=== PATIENT | female | born 1955 | race Caucasian/White ===

== ENCOUNTER 2017-09-25 20:40 | Inpatient (IN) | payer MEDICARE ==
[2017-09-25] MEDS ORDERED: NS 0.9% 1000 ML* 1,000 ML IV ONE (20:51)
[2017-09-25] MEDS ORDERED: LORazepam INJ* 2 MG/ML 1 ML VIAL IV PUSH ONE (20:54)
--- NOTE | 2017-09-25 20:56 | ED ---
Altered Mental Status - HPI Summary HPI Summary: This is a 62 y/o woman found by EMS in [facility] parking lot on the ground, awake but altered. She is unable to give me any history. On my arrival to the room she was leaning to the left and was having some myoclonus or possibly tonic /clonic seizure activity and was unresponsive. When this stopped, she sat up and looked panicky and tried to get off the stretcher. I was able to redirect her and she laid back down. She did directly respond to commands initially but shortly thereafter was able to squeeze my fingers on command. - History Of Current Complaint Stated Complaint: POSSIBLE OVERDOSE Time Seen by Provider: 09/25/17 20:47 Hx From Patient Unobtainable Due To: Altered Mental Status - Allergies/Home Medications Allergies/Adverse Reactions: Allergies Allergy/AdvReac Type Severity Reaction Status Date / Time No Known Allergies Allergy Verified 09/25/17 21:23 Home Medications: Home Medications Unobtainable 09/25/17 [History Confirmed 09/25/17] Review of Systems - ROS Summary Review of Systems Summary: Unable due to altered mental status All Other Systems Reviewed And Are Negative: No Physical Exam Triage Information Reviewed: Yes Vital Signs Reviewed: Yes Completion Of Physical Exam Limited Due To: Altered Mental Status Appearance: Positive: Well-Appearing, Well-Nourished, Thin Skin: Positive: Warm, Skin Color Reflects Adequate Perfusion. Negative: Diaphoretic Head/Face: Positive: Normal Head/Face Inspection Eyes: Positive: Normal, Conjunctiva Clear ENT: Positive: Normal ENT inspection Neck: Positive: Supple, Nontender. Negative: Nuchal Rigidity Respiratory/Lung Sounds: Positive: Clear to Auscultation, Breath Sounds Present. Negative: Rales, Rhonchi Cardiovascular: Positive: Normal, RRR Abdomen Description: Positive: Nontender, No Organomegaly Musculoskeletal: Positive: Normal Neurological: Positive: Unable to Assess Gait. Negative: Facial Droop, Focal Deficit @ Psychiatric: Positive: Patient Uncooperative for Exam - Waka Coma Scale Best Eye Response: 3 - To Speech Best Motor Response: 6 - Obeys Commands Best Verbal Response: 1 - None Coma Scale Total: 10 Diagnostics - Laboratory Result Diagrams: 09/25/17 21:09 09/25/17 21:09 Lab Statement: Any lab studies that have been ordered have been reviewed, and results considered in the medical decision making process. Altered Mental Statu Course/Dx - Course Course Of Treatment: Pt rechecked 30 mins after, now much more coherent. She remembers going to [place] with the friend she is living with. She has a h/o lupus cerebritis with consequent seizure disorder and has been off her anti epileptic meds recently as she ran out and has not had a new doctor here in [place] yet. She also has alcohol on board and there is a question of other substance use, though present presentation is not typical of opioid overdose. - Diagnoses Differential Diagnosis/HQI/PQRI: CVA, Hypoglycemia, Intoxication, Intracranial Bleed, Meningitis, Metabolic Disorder, Postictal State, Seizure Provider Diagnoses: Seizure, Alcohol intoxication Is Visit Related: No - Provider Notifications Discussed Care Of Patient With: Pedro Martinez Time Discussed With Above Provider: 21:45 Instructed by Provider To: Admit As Observation - Critical Care Time Critical Care Time: 30-74 min - Pt presented altered, seizing, required IV antiepileptic therapy and close monitoring. Discharge - Sign-Out/Discharge Documenting (check all that apply): Discharge/Admit/Transfer - Discharge Plan Condition: Good Disposition: ADMITTED TO [facility] Referrals: Marky Morris MD [Primary Care Provider] - - Billing Disposition and Condition Condition: GOOD Disposition: Admitted to [facility]
[2017-09-25] MEDS ORDERED: levETIRAcetam IV* 1,000 MG in NS 0.9% 100 ML* 100 ML IVPB ONE (21:15)
[2017-09-25] MEDS ORDERED: lamoTRIgine TAB(*) 100 MG PO ONE (21:15)
[2017-09-25 21:20] LABS: ABS Basophils 0 10^3/ul (0-0.2); ABS Eosinophils 0.1 10^3/ul (0-0.6); ABS Monocytes 0.4 10^3/ul (0-0.8); ABS Neutrophils 2.7 10^3/ul (1.5-7.7); ABS Nucleated RBC 0 10^3/ul; Eosinophil % 2.5 % (0-6); Hematocrit 30 % (35-47); Hemoglobin 9.9 g/dl (12.0-16.0); Lymphocyte % 37.8 % (25-47); Mean Corpuscular HGB Conc 33 g/dl (31-36); Mean Corpuscular Hemoglobin 27 pg (27-31); Mean Corpuscular Volume 82 fL (80-97); Mean Platelet Volume 8.1 um3 (7.4-10.4); Nucleated Red Blood Cells % 0.1; Platelet Count 151 10^3/ul (150-450); Red Cell Distribution Width 22 % (10.5-15); White Blood Count 5.2 10^3/ul (3.5-10.8)
--- NOTE | 2017-09-25 21:30 | RAD ---
INDICATION: Altered mental status COMPARISON: None TECHNIQUE: Noncontrast axial source images were acquired from the skull base to the vertex. FINDINGS: Ventricles/sulci: The ventricles and cisterns are normal in size and configuration for age. Brain parenchyma: There is no focal parenchymal finding, evidence of intracranial mass, or intracranial mass effect. Intracranial hemorrhage:None. Extra-axial spaces: There are no abnormal extra axial fluid collections or evidence of extra-axial mass. Calvarium: There is no calvarial fracture or other calvarial abnormality. Scalp: There is no evidence of scalp or extracalvarial soft tissue abnormality. Paranasal sinuses/mastoid: The paranasal sinuses and mastoid air cells are clear. Other: None. IMPRESSION: NO ACUTE INTRACRANIAL FINDINGS
[2017-09-25 21:35] LABS: EGFR Non-African American 55.8 (>60)
[2017-09-25] MEDS ORDERED: lamoTRIgine TAB(*) 25 MG PO ONE (22:00)
[2017-09-25] MEDS ORDERED: Nicotine Inhaler* 10 MG AMP INH PRN (23:12)
[2017-09-25] MEDS ORDERED: Albuterol 2.5 MG/3 ML NEB.SOL* (0.083%) INH PRN (23:12)
[2017-09-25] MEDS ORDERED: Ondansetron ODT TAB* 4 MG PO PRN (23:12)
[2017-09-25] MEDS ORDERED: Acetaminophen TAB* 325 MG PO PRN (23:12)
[2017-09-25] MEDS ORDERED: Melatonin 3 MG TAB PO PRN (23:12)
[2017-09-25] MEDS ORDERED: Mouth Piece, Nicotine* 1 EACH CARTRIDGE INH PRN (23:15)
--- NOTE | 2017-09-25 23:15 | HP ---
H&P (Free Text) History and Physical: PCP: Damion Morris MD prior PCP: Raul Disla MD in [place], [place] Date/Time: 09/25/2017 2250 CC: AMS HPI: Mrs Alonso is a 62YO female tangential & poor historian who is new to the area with HX of "lupus cerebritis", seizure disorder, & "demylinating polyneuropathy" who moved to the area 1 month ago from [place]. She also reports "chronic kidney failure" although her renal function tonight is normal. She states she did not eat today and has not been sleeping well. She went to [facility] with her ex-boyfriend with whom she is living and while there became "dizzy" and "passed out". She does not believe she hit her head. EMS was called and reported to ED upon arrival that she had track del rio on her arms. However, none are seen on my exam. She was described by the ED physician as appearing post-ictal and confused upon arrival, but has improved and able to give a history although not well. PMedHx "lupus cerebritis" seizure disorder "demyelinating polyneuropathy" "chronic kidney failure" Ambulatory Orders Unobtainable 09/25/17 Allergies No Known Allergies Allergy (Verified 09/25/17 21:23) PSurgHx B breast augmentation x2 SocHx: 1/2 PPD cigarettes, 1 bottle wine daily, denies recreational drugs; lives with her ex-boyfriend; full code status FamHx: Mother passed in her 70s w/ ESRD, CVA, CAD. Father: unknown ROS: as above, otherwise reviewed and all were negative vitals: Vital Signs Temp 36.8 C 09/25/17 20:56 Pulse 61 09/25/17 22:01 Resp 16 09/25/17 22:01 BP 144/82 09/25/17 21:44 Pulse Ox 97 09/25/17 22:01 Intake & Output 09/24/17 09/25/17 09/25/17 23:59 11:59 23:59 Intake Total 1110 Balance 1110 Weight 65.771 kg Intake: IV Fluids 1110 Constitutional: NAD, normally developed, well-nourished white female appearing much older than her states age HEENM: atraumatic; sclera/conjunctiva: anicteric/clear; hearing: clinically moderately decreased; oropharynx: clear, mucosa moist Neck: soft tissue: non-tender; thyroid: normal Pulmonary: clear to auscultation bilaterally, good aeration, no accessory muscle use CV: BR/RR, normal S1S2, no carotid bruit, no jugular venous distention, 2+ B DP/ PT, no edema Abdominal: soft, non-distended, non-tender, no rebound/guarding/rigidity, normoactive bowel sounds, no hepatosplenomegaly or masses, no costovertebral angle tenderness Musculoskeletal: general: ;grossly intact, non-tender, no cervical spine tenderness Integumental: normal appearance and texuture of exposed skin Psychiatric orientation: AA&O to PPS affect: calm mood: cooperative eye contact: fair content: not readily reliable responses: mildly slowed insight: poor Testing: Lab Results 09/25/17 09/25/17 09/25/17 Range/Units 21:09 21:09 21:09 WBC 5.2 (3.5-10.8) 10^3/ul RBC 3.60 L (4.00-5.40) 10^6/ul Hgb 9.9 L (12.0-16.0) g/dl Hct 30 L (35-47) % MCV 82 (80-97) fL MCH 27 (27-31) pg MCHC 33 (31-36) g/dl RDW 22 H (10.5-15) % Plt Count 151 (150-450) 10^3/ul MPV 8.1 (7.4-10.4) um3 Neut % (Auto) 51.5 (38-83) % Lymph % (Auto) 37.8 (25-47) % Roosevelt % (Auto) 7.5 H (0-7) % Eos % (Auto) 2.5 (0-6) % Baso % (Auto) 0.7 (0-2) % Absolute Neuts (auto) 2.7 (1.5-7.7) 10^3/ul Absolute Lymphs (auto) 2.0 (1.0-4.8) 10^3/ul Absolute Monos (auto) 0.4 (0-0.8) 10^3/ul Absolute Eos (auto) 0.1 (0-0.6) 10^3/ul Absolute Basos (auto) 0 (0-0.2) 10^3/ul Absolute Nucleated RBC 0 10^3/ul Nucleated RBC % 0.1 Sodium 139 (135-145) mmol/L Potassium 4.0 (3.5-5.0) mmol/L Chloride 105 (101-111) mmol/L Carbon Dioxide 25 (22-32) mmol/L Anion Gap 9 (2-11) mmol/L BUN 15 (6-24) mg/dL Creatinine 1.00 H (0.51-0.95) mg/dL Est GFR ( Amer) 67.5 (>60) Est GFR (Non-Af Amer) 55.8 (>60) BUN/Creatinine Ratio 15.0 (8-20) Glucose 94 (70-100) mg/dL Lactic Acid 1.4 (0.5-2.0) mmol/L Calcium 8.8 (8.6-10.3) mg/dL Total Bilirubin 0.20 (0.2-1.0) mg/dL AST 46 H (13-39) U/L ALT 42 (7-52) U/L Alkaline Phosphatase 89 (34-104) U/L Total Protein 6.4 (6.4-8.9) g/dL Albumin 3.6 (3.2-5.2) g/dL Globulin 2.8 (2-4) g/dL Albumin/Globulin Ratio 1.3 (1-3) Acetaminophen < 15 mcg/mL Serum Alcohol 189 H (<10) mg/dL CT brain WO, personally reviewed: IMPRESSION: NO ACUTE INTRACRANIAL FINDINGS CT C-spine WO: ordered, pending Impression: 62F w/ questionable PMedHX presents with a syncopal episode, likely a seizure related to poor sleep, poor oral intake, & alcohol consumption; due to her reported PMedHX & ongoing poor historian ability will observe overnight DIAGNOSIS & PLAN Primary syncope : given levetiracetam 1g IV, lamotrigine 100mg PO, & lorazepam 1mg IV in ED : continue levetriacetam 500mg PO BID until home dose determined : C-spine tonight : EEG in AM : seizure precautions : consider neurology consult in AM to expedite outpatient follow up : request records from PCP in [place] acute intoxication : tincture of time : [place] protocol Secondary multiple unusual diagnoses some of which are refuted on labs tonight : obtain Admission Rational: observation for syncope, suspect seizure DVTp: SCDs Code Status: full
[2017-09-25] MEDS ORDERED: Thiamine IV* 100 MG/ML 2 ML VIAL IM ONE (23:21)
[2017-09-26] MEDS: NS 0.9% 1000 ML* 1,000 ML IV SCH ×2 (02:00→10:26)
[2017-09-26] MEDS: LORazepam INJ* 2 MG/ML 1 ML VIAL IV PUSH SCH ×5 (02:00→18:07)
[2017-09-26] MEDS: LORazepam TAB(*) 1 MG PO SCH ×2 (02:02→07:24)
[2017-09-26 03:12] LABS: Urine Appearance Clear; Urine Blood Negative (Negative); Urine Color Straw; Urine Ketones Negative (Negative); Urine Protein 1+(30 mg/dL) (Negative); Urine Red Blood Cell Trace(0-2/hpf) (Absent); Urine Specific Gravity 1.005 (1.010-1.030); Urine Urobilinogen Negative (Negative); Urine White Blood Cell Trace(0-5/hpf) (Absent)
[2017-09-26] MEDS: Omeprazole CAP* 20 MG PO SCH (05:35)
[2017-09-26 06:57] LABS: Hematocrit 33 % (35-47); Hemoglobin 10.8 g/dl (12.0-16.0); Mean Corpuscular HGB Conc 33 g/dl (31-36); Mean Corpuscular Hemoglobin 28 pg (27-31); Mean Corpuscular Volume 83 fL (80-97); Mean Platelet Volume 8.5 um3 (7.4-10.4); Platelet Count 151 10^3/ul (150-450); Red Blood Count 3.95 10^6/ul (4.00-5.40); Red Cell Distribution Width 22 % (10.5-15); White Blood Count 3.5 10^3/ul (3.5-10.8)
[2017-09-26] MEDS: Folic Acid TAB* 1 MG PO SCH (07:23)
[2017-09-26] MEDS: Docusate CAP* 100 MG PO SCH ×2 (07:23→20:47)
[2017-09-26] MEDS: Multivitamins/Minerals TAB PO SCH (07:23)
[2017-09-26] MEDS: Thiamine TAB* 100 MG TAB PO SCH (07:23)
--- NOTE | 2017-09-26 07:45 | RAD ---
INDICATION: Patient found down in grocery store. COMPARISON: None. TECHNIQUE: Axial source images were acquired with coronal and sagittal reformatting. FINDINGS: The cervical vertebrae are normally aligned. There is no fracture or focal bony lesion. The canal and foramina appear widely patent. The odontoid and the atlantodental interval are normal. The prevertebral soft tissues appear normal. The visualized soft tissue elements of the neck are normal. The visualized lung apices are clear. IMPRESSION: NO ACUTE FRACTURE OR DISLOCATION OF THE CERVICAL SPINE.
[2017-09-26] MEDS ORDERED: levETIRAcetam TAB* 500 MG PO SCH (09:00)
[2017-09-26] MEDS ORDERED: HYDROcodone/ACET. 7.5/325 LIQ* 15 ML UDC PO PRN (09:24)
[2017-09-26] MEDS ORDERED: clonazePAM TAB(*) 1 MG PO ONE (09:25)
[2017-09-26] MEDS: cloNIDine TAB* 0.1 MG PO SCH ×3 (10:26→23:13)
[2017-09-26] MEDS: clonazePAM TAB(*) 1 MG PO SCH ×2 (15:32→20:47)
--- NOTE | 2017-09-26 16:03 | PN ---
Subjective Date of Service: 09/26/17 Interval History: Pt stated that she lives with ex boyfriend and his son. She drinks "not that much". Has h/o seizure disorder and seized 5 time in the past 2 weeks. Reports h/o: IBS, seizure disorder, CKD, Graves, SLE, Sjogren's Had not seen her doctor in [place] x [address] Morris on 08/28/17 Initially requested to be discharged home, but later on after receiving Lortab for pain agreed to stay. Needed 4 mg of Ativan in AM for withdrawal symptoms Denies hallucinations Objective Active Medications: Acetaminophen (Tylenol Tab*) 650 mg PO Q6H PRN PRN Reason: FEVER/PAIN Hydrocodone Bitart/Acetaminophen (Nortab 7.5/325 Liq*) 5 ml PO Q6H PRN PRN Reason: PAIN Last Admin: 09/26/17 09:41 Dose: 5 ml Albuterol (Ventolin 2.5 Mg/3 Ml Neb.Gilma*) 2.5 mg INH Q2H PRN PRN Reason: SOB/WHEEZING Clonazepam (Klonopin Tab(*)) 1 mg PO TID [facility] Last Admin: 09/26/17 15:32 Dose: 1 mg Clonidine HCl (Catapres Tab*) 0.1 mg PO Q6HR [facility] Last Admin: 09/26/17 10:26 Dose: 0.1 mg Device (Nicotine Mouth Piece*) 1 each INH .USE WITH NICOTROL PRN PRN Reason: CRAVING Docusate Sodium (Colace Cap*) 100 mg PO BID [facility] Last Admin: 09/26/17 07:23 Dose: 100 mg Fluoxetine HCl (Prozac Cap*) 40 mg PO BID [facility] Folic Acid (Folvite Tab*) 1 mg PO DAILY [facility] Last Admin: 09/26/17 07:23 Dose: 1 mg Lamotrigine (Lamictal Tab(*)) 200 mg PO BID [facility] Levetiracetam (Keppra Tab*) 500 mg PO TID [facility] Levothyroxine Sodium (Synthroid Tab*) 150 mcg PO 0600 [facility] Lorazepam (Ativan Inj*) 0 - 6 mg IV PUSH .PER [facility] PROTOCOL [facility]; Protocol Last Admin: 09/26/17 11:21 Dose: 2 mg Melatonin (Melatonin) 3 mg PO BEDTIME PRN; Protocol PRN Reason: Sleep Multivitamins/Minerals (Theragran/Minerals Tab*) 1 tab PO DAILY [facility] Last Admin: 09/26/17 07:23 Dose: 1 tab Nicotine (Nicotine Inhaler*) 10 mg INH Q2H PRN PRN Reason: CRAVING Olanzapine (Zyprexa Tab*) 10 mg PO BEDTIME [facility]NA[facility] Omeprazole (Prilosec Cap*) 20 mg PO DAILY@0600 [facility] Last Admin: 09/26/17 05:35 Dose: Not Given Ondansetron HCl (Zofran Odt Tab*) 4 mg PO Q6H PRN PRN Reason: n/v Last Admin: 09/26/17 09:43 Dose: 4 mg Thiamine HCl (Vitamin B-1 Tab*) 100 mg PO DAILY [facility] Last Admin: 09/26/17 07:23 Dose: 100 mg Vital Signs - 8 hr 09/26/17 09/26/17 09/26/17 09:32 09:41 09:42 Temperature Pulse Rate Respiratory 20 20 20 Rate Blood Pressure (mmHg) O2 Sat by Pulse Oximetry 09/26/17 09/26/17 09/26/17 09:50 10:15 11:21 Temperature Pulse Rate 56 Respiratory 16 20 Rate Blood Pressure 199/97 184/98 (mmHg) O2 Sat by Pulse 100 Oximetry 09/26/17 09/26/17 09/26/17 11:22 11:58 12:20 Temperature 97.5 F Pulse Rate 58 Respiratory 16 20 16 Rate Blood Pressure 154/79 (mmHg) O2 Sat by Pulse 99 Oximetry 09/26/17 09/26/17 13:28 15:32 Temperature Pulse Rate 57 Respiratory 16 20 Rate Blood Pressure 126/55 (mmHg) O2 Sat by Pulse 98 Oximetry Oxygen Devices in Use Now: None Appearance: 62 yo F , mildly tremolous, in NAD, aAOx3 Eyes: No Scleral Icterus, PERRLA Ears/Nose/Mouth/Throat: NL Teeth, Lips, Gums, Mucous Membranes Moist Neck: NL Appearance and Movements; NL JVP, Trachea Midline Respiratory: Symmetrical Chest Expansion and Respiratory Effort, Clear to Auscultation Cardiovascular: NL Sounds; No Murmurs; No JVD, RRR Abdominal: NL Sounds; No Tenderness; No Distention Lymphatic: No Cervical Adenopathy Extremities: No Edema, No Clubbing, Cyanosis Skin: No Nodules or Sclerosis, - - ecchymoses on b/l arms and R forehead-as per pt -from seizures/falls Neurological: Alert and Oriented x 3, NL Muscle Strength and Tone, - - tremors in b/l UE's Result Diagrams: 09/26/17 06:24 09/26/17 06:24 Assess/Plan/Problems-Billing Assessment: 62 yo F with h/o reported seizures, ETOH abuse, IBS, SLE presents after a syncopal episode when intoxicated - Patient Problems (1) Seizure Comment: It is unknown if pt's presentation was due to seizure. Could be related simply to ETOH intoxication EEG pending Dr. Ross consulted. Cont home Keppra and Lamictal as well as clonazepam suspect pt is not taking her medications as prescribed (2) Syncope Comment: see above, will also cont telem to r/o arrythmia (3) Hypothyroidism Comment: cont home synthroid check TSH (4) Alcohol withdrawal Comment: Pt is actively withdrawing cont thiamine/folate Ask SW to see pt cont WAM (5) DVT prophylaxis Comment: HSQ Status and Disposition: OBV will be changed to inpatient due to ETOH withdrawal
[2017-09-26] MEDS: HYDROcodone/ACET. 7.5/325 LIQ* 15 ML UDC PO PRN (18:04)
[2017-09-26] MEDS: lamoTRIgine TAB(*) 100 MG PO SCH (20:47)
[2017-09-26] MEDS: levETIRAcetam TAB* 500 MG PO SCH (20:47)
[2017-09-26] MEDS: FLUoxetine CAP* 20 MG PO SCH (20:48)
[2017-09-26] MEDS ORDERED: OLANzapine TAB* 10 MG PO SCH (21:00)
--- NOTE | 2017-09-26 23:24 | CONS ---
CONSULTATION REPORT: DATE OF CONSULT: 09/26/17 PATIENT OF: Dr. Morris and Dr. Coates. HISTORY OF PRESENT ILLNESS: This is a 62-year-old woman asked to evaluate for her seizure disorder which she says is longstanding secondary to a diagnosis of lupus cerebritis and is maintained on Keppra, Lamictal, and Klonopin by her neurologist in [place], although, at one point in the chart it says [place]. The seizures had been poorly controlled for a while, but on this combination of Lamictal, Keppra, and Klonopin, she did not have seizures for 6 months' time. She moved here in the past month, ran out of medicine for a while and had several seizures. She was given her meds again and said that she had a possible seizure with passing out spell in [employer] last night. She apparently had track del rio on her arms as well. The ER physician noted that she was confused upon arrival, but then improved. She is a poor historian and cannot give specific consistent history, but notes that she has lupus cerebritis, seizure disorder, demyelinating polyneuropathy, chronic kidney failure. She is status post 2 breast augmentations. MEDICATIONS: Her meds include: 1. Keppra. 2. Lamictal. 3. Klonopin. Per the patient, but she does not know doses. FAMILY HISTORY: Her mother has end-stage renal disease, CVA, and coronary artery disease. Her father is unknown. SOCIAL HISTORY: She smokes half a pack of cigarettes a day. She denies any alcohol to me other than drinking significantly yesterday, but she apparently said that she drinks a bottle of wine daily. She denied recreational drugs. REVIEW OF SYSTEMS: Negative in all 14 spheres, other than in the HPI. PHYSICAL EXAM: Temperature 97.9, pulse 55, respiratory rate is 18, blood pressure 167/78. She was alert and oriented with fluent speech, but tended to ramble. She could follow 2-step commands. Cranial nerves II through XII were nonfocal. Discs were sharp. Motor exam revealed normal tone and strength. [id number], no flap and gait was not tested tonight. Sensation intact to light touch. Reflexes were 1+. Toes were downgoing. Chest: Clear. Cardiovascular: Regular rate and rhythm. Abdomen: Soft. DIAGNOSTIC STUDIES/LAB DATA: She had a negative CT scan. Her EEG showed no epileptiform potentials. She had a white count of 3.5. Hematocrit of 33, platelet count of 151. Her CMP was normal other than an AST of 46. She had negative UA. Negative tox screen. Her serum alcohol was 189. CT of her C- spine showed no dislocation or acute fracture. ASSESSMENT AND PLAN: Brissa Alonso's story is hard to be sure about. By her account, she has had a chronic seizure disorder and is on multiple meds with fair control. It is unclear whether the episode in [facility] where she passed out was due to alcohol toxicity and exactly the extent of her substance abuse. I would think that most valuable test is getting the outside records from her prior treating neurologist to verify the story. I would be concerned about the use of Klonopin in this patient, who has a substance abuse issue and I would like to see if she was on Klonopin through her neurologist. It is an antiseizure medicine, but has a potential of it being misused. We also should check Keppra, Lamictal levels. This was apparently not done on admission and her levels may reflect in part what she got in the hospital, but may reflect whether she was compliant with her meds at home and she will need a followup level as well. I will be glad to be her neurologist. Once I get further records from the ED, further testing, would like to see if and when her MRI of the brain was done for instance and what the results were. Thank you for sharing her case. [id number]/[facility] #: [id number] JEAN
--- NOTE | 2017-09-27 02:42 | EEG ---
ELECTROENCEPHALOGRAPHY: DATE OF STUDY: 09/26/17 - ROOM #438 DATE OF DICTATION: 09/26/17 PATIENT OF: Dr. Martinez. CLINICAL PROBLEM: This is a 62-year-old woman being evaluated after she was found confused on the floor at [facility]. She was leaning to the left and possibly having abnormal movements. She has a history of lupus cerebritis, seizure disorder, but has been off seizure medicines for a month. She has a history of drug and alcohol abuse and is on the [facility] protocol. MEDICATIONS: Include: 1. Prilosec. 2. Melatonin. 3. Nicotine. 4. Zofran. 5. Ativan. 6. Colace. 7. Keppra. 8. B vitamins. REPORT: With the patient awake, background cerebral activity consists of moderate amplitude 9 Hz rhythm. There is some admixed beta activity and at times some admixed diffuse theta range frequencies. The patient never falls asleep. No activation procedures are performed. No focal abnormalities, major asymmetries of background, or epileptiform potentials are noted. CLINICAL IMPRESSION: This awake EEG shows no major abnormalities, beta activity and the theta activity may be associated with medications the patient is consuming. [id number]/[facility] #: [id number] [facility]
[2017-09-27] MEDS: Omeprazole CAP* 20 MG PO SCH (05:04)
[2017-09-27] MEDS: cloNIDine TAB* 0.1 MG PO SCH (05:04)
[2017-09-27] MEDS ORDERED: Levothyroxine TAB* 150 MCG TAB PO SCH (06:00)
[2017-09-27] MEDS: LORazepam INJ* 2 MG/ML 1 ML VIAL IV PUSH SCH (06:23)
[2017-09-27] MEDS: HYDROcodone/ACET. 7.5/325 LIQ* 15 ML UDC PO PRN (06:34)
[2017-09-27] MEDS ORDERED: cloNIDine TAB* 0.1 MG PO ONE (09:00)
[2017-09-27] MEDS: Folic Acid TAB* 1 MG PO SCH (09:27)
[2017-09-27] MEDS: levETIRAcetam TAB* 500 MG PO SCH (09:28)
[2017-09-27] MEDS: Docusate CAP* 100 MG PO SCH (09:28)
[2017-09-27] MEDS: clonazePAM TAB(*) 1 MG PO SCH (09:28)
[2017-09-27] MEDS: FLUoxetine CAP* 20 MG PO SCH (09:28)
[2017-09-27] MEDS: Thiamine TAB* 100 MG TAB PO SCH (09:28)
[2017-09-27] MEDS: Multivitamins/Minerals TAB PO SCH (09:29)
[2017-09-27] MEDS: lamoTRIgine TAB(*) 100 MG PO SCH (09:29)
[2017-09-27] MEDS ORDERED: cloNIDine TAB* 0.1 MG PO SCH (12:00)
[2017-09-27 12:34] VITALS: BP 143/52
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
== END 2017-09-27 13:36 | disposition home or self-care (01) | DRG 897 ==
LOC: ED 20:40 → MEDTELE 09-26 → OBSVTOIN 09-26 14:57
PROVIDERS: ADMIT Hospitalist; ATTEND Internal Medicine
PROC: 4A00X4Z Measurement of Central Nervous Electrical Activity, External Approach (ICD-10-PCS; principal; 2017-09-26)
DX: F10.239 Alcohol dependence with withdrawal, unspecified (principal); G61.81 Chronic inflammatory demyelinating polyneuritis; F10.229 Alcohol dependence with intoxication, unspecified; R40.2362 Coma scale, best motor response, obeys commands, at arrival to emergency department; R40.2242 Coma scale, best verbal response, confused conversation, at arrival to emergency department; G40.909 Epilepsy, unspecified, not intractable, without status epilepticus; N18.9 Chronic kidney disease, unspecified; F31.9 Bipolar disorder, unspecified; I10 Essential (primary) hypertension; F41.9 Anxiety disorder, unspecified; M32.9 Systemic lupus erythematosus, unspecified; S00.83XA Contusion of other part of head, initial encounter; S40.022A Contusion of left upper arm, initial encounter; S40.021A Contusion of right upper arm, initial encounter; Y90.6 Blood alcohol level of 120-199 mg/100 ml; D64.9 Anemia, unspecified; E03.9 Hypothyroidism, unspecified; Z72.89 Other problems related to lifestyle; F17.210 Nicotine dependence, cigarettes, uncomplicated; Z82.3 Family history of stroke; Z84.2 Family history of other diseases of the genitourinary system; Z82.49 Family history of ischemic heart disease and other diseases of the circulatory system
CPT/HCPCS: 36415; 70450; 72125; 80048; 80053; 80307; 80320; 80329; 81003; 81015; 83605; 84443; 85025; 85027; 87086; 93005; 95819; 99283; 99406; A9270-GY; G0378; G0480; J2060; J3411

== ENCOUNTER 2017-10-04 16:11 | Emergency (ER) | payer MEDICARE ==
[2017-10-04 17:36] LABS: ABS Basophils 0 10^3/ul (0-0.2); ABS Eosinophils 0.1 10^3/ul (0-0.6); ABS Lymphocytes 1.4 10^3/ul (1.0-4.8); ABS Monocytes 0.4 10^3/ul (0-0.8); ABS Neutrophils 1.7 10^3/ul (1.5-7.7); ABS Nucleated RBC 0 10^3/ul; Eosinophil % 2.5 % (0-6); Hematocrit 31 % (35-47); Hemoglobin 10.3 g/dl (12.0-16.0); Lymphocyte % 37.4 % (25-47); Mean Corpuscular HGB Conc 33 g/dl (31-36); Mean Corpuscular Hemoglobin 28 pg (27-31); Mean Corpuscular Volume 83 fL (80-97); Mean Platelet Volume 7.9 um3 (7.4-10.4); Nucleated Red Blood Cells % 0.1; Platelet Count 196 10^3/ul (150-450); Red Blood Count 3.73 10^6/ul (4.00-5.40); Red Cell Distribution Width 23 % (10.5-15); White Blood Count 3.6 10^3/ul (3.5-10.8)
[2017-10-04 17:44] LABS: EGFR Non-African American 57.8 (>60)
--- NOTE | 2017-10-04 17:50 | ED ---
Psychiatric Complaint - HPI Summary HPI Summary: This patient is a 62 year old F presenting to [facility] with a chief complaint of SI since this afternoon. She endorses she has SI with plan to jump off of a maria [place]. Pt endorses abd pain, depression, endorses she had too much to drink. Pt denies taking drugs, PMHx depression, bipolar disorder. - History Of Current Complaint Chief Complaint: EDMentalHealth Time Seen by Provider: 10/04/17 16:34 Hx Obtained From: Patient Onset/Duration: Lasting Hours, Still Present Timing: Constant Severity Initially: Moderate Severity Currently: Moderate Character: Depressed, Lethargic Aggravating Factor(s): Alcohol Use Alleviating Factor(s): Nothing Associated Signs And Symptoms: Positive: Confused Related History: Positive For: Prior Psychiatric Issues Has Suicidal: Reports: Thoughts, With A Plan - "To jump off of a maria [place]" Has Homicidal: Denies: Thoughts Ingestion History: Type/Name Of Drug - EtOH - Allergies/Home Medications Allergies/Adverse Reactions: Allergies Allergy/AdvReac Type Severity Reaction Status Date / Time No Known Allergies Allergy Verified 09/25/17 21:23 PMH/Surg Hx/FS Hx/Imm Hx Endocrine/Hematology History: Reports: Hx Systemic Lupus Erythematosus History: Reports: Hx Chronic Renal Failure - labs do not show Sensory History: Reports: Hx Contacts or Glasses Denies: Hx Hearing Aid Opthamlomology History: Reports: Hx Contacts or Glasses EENT History: Denies: Hx Deafness Neurological History: Reports: 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, Hx Seizures Psychiatric History: Reports: Hx Anxiety, Hx Depression, Hx Bipolar Disorder, Hx Substance Abuse, Other Psychiatric Issues/Disorders - SI - Surgical History Surgery Procedure, Year, and Place: breast augmentation Infectious Disease History: Denies: Traveled Outside the US in Last 30 Days - Family History Known Family History: Negative: Blood Disorder - Social History Alcohol Use: BInge Drinker Substance Use Type: Reports: None Substance Use Comment - Amount & Last Used: pt unable to answer at this time Smoking Status (MU): Heavy Every Day Tobacco Smoker Review of Systems Negative: Fever Positive: Abdominal Pain Positive: Depressed, Other - SI with a plan All Other Systems Reviewed And Are Negative: Yes Physical Exam - Summary Physical Exam Summary: Appearance: no pain distress, lethargic Skin: warm, dry, reflects adequate perfusion Head/face: normal Eyes: EOMI, ASHLEY ENT: normal Neck: supple, non-tender Respiratory: CTA, breath sounds present Cardiovascular: RRR, pulses symmetrical Abdomen: non-tender, soft Bowel: present Musculoskeletal: normal, strength/ROM intact Neuro: normal, sensory motor intact, A&Ox3 Triage Information Reviewed: Yes Vital Signs On Initial Exam: Initial Vitals Temp 99.3 F 10/04/17 16:49 Vital Signs Reviewed: Yes Diagnostics - Vital Signs Vital Signs Temp 10/04/17 16:49 99.3 F - Laboratory Lab Results: Lab Results 10/04/17 10/04/17 Range/Units 17:20 17:20 WBC 3.6 (3.5-10.8) 10^3/ul RBC 3.73 L (4.00-5.40) 10^6/ul Hgb 10.3 L (12.0-16.0) g/dl Hct 31 L (35-47) % MCV 83 (80-97) fL MCH 28 (27-31) pg MCHC 33 (31-36) g/dl RDW 23 H (10.5-15) % Plt Count 196 (150-450) 10^3/ul MPV 7.9 (7.4-10.4) um3 Neut % (Auto) 47.4 (38-83) % Lymph % (Auto) 37.4 (25-47) % [place] % (Auto) 11.7 H (0-7) % Eos % (Auto) 2.5 (0-6) % Baso % (Auto) 1.0 (0-2) % Absolute Neuts (auto) 1.7 (1.5-7.7) 10^3/ul Absolute Lymphs (auto) 1.4 (1.0-4.8) 10^3/ul Absolute Monos (auto) 0.4 (0-0.8) 10^3/ul Absolute Eos (auto) 0.1 (0-0.6) 10^3/ul Absolute Basos (auto) 0 (0-0.2) 10^3/ul Absolute Nucleated RBC 0 10^3/ul Nucleated RBC % 0.1 Sodium 140 (135-145) mmol/L Potassium 4.2 (3.5-5.0) mmol/L Chloride 108 (101-111) mmol/L Carbon Dioxide 21 L (22-32) mmol/L Anion Gap 11 (2-11) mmol/L BUN 32 H (6-24) mg/dL Creatinine 0.97 H (0.51-0.95) mg/dL Est GFR ( Amer) 70.0 (>60) Est GFR (Non-Af Amer) 57.8 (>60) BUN/Creatinine Ratio 33.0 H (8-20) Glucose 102 H (70-100) mg/dL Calcium 8.8 (8.6-10.3) mg/dL Total Bilirubin 0.20 (0.2-1.0) mg/dL AST 33 (13-39) U/L ALT 22 (7-52) U/L Alkaline Phosphatase 88 (34-104) U/L Total Protein 6.5 (6.4-8.9) g/dL Albumin 3.6 (3.2-5.2) g/dL Globulin 2.9 (2-4) g/dL Albumin/Globulin Ratio 1.2 (1-3) TSH Pending Salicylates Pending Acetaminophen Pending Serum Alcohol Pending Result Diagrams: 10/04/17 17:20 10/04/17 17:20 Lab Statement: Any lab studies that have been ordered have been reviewed, and results considered in the medical decision making process. Course/Dx - Course Course Of Treatment: A 62-year-old F presents to the ED with a CC of SI with a plan. (+) depression, SI, abd pain. (-) taking ilicit drugs. PMHx depression, bipolar disorder. In the ED course, pt was given a nicotine inhaler and benadryl. - Differential Dx/Clinical Impression Provider Diagnosis: Alcohol intoxication, Depression Discharge - Sign-Out/Discharge Documenting (check all that apply): Sign-Out Patient Signing out patient TO: Barbra Segura - pending MHE - Discharge Plan Referrals: Marky Morris MD [Primary Care Provider] -
[2017-10-04] MEDS ORDERED: diPHENhydraMINE PO* 50 MG ONE (17:51)
[2017-10-04 18:14] LABS: Urine Appearance Clear; Urine Blood Negative (Negative); Urine Color Straw; Urine Ketones Negative (Negative); Urine Protein 1+(30 mg/dL) (Negative); Urine Red Blood Cell Absent (Absent); Urine Specific Gravity 1.009 (1.010-1.030); Urine Urobilinogen Negative (Negative); Urine White Blood Cell Trace(0-5/hpf) (Absent)
[2017-10-04] MEDS ORDERED: Mouth Piece, Nicotine* 1 EACH CARTRIDGE ONE (18:31)
[2017-10-04] MEDS ORDERED: Nicotine Inhaler* 10 MG AMP ONE (18:31)
[2017-10-04] MEDS ORDERED: Nicotine Inhaler* 10 MG AMP INH ONE (18:33)
[2017-10-04] MEDS ORDERED: Mouth Piece, Nicotine* 1 EACH CARTRIDGE INH ONE (18:33)
[2017-10-05] MEDS ORDERED: LORazepam TAB(*) 1 MG PO ONE (05:44)
[2017-10-05] MEDS ORDERED: Diphenoxylat/Atrop 2.5-0.025M* 1 TAB PO ONE (05:45)
[2017-10-05] MEDS ORDERED: cloNIDine TAB* 0.1 MG PO SCH (06:00)
--- NOTE | 2017-10-05 06:42 | ED ---
Progress - Progress Note Progress Note: 62yo F with hx lupus, ETOH abuse seen and examined in Flex unit after presenting for suicidal ideation when intoxicated. Pt moved here recently from [place], states she has had multiple rehab admissions. States she wants to quit alcohol. Had labs done for lupus recently that are normal, indicating no lupus flare. Pt denies physical complaints and is fully sober, calm and coherent when I speak with her. PE Pt alert, NAD HEENT: neg Neck supple Cor S1 S2 Lungs clear Abd benign Extrem: no deformities Neuro: alert O x 3, moves all extremities well, facial symmetry, no focal deficit. GCS 15 - Consult/PCP Time Called: 19:44 Course/Dx - Course Course Of Treatment: A 62-year-old F presents to the ED with a CC of SI with a plan. (+) depression, SI, abd pain. (-) taking ilicit drugs. PMHx depression, bipolar disorder. In the ED course, pt was given a nicotine inhaler and benadryl. 10/05/17: 0630: Faina FIELDS relayed that per Dr. Moreira, pt may be DC' d with dx polysubstance abuse, and given info about outpt resources for mental health and alcohol misuse. - Diagnoses Provider Diagnoses: Alcohol intoxication, Depression, Polysubstance abuse, Anemia Discharge - Sign-Out/Discharge Documenting (check all that apply): Patient Departure - home, Receiving Sign-Out Receiving patient FROM: Dagoberto Gaona - 2200 10/04/17 - Discharge Plan Condition: Stable Disposition: HOME Referrals: Marky Morris MD [Primary Care Provider] - 2 Days - Billing Disposition and Condition Condition: STABLE Disposition: Home
[2017-10-05 08:42] VITALS: BP 166/83
[2017-10-05] MEDS ORDERED: lamoTRIgine TAB(*) 100 MG PO SCH (09:00)
[2017-10-05] MEDS ORDERED: clonazePAM TAB(*) 1 MG PO SCH (09:00)
[2017-10-05] MEDS ORDERED: Levothyroxine TAB* 150 MCG TAB PO SCH (09:00)
[2017-10-05] MEDS ORDERED: Folic Acid TAB* 1 MG PO SCH (09:00)
[2017-10-05] MEDS ORDERED: levETIRAcetam TAB* 500 MG PO SCH (09:00)
[2017-10-05] MEDS ORDERED: Thiamine TAB* 100 MG TAB PO SCH (09:00)
[2017-10-05] MEDS ORDERED: FLUoxetine CAP* 20 MG PO SCH (09:00)
[2017-10-05] MEDS ORDERED: OLANzapine TAB* 10 MG PO SCH (21:00)
== END 2017-10-05 09:04 | disposition home or self-care (01) ==
LOC: ED 16:11
DX: F10.129 Alcohol abuse with intoxication, unspecified (principal); Y90.9 Presence of alcohol in blood, level not specified; F19.10 Other psychoactive substance abuse, uncomplicated; F32.9 Major depressive disorder, single episode, unspecified; D64.9 Anemia, unspecified
CPT/HCPCS: 36415; 80053; 80307; 80320; 80329; 81003; 81015; 84443; 85025; 85060; 87086; 99285; A9270-GY; G0480

== ENCOUNTER 2017-10-10 13:05 | Emergency (ER) | payer MEDICARE ==
--- NOTE | 2017-10-10 13:46 | ED ---
Psychiatric Complaint - HPI Summary HPI Summary: Pt AISHWARYA is a 62 y/o F p/w psychiatric complaint. She states that she cannot stop drinking or find help for it. She admits to SI without a plan but denies HI. Assoc. Sx: Decreased Appetite, depressed. - History Of Current Complaint Chief Complaint: EDMentalHealth Time Seen by Provider: 10/10/17 13:31 Hx Obtained From: Patient Onset/Duration: Gradual Onset, Lasting Weeks, Still Present Timing: Constant Character: Depressed Aggravating Factor(s): Recent Stress, Alcohol Use Alleviating Factor(s): Nothing Has Suicidal: Reports: Thoughts. Denies: With A Plan Has Homicidal: Denies: Thoughts - Allergies/Home Medications Allergies/Adverse Reactions: Allergies Allergy/AdvReac Type Severity Reaction Status Date / Time lithium Allergy Anaphylatic Verified 10/10/17 13:30 Shock prednisone Allergy GI Upset Verified 10/10/17 13:30 Sulfa (Sulfonamide Allergy Anaphylatic Verified 10/10/17 13:30 Antibiotics) Shock PMH/Surg Hx/FS Hx/Imm Hx Endocrine/Hematology History: Reports: Hx Systemic Lupus Erythematosus History: Reports: Hx Chronic Renal Failure - labs do not show Sensory History: Reports: Hx Contacts or Glasses Denies: Hx Deafness, Hx Hearing Aid Opthamlomology History: Reports: Hx Contacts or Glasses Neurological History: Reports: 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, Hx Seizures Psychiatric History: Reports: Hx Anxiety, Hx Depression, Hx Bipolar Disorder, Hx Substance Abuse, Other Psychiatric Issues/Disorders - SI Denies: Hx Eating Disorder, Hx of Violent Episodes Against Others - Surgical History Surgery Procedure, Year, and Place: breast augmentation Infectious Disease History: No Infectious Disease History: Denies: Traveled Outside the US in Last 30 Days - Family History Known Family History: Negative: Blood Disorder - Social History Occupation: Unemployed Lives: Alone Alcohol Use: BInge Drinker Substance Use Type: Reports: None Substance Use Comment - Amount & Last Used: pt unable to answer at this time Smoking Status (MU): Heavy Every Day Tobacco Smoker Review of Systems Negative: Fever Positive: Depressed All Other Systems Reviewed And Are Negative: Yes Physical Exam - Summary Physical Exam Summary: Constitutional: Well-developed, Well-nourished, Alert. (-) Distressed Skin: Warm, Dry HENT: Normocephalic; Atraumatic Eyes: Conjunctiva normal Neck: Musculoskeletal ROM normal neck. (-) JVD, (-) Stridor, (-) Tracheal deviation Cardio: Rhythm regular, rate normal, Heart sounds normal; Intact distal pulses; The pedal pulses are 2+ and symmetric. Radial pulses are 2+ and symmetric. (-) Murmur Pulmonary/Chest wall: Effort normal. (-) Respiratory distress, (-) Wheezes, (-) Rales Abd: Soft, (-), epigastric tenderness, (-) Distension, (-) Guarding, (-) Rebound Musculoskeletal: (-) Edema Lymph: (-) Cervical adenopathy Neuro: Alert, Oriented x3 Psych: Mood and affect Normal Triage Information Reviewed: Yes Vital Signs On Initial Exam: Initial Vitals Temp Pulse Resp BP Pulse Ox 98.1 F 90 16 141/93 98 10/10/17 13:25 10/10/17 13:25 10/10/17 13:25 10/10/17 13:25 10/10/17 13:25 Vital Signs Reviewed: Yes Diagnostics - Vital Signs Vital Signs Temp Pulse Resp BP Pulse Ox 10/10/17 13:25 98.1 F 90 16 141/93 98 - Laboratory Result Diagrams: 10/10/17 13:48 10/10/17 13:48 Lab Statement: Any lab studies that have been ordered have been reviewed, and results considered in the medical decision making process. Course/Dx - Course Course Of Treatment: She made Suicidal statements to the Triage nurse. The patient was discharged by the psychiatry service - Differential Dx/Clinical Impression Provider Diagnosis: Alcoholism Discharge - Sign-Out/Discharge Documenting (check all that apply): Patient Departure - Discharge Plan Condition: Good Disposition: HOME Patient Education Materials: Abuse of Alcohol (ED) Referrals: [facility] [Outside] (Please go to [facility] during walk-in hours M-F after 8:30am - 4:30 as soon as possible) Marky Morris MD [Primary Care Provider] - - Billing Disposition and Condition Condition: GOOD Disposition: Home
[2017-10-10 13:56] LABS: ABS Basophils 0 10^3/ul (0-0.2); ABS Eosinophils 0.1 10^3/ul (0-0.6); ABS Lymphocytes 1.5 10^3/ul (1.0-4.8); ABS Monocytes 0.3 10^3/ul (0-0.8); ABS Neutrophils 2.9 10^3/ul (1.5-7.7); ABS Nucleated RBC 0 10^3/ul; Eosinophil % 1.9 % (0-6); Hematocrit 32 % (35-47); Hemoglobin 10.6 g/dl (12.0-16.0); Lymphocyte % 30.5 % (25-47); Mean Corpuscular HGB Conc 33 g/dl (31-36); Mean Corpuscular Hemoglobin 28 pg (27-31); Mean Corpuscular Volume 83 fL (80-97); Mean Platelet Volume 7.6 um3 (7.4-10.4); Nucleated Red Blood Cells % 0.1; Platelet Count 209 10^3/ul (150-450); Red Blood Count 3.87 10^6/ul (4.00-5.40); Red Cell Distribution Width 22 % (10.5-15); White Blood Count 4.8 10^3/ul (3.5-10.8)
[2017-10-10 14:28] LABS: EGFR Non-African American 40.9 (>60)
[2017-10-10] MEDS ORDERED: Al Hydrox/Mg Hydrox/Simet LIQ* 30 ML UDC PO ONE (14:52)
[2017-10-10] MEDS ORDERED: Lidocaine 2% VISCOUS* 15 ML UDC PO ONE (14:52)
[2017-10-10] MEDS ORDERED: traMADol TAB* 50 MG PO ONE (15:53)
[2017-10-10] MEDS ORDERED: Diazepam TAB(*) 5 MG PO ONE (15:59)
[2017-10-10 18:40] VITALS: BP 141/65
== END 2017-10-10 18:33 | disposition home or self-care (01) ==
LOC: ED 13:05
DX: F10.20 Alcohol dependence, uncomplicated (principal); R45.851 Suicidal ideations; Z88.2 Allergy status to sulfonamides; Z88.8 Allergy status to other drugs, medicaments and biological substances; F17.200 Nicotine dependence, unspecified, uncomplicated
CPT/HCPCS: 36415; 80053; 80320; 80329; 84443; 85025; 99284; A9270-GY; G0480

== ENCOUNTER 2017-10-11 14:53 | Emergency (ER) | payer MEDICARE ==
--- NOTE | 2017-10-11 17:44 | ED ---
Substance Abuse/Use - HPI Summary HPI Summary: This is Eliana malone, documenting for attending, Troy Trejo MD. This patient is a 62year old F BIBA to [facility] for alcohol detoxification. Patient was seen in the ED yesterday for a similar complaint and was discharged and instructed to follow up with [facility]. She states she went to [facility] but was told to come back to the ED to detox. She states that before comes back she had two drinks to prevent detox prior to arrival. She states she will not be admitted to [facility] program until detox is complete and she is regularly taking her seizure medication. Pt reports current abdominal pain and tremors. - History Of Current Complaint Chief Complaint: EDDetoxRequest Stated Complaint: GEN ILLNESS/ALCOHOL DETOX Time Seen by Provider: 10/11/17 15:00 Hx Obtained From: Patient Onset/Duration of Drug/ETOH Abuse: Years Ingestion History: Approximate Time Of Ingestion - hours before arrival Timing Of Abuse: Daily Associated Signs And Symptoms: Tremulous Related Hx: Prior Drug Abuse Counseling/Admission - Allergies/Home Medications Allergies/Adverse Reactions: Allergies Allergy/AdvReac Type Severity Reaction Status Date / Time lithium Allergy Anaphylatic Verified 10/10/17 13:30 Shock prednisone Allergy GI Upset Verified 10/10/17 13:30 Sulfa (Sulfonamide Allergy Anaphylatic Verified 10/10/17 13:30 Antibiotics) Shock PMH/Surg Hx/FS Hx/Imm Hx Endocrine/Hematology History: Reports: Hx Systemic Lupus Erythematosus History: Reports: Hx Chronic Renal Failure - labs do not show Sensory History: Reports: Hx Contacts or Glasses Denies: Hx Deafness, Hx Hearing Aid Opthamlomology History: Reports: Hx Contacts or Glasses Neurological History: Reports: 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, Hx Seizures Psychiatric History: Reports: Hx Anxiety, Hx Depression, Hx Bipolar Disorder, Hx Substance Abuse, Other Psychiatric Issues/Disorders - SI Denies: Hx Eating Disorder, Hx of Violent Episodes Against Others - Surgical History Surgery Procedure, Year, and Place: breast augmentation Infectious Disease History: No Infectious Disease History: Denies: Traveled Outside the US in Last 30 Days - Family History Known Family History: Negative: Blood Disorder - Social History Alcohol Use: Daily Alcohol Amount: "alot" Substance Use Type: Reports: None Substance Use Comment - Amount & Last Used: pt unable to answer at this time Smoking Status (MU): Heavy Every Day Tobacco Smoker Review of Systems Negative: Fever, Chills Negative: Erythema Negative: Sore Throat Negative: Chest Pain Negative: Shortness Of Breath, Cough Positive: Abdominal Pain. Negative: Vomiting, Nausea Negative: dysuria, hematuria Negative: Myalgia, Edema Neurological: Negative - dizziness, Other - tremors Negative: Headache All Other Systems Reviewed And Are Negative: Yes Physical Exam - Summary Physical Exam Summary: Constitutional: Well-developed, Well-nourished, Alert. (-) Distressed Skin: Warm, Dry HENT: Normocephalic; Atraumatic Eyes: Conjunctiva normal Neck: Musculoskeletal ROM normal neck. (-) JVD, (-) Stridor, (-) Tracheal deviation Cardio: Rhythm regular, rate normal, Heart sounds normal; Intact distal pulses; The pedal pulses are 2+ and symmetric. Radial pulses are 2+ and symmetric. (-) Murmur. Hypertensive on monitor 170 systolic Pulmonary/Chest wall: Effort normal. (-) Respiratory distress, (-) Wheezes, (-) Rales Abd: Soft, (-), epigastric tenderness, (-) Distension, (-) Guarding, (-) Rebound Musculoskeletal: (-) Edema Lymph: (-) Cervical adenopathy Neuro: Alert, Oriented x3, tremulous Psych: Anxious appearing Triage Information Reviewed: Yes Vital Signs On Initial Exam: Initial Vitals Temp Pulse Resp BP Pulse Ox 98.9 F 64 16 141/83 97 10/11/17 14:53 10/11/17 14:53 10/11/17 14:53 10/11/17 14:53 10/11/17 14:53 Vital Signs Reviewed: Yes Diagnostics - Vital Signs Vital Signs Temp Pulse Resp BP Pulse Ox 10/11/17 17:16 20 161/92 10/11/17 17:15 17 10/11/17 14:53 98.9 F 64 16 141/83 97 - Laboratory Result Diagrams: 10/11/17 19:08 10/11/17 19:08 Lab Statement: Any lab studies that have been ordered have been reviewed, and results considered in the medical decision making process. - EKG 1951 Cardiac Rate: Bradycardia - 52 BPM EKG Rhythm: Sinus Bradycardia Course/Dx - Course Course Of Treatment: 62year old F BIBA to [facility] for alcohol detoxification. Patient was seen in the ED yesterday for a similar complaint and was discharged and instructed to follow up with [facility]. She states she went to [facility] but was told to come back to the ED to detox. She states that before comes back she had two drinks to prevent detox prior to arrival. She states she will not be admitted to [facility] program until detox is complete and she is regularly taking her seizure medication. Pt reports current abdominal pain and tremors. Patient is tremulous and hypertensive upon exam. Systoic BP is 170 on monitor. EKG reveals bardycardia. Dr. Martinez is consulted and recomends IV benzos while in ED and to continue treament with PO meds. Patient is signed out to Dr. Pacheco pending therapeutic resolution. - Diagnoses Provider Diagnoses: Alcohol withdrawal - Physician Notifications Discussed Care Of Patient With: Pedro Martinez - hospitalist Time Discussed With Above Provider: 19:19 Instructed by Provider To: Other - is aware pt is being worked up for etoh withdrawal recomends IV benzos, with transition plan of care to PO meds Discharge - Sign-Out/Discharge Documenting (check all that apply): Sign-Out Patient Signing out patient TO: Sydnee Pacheco - pending theraputic response - Discharge Plan Condition: Stable Referrals: Marky Morris MD [Primary Care Provider] -
[2017-10-11] MEDS ORDERED: LORazepam INJ* 2 MG/ML 1 ML VIAL IV ONE (19:19)
[2017-10-11 19:23] LABS: ABS Basophils 0 10^3/ul (0-0.2); ABS Eosinophils 0.1 10^3/ul (0-0.6); ABS Lymphocytes 1.7 10^3/ul (1.0-4.8); ABS Monocytes 0.3 10^3/ul (0-0.8); ABS Neutrophils 2.4 10^3/ul (1.5-7.7); ABS Nucleated RBC 0 10^3/ul; Eosinophil % 2.7 % (0-6); Hematocrit 34 % (35-47); Hemoglobin 11.4 g/dl (12.0-16.0); Lymphocyte % 37.2 % (25-47); Mean Corpuscular HGB Conc 34 g/dl (31-36); Mean Corpuscular Hemoglobin 28 pg (27-31); Mean Corpuscular Volume 83 fL (80-97); Mean Platelet Volume 8.1 um3 (7.4-10.4); Nucleated Red Blood Cells % 0.1; Platelet Count 220 10^3/ul (150-450); Red Blood Count 4.11 10^6/ul (4.00-5.40); Red Cell Distribution Width 23 % (10.5-15); White Blood Count 4.5 10^3/ul (3.5-10.8)
[2017-10-11 19:31] LABS: Urine Appearance Cloudy; Urine Blood Negative (Negative); Urine Color Yellow; Urine Ketones Negative (Negative); Urine Protein 2+(100 mg/dL) (Negative); Urine Red Blood Cell 1+(3-5/hpf) (Absent); Urine Specific Gravity 1.015 (1.010-1.030); Urine Urobilinogen Negative (Negative); Urine White Blood Cell 2+(11-20/hpf) (Absent)
[2017-10-11 19:34] LABS: EGFR Non-African American 56.5 (>60)
--- NOTE | 2017-10-11 20:20 | ED ---
Progress - EKG/XRAY/CT EKG: rhythm - Sinus bradycardia 52 BPM, LVH Comments: nl ST, no ectopy, time taken: 1952 Re-Evaluation - Re-Evaluation First Eval Re-Evaluation Time: 22:06 Change: Improved Comment: Pts BP improved with medication in the ER, pt has clonidine at home, is not showing any signs of withdrawal, Rx Librium. Course/Dx - Diagnoses Provider Diagnoses: Alcohol dependence - Provider Notifications Time Discussed With Above Provider: 19:19 Instructed by Provider To: Other - is aware pt is being worked up for etoh withdrawal recomends IV benzos, with transition plan of care to PO meds Discharge - Sign-Out/Discharge Documenting (check all that apply): Patient Departure - discharge - Discharge Plan Condition: Stable Disposition: HOME Patient Education Materials: Alcohol Dependence (ED) Referrals: Marky Morris MD [Primary Care Provider] - Additional Instructions: Return to the emergency department for any new or worsening symptoms. Follow up with Crispin - Billing Disposition and Condition Condition: STABLE Disposition: Home
[2017-10-11] MEDS ORDERED: cloNIDine TAB* 0.1 MG PO ONE (20:22)
[2017-10-11] MEDS ORDERED: Pantoprazole IV* 40 MG IV ONE (21:21)
[2017-10-11] MEDS ORDERED: Al Hydrox/Mg Hydrox/Simet LIQ* 30 ML UDC PO ONE (21:22)
[2017-10-11] MEDS ORDERED: Lidocaine 2% VISCOUS* 15 ML UDC PO ONE (21:22)
[2017-10-11 21:24] VITALS: BP 164/92
== END 2017-10-11 22:20 | disposition home or self-care (01) ==
LOC: ED 14:53
DX: F10.239 Alcohol dependence with withdrawal, unspecified (principal); R00.1 Bradycardia, unspecified; F17.200 Nicotine dependence, unspecified, uncomplicated; Z88.2 Allergy status to sulfonamides; Z88.8 Allergy status to other drugs, medicaments and biological substances
CPT/HCPCS: 36415; 80053; 80307; 80320; 80329; 81003; 81015; 82150; 83690; 84443; 85025; 87086; 93005; 96374; 96375; 99284; A9270-GY; G0480; J2060

== ENCOUNTER 2017-10-29 18:28 | Inpatient (IN) | payer MEDICARE ==
[2017-10-29 19:30] LABS: ABS Basophils 0.1 10^3/ul (0-0.2); ABS Eosinophils 0.3 10^3/ul (0-0.6); ABS Lymphocytes 2.1 10^3/ul (1.0-4.8); ABS Monocytes 0.5 10^3/ul (0-0.8); ABS Neutrophils 1.7 10^3/ul (1.5-7.7); ABS Nucleated RBC 0 10^3/ul; Eosinophil % 6.3 % (0-6); Hematocrit 30 % (35-47); Hemoglobin 9.9 g/dl (12.0-16.0); Lymphocyte % 44.5 % (25-47); Mean Corpuscular HGB Conc 33 g/dl (31-36); Mean Corpuscular Hemoglobin 28 pg (27-31); Mean Corpuscular Volume 84 fL (80-97); Mean Platelet Volume 7.6 um3 (7.4-10.4); Nucleated Red Blood Cells % 0; Platelet Count 184 10^3/ul (150-450); Red Blood Count 3.57 10^6/ul (4.00-5.40); Red Cell Distribution Width 21 % (10.5-15); White Blood Count 4.6 10^3/ul (3.5-10.8)
[2017-10-29 19:46] LABS: EGFR Non-African American 58.5 (>60)
--- NOTE | 2017-10-29 19:51 | ED ---
Psychiatric Complaint - HPI Summary HPI Summary: This is scribe Lebronshakeel Osman documenting for attending Efren Carranza MD. A 62 y/o female DANIELE (9.41) presents to ED s/p SI. As per triage, "941 Pt drunk downtown and stating to police that she wants to kill herself but has no plan. States she drank a bottle of vodka". As per nursing staff, the patient has SI without plan. Patient tried to kill herself with alcohol. According to the patient, she wants the MD to make her better. She wants him to wave a magic wand to make her be better. She noted that she does not want to live the way that she does and she is fed up with life. I, Dr. Carranza personally performed the services described in this documentation as scribed in my presence and it is both accurate and complete. - History Of Current Complaint Chief Complaint: EDMentalHealth Time Seen by Provider: 10/29/17 18:52 Hx Obtained From: Patient, Other: - Nursing staff Onset/Duration: Sudden Onset, Lasting Hours, Still Present Timing: Constant Severity Currently: None Character: Depressed Aggravating Factor(s): Nothing Alleviating Factor(s): Nothing Associated Signs And Symptoms: Positive: Negative Has Suicidal: Reports: Thoughts. Denies: With A Plan Has Homicidal: Denies: Thoughts, With A Plan - Allergies/Home Medications Allergies/Adverse Reactions: Allergies Allergy/AdvReac Type Severity Reaction Status Date / Time lithium Allergy Anaphylatic Verified 10/29/17 18:57 Shock prednisone Allergy GI Upset Verified 10/29/17 18:57 Sulfa (Sulfonamide Allergy Anaphylatic Verified 10/29/17 18:57 Antibiotics) Shock PMH/Surg Hx/FS Hx/Imm Hx Endocrine/Hematology History: Reports: Hx Systemic Lupus Erythematosus History: Reports: Hx Chronic Renal Failure - labs do not show Sensory History: Reports: Hx Contacts or Glasses Denies: Hx Deafness, Hx Hearing Aid Opthamlomology History: Reports: Hx Contacts or Glasses Neurological History: Reports: 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, Hx Seizures Psychiatric History: Reports: Hx Anxiety, Hx Depression, Hx Bipolar Disorder, Hx Substance Abuse, Other Psychiatric Issues/Disorders - SI Denies: Hx Eating Disorder, Hx of Violent Episodes Against Others - Surgical History Surgery Procedure, Year, and Place: breast augmentation Infectious Disease History: No Infectious Disease History: Denies: Traveled Outside the [place] in Last 30 Days - Family History Known Family History: Negative: Blood Disorder - Social History Alcohol Use: Daily Alcohol Amount: "alot" Substance Use Type: Reports: None Substance Use Comment - Amount & Last Used: pt unable to answer at this time Smoking Status (MU): Heavy Every Day Tobacco Smoker Review of Systems Negative: Fever Psychological: Other - POSITIVE: SI without plan. All Other Systems Reviewed And Are Negative: Yes Physical Exam - Summary Physical Exam Summary: VITAL SIGNS: Reviewed. GENERAL: Patient is a well-developed and nourished female who is lying comfortable in the stretcher. Patient is not in any acute respiratory distress. Patient has alcoholic breathe. HEAD AND FACE: No signs of trauma. No ecchymosis, hematomas or skull depressions. No sinus tenderness. EYES: PERRLA, EOMI x 2, No injected conjunctiva, no nystagmus. EARS: Hearing grossly intact. Ear canals and tympanic membranes are within normal limits. MOUTH: Oropharynx within normal limits. NECK: Supple, trachea is midline, no adenopathy, no JVD, no carotid bruit, no c- spine tenderness, neck with full ROM. CHEST: Symmetric, no tenderness at palpation LUNGS: Clear to auscultation bilaterally. No wheezing or crackles. CVS: Regular rate and rhythm, S1 and S2 present, no murmurs or gallops appreciated. ABDOMEN: Soft, non-tender. No signs of distention. No rebound no guarding, and no masses palpated. Bowel sounds are normal. EXTREMITIES: FROM in all major joints, no edema, no cyanosis or clubbing. NEURO: Alert and oriented x 3. No acute neurological deficits. Speech is normal and follows commands. SKIN: Dry and warm PSYCH: Depressed, quiet, and has suicidal thoughts but no plan. No homicidal thoughts or plan. No signs of psychosis or pressure speech. No tangential speech. Triage Information Reviewed: Yes Vital Signs On Initial Exam: Initial Vitals Temp Pulse Resp BP Pulse Ox 98.7 F 74 18 164/78 94 10/29/17 18:53 10/29/17 18:53 10/29/17 18:53 10/29/17 18:53 10/29/17 18:53 Vital Signs Reviewed: Yes Diagnostics - Vital Signs Vital Signs Temp Pulse Resp BP Pulse Ox 10/29/17 18:53 98.7 F 74 18 164/78 94 - Laboratory Lab Results: Lab Results 10/29/17 Range/Units 19:21 WBC 4.6 (3.5-10.8) 10^3/ul RBC 3.57 L (4.00-5.40) 10^6/ul Hgb 9.9 L (12.0-16.0) g/dl Hct 30 L (35-47) % MCV 84 (80-97) fL MCH 28 (27-31) pg MCHC 33 (31-36) g/dl RDW 21 H (10.5-15) % Plt Count 184 (150-450) 10^3/ul MPV 7.6 (7.4-10.4) um3 Neut % (Auto) 37.8 L (38-83) % Lymph % (Auto) 44.5 (25-47) % Hall % (Auto) 9.9 H (0-7) % Eos % (Auto) 6.3 H (0-6) % Baso % (Auto) 1.5 (0-2) % Absolute Neuts (auto) 1.7 (1.5-7.7) 10^3/ul Absolute Lymphs (auto) 2.1 (1.0-4.8) 10^3/ul Absolute Monos (auto) 0.5 (0-0.8) 10^3/ul Absolute Eos (auto) 0.3 (0-0.6) 10^3/ul Absolute Basos (auto) 0.1 (0-0.2) 10^3/ul Absolute Nucleated RBC 0 10^3/ul Nucleated RBC % 0 Result Diagrams: 10/29/17 19:21 10/29/17 19:21 Lab Statement: Any lab studies that have been ordered have been reviewed, and results considered in the medical decision making process. Course/Dx - Course Assessment/Plan: Blood tests without any significant abnormality except for hemoglobin 9.9 hematocrit of 30, BUN 29 and creatinine of 0.96. Urinalysis negative for UTI, urine toxicology positive for benzodiazepines and alcohol level is 304. At this time the patient is hemodynamically stable, the patient is lying comfortable in the stretcher and is sleeping at this time. The patient is to be cleared medically before she has a mental health evaluation. Patient will be signed out to Dr. Pacheco next ER attending at shift change. - Differential Dx/Clinical Impression Differential Diagnosis/HQI/PQRI: Positive: Alcohol Intoxication, Depression, Suicidal Ideation Provider Diagnosis: Alcohol intoxication Discharge - Sign-Out/Discharge Documenting (check all that apply): Sign-Out Patient Signing out patient TO: Sydnee Pacheco Receiving patient FROM: Efren Carranza - Discharge Plan Condition: Stable Referrals: Marky Morris MD [Primary Care Provider] - - Billing Disposition and Condition Condition: STABLE Attestations Scribe Attestation: This is scribe Lebron Osman documenting for attending Efren Carranza MD. User Type: Provider with Scribe Provider Attestation: The documentation recorded by the scribe accurately reflects the service I personally performed and the decisions made by me.
[2017-10-29 19:57] LABS: Urine Appearance Clear; Urine Blood Negative (Negative); Urine Color Straw; Urine Ketones Negative (Negative); Urine Protein 2+(100 mg/dL) (Negative); Urine Red Blood Cell Trace(0-2/hpf) (Absent); Urine Specific Gravity 1.015 (1.010-1.030); Urine Urobilinogen Negative (Negative); Urine White Blood Cell 3+(>20/hpf) (Absent)
[2017-10-30] MEDS ORDERED: Acetaminophen TAB* 325 MG PO ONE (02:33)
[2017-10-30] MEDS ORDERED: cloNIDine TAB* 0.1 MG PO ONE (03:08)
[2017-10-30] MEDS ORDERED: chlordiazePOXIDE CAP* 25 MG PO ONE (03:08)
--- NOTE | 2017-10-30 03:51 | ED ---
Progress - Progress Note Progress Note: This is scribe Lebron Osman documenting for attending Sydnee Pacheco MD. Sign-out to Dr. Pacheco pending MHE and disposition. I, Dr. Pacheco personally performed the services described in this documentation as scribed in my presence and it is both accurate and complete. - Consult/PCP Time Called: 02:35 Re-Evaluation - Re-Evaluation First Eval Re-Evaluation Time: 02:33 Comment: Patient has headache as per nursing. Course/Dx - Course Course Of Treatment: A 62 y/o female DANIELE (9.41) presents to ED s/p SI. As per triage, "941 Pt drunk downtown and stating to police that she wants to kill herself but has no plan. States she drank a bottle of vodka". As per nursing staff, the patient has SI without plan. Patient tried to kill herself with alcohol. According to the patient, she wants the MD to make her better. She wants him to wave a magic wand to make her be better. She noted that she does not want to live the way that she does and she is fed up with life. No laboratory scans were done. In the ED course, the patient received Tylenol, Librium and Catapres. Patient was signed out to Dr. Pacheco pending disposition and MHE. After MHE, Dr. Tyler accepted patient for admission. Patient will be admitted with a diagnosis of alcohol use disorder. - Diagnoses Provider Diagnoses: Alcohol use disorder - Provider Notifications Discussed Care Of Patient With: Rachel Tyler Time Discussed With Above Provider: 03:51 Instructed by Provider To: Other - Accepts patient for admission. Discharge - Sign-Out/Discharge Documenting (check all that apply): Patient Departure - ADMIT - Discharge Plan Condition: Stable Disposition: [facility] – [place] Referrals: Marky Morris MD [Primary Care Provider] -
[2017-10-30] MEDS ORDERED: LORazepam TAB(*) 1 MG ONE (06:45)
[2017-10-30] MEDS: levETIRAcetam TAB* 500 MG PO SCH ×2 (09:37→09:43)
[2017-10-30] MEDS ORDERED: Mouth Piece, Nicotine* 1 EACH CARTRIDGE INH SCH (09:43)
[2017-10-30] MEDS ORDERED: Al Hydrox/Mg Hydrox/Simet LIQ* 30 ML UDC PO PRN (09:43)
[2017-10-30] MEDS: Thiamine TAB* 100 MG TAB DAILY (@ T+1) PO SCH (10:15)
[2017-10-30] MEDS: Vitamin THERAPEUTIC TAB PO SCH (10:15)
[2017-10-30] MEDS: Folic Acid TAB* 1 MG DAILY PO SCH (10:15)
[2017-10-30] MEDS: LORazepam PO 0-6 for WAM protocol PO SCH ×4 (10:16→17:44)
[2017-10-30] MEDS ORDERED: LORazepam IM 0-6 mg for WAM protocol IM SCH (11:00)
--- NOTE | 2017-10-30 11:48 | PN ---
MHU: Group Therapy Note - Service Type Service Type: [id number] Group Psychotherapy - Cognitive Behavioral Group Therapy ( CBT):Patient was attentive and participatory in CBT programming this morning, and remained in good behavioral control. Patient expressed positive insights regarding relevant treatment interventions and goals.
--- NOTE | 2017-10-30 15:35 | HP ---
HISTORY AND PHYSICAL: DATE OF ADMISSION: 10/30/17 PROVIDER: Holly Palafox NP, in Psychiatry. SUPERVISING PHYSICIAN: Kareem Velasquez MD* (dictated by Holly Palafox NP). JUSTIFICATION FOR ADMISSION: The patient is in need of 24-hour supervision and care secondary to suicidal ideation. CHIEF COMPLAINT: "I'm shaking, I'm not social, I'm depressed and I'm worried." HISTORY OF PRESENT ILLNESS: The patient is a 62-year-old single female with a history of either major depressive disorder or bipolar disorder, as well as alcohol abuse, who arrives brought in by police and is on a voluntary status following an event that caused her roommate to call the police. She does not recall what that event was. Brissa moved from [place] hoping to get better services in [facility]. She states that lately she has been drinking liter bottles of vodka 1 a day at least. She is in some despair because her son would not let her talk to her granddaughter or his and she is extremely distressed by that as her granddaughter is the most important thing in her life she says. Her sleep is disrupted. She feels incredibly guilty about her drinking. Her energy is low, she cannot concentrate, and she has suicidal ideation when she is intoxicated. PAST PSYCHIATRIC HISTORY: Difficult to elicit as she states she does not know what her diagnosis is. She has been diagnosed with bipolar 2 once or twice and then not diagnosed with bipolar 2. She has not been diagnosed with borderline personality disorder. She has been diagnosed with major depressive disorder. She has been diagnosed with adjustment disorder. She does not currently have access to weapons. She does not immediately disclose any trauma. She does not disclose an immediate TBI. She states she has been on every medication other than Thorazine. The ones that talks about right now or doxepin, Zyprexa, Prozac , Ativan and Librium. Currently, she appears to be prescribed Zyprexa 10 mg and Prozac 40 mg b.i.d. The Ativan was prescribed by her neurologist, Dr. Ross, which was changed by another prescriber to Librium as that would be better for her alcohol intoxication. PAST MEDICAL HISTORY: She has cataracts. She is legally blind. She has lupus , which caused her blindness apparently, but that is currently in remission and her vision improved following a Solu-Medrol infusion. In the past, she has been insulin-dependent diabetic. She is currently in moderate kidney failure. She has seen retina doctors in [place] and an optic neurologist. She states that she has developed hypertension just this year. She also has a seizure disorder and is taking Lamictal and previously Ativan. SUBSTANCE ABUSE HISTORY: She smokes cigarettes and she drinks alcohol. She drinks alcohol to excess, which is why she is here in large part. Nicotine, she smokes about a [id number]-day. FAMILY HISTORY: In her family, she mentions her son who is an opiate and methamphetamine addict. Mom and dad both drank alcohol somewhat heavily. SOCIAL HISTORY: She started drinking at age 12. Her first marriage, she did not drink at all. The second and third marriage, she was to the same man, she did drink, but not excessively. When she lost her sight and became unable to work, she felt useless and then began heavy drinking. 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 She states she is not nice when she is drunk. She lives with a man named Alexis. He drinks, but she is not allowed to in his house. She was taking Antabuse for a while, she started to vape instead of smoke and because there was alcohol in the vaporizer she became sick and she decided not to take Antabuse. She states she feels like it is always an impulsive choice to drink. REVIEW OF SYSTEMS: The patient reports feeling fatigued. She denies shortness of breath, heat or cold intolerance, chest pain, or abdominal pain. Denies neurological symptoms. Denies fevers or changes in weight. PHYSICAL EXAMINATION VITAL SIGNS: On 10/30/17 at noon, temperature was 98.2, pulse 69, respirations 18, O2 sat 100%, blood pressure was 182/96. We are keeping our eye on the blood pressure and may call in a consult, although it is difficult currently because she is withdrawing from alcohol to know what her resting blood pressure is. LABORATORY DATA: Her red blood cells, hemoglobin and hematocrit are all low as is her neutrophil percentage. Her RDW, monocyte percentage and eosinophil percentage are high. Her BUN and creatinine are high and her BUN-creatinine ratio is high. Glucose is high at 105, but the blood was taken at 7 o'clock and it is unclear to me whether this is a fasting blood sugar. Her hemoglobin A1c is 5.5. Her calcium is low at 8.1. Her urinalysis looks as though there is protein, leukocyte esterase, white blood cells, epithelial cells and ascorbic acid present. Toxicology indicates that she has benzodiazepines which are prescribed and her serum alcohol at 7:20 on 10/29/17 was 304. MENTAL STATUS EXAMINATION: Brissa is a somewhat short, averagely built woman appearing in her 60s. She has blondish hair and she wears reading glasses that have rhinestones in them. She is pleasant, somewhat tangential in speech. She is calm and cooperative. Her speech is of normal rate, tone, and volume. She is dysphoric. She has a full range of affect. Her thought process is logical. Her thought content is free from delusions. She is not homicidal or suicidal today, although she does feel hopeless, which leads back into her suicidality at times. She is not having hallucinations. Her insight is good. Her judgment is fair. She is alert and oriented x3. DIAGNOSES: [place] I: Alcohol dependence, major depressive disorder, rule out bipolar 2. [place] II: Deferred. IMPRESSION: Brissa is a 62-year-old woman, who comes with a list of physical ailments and psychiatric issues that are all clouded by the fact that she uses a large amount of alcohol daily. PLAN: The patient is admitted to the adult behavioral health unit and placed on q.15-minute checks for her own safety. She is encouraged to participate in supportive milieu, individual, and group therapy. Estimated length of stay is 5 to 7 days. We will titrate medications to efficacy and monitor for mood and thought content. Discharge planning will involve outpatient providers. HOLLY PALAFOX, CHRISTINA [id number]/[facility] #: [id number] [facility]ET[facility]ORIAL HOSPITALFifi
[2017-10-30] MEDS ORDERED: Loperamide CAP* 2 MG PO PRN (15:41)
[2017-10-30] MEDS: cloNIDine TAB* 0.1 MG PO SCH ×2 (16:30→21:46)
[2017-10-30] MEDS ORDERED: LORazepam TAB(*) 1 MG PO SCH (18:00)
[2017-10-30] MEDS: OLANzapine TAB* 10 MG PO SCH (21:52)
[2017-10-31] MEDS: cloNIDine TAB* 0.1 MG PO SCH ×4 (04:40→20:04)
[2017-10-31] MEDS: Nicotine Inhaler* 10 MG AMP INH PRN ×3 (04:50→19:00)
[2017-10-31] MEDS: LORazepam PO 0-6 for WAM protocol PO SCH ×5 (04:50→20:04)
[2017-10-31] MEDS: Nicotine GUM* 2 MG PO PRN ×3 (05:03→18:59)
[2017-10-31] MEDS: Acetaminophen TAB* 325 MG PO PRN (06:45)
[2017-10-31] MEDS: Thiamine TAB* 100 MG TAB DAILY (@ T+1) PO SCH (08:45)
[2017-10-31] MEDS: Folic Acid TAB* 1 MG DAILY PO SCH (08:45)
[2017-10-31] MEDS: FLUoxetine CAP* 20 MG PO SCH (08:46)
[2017-10-31] MEDS: Vitamin THERAPEUTIC TAB PO SCH (08:46)
[2017-10-31] MEDS ORDERED: lamoTRIgine TAB(*) 100 MG ONE (10:44)
[2017-10-31] MEDS: lamoTRIgine TAB(*) 100 MG PO SCH ×2 (10:45→20:04)
--- NOTE | 2017-10-31 13:26 | PN ---
Subjective - Subjective Date of Service: 10/31/17 Service Type: 93360 Hosp care 15 min low complexity Subjective: Clementine is found in the milieu eating saltine crackers and butter. She states her GI tract feels better than it did yesterday. She reports that today she's mostly going to sleep and try to feel better. She is reporting that she is feeling dizzy and unwell today. There is concern she will have a seizure. Still , she is still scoring on the WAM and, thus, is still receiving lorazepam, and Lamictal was restarted today (100 mg BID). Objective - Appearance Appearance: Well Developed/Nourished Dysmorphic Features: No Hygiene: Normal Grooming: Fairly Well Kept - Behavior Psychomotor Activities: Normal Exhibits Abnormal Movement: No - Attitude and Relatedness Attitude and Relatedness: Cooperative Eye Contact: Good - Speech Quality: Unpressured Latencies: Normal Quantity: Appropriate - Mood Patient's Decription of Mood: "Upset" - Affect Observed Affect: Fair Affect Consistent with: Dysphoria - Thought Process Patient's Thought Process: Coherent Thought Content: Yes Passive Wish, No Suicidal Planning, No Homicidal Ideation, No Paranoid Ideation - Sensorium Experiencing Hallucinations: No, Sensorium is Clear Type of Hallucinations: Visual: No, Auditory: No, Command: No - Level of Consciousness Level of Consciousness: Alert Orientation: Yes Intact, Yes Orientated to Time, Yes Orientated to Place, Yes Orientated to Person - Impulse Control Impulse Control: Impaired - Insight and Judgement Insight and Judgement: Impaired - Group Participation Particating in Group Activities: No - Medication Management Medication Management Adherence: Yes - Additional Observations Comments: Clementine is struggling most with physical discomfort today. She is workiing toward feeling better and is eager to do so, but is impaired by the large amount of alcohol she has been drinking and is therefore withdrawing from. Assessment - Assessment Merits Inpatient Hospitalization: For Immediate Safety, For Discharge Planning, Pending Safe DC Plan Clinical Impression: Clementine's diagnosis remains clouded by chronic alcohol use. The current concern is her illness related to alcohol withdrawal, seizure disorder, and hypertension. Plan - Plan Treatment Plan: Name: CLEMENTINE MOSER Birthdate: 1955 [id number] Medications: Current Medications Acetaminophen (Tylenol Tab*) 650 mg PO Q4H PRN PRN Reason: PAIN or TEMP > 101 F Last Admin: 10/31/17 06:45 Dose: 650 mg Al Hydrox/Mg Hydrox/Simethicone (Maalox Plus*) 30 ml PO Q4H PRN PRN Reason: INDIGESTION Clonidine HCl (Catapres Tab*) 0.1 mg PO Q6H [facility] Last Admin: 10/31/17 10:04 Dose: Not Given Device (Nicotine Mouth Piece*) 1 each INH .[place] [facility] Fluoxetine HCl (Prozac Cap*) 40 mg PO DAILY [facility] Last Admin: 10/31/17 08:46 Dose: 40 mg Folic Acid (Folvite Tab*) 1 mg PO DAILY [facility] Last Admin: 10/31/17 08:45 Dose: 1 mg Lamotrigine (Lamictal Tab(*)) 100 mg PO BID [facility] Last Admin: 10/31/17 10:45 Dose: 100 mg Loperamide HCl (Imodium Cap*) 2 mg PO .SEE DIRECTIONS PRN PRN Reason: DIARRHEA Last Admin: 10/30/17 16:31 Dose: 2 mg Lorazepam (Ativan Tab(*)) 0 - 6 mg PO .PER [place] PARAMETERS SENAIT; Protocol Last Admin: 10/31/17 10:45 Dose: 2 mg Lorazepam (Ativan Inj*) 0 - 6 mg IM .PER [place] PROTOCOL [facility]; Protocol Multivitamins (Theragran Tab*) 1 tab PO DAILY [facility] Last Admin: 10/31/17 08:46 Dose: 1 tab Nicotine (Nicotine Inhaler*) 10 mg INH Q2H PRN PRN Reason: CRAVING Last Admin: 10/31/17 04:50 Dose: 10 mg Nicotine Polacrilex (Nicotine Gum*) 2 mg PO Q2H PRN PRN Reason: CRAVING Last Admin: 10/31/17 12:05 Dose: 2 mg Olanzapine (Zyprexa Tab*) 10 mg PO BEDTIME [facility] Last Admin: 10/30/17 21:52 Dose: 10 mg Thiamine HCl (Vitamin B-1 Tab*) 100 mg PO DAILY [facility] Last Admin: 10/31/17 08:45 Dose: 100 mg - Discharge Plan Discharge Plan: Out[facility] Additional Comments: I will contact Dr. Huber to determine the decisional origin of her medications , which do look like a bipolar depressed choice. Depending on how well Clementine is feeling tomorrow, I may contact Dr. Ross regarding the discontinuation of Keppra and what should the replacement be. It appears that Clementine is not the best historian and further input may be necessary.
[2017-10-31] MEDS ORDERED: Ibuprofen TAB* 600 MG PO PRN (14:16)
[2017-10-31] MEDS: OLANzapine TAB* 10 MG PO SCH (20:04)
[2017-11-01] MEDS: cloNIDine TAB* 0.1 MG PO SCH ×4 (06:00→22:53)
[2017-11-01] MEDS: LORazepam PO 0-6 for WAM protocol PO SCH ×2 (06:15→10:14)
[2017-11-01] MEDS: Nicotine Inhaler* 10 MG AMP INH PRN ×3 (06:15→18:07)
[2017-11-01] MEDS: Folic Acid TAB* 1 MG DAILY PO SCH (08:47)
[2017-11-01] MEDS: lamoTRIgine TAB(*) 100 MG PO SCH ×2 (08:47→20:55)
[2017-11-01] MEDS: Vitamin THERAPEUTIC TAB PO SCH (08:47)
[2017-11-01] MEDS: Thiamine TAB* 100 MG TAB DAILY (@ T+1) PO SCH (08:48)
[2017-11-01] MEDS: FLUoxetine CAP* 20 MG PO SCH (08:48)
[2017-11-01] MEDS ORDERED: ASA-APAP-CAFFEINE ES (NF) 1 TAB TAB PO PRN (10:15)
[2017-11-01] MEDS ORDERED: Aspirin TAB* 325 MG PO ONE (10:30)
[2017-11-01] MEDS ORDERED: Mouth Piece, Nicotine* 1 EACH CARTRIDGE ONE (10:35)
[2017-11-01] MEDS: Acetaminophen TAB* 325 MG PO PRN (11:05)
--- NOTE | 2017-11-01 16:10 | PN ---
Subjective - Subjective Date of Service: 11/01/17 Service Type: 54947 Hosp care 15 min low complexity Subjective: Clementine is concerned about getting Ativan in the outpatient setting and maintaining it today using the [facility] protocol. Although she did have a revelation during a group today that she realizes the deficits in her life are caused by alcohol and her role in becoming an alcoholic, she did not ask to rescind the 72 -hour notice that she submitted this morning in order to work on that inspiration. Objective - Appearance Appearance: Well Developed/Nourished Dysmorphic Features: No Hygiene: Normal Grooming: Disheveled - Behavior Psychomotor Activities: Normal Exhibits Abnormal Movement: No - Attitude and Relatedness Attitude and Relatedness: Superficially Cooperative Eye Contact: Fair - Speech Quality: Unpressured Latencies: Normal Quantity: Appropriate - Mood Patient's Decription of Mood: "Sad" - Affect Observed Affect: Fair Affect Consistent with: Dysphoria - Thought Process Patient's Thought Process: Coherent Thought Content: No Passive Wish, No Suicidal Planning, No Homicidal Ideation, No Paranoid Ideation - Sensorium Experiencing Hallucinations: No, Sensorium is Clear Type of Hallucinations: Visual: No, Auditory: No, Command: No - Level of Consciousness Level of Consciousness: Lethargic Orientation: Yes Intact, Yes Orientated to Time, Yes Orientated to Place, Yes Orientated to Person - Impulse Control Impulse Control: Tenuous - Insight and Judgement Insight and Judgement: Fair - Group Participation Particating in Group Activities: Yes - Medication Management Medication Management Adherence: Yes - Additional Observations Comments: Clementine is struggling most with physical discomfort. She is working toward feeling better and is eager to do so, but is impaired by the large amount of alcohol she has been drinking and is therefore withdrawing from. She has been going to groups and appears to be feeling better as evidenced by the amount of time she's spent out of bed today. Assessment - Assessment Merits Inpatient Hospitalization: For Discharge Planning, Pending Safe DC Plan Clinical Impression: Clementine's diagnosis remains clouded by chronic alcohol use. The current concern is her illness related to alcohol withdrawal, seizure disorder, and hypertension. Discharge planning is a concern as well, as the safest discharge plan would include inpatient rehab. As she is not agreeable to this, however, outpatient work with an alcohol and drug counselor is the best plan. Plan - Plan Treatment Plan: Name: CLEMENTINE MOSER Birthdate: 1955 [id number] Medications: Current Medications Acetaminophen (Tylenol Tab*) 650 mg PO Q4H PRN PRN Reason: PAIN or TEMP > 101 F Last Admin: 11/01/17 11:05 Dose: 650 mg Al Hydrox/Mg Hydrox/Simethicone (Maalox Plus*) 30 ml PO Q4H PRN PRN Reason: INDIGESTION Clonidine HCl (Catapres Tab*) 0.1 mg PO Q6H [facility] Last Admin: 11/01/17 10:14 Dose: Not Given Device (Nicotine Mouth Piece*) 1 each INH .[place] [facility] Last Admin: 11/01/17 10:36 Dose: 1 each Fluoxetine HCl (Prozac Cap*) 40 mg PO DAILY [facility] Last Admin: 11/01/17 08:48 Dose: 40 mg Folic Acid (Folvite Tab*) 1 mg PO DAILY [facility] Last Admin: 11/01/17 08:47 Dose: 1 mg Ibuprofen (Motrin Tab*) 600 mg PO Q6H PRN PRN Reason: PAIN Last Admin: 11/01/17 06:15 Dose: 600 mg Lamotrigine (Lamictal Tab(*)) 100 mg PO BID [facility] Last Admin: 11/01/17 08:47 Dose: 100 mg Loperamide HCl (Imodium Cap*) 2 mg PO .SEE DIRECTIONS PRN PRN Reason: DIARRHEA Last Admin: 10/30/17 16:31 Dose: 2 mg Lorazepam (Ativan Tab(*)) 0 - 6 mg PO .PER [facility]; Protocol Last Admin: 11/01/17 10:14 Dose: 2 mg Lorazepam (Ativan Inj*) 0 - 6 mg IM .PER [facility] PROTOCOL [facility]; Protocol Multivitamins (Theragran Tab*) 1 tab PO DAILY [facility] Last Admin: 11/01/17 08:47 Dose: 1 tab Nicotine (Nicotine Inhaler*) 10 mg INH Q2H PRN PRN Reason: CRAVING Last Admin: 11/01/17 10:36 Dose: 10 mg Nicotine Polacrilex (Nicotine Gum*) 2 mg PO Q2H PRN PRN Reason: CRAVING Last Admin: 10/31/17 18:59 Dose: 2 mg Olanzapine (Zyprexa Tab*) 10 mg PO BEDTIME [facility] Last Admin: 10/31/17 20:04 Dose: 10 mg Thiamine HCl (Vitamin B-1 Tab*) 100 mg PO DAILY [facility] Last Admin: 11/01/17 08:48 Dose: 100 mg - Discharge Plan Discharge Plan: Drug/Alcohol Rehab Additional Comments: I will contact Dr. Huber to determine the decisional origin of her medications , which do look like a bipolar depressed choice. It appears that Clementine sees Dr. Rajeev Cruz in the outpatient setting and I have contacted him to discover what plans he has for her so that we may reinforce those plans.
[2017-11-01] MEDS: OLANzapine TAB* 10 MG PO SCH (20:55)
[2017-11-02] MEDS: cloNIDine TAB* 0.1 MG PO SCH ×3 (06:24→16:28)
[2017-11-02] MEDS: LORazepam PO 0-6 for WAM protocol PO SCH (07:40)
[2017-11-02] MEDS: Folic Acid TAB* 1 MG DAILY PO SCH (09:03)
[2017-11-02] MEDS: Thiamine TAB* 100 MG TAB DAILY (@ T+1) PO SCH (09:03)
[2017-11-02] MEDS: FLUoxetine CAP* 20 MG PO SCH (09:03)
[2017-11-02] MEDS: lamoTRIgine TAB(*) 100 MG PO SCH (09:03)
[2017-11-02] MEDS: Vitamin THERAPEUTIC TAB PO SCH (09:03)
--- NOTE | 2017-11-02 11:47 | PN ---
MHU: Group Therapy Note - Service Type Service Type: [id number] Group Psychotherapy - Cognitive Behavioral Group Therapy ( CBT):Patient was attentive and participatory in CBT programming this morning, and remained in good behavioral control. Patient expressed positive insights regarding relevant treatment interventions and goals.
[2017-11-02 12:30] VITALS: BP 154/85
--- NOTE | 2017-11-02 16:12 | PN ---
MHU: Group Therapy Note - Service Type Service Type: [id number] Group Psychotherapy - Medication Education Group: Patient was attentive and participatory in group, and remained in good behavioral control. Patient expressed positive insights regarding relevant treatment interventions. Patient stated understanding of material discussed and had appropriate questions.
--- NOTE | 2017-11-03 18:21 | DS ---
CC: Dr. Cruz, [facility] in [place]; Dr. Morris * DISCHARGE SUMMARY: DATE OF ADMISSION: DATE OF DISCHARGE: 11/02/17 ADDENDUM: DISCHARGE INSTRUCTIONS TO THE PATIENT: A. Medications: She is takin. Clonidine 0.1 mg q.6 hours. 2. Prozac 20 mg capsules 40 mg twice a day. 3. Hydroxyzine 50 q.6 hours. 4. Lamotrigine 100 mg b.i.d. 5. Levothyroxine 150 mcg daily. 6. Olanzapine 10 mg daily. 7. Campral 666 mg b.i.d. 8. Librium 10 mg t.i.d. 9. Folic acid 1 mg daily. 10. Loperamide 2 mg p.r.n. diarrhea. 11. Thiamine 100 mg tab daily. B. Diet is regular. C. Activities: As tolerated. Brissa is a smoker. She has declined referral to the [facility] Smokers' Quitline at this time. If she decides to access the free service in the future, she can contact the Quitline at [phone]. There are no studies pending at this time. D. Followup Care: She has appointments with her primary care doctor, Dr. Morris and with [facility]. E. Substance abuse followup: She is referred to the [facility], has an appointment for the day after her discharge and then for a week after her discharge. HOSPITAL COURSE: Part A: Chief Complaint: "I'm shaking, I'm not social, I'm depressed and I'm worried." The patient is a 62-year-old single female with history of either major depressive disorder or bipolar disorder as well as alcohol abuse, who arrives, brought in by police and is on a voluntary status following the event that caused her roommate called the police. She does not recall what that event was. Brissa has moved from [place] hoping to get better services in [facility] and [place]. She states that lately she has been drinking a liter bottle of vodka one a day at least. She is in some despair because her son would not let her talk to her granddaughter or his and she is extremely distressed by that as her granddaughter is the most important thing in her life she says. Her sleep is disruptive. She feels incredibly guilty about her drinking. Her energy is low. She cannot concentrate and she has suicidal ideation when she is intoxicated. Part B: Psychiatric treatment was rendered. The patient was admitted to the Adult Behavioral Unit and placed on 15-minute checks for safety. She did well on the unit and went to some groups. She interacted with some peers. We started Campral at the end of her stay. It is not clear to me whether this is tolerated. She came in with hypertension. Her report of what medication she was taking did not make sense to me or the pharmacist though it was not continued. We used clonidine instead. She also stated she ran out of medication at home and that seemed unlikely, so I prescribed minimal amounts of medications for her to take in the outpatient setting. A Nutrition consult was entered. She is improved and that she is no longer intoxicated. She has little insight into the facts that sober living might provide her with a more complete life including her family. FABIOLA DODSON, CHRISTINA [id number]/CPS #: [id number] JEAN
--- NOTE | 2017-11-03 19:42 | DS ---
CONTINUATION ADDENDUM NOW INCLUDED ON THIS REPORT CC: Dr. Cruz, [facility] in [place]; Dr. Morris * DISCHARGE SUMMARY: DATE OF ADMISSION: 10/30/17 DATE OF DISCHARGE: 11/02/17 PROVIDER: Holly Palafox NP PSYCHIATRY SUPERVISING PHYSICIAN: Kareem Velasquez MD * (DICTATED BY HOLLY PALAFOX NP) DIAGNOSIS: Cord I: Alcohol use disorder and alcohol-induced mood disorder. CONDITION AT THE TIME OF DISCHARGE: Brissa is improved, psychiatrically cleared , and stable. She participated in a few groups and was somewhat social with peers. She has done well here psychiatrically in that. She advocated for herself adequately. She will attend alcohol and drug employee counselor on Monday and then again on to meet with the doctor. MENTAL STATUS EXAM: At the time of discharge, the patient is calm, cooperative and makes good eye contact. She is alert and oriented x3. Her grooming is adequate. Her speech pace is normal. Her thought processes are logical. She is not psychotic, not delusional. She denies AH, VH, SI, and HI. Her insight is poor. Her judgment is fair. She states she is willing to followup and she has urged to seek mental health assistance, but she denies that she would like that at this time. CONTINUATION ADDENDUM: DISCHARGE INSTRUCTIONS TO THE PATIENT: A. Medications: She is takin. Clonidine 0.1 mg q.6 hours. 2. Prozac 20 mg capsules 40 mg twice a day. 3. Hydroxyzine 50 q.6 hours. 4. Lamotrigine 100 mg b.i.d. 5. Levothyroxine 150 mcg daily. 6. Olanzapine 10 mg daily. 7. Campral 666 mg b.i.d. 8. Librium 10 mg t.i.d. 9. Folic acid 1 mg daily. 10. Loperamide 2 mg p.r.n. diarrhea. 11. Thiamine 100 mg tab daily. B. Diet is regular. C. Activities: As tolerated. Brissa is a smoker. She has declined referral to the [facility] Smokers' Quitline at this time. If she decides to access the free service in the future, she can contact the Quitline at [phone]. There are no studies pending at this time. D. Followup Care: She has appointments with her primary care doctor, Dr. Morris and with [facility]. E. Substance abuse followup: She is referred to the [facility], has an appointment for the day after her discharge and then for a week after her discharge. HOSPITAL COURSE: Part A: Chief Complaint: "I'm shaking, I'm not social, I'm depressed and I'm worried." The patient is a 62-year-old single female with history of either major depressive disorder or bipolar disorder as well as alcohol abuse, who arrives, brought in by police and is on a voluntary status following the event that caused her roommate called the police. She does not recall what that event was. Brissa has moved from [place] hoping to get better services in [facility]. She states that lately she has been drinking a liter bottle of vodka one a day at least. She is in some despair because her son would not let her talk to her granddaughter or his and she is extremely distressed by that as her granddaughter is the most important thing in her life she says. Her sleep is disruptive. She feels incredibly guilty about her drinking. Her energy is low. She cannot concentrate and she has suicidal ideation when she is intoxicated. Part B: Psychiatric treatment was rendered. The patient was admitted to the Adult Behavioral Unit and placed on 15-minute checks for safety. She did well on the unit and went to some groups. She interacted with some peers. We started Campral at the end of her stay. It is not clear to me whether this is tolerated. She came in with hypertension. Her report of what medication she was taking did not make sense to me or the pharmacist so it was not continued. We used clonidine instead. She also stated she ran out of medication at home and that seemed unlikely, so I prescribed minimal amounts of medications for her to take in the outpatient setting. A Nutrition consult was entered. She is improved and that she is no longer intoxicated and her withdrawal symptoms have largely subsided. She has little insight into the facts that sober living might provide her with a more complete life including her family. Nevertheless, she will be discharged to [facility] for follow up. HOLLY PALAFOX, EMPLOYMENT ATTORNEY [id number]/CPS #: [id number]/CPS #: [id number] [facility] HOSPITALFifi
== END 2017-11-02 17:30 | disposition home or self-care (01) | DRG 897 ==
LOC: ED 18:28 → BSU 10-30 03:50
PROVIDERS: ADMIT Psychiatry & Neurology Psychiatry; ATTEND Psychiatry & Neurology Psychiatry
PROC: GZHZZZZ Group Psychotherapy (ICD-10-PCS; principal; 2017-10-30)
DX: F10.24 Alcohol dependence with alcohol-induced mood disorder (principal); R45.851 Suicidal ideations; F32.9 Major depressive disorder, single episode, unspecified; F43.20 Adjustment disorder, unspecified; H54.8 Legal blindness, as defined in USA; M32.9 Systemic lupus erythematosus, unspecified; E11.36 Type 2 diabetes mellitus with diabetic cataract; I12.9 Hypertensive chronic kidney disease with stage 1 through stage 4 chronic kidney disease, or unspecified chronic kidney disease; E11.22 Type 2 diabetes mellitus with diabetic chronic kidney disease; G40.909 Epilepsy, unspecified, not intractable, without status epilepticus; F17.210 Nicotine dependence, cigarettes, uncomplicated; Y90.9 Presence of alcohol in blood, level not specified; N18.9 Chronic kidney disease, unspecified; E11.42 Type 2 diabetes mellitus with diabetic polyneuropathy; F41.9 Anxiety disorder, unspecified; Z81.1 Family history of alcohol abuse and dependence; Z81.3 Family history of other psychoactive substance abuse and dependence; Z88.2 Allergy status to sulfonamides; Z88.8 Allergy status to other drugs, medicaments and biological substances
CPT/HCPCS: 36415; 80053; 80061; 80307; 80320; 80329; 81003; 81015; 83036; 84443; 85025; 87086; 90853; 99222; 99231; 99238; 99285; A9270-GY; G0480

== ENCOUNTER 2017-11-26 17:24 | Inpatient (IN) | payer MEDICARE ==
[2017-11-26] MEDS ORDERED: Meclizine TAB* 12.5 MG PO ONE (17:51)
[2017-11-26] MEDS ORDERED: Aspirin 81 mg CHEW TAB* 81 MG TAB.CHEW PO ONE (17:52)
--- NOTE | 2017-11-26 17:54 | ED ---
Dizziness - HPI Summary HPI Summary: Pt is a 62 year old female presenting to the ED with a chief complaint of dizziness onset about 1630 describes as spinning and being unstable. She woke up around then, and states she has experienced a headache on her temporal lobes , chest pain in the upper sternal area rated at 8-9/10, but it is currently mild , and abd pain around her mid-epigastrium. The pt states that her vision is currently fuzzy, and has experienced nausea, shortness of breath, and diaphoresis. The pt denies ear pain or sinus problems. The pt also states she has a hx of being an alcoholic, has Lupus, and pseudoseizures. - History Of Current Complaint Chief Complaint: EDDizziness Stated Complaint: VERTIGO Time Seen by Provider: 11/26/17 17:34 Hx Obtained From: Patient Onset/Duration: Suddenly - ~1 hour NEURORADIOLOGIST Timing: Constant Severity Initially: Mild Severity Currently: Mild Character: Room Spinning, Dizzy Aggravating Factor(s): Exertion, Headache, Position Change, Change In Head Position Alleviating Factor(s): Rest, Lying Down Associated Signs And Symptoms: Positive: Nausea, Diaphoresis, Chest Pain, SOB - Allergies/Home Medications Allergies/Adverse Reactions: Allergies Allergy/AdvReac Type Severity Reaction Status Date / Time lithium Allergy Anaphylatic Verified 10/29/17 18:57 Shock prednisone Allergy GI Upset Verified 10/29/17 18:57 Sulfa (Sulfonamide Allergy Anaphylatic Verified 10/29/17 18:57 Antibiotics) Shock PMH/Surg Hx/FS Hx/Imm Hx Previously Healthy: No Endocrine/Hematology History: Reports: Hx Systemic Lupus Erythematosus, Hx Anemia Cardiovascular History: Reports: Hx Hypertension, Other Cardiovascular Problems/ Disorders - PFO History: Reports: Hx Chronic Renal Failure - labs do not show Musculoskeletal History: Reports: Hx Arthritis - RA Sensory History: Reports: Hx Contacts or Glasses Denies: Hx Deafness, Hx Hearing Aid Opthamlomology History: Reports: Hx Contacts or Glasses Neurological History: Reports: 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, Hx Seizures Psychiatric History: Reports: Hx Anxiety, Hx Attention Deficit Hyperactivity Disorder, Hx Eating Disorder, Hx Depression, Hx Panic Disorder, Hx Post Traumatic Stress Disorder, Hx Inpatient Treatment, Hx Community Mental Health Tx , Hx Bipolar Disorder, Hx Suicide Attempt, Hx Substance Abuse, Other Psychiatric Issues/Disorders - SI Denies: Hx Schizophrenia, Hx of Violent Episodes Against Others - Surgical History Surgery Procedure, Year, and Place: breast augmentation 1979 and 1989 Hx Anesthesia Reactions: No Infectious Disease History: No Infectious Disease History: Denies: Traveled Outside the [place] in Last 30 Days - Family History Known Family History: Negative: Blood Disorder - Social History Alcohol Use: Daily Alcohol Amount: "alot" Substance Use Type: Reports: None Substance Use Comment - Amount & Last Used: Today, about 1/2 of 750ml bottle of vodka Hx Tobacco Use: Yes Smoking Status (MU): Current Every Day Smoker Type: Cigarettes Review of Systems Positive: Blurred Vision Negative: Ear Ache Positive: Shortness Of Breath Positive: Abdominal Pain, Nausea All Other Systems Reviewed And Are Negative: Yes Physical Exam - Summary Physical Exam Summary: General: mildly confused Skin: warm, color reflects adequate perfusion, dry Head: normal Eyes: EOMI, ASHLEY, R beating nystagmus ENT: normal Neck: supple, nontender Respiratory: CTA, breath sounds present Cardiovascular: RRR Abdomen: soft, nontender Bowel: present Musculoskeletal: normal, strength/ROM intact Neurological: sensory/motor intact, A&O x3 Psychological: affect/mood appropriate Triage Information Reviewed: Yes Vital Signs On Initial Exam: Initial Vitals Temp Pulse Resp BP Pulse Ox 98.4 F 59 16 148/76 99 11/26/17 17:33 11/26/17 17:33 11/26/17 17:33 11/26/17 17:33 11/26/17 17:33 Vital Signs Reviewed: Yes Diagnostics - Vital Signs Vital Signs Temp Pulse Resp BP Pulse Ox 11/26/17 17:40 59 17 125/80 99 11/26/17 17:39 59 15 99 11/26/17 17:33 98.4 F 59 16 148/76 99 - Laboratory Result Diagrams: 11/26/17 18:21 11/26/17 18:21 Lab Statement: Any lab studies that have been ordered have been reviewed, and results considered in the medical decision making process. - Radiology Chest X-Ray Xray Interpretation: No Acute Changes Radiology Interpretation Completed By: ED Physician - This report has not yet been reviewed by the radiologist. - CT Brain CT CT Interpretation: No Acute Changes - Brain CT - No acute intracranial abnormality. No interval change. CT Interpretation Completed By: Radiologist - ED physician has reviewed this report - EKG 1822 Cardiac Rate: Bradycardia - 52bpm EKG Rhythm: Sinus Bradycardia ST Segment: Normal Ectopy: None Dizzy Course/Dx - Course Course Of Treatment: ADMIT HOSPITALIST - Diagnoses Provider Diagnoses: Chest pain, Elevated troponin, Dizziness, Acute alcohol intoxication, Alcoholism, Increased ammonia level Discharge - Sign-Out/Discharge Documenting (check all that apply): Patient Departure - admitted - Discharge Plan Condition: Stable Disposition: ADMITTED TO [facility] Referrals: Marky Morris MD [Primary Care Provider] - - Billing Disposition and Condition Condition: STABLE Disposition: Admitted to [facility] - Attestation Statements Document Initiated by Ramónibaretha: Yes Documenting Scribe: Lauren Bishop Provider For Whom Brice is Documenting (Include Credential): Ryne Lala MD. Scribe Attestation: Lauren Gerber, scribed for Ryne Lala MD. on 11/26/17 at 1948. Scribe Documentation Reviewed: Yes Provider Attestation: The documentation as recorded by the ramónibLauren carias accurately reflects the service I personally performed and the decisions made by me, Ryne Lala MD. Consult Consult: 1919 - Jorge Rico MD., will be the accepting physician for this patient's admission.
[2017-11-26 18:31] LABS: ABS Basophils 0.1 10^3/ul (0-0.2); ABS Eosinophils 0.4 10^3/ul (0-0.6); ABS Lymphocytes 3.1 10^3/ul (1.0-4.8); ABS Monocytes 0.3 10^3/ul (0-0.8); ABS Neutrophils 2.5 10^3/ul (1.5-7.7); ABS Nucleated RBC 0 10^3/ul; Eosinophil % 6.6 % (0-6); Hematocrit 44 % (35-47); Hemoglobin 14.1 g/dl (12.0-16.0); Lymphocyte % 48.6 % (25-47); Mean Corpuscular HGB Conc 32 g/dl (31-36); Mean Corpuscular Hemoglobin 27 pg (27-31); Mean Corpuscular Volume 85 fL (80-97); Mean Platelet Volume 7.7 um3 (7.4-10.4); Nucleated Red Blood Cells % 0.1; Platelet Count 278 10^3/ul (150-450); Red Blood Count 5.17 10^6/ul (4.00-5.40); Red Cell Distribution Width 19 % (10.5-15); White Blood Count 6.4 10^3/ul (3.5-10.8)
[2017-11-26 18:39] LABS: INR 0.85 (0.77-1.02)
--- NOTE | 2017-11-26 19:04 | RAD ---
EXAM: CT Head Without Intravenous Contrast CLINICAL HISTORY: 62 years old, female; Signs and symptoms; Dizziness; Additional info: LEWIS, dizziness TECHNIQUE: Axial computed tomography images of the head/brain without intravenous contrast. All CT scans at this facility use at least one of these dose optimization techniques: automated exposure control; mA and/or kV adjustment per patient size (includes targeted exams where dose is matched to clinical indication); or iterative reconstruction. COMPARISON: BRAIN WO CT BRAIN WO 09/25/2017 9:19 PM FINDINGS: Brain: The cortical pattern is within normal limits. No hemorrhage. No significant white matter disease. Ventricles: Unremarkable. No ventriculomegaly. Bones/joints: Unremarkable. No acute fracture. Soft tissues: Unremarkable. Sinuses: Normal paranasal sinuses without air-fluid levels. Mastoid air cells: Unremarkable as visualized. No mastoid effusion. IMPRESSION: No acute intracranial abnormality. No interval change.
[2017-11-26] MEDS ORDERED: Meclizine TAB* 12.5 MG PO PRN (19:53)
[2017-11-26] MEDS ORDERED: lamoTRIgine TAB(*) 100 MG PO SCH ×2 (21:00)
[2017-11-26] MEDS: Scopolamine 1.5 mg* PATCH TRANSDERM SCH (21:16)
[2017-11-26] MEDS: NS 0.9% 1000 ML* 1,000 ML IV SCH (21:21)
[2017-11-26] MEDS: Lactulose* 15 ML UDC PO SCH ×3 (21:45→21:54)
[2017-11-26] MEDS: clonazePAM TAB(*) 1 MG PO SCH (21:46)
[2017-11-26] MEDS: FLUoxetine CAP* 20 MG PO SCH (21:46)
[2017-11-26] MEDS: chlordiazePOXIDE CAP* 10 MG PO SCH (21:46)
[2017-11-26] MEDS: LORazepam TAB(*) 1 MG PO SCH (21:47)
[2017-11-26] MEDS: lamoTRIgine TAB(*) 100 MG PO SCH (21:47)
[2017-11-26] MEDS: Heparin VIAL(*) 5000 UNITS/ML VIAL (FIVE THOUSAND) SUBCUT SCH (21:48)
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
[2017-11-26] MEDS: cloNIDine TAB* 0.1 MG PO SCH (23:37)
[2017-11-27] MEDS: LORazepam TAB(*) 1 MG PO SCH ×4 (05:32→17:39)
[2017-11-27] MEDS: Levothyroxine TAB* 150 MCG TAB PO SCH (05:32)
[2017-11-27] MEDS: cloNIDine TAB* 0.1 MG PO SCH ×3 (05:32→17:40)
[2017-11-27] MEDS: Heparin VIAL(*) 5000 UNITS/ML VIAL (FIVE THOUSAND) SUBCUT SCH ×3 (05:33→21:34)
[2017-11-27 06:17] LABS: EGFR Non-African American 34.4 (>60)
--- NOTE | 2017-11-27 07:06 | RAD ---
INDICATION: Chest pain. COMPARISON: There are no relevant prior studies available for comparison. TECHNIQUE: A portable view of the chest was obtained. FINDINGS: Cardiac and mediastinal contours appear to be within normal limits. The lungs are clear. No pleural effusion is seen. IMPRESSION: NO EVIDENCE FOR ACUTE DISEASE. R0
[2017-11-27] MEDS: NS 0.9% 1000 ML* 1,000 ML IV SCH ×2 (08:22→18:42)
[2017-11-27] MEDS: lamoTRIgine TAB(*) 100 MG PO SCH ×2 (08:23→21:34)
[2017-11-27] MEDS: Thiamine TAB* 100 MG TAB PO SCH (08:23)
[2017-11-27] MEDS: Nicotine PATCH 14 MG/24 HR* PATCH TRANSDERM SCH (08:23)
[2017-11-27] MEDS: clonazePAM TAB(*) 1 MG PO SCH ×3 (08:23→21:34)
[2017-11-27] MEDS: FLUoxetine CAP* 20 MG PO SCH ×2 (08:23→21:34)
[2017-11-27] MEDS: Multivitamins/Minerals TAB PO SCH (08:23)
[2017-11-27] MEDS: Folic Acid TAB* 1 MG PO SCH (08:23)
[2017-11-27] MEDS: Lactulose* 15 ML UDC PO SCH ×3 (08:23→21:34)
[2017-11-27] MEDS: chlordiazePOXIDE CAP* 10 MG PO SCH ×3 (08:23→21:33)
--- NOTE | 2017-11-27 08:42 | PN ---
Subjective Date of Service: 11/27/17 Interval History: Ms. Alonso reports that she feels weak and shaky. She denies hallucinations. Nursing staff report that she is meeting [facility] criteria for benzodiazepine administration. She denies chest pain, SOB, nausea, or abdominal pain. Objective Active Medications: Acetaminophen (Tylenol Tab*) 650 mg PO Q4H PRN Chlordiazepoxide (Librium Cap*) 10 mg PO TID [facility] Clonazepam (Klonopin Tab(*)) 1 mg PO TID [facility] Clonidine HCl (Catapres Tab*) 0.2 mg PO Q6HR [facility] Device (Nicotine Mouth Piece*) 1 each INH .USE WITH NICOTROL PRN Fluoxetine HCl (Prozac Cap*) 40 mg PO BID [facility] Folic Acid (Folvite Tab*) 1 mg PO DAILY [facility] Heparin Sodium (Porcine) (Heparin Vial(*)) 5,000 units SUBCUT Q8HR [facility] Sodium Chloride (Ns 0.9% 1000 Ml*) 1,000 mls @ 100 mls/hr IV PER RATE [facility] Lactulose (Lactulose*) 15 ml PO TID [facility] Lamotrigine (Lamictal Tab(*)) 200 mg PO BID [facility] Levothyroxine Sodium (Synthroid Tab*) 150 mcg PO DAILY@0600 [facility] Lorazepam (Ativan Tab(*)) 0 - 6 mg PO .PER [facility] PROTOCOL [facility]; Protocol Meclizine HCl (Antivert Tab*) 25 mg PO Q8HR PRN Multivitamins/Minerals (Theragran/Minerals Tab*) 1 tab PO DAILY [facility] Nicotine (Nicotine Inhaler*) 10 mg INH Q2H PRN Nicotine (Nicotine Patch 14 Mg/24 Hr*) 1 patch TRANSDERM DAILY [facility] Nicotine Polacrilex (Nicotine Gum*) 2 mg PO Q2H PRN Ondansetron HCl (Zofran Inj*) 4 mg IV Q4H PRN Ondansetron HCl (Zofran Odt Tab*) 4 mg PO Q6H PRN Pharmacy Profile Note (Nicotine Patch Removal Note*) 1 note PATCH OFF 2100 [facility] Pharmacy Profile Note (Scopolamine Patch Remove*) 1 note PATCH OFF Q72H [facility] Scopolamine (Transderm-Scop 1.5 Mg Patch*) 1 patch TRANSDERM Q72H [facility] Thiamine HCl (Vitamin B-1 Tab*) 100 mg PO DAILY [facility] Vital Signs: Temp Pulse Resp BP Pulse Ox 97.8 F 44 18 120/66 99 11/27/17 15:03 11/27/17 15:03 11/27/17 15:18 11/27/17 15:03 11/27/17 15:03 Oxygen Devices in Use Now: None Appearance: Female lying in bed in NAD Eyes: No Scleral Icterus Ears/Nose/Mouth/Throat: Mucous Membranes Moist Neck: Trachea Midline Respiratory: Symmetrical Chest Expansion and Respiratory Effort, Clear to Auscultation Cardiovascular: NL Sounds; No Murmurs; No JVD, No Edema Abdominal: NL Sounds; No Tenderness; No Distention Lymphatic: No Cervical Adenopathy Extremities: No Edema Skin: No Rash or Ulcers Neurological: Alert and Oriented x 3, NL Muscle Strength and Tone, - - Tremulous Nutrition: Taking PO's Result Diagrams: 11/26/17 18:21 11/27/17 05:34 Assess/Plan/Problems-Billing Assessment: Ms. Alonso is a 62 yo F with a PMH of alcoholism who was admitted on 11/26/17 with symptoms of alcohol withdrawal and an elevated troponin. - Patient Problems (1) Elevated troponin Comment: - Unchanged at 0.04. EKG without evidence of ischemia. - Asymptomatic. - Recommend outpatient follow up for possible stress testing. (2) Alcohol withdrawal Comment: - Remains symptomatic and requiring ativan. - Continue WAM protocol with MVI, folate, and thiamine. - Appreciate SW consult. (3) Depression Comment: - vs bipolar disorder - Continue home meds - Patient follows with [facility]. (4) Hypothyroidism Comment: - TSH dramatically elevated, patient reports only missing a few doses of levothyroxine. Suspect she missed more, will resume and recommend recheck in a couple of months. (5) DVT prophylaxis Comment: - HSQ (6) Full code status Comment: Status and Disposition: Inpatient. Anticipate discharge to home when medically stable.
[2017-11-27] MEDS: Ondansetron ODT TAB* 4 MG PO PRN ×2 (09:12→15:18)
[2017-11-27] MEDS: Acetaminophen TAB* 325 MG PO PRN (09:12)
[2017-11-27] MEDS ORDERED: traMADol TAB* 50 MG PO PRN (11:26)
[2017-11-27] MEDS: Ondansetron INJ* 2 MG/ML VIAL IV PRN (17:39)
[2017-11-27] MEDS: Nicotine Patch Removal NOTE PATCH OFF SCH (21:42)
[2017-11-28] MEDS: cloNIDine TAB* 0.1 MG PO SCH ×4 (00:56→17:04)
[2017-11-28] MEDS: LORazepam TAB(*) 1 MG PO SCH ×9 (01:37→21:28)
[2017-11-28] MEDS: Ondansetron INJ* 2 MG/ML VIAL IV PRN ×4 (01:43→17:04)
[2017-11-28] MEDS: Heparin VIAL(*) 5000 UNITS/ML VIAL (FIVE THOUSAND) SUBCUT SCH ×3 (05:10→21:28)
[2017-11-28] MEDS: NS 0.9% 1000 ML* 1,000 ML IV SCH ×2 (05:11→16:02)
[2017-11-28] MEDS: Levothyroxine TAB* 150 MCG TAB PO SCH (05:11)
[2017-11-28] MEDS: Nicotine PATCH 14 MG/24 HR* PATCH TRANSDERM SCH (08:18)
[2017-11-28] MEDS: chlordiazePOXIDE CAP* 10 MG PO SCH ×3 (08:21→21:27)
[2017-11-28] MEDS: lamoTRIgine TAB(*) 100 MG PO SCH ×2 (08:21→21:26)
[2017-11-28] MEDS: FLUoxetine CAP* 20 MG PO SCH ×2 (08:22→21:27)
[2017-11-28] MEDS: Folic Acid TAB* 1 MG PO SCH (08:22)
[2017-11-28] MEDS: Thiamine TAB* 100 MG TAB PO SCH (08:24)
[2017-11-28] MEDS: Multivitamins/Minerals TAB PO SCH (08:24)
[2017-11-28] MEDS: Lactulose* 15 ML UDC PO SCH ×3 (08:25→21:28)
[2017-11-28] MEDS: Ondansetron ODT TAB* 4 MG PO PRN ×2 (08:31→13:26)
[2017-11-28] MEDS: clonazePAM TAB(*) 1 MG PO SCH ×3 (08:31→21:27)
[2017-11-28] MEDS: Omeprazole CAP* 20 MG PO SCH ×2 (11:50→21:26)
[2017-11-28 12:07] LABS: EGFR Non-African American 41.2 (>60)
--- NOTE | 2017-11-28 14:20 | PN ---
Subjective Date of Service: 11/28/17 Interval History: Ms. Alonso reports feeling weak and having epigastric discomfort. She denies nausea or vomiting and is tolerating oral intake well. She reports feeling weak and tired but not tremulous and has no hallucinations. Nursing staff report that she has continued to score on the [facility] protocol for alcohol withdrawal symptoms and has received ativan today. Objective Active Medications: Acetaminophen (Tylenol Tab*) 650 mg PO Q4H PRN Chlordiazepoxide (Librium Cap*) 10 mg PO TID [facility] Clonazepam (Klonopin Tab(*)) 1 mg PO TID [facility] Clonidine HCl (Catapres Tab*) 0.2 mg PO Q6HR [facility] Device (Nicotine Mouth Piece*) 1 each INH .USE WITH NICOTROL PRN Fluoxetine HCl (Prozac Cap*) 40 mg PO BID [facility] Folic Acid (Folvite Tab*) 1 mg PO DAILY [facility] Heparin Sodium (Porcine) (Heparin Vial(*)) 5,000 units SUBCUT Q8HR [facility] Sodium Chloride (Ns 0.9% 1000 Ml*) 1,000 mls @ 100 mls/hr IV PER RATE [facility] Lactulose (Lactulose*) 15 ml PO TID [facility] Lamotrigine (Lamictal Tab(*)) 200 mg PO BID [facility] Levothyroxine Sodium (Synthroid Tab*) 150 mcg PO DAILY@0600 [facility] Lorazepam (Ativan Tab(*)) 0 - 6 mg PO .PER [facility] PROTOCOL [facility]; Protocol Meclizine HCl (Antivert Tab*) 25 mg PO Q8HR PRN Multivitamins/Minerals (Theragran/Minerals Tab*) 1 tab PO DAILY [facility] Nicotine (Nicotine Inhaler*) 10 mg INH Q2H PRN Nicotine (Nicotine Patch 14 Mg/24 Hr*) 1 patch TRANSDERM DAILY [facility] Nicotine Polacrilex (Nicotine Gum*) 2 mg PO Q2H PRN Omeprazole (Prilosec Cap*) 20 mg PO BID [facility] Ondansetron HCl (Zofran Inj*) 4 mg IV Q4H PRN Ondansetron HCl (Zofran Odt Tab*) 4 mg PO Q6H PRN Pharmacy Profile Note (Nicotine Patch Removal Note*) 1 note PATCH OFF 2100 [facility] Pharmacy Profile Note (Scopolamine Patch Remove*) 1 note PATCH OFF Q72H [facility] Scopolamine (Transderm-Scop 1.5 Mg Patch*) 1 patch TRANSDERM Q72H [facility] Thiamine HCl (Vitamin B-1 Tab*) 100 mg PO DAILY [facility] Vital Signs: Temp Pulse Resp BP Pulse Ox 97.6 F 51 16 133/63 100 11/28/17 13:00 11/28/17 13:00 11/28/17 13:24 11/28/17 13:00 11/28/17 13:00 Oxygen Devices in Use Now: None Appearance: Female lying in bed in NAD Eyes: No Scleral Icterus Ears/Nose/Mouth/Throat: Mucous Membranes Moist Neck: Trachea Midline Respiratory: Symmetrical Chest Expansion and Respiratory Effort, Clear to Auscultation Cardiovascular: NL Sounds; No Murmurs; No JVD, No Edema Abdominal: NL Sounds; No Tenderness; No Distention Lymphatic: No Cervical Adenopathy Extremities: No Edema Skin: No Rash or Ulcers Neurological: Alert and Oriented x 3, NL Muscle Strength and Tone Nutrition: Taking PO's Result Diagrams: 11/26/17 18:21 11/28/17 11:34 Assess/Plan/Problems-Billing Assessment: Ms. Alonso is a 62 yo F with a PMH of alcoholism who was admitted on 11/26/17 with symptoms of alcohol withdrawal and an elevated troponin. - Patient Problems (1) Elevated troponin Comment: - Unchanged at 0.04. EKG without evidence of ischemia. - Asymptomatic. - Recommend outpatient follow up for possible stress testing. (2) Alcohol withdrawal Comment: - Remains symptomatic and requiring ativan. - Continue WAM protocol with MVI, folate, and thiamine. - Appreciate SW consult. (3) Depression Comment: - vs bipolar disorder - Continue home meds - Patient follows with [facility]. (4) Hypothyroidism Comment: - TSH dramatically elevated, patient reports only missing a few doses of levothyroxine. Suspect she missed more, will resume and recommend recheck in a couple of months. (5) DVT prophylaxis Comment: - HSQ (6) Full code status Comment: Status and Disposition: Inpatient. Anticipate discharge to home when medically stable.
[2017-11-28] MEDS: Nicotine Inhaler* 10 MG AMP INH PRN (17:04)
[2017-11-28] MEDS: Mouth Piece, Nicotine* 1 EACH CARTRIDGE INH PRN ×2 (17:04→23:59)
[2017-11-28] MEDS: traMADol TAB* 50 MG PO PRN (17:54)
[2017-11-28] MEDS: Nicotine GUM* 2 MG PO PRN (17:55)
[2017-11-28] MEDS: Nicotine Patch Removal NOTE PATCH OFF SCH (22:01)
[2017-11-29] MEDS: traMADol TAB* 50 MG PO PRN ×2 (00:01→06:21)
[2017-11-29] MEDS: LORazepam TAB(*) 1 MG PO SCH ×6 (01:43→11:26)
[2017-11-29] MEDS: NS 0.9% 1000 ML* 1,000 ML IV SCH (06:20)
[2017-11-29] MEDS: Levothyroxine TAB* 150 MCG TAB PO SCH (06:21)
[2017-11-29] MEDS: cloNIDine TAB* 0.1 MG PO SCH ×4 (06:21→17:52)
[2017-11-29] MEDS: Heparin VIAL(*) 5000 UNITS/ML VIAL (FIVE THOUSAND) SUBCUT SCH ×3 (06:21→20:23)
[2017-11-29] MEDS: Folic Acid TAB* 1 MG PO SCH (07:53)
[2017-11-29] MEDS: clonazePAM TAB(*) 1 MG PO SCH ×2 (07:53→17:52)
[2017-11-29] MEDS: chlordiazePOXIDE CAP* 10 MG PO SCH (07:53)
[2017-11-29] MEDS: Ondansetron INJ* 2 MG/ML VIAL IV PRN (07:53)
[2017-11-29] MEDS: lamoTRIgine TAB(*) 100 MG PO SCH ×2 (07:53→20:21)
[2017-11-29] MEDS: Lactulose* 15 ML UDC PO SCH (07:53)
[2017-11-29] MEDS: Acetaminophen TAB* 325 MG PO PRN (07:53)
[2017-11-29] MEDS: Multivitamins/Minerals TAB PO SCH (07:54)
[2017-11-29] MEDS: Nicotine PATCH 14 MG/24 HR* PATCH TRANSDERM SCH (07:54)
[2017-11-29] MEDS: Omeprazole CAP* 20 MG PO SCH ×2 (07:54→20:21)
[2017-11-29] MEDS: Nicotine Inhaler* 10 MG AMP INH PRN ×2 (07:54)
[2017-11-29] MEDS: FLUoxetine CAP* 20 MG PO SCH ×2 (07:54→20:21)
[2017-11-29] MEDS: Thiamine TAB* 100 MG TAB PO SCH (07:54)
[2017-11-29] MEDS: Nicotine GUM* 2 MG PO PRN (07:55)
[2017-11-29] MEDS: Ondansetron ODT TAB* 4 MG PO PRN (09:34)
[2017-11-29] MEDS ORDERED: Senna TAB PO PRN (10:02)
[2017-11-29] MEDS: Polyethylene Glycol 3350* 17 GM PACKET PO PRN (11:26)
[2017-11-29] MEDS: Docusate CAP* 100 MG PO PRN ×2 (11:26→20:21)
--- NOTE | 2017-11-29 11:53 | RAD ---
INDICATION: Abdominal pain and constipation. COMPARISON: There are no relevant prior studies available for comparison. TECHNIQUE: Supine and upright views of the abdomen were obtained. FINDINGS: The small bowel and colon appear nondistended. No free intraperitoneal air is seen. There is a moderate amount retained stool present. No abnormal calcifications are seen. IMPRESSION: NO EVIDENCE FOR OBSTRUCTION.
[2017-11-29] MEDS ORDERED: LORazepam INJ* 2 MG/ML 1 ML VIAL IV PUSH ONE (13:13)
[2017-11-29] MEDS ORDERED: LORazepam INJ* 2 MG/ML 1 ML VIAL ONE (13:17)
[2017-11-29] MEDS ORDERED: Haloperidol INJ IV/IM* 5 MG/ML AMP IV SLOW PU ONE (13:52)
[2017-11-29] MEDS: Scopolamine 1.5 mg* PATCH TRANSDERM SCH (20:22)
[2017-11-29] MEDS: LORazepam INJ* 2 MG/ML 1 ML VIAL IV PUSH SCH (20:26)
[2017-11-29] MEDS: Nicotine Patch Removal NOTE PATCH OFF SCH (20:37)
[2017-11-29] MEDS ORDERED: Scopolamine PATCH Remove* 1 NOTE MISC PATCH OFF SCH (21:00)
[2017-11-30] MEDS: clonazePAM TAB(*) 1 MG PO SCH ×3 (02:12→16:00)
[2017-11-30] MEDS: cloNIDine TAB* 0.1 MG PO SCH ×4 (02:12→17:49)
[2017-11-30] MEDS: LORazepam INJ* 2 MG/ML 1 ML VIAL IV PUSH SCH ×2 (04:20→21:02)
[2017-11-30] MEDS: Heparin VIAL(*) 5000 UNITS/ML VIAL (FIVE THOUSAND) SUBCUT SCH ×3 (06:23→21:01)
[2017-11-30] MEDS: Levothyroxine TAB* 150 MCG TAB PO SCH (06:23)
[2017-11-30] MEDS: Nicotine PATCH 14 MG/24 HR* PATCH TRANSDERM SCH (07:48)
[2017-11-30] MEDS: lamoTRIgine TAB(*) 100 MG PO SCH ×2 (07:50→21:01)
[2017-11-30] MEDS: Multivitamins/Minerals TAB PO SCH (07:50)
[2017-11-30] MEDS: FLUoxetine CAP* 20 MG PO SCH ×2 (07:50→21:02)
[2017-11-30] MEDS: Thiamine TAB* 100 MG TAB PO SCH (07:50)
[2017-11-30] MEDS: Folic Acid TAB* 1 MG PO SCH (07:50)
[2017-11-30] MEDS: Omeprazole CAP* 20 MG PO SCH ×2 (07:50→21:01)
--- NOTE | 2017-11-30 08:00 | PN ---
Subjective Date of Service: 11/29/17 Interval History: Ms. Alonso is much more confused today. She is agitated and up out of bed looking for bottles of liquor in the cabinet. She denies any complaint including chest pain, SOB, or nausea. She continues to have epigastric discomfort. She is tolerating oral intake well. Objective Active Medications: Acetaminophen (Tylenol Tab*) 650 mg PO Q4H PRN Clonazepam (Klonopin Tab(*)) 2 mg PO Q8H [facility] Clonidine HCl (Catapres Tab*) 0.2 mg PO Q6HR [facility] Device (Nicotine Mouth Piece*) 1 each INH .USE WITH NICOTROL PRN Docusate Sodium (Colace Cap*) 100 mg PO BID PRN Fluoxetine HCl (Prozac Cap*) 40 mg PO BID [facility] Folic Acid (Folvite Tab*) 1 mg PO DAILY [facility] Heparin Sodium (Porcine) (Heparin Vial(*)) 5,000 units SUBCUT Q8HR [facility] Lamotrigine (Lamictal Tab(*)) 200 mg PO BID [facility] Levothyroxine Sodium (Synthroid Tab*) 150 mcg PO DAILY@0600 [facility] Lorazepam (Ativan Inj*) 0 - 3 mg IV PUSH .PER [facility] PROTOCOL [facility]; Protocol Meclizine HCl (Antivert Tab*) 25 mg PO Q8HR PRN Multivitamins/Minerals (Theragran/Minerals Tab*) 1 tab PO DAILY [facility] Nicotine (Nicotine Inhaler*) 10 mg INH Q2H PRN Nicotine (Nicotine Patch 14 Mg/24 Hr*) 1 patch TRANSDERM DAILY [facility] Nicotine Polacrilex (Nicotine Gum*) 2 mg PO Q2H PRN Omeprazole (Prilosec Cap*) 20 mg PO BID [facility] Ondansetron HCl (Zofran Inj*) 4 mg IV Q4H PRN Pharmacy Profile Note (Nicotine Patch Removal Note*) 1 note PATCH OFF 2100 [facility] Pharmacy Profile Note (Scopolamine Patch Remove*) 1 note PATCH OFF Q72H [facility] Polyethylene Glycol/Electrolytes (Miralax*) 17 gm PO DAILY PRN Scopolamine (Transderm-Scop 1.5 Mg Patch*) 1 patch TRANSDERM Q72H [facility] Senna (Senokot Tab*) 1 tab PO BEDTIME PRN Thiamine HCl (Vitamin B-1 Tab*) 100 mg PO DAILY [facility] Tramadol HCl (Ultram*) 50 mg PO Q6H PRN Vital Signs: Temp Pulse Resp BP Pulse Ox 98.3 F 44 18 152/78 100 11/30/17 07:07 11/30/17 07:07 11/30/17 07:49 11/30/17 07:07 11/30/17 07:07 Oxygen Devices in Use Now: None Result Diagrams: 11/26/17 18:21 11/28/17 11:34 Assess/Plan/Problems-Billing Assessment: Ms. Alonso is a 62 yo F with a PMH of alcoholism who was admitted on 11/26/17 with symptoms of alcohol withdrawal and an elevated troponin. - Patient Problems (1) Alcohol withdrawal Comment: - Worsening DTs today, increased ativan and added haldol x 1 with good effect. - Continue WAM protocol with MVI, folate, and thiamine. - Appreciate SW consult. (2) Elevated troponin Comment: - Unchanged at 0.04. EKG without evidence of ischemia. - Asymptomatic. - Recommend outpatient follow up for possible stress testing. (3) Depression Comment: - vs bipolar disorder - Continue home meds - Patient follows with [facility]. (4) Hypothyroidism Comment: - TSH dramatically elevated, patient reports only missing a few doses of levothyroxine. Suspect she missed more, will resume and recommend recheck in a couple of months. (5) DVT prophylaxis Comment: - HSQ (6) Full code status Comment: Status and Disposition: Inpatient. Anticipate discharge to home when medically stable.
--- NOTE | 2017-11-30 08:06 | PN ---
Subjective Date of Service: 11/30/17 Interval History: Ms. Alonso reports feeling better today. She remembers having hallucinations yesterday. She denies other complaint including chest pain, SOB , or nausea. She does have some epigastric pain but is tolerating oral intake well. Objective Active Medications: Acetaminophen (Tylenol Tab*) 650 mg PO Q4H PRN Clonazepam (Klonopin Tab(*)) 2 mg PO Q8H [facility] Clonidine HCl (Catapres Tab*) 0.2 mg PO Q6HR [facility] Device (Nicotine Mouth Piece*) 1 each INH .USE WITH NICOTROL PRN Docusate Sodium (Colace Cap*) 100 mg PO BID PRN Fluoxetine HCl (Prozac Cap*) 40 mg PO BID [facility] Folic Acid (Folvite Tab*) 1 mg PO DAILY [facility] Heparin Sodium (Porcine) (Heparin Vial(*)) 5,000 units SUBCUT Q8HR [facility] Lamotrigine (Lamictal Tab(*)) 200 mg PO BID [facility] Levothyroxine Sodium (Synthroid Tab*) 150 mcg PO DAILY@0600 [facility] Lorazepam (Ativan Inj*) 0 - 3 mg IV PUSH .PER [facility] PROTOCOL [facility]; Protocol Meclizine HCl (Antivert Tab*) 25 mg PO Q8HR PRN Multivitamins/Minerals (Theragran/Minerals Tab*) 1 tab PO DAILY [facility] Nicotine (Nicotine Inhaler*) 10 mg INH Q2H PRN Nicotine (Nicotine Patch 14 Mg/24 Hr*) 1 patch TRANSDERM DAILY [facility] Nicotine Polacrilex (Nicotine Gum*) 2 mg PO Q2H PRN Omeprazole (Prilosec Cap*) 20 mg PO BID [facility] Ondansetron HCl (Zofran Inj*) 4 mg IV Q4H PRN Pharmacy Profile Note (Nicotine Patch Removal Note*) 1 note PATCH OFF 2100 [facility] Polyethylene Glycol/Electrolytes (Miralax*) 17 gm PO DAILY PRN Scopolamine (Transderm-Scop 1.5 Mg Patch*) 1 patch TRANSDERM Q72H [facility] Senna (Senokot Tab*) 1 tab PO BEDTIME PRN Thiamine HCl (Vitamin B-1 Tab*) 100 mg PO DAILY [facility] Tramadol HCl (Ultram*) 50 mg PO Q6H PRN Vital Signs: Temp Pulse Resp BP Pulse Ox 98.3 F 44 18 152/78 100 11/30/17 07:07 11/30/17 07:07 11/30/17 07:49 11/30/17 07:07 11/30/17 07:07 Oxygen Devices in Use Now: None Appearance: Female lying in bed in NAD Eyes: No Scleral Icterus Ears/Nose/Mouth/Throat: Mucous Membranes Moist Neck: Trachea Midline Respiratory: Symmetrical Chest Expansion and Respiratory Effort, Clear to Auscultation Cardiovascular: NL Sounds; No Murmurs; No JVD, No Edema Abdominal: NL Sounds; No Tenderness; No Distention Lymphatic: No Cervical Adenopathy Extremities: No Edema Skin: No Rash or Ulcers Neurological: Alert and Oriented x 3, NL Muscle Strength and Tone Nutrition: Taking PO's Result Diagrams: 11/26/17 18:21 11/28/17 11:34 Assess/Plan/Problems-Billing Assessment: Ms. Alonso is a 62 yo F with a PMH of alcoholism who was admitted on 11/26/17 with symptoms of alcohol withdrawal and an elevated troponin. - Patient Problems (1) Alcohol withdrawal Comment: - DTs today better today, continue ativan. - Continue WAM protocol with MVI, folate, and thiamine. - Appreciate SW consult. (2) Elevated troponin Comment: - Unchanged at 0.04. EKG without evidence of ischemia. - Asymptomatic. - Recommend outpatient follow up for possible stress testing. (3) Depression Comment: - vs bipolar disorder - Continue home meds - Patient follows with [facility]. (4) Hypothyroidism Comment: - TSH dramatically elevated, patient reports only missing a few doses of levothyroxine. Suspect she missed more, will resume and recommend recheck in a couple of months. (5) DVT prophylaxis Comment: - HSQ (6) Full code status Comment: Status and Disposition: Inpatient. Anticipate discharge to home when medically stable.
[2017-11-30] MEDS: Ondansetron INJ* 2 MG/ML VIAL IV PRN (09:06)
[2017-11-30] MEDS: Nicotine Inhaler* 10 MG AMP INH PRN (17:02)
[2017-11-30] MEDS: traMADol TAB* 50 MG PO PRN (18:12)
[2017-11-30] MEDS: Docusate CAP* 100 MG PO PRN (21:02)
[2017-11-30] MEDS: Nicotine Patch Removal NOTE PATCH OFF SCH (21:09)
[2017-12-01] MEDS: cloNIDine TAB* 0.1 MG PO SCH ×4 (00:48→18:01)
[2017-12-01] MEDS: clonazePAM TAB(*) 1 MG PO SCH ×3 (00:48→16:24)
[2017-12-01] MEDS: traMADol TAB* 50 MG PO PRN ×2 (03:46→10:03)
[2017-12-01] MEDS: LORazepam INJ* 2 MG/ML 1 ML VIAL IV PUSH SCH ×5 (03:47→20:51)
[2017-12-01 06:13] LABS: EGFR Non-African American 35.8 (>60)
[2017-12-01] MEDS: Heparin VIAL(*) 5000 UNITS/ML VIAL (FIVE THOUSAND) SUBCUT SCH ×3 (07:29→21:26)
[2017-12-01] MEDS: Levothyroxine TAB* 150 MCG TAB PO SCH (07:30)
[2017-12-01] MEDS: Nicotine Inhaler* 10 MG AMP INH PRN ×2 (08:20→20:52)
[2017-12-01] MEDS: Nicotine PATCH 14 MG/24 HR* PATCH TRANSDERM SCH (10:02)
[2017-12-01] MEDS: FLUoxetine CAP* 20 MG PO SCH ×2 (10:03→20:41)
[2017-12-01] MEDS: Folic Acid TAB* 1 MG PO SCH (10:03)
[2017-12-01] MEDS: lamoTRIgine TAB(*) 100 MG PO SCH ×2 (10:03→20:41)
[2017-12-01] MEDS: Omeprazole CAP* 20 MG PO SCH ×2 (10:04→20:41)
[2017-12-01] MEDS: Multivitamins/Minerals TAB PO SCH (10:04)
[2017-12-01] MEDS: Thiamine TAB* 100 MG TAB PO SCH (10:04)
[2017-12-01] MEDS: Ondansetron INJ* 2 MG/ML VIAL IV PRN (13:38)
--- NOTE | 2017-12-01 20:25 | PN ---
Subjective Date of Service: 12/01/17 Interval History: reports increased "weird dreams at night, continues to c/o some nausea and tremors. Denies chest pain or shortness of breath. Denies abd pain or diarrhea. Family History: Unchanged from Admission Social History: Unchanged from Admission Past Medical History: Unchanged from Admission Objective Active Medications: Acetaminophen (Tylenol Tab*) 650 mg PO Q4H PRN PRN Reason: PAIN Last Admin: 11/29/17 07:53 Dose: 650 mg Clonazepam (Klonopin Tab(*)) 2 mg PO Q8H [facility] Last Admin: 12/01/17 16:24 Dose: 2 mg Clonidine HCl (Catapres Tab*) 0.2 mg PO Q6HR [facility] Last Admin: 12/01/17 18:01 Dose: 0.2 mg Device (Nicotine Mouth Piece*) 1 each INH .USE WITH NICOTROL PRN PRN Reason: CRAVING Last Admin: 11/28/17 23:59 Dose: 1 each Docusate Sodium (Colace Cap*) 100 mg PO BID PRN PRN Reason: CONSTIPATION Last Admin: 11/30/17 21:02 Dose: 100 mg Fluoxetine HCl (Prozac Cap*) 40 mg PO BID [facility] Last Admin: 12/01/17 10:03 Dose: 40 mg Folic Acid (Folvite Tab*) 1 mg PO DAILY [facility] Last Admin: 12/01/17 10:03 Dose: 1 mg Heparin Sodium (Porcine) (Heparin Vial(*)) 5,000 units SUBCUT Q8HR [facility] Last Admin: 12/01/17 13:38 Dose: 5,000 units Lamotrigine (Lamictal Tab(*)) 200 mg PO BID [facility] Last Admin: 12/01/17 10:03 Dose: 200 mg Levothyroxine Sodium (Synthroid Tab*) 150 mcg PO DAILY@0600 [facility] Last Admin: 12/01/17 07:30 Dose: 150 mcg Lorazepam (Ativan Inj*) 0 - 3 mg IV PUSH .PER [facility] PROTOCOL [facility]; Protocol Last Admin: 12/01/17 16:26 Dose: 2 mg Meclizine HCl (Antivert Tab*) 25 mg PO Q8HR PRN PRN Reason: DIZZINESS Multivitamins/Minerals (Theragran/Minerals Tab*) 1 tab PO DAILY [facility] Last Admin: 12/01/17 10:04 Dose: 1 tab Nicotine (Nicotine Inhaler*) 10 mg INH Q2H PRN PRN Reason: CRAVING Last Admin: 12/01/17 08:20 Dose: 10 mg Nicotine (Nicotine Patch 14 Mg/24 Hr*) 1 patch TRANSDERM DAILY [facility] Last Admin: 12/01/17 10:02 Dose: 1 patch Nicotine Polacrilex (Nicotine Gum*) 2 mg PO Q2H PRN PRN Reason: CRAVING Last Admin: 11/29/17 07:55 Dose: 2 mg Omeprazole (Prilosec Cap*) 20 mg PO BID [facility] Last Admin: 12/01/17 10:04 Dose: 20 mg Ondansetron HCl (Zofran Inj*) 4 mg IV Q4H PRN PRN Reason: NAUSEA Last Admin: 12/01/17 13:38 Dose: 4 mg Pharmacy Profile Note (Nicotine Patch Removal Note*) 1 note PATCH OFF 2100 [facility] Last Admin: 11/30/17 21:09 Dose: 1 note Pharmacy Profile Note (Scopolamine Patch Remove*) 1 note PATCH OFF Q72H [facility] Last Admin: 11/29/17 20:38 Dose: 1 patch Polyethylene Glycol/Electrolytes (Miralax*) 17 gm PO DAILY PRN PRN Reason: CONSTIPATION Last Admin: 11/29/17 11:26 Dose: 17 gm Scopolamine (Transderm-Scop 1.5 Mg Patch*) 1 patch TRANSDERM Q72H [facility] Last Admin: 11/29/17 20:22 Dose: 1 patch Senna (Senokot Tab*) 1 tab PO BEDTIME PRN PRN Reason: CONSTIPATION Thiamine HCl (Vitamin B-1 Tab*) 100 mg PO DAILY [facility] Last Admin: 12/01/17 10:04 Dose: 100 mg Tramadol HCl (Ultram*) 50 mg PO Q6H PRN PRN Reason: PAIN Last Admin: 12/01/17 10:03 Dose: 50 mg Vital Signs - 8 hr 12/01/17 12/01/17 12/01/17 12:34 12:35 12:57 Temperature Pulse Rate Respiratory 20 20 20 Rate Blood Pressure (mmHg) O2 Sat by Pulse Oximetry 12/01/17 12/01/17 12/01/17 14:40 15:12 15:15 Temperature 97.5 F 97.5 F Pulse Rate 42 43 Respiratory 18 14 14 Rate Blood Pressure 168/68 168/68 (mmHg) O2 Sat by Pulse 100 Oximetry 12/01/17 12/01/17 12/01/17 15:59 16:24 16:26 Temperature Pulse Rate Respiratory 14 14 14 Rate Blood Pressure (mmHg) O2 Sat by Pulse Oximetry 12/01/17 12/01/17 12/01/17 17:57 17:58 18:02 Temperature Pulse Rate 49 Respiratory 20 16 Rate Blood Pressure 170/75 (mmHg) O2 Sat by Pulse 99 Oximetry 12/01/17 12/01/17 19:23 19:43 Temperature 98.5 F Pulse Rate 49 Respiratory 16 Rate Blood Pressure 154/75 (mmHg) O2 Sat by Pulse 100 Oximetry Oxygen Devices in Use Now: None Appearance: appears comfortable lying in bed. Eyes: No Scleral Icterus Ears/Nose/Mouth/Throat: Clear Oropharnyx, Mucous Membranes Moist Neck: NL Appearance and Movements; NL JVP, Trachea Midline Respiratory: Symmetrical Chest Expansion and Respiratory Effort, Clear to Auscultation Cardiovascular: NL Sounds; No Murmurs; No JVD, No Edema Abdominal: NL Sounds; No Tenderness; No Distention Extremities: No Edema, No Clubbing, Cyanosis Skin: No Rash or Ulcers Neurological: Alert and Oriented x 3 Nutrition: Taking PO's Result Diagrams: 11/26/17 18:21 12/02/17 05:11 Assess/Plan/Problems-Billing Assessment: Ms. Alonso is a 62 yo F with a PMH of alcoholism who was admitted on 11/26/17 with symptoms of alcohol withdrawal and an elevated troponin. - Patient Problems (1) Alcohol withdrawal Current Visit: No Status: Acute Code(s): F10.239 - ALCOHOL DEPENDENCE WITH WITHDRAWAL, UNSPECIFIED SNOMED Code(s): 631510784 Comment: - DTs improving today, continue ativan. - Continue WAM protocol- scoring 7-10 - continue MVI, folate, and thiamine. - Appreciate SW consult. (2) Elevated troponin Current Visit: Yes Status: Acute Code(s): R74.8 - ABNORMAL LEVELS OF OTHER SERUM ENZYMES SNOMED Code(s): 830675502 Comment: - Unchanged at 0.04. EKG without evidence of ischemia. - Asymptomatic. - Recommend outpatient follow up for possible stress testing. (3) Depression Current Visit: Yes Status: Acute Code(s): F32.9 - MAJOR DEPRESSIVE DISORDER , SINGLE EPISODE, UNSPECIFIED SNOMED Code(s): 46850885 Comment: - vs bipolar disorder - Continue home meds - Patient [facility]. (4) Hypothyroidism Current Visit: No Status: Acute Code(s): E03.9 - HYPOTHYROIDISM, UNSPECIFIED SNOMED Code(s): 42494793 Comment: - TSH dramatically elevated, patient reports only missing a few doses of levothyroxine. Suspect she missed more, will resume and recommend recheck in a couple of months. (5) DVT prophylaxis Current Visit: No Status: Acute Code(s): LUJ0020 - SNOMED Code(s): 721337579 Comment: - HSQ (6) Full code status Current Visit: Yes Status: Acute Code(s): Z78.9 - OTHER SPECIFIED HEALTH STATUS SNOMED Code(s): 666748861 Comment: Status and Disposition: Inpatient. Anticipate discharge to home when medically stable.
[2017-12-01] MEDS: Nicotine Patch Removal NOTE PATCH OFF SCH (21:25)
[2017-12-02] MEDS: clonazePAM TAB(*) 1 MG PO SCH ×3 (00:02→21:05)
[2017-12-02] MEDS: cloNIDine TAB* 0.1 MG PO SCH ×4 (00:02→18:15)
[2017-12-02] MEDS: LORazepam INJ* 2 MG/ML 1 ML VIAL IV PUSH SCH (00:47)
[2017-12-02] MEDS: Levothyroxine TAB* 150 MCG TAB PO SCH (05:00)
[2017-12-02] MEDS: Heparin VIAL(*) 5000 UNITS/ML VIAL (FIVE THOUSAND) SUBCUT SCH ×3 (05:01→21:05)
[2017-12-02 05:46] LABS: EGFR Non-African American 36.4 (>60)
[2017-12-02] MEDS: Thiamine TAB* 100 MG TAB PO SCH (09:49)
[2017-12-02] MEDS: lamoTRIgine TAB(*) 100 MG PO SCH ×2 (09:49→19:54)
[2017-12-02] MEDS: FLUoxetine CAP* 20 MG PO SCH ×2 (09:49→19:56)
[2017-12-02] MEDS: Multivitamins/Minerals TAB PO SCH (09:50)
[2017-12-02] MEDS: Omeprazole CAP* 20 MG PO SCH ×2 (09:50→19:55)
[2017-12-02] MEDS: Folic Acid TAB* 1 MG PO SCH (09:50)
[2017-12-02] MEDS: Nicotine PATCH 14 MG/24 HR* PATCH TRANSDERM SCH (09:50)
[2017-12-02] MEDS: traMADol TAB* 50 MG PO PRN (12:54)
--- NOTE | 2017-12-02 13:08 | PN ---
Subjective Date of Service: 12/02/17 Interval History: WAM scores are improving, patient alert and oriented x 3. No c/o chest pain or shortness of breath. Denies abd pain n/v/d. Does not report visual or auditory hallucinations. Calm sitting in the bed. Family History: Unchanged from Admission Social History: Unchanged from Admission Past Medical History: Unchanged from Admission Objective Active Medications: Acetaminophen (Tylenol Tab*) 650 mg PO Q4H PRN PRN Reason: PAIN Last Admin: 11/29/17 07:53 Dose: 650 mg Clonazepam (Klonopin Tab(*)) 2 mg PO BID [facility] Clonidine HCl (Catapres Tab*) 0.2 mg PO Q6HR [facility] Last Admin: 12/02/17 12:53 Dose: 0.2 mg Device (Nicotine Mouth Piece*) 1 each INH .USE WITH NICOTROL PRN PRN Reason: CRAVING Last Admin: 11/28/17 23:59 Dose: 1 each Docusate Sodium (Colace Cap*) 100 mg PO BID PRN PRN Reason: CONSTIPATION Last Admin: 11/30/17 21:02 Dose: 100 mg Fluoxetine HCl (Prozac Cap*) 40 mg PO BID [facility] Last Admin: 12/02/17 09:49 Dose: 40 mg Folic Acid (Folvite Tab*) 1 mg PO DAILY [facility] Last Admin: 12/02/17 09:50 Dose: 1 mg Heparin Sodium (Porcine) (Heparin Vial(*)) 5,000 units SUBCUT Q8HR [facility] Last Admin: 12/02/17 13:00 Dose: 5,000 units Lamotrigine (Lamictal Tab(*)) 200 mg PO BID [facility] Last Admin: 12/02/17 09:49 Dose: 200 mg Levothyroxine Sodium (Synthroid Tab*) 150 mcg PO DAILY@0600 [facility] Last Admin: 12/02/17 05:00 Dose: 150 mcg Multivitamins/Minerals (Theragran/Minerals Tab*) 1 tab PO DAILY [facility] Last Admin: 12/02/17 09:50 Dose: 1 tab Nicotine (Nicotine Inhaler*) 10 mg INH Q2H PRN PRN Reason: CRAVING Last Admin: 12/01/17 20:52 Dose: 10 mg Nicotine (Nicotine Patch 14 Mg/24 Hr*) 1 patch TRANSDERM DAILY [facility] Last Admin: 12/02/17 09:50 Dose: 1 patch Nicotine Polacrilex (Nicotine Gum*) 2 mg PO Q2H PRN PRN Reason: CRAVING Last Admin: 11/29/17 07:55 Dose: 2 mg Omeprazole (Prilosec Cap*) 20 mg PO BID [facility] Last Admin: 12/02/17 09:50 Dose: 20 mg Ondansetron HCl (Zofran Inj*) 4 mg IV Q4H PRN PRN Reason: NAUSEA Last Admin: 12/01/17 13:38 Dose: 4 mg Pharmacy Profile Note (Nicotine Patch Removal Note*) 1 note PATCH OFF 2100 [facility] Last Admin: 12/01/17 21:25 Dose: 1 note Polyethylene Glycol/Electrolytes (Miralax*) 17 gm PO DAILY PRN PRN Reason: CONSTIPATION Last Admin: 11/29/17 11:26 Dose: 17 gm Senna (Senokot Tab*) 1 tab PO BEDTIME PRN PRN Reason: CONSTIPATION Thiamine HCl (Vitamin B-1 Tab*) 100 mg PO DAILY [facility] Last Admin: 12/02/17 09:49 Dose: 100 mg Tramadol HCl (Ultram*) 50 mg PO Q6H PRN PRN Reason: PAIN Last Admin: 12/02/17 12:54 Dose: 50 mg Vital Signs - 8 hr 12/02/17 12/02/17 12/02/17 07:28 07:41 08:00 Temperature 98.3 F Pulse Rate 36 Respiratory 18 18 16 Rate Blood Pressure 141/73 (mmHg) O2 Sat by Pulse 100 Oximetry 12/02/17 12/02/17 12/02/17 09:17 11:03 12:54 Temperature Pulse Rate 43 45 Respiratory 16 18 Rate Blood Pressure 176/80 148/58 (mmHg) O2 Sat by Pulse 100 100 Oximetry Oxygen Devices in Use Now: None Appearance: alert and oriented sitting in the bed , no acute distress. Eyes: No Scleral Icterus Neck: NL Appearance and Movements; NL JVP, Trachea Midline Respiratory: Symmetrical Chest Expansion and Respiratory Effort, Clear to Auscultation Cardiovascular: NL Sounds; No Murmurs; No JVD, No Edema Abdominal: NL Sounds; No Tenderness; No Distention Extremities: No Edema, No Clubbing, Cyanosis Skin: No Rash or Ulcers Neurological: Alert and Oriented x 3 Nutrition: Taking PO's Result Diagrams: 11/26/17 18:21 12/02/17 05:11 Assess/Plan/Problems-Billing Assessment: Ms. Alonso is a 62 yo F with a PMH of alcoholism who was admitted on 11/26/17 with symptoms of alcohol withdrawal and an elevated troponin. - Patient Problems (1) Alcohol withdrawal Current Visit: No Status: Acute Code(s): F10.239 - ALCOHOL DEPENDENCE WITH WITHDRAWAL, UNSPECIFIED SNOMED Code(s): 388413452 Comment: - DTs improving - will stop ativan and decrease klonopin to BID - Continue WAM protocol- scoring 4-10 - continue MVI, folate, and thiamine. - Appreciate consult. (2) Elevated troponin Current Visit: Yes Status: Acute Code(s): R74.8 - ABNORMAL LEVELS OF OTHER SERUM ENZYMES SNOMED Code(s): 352988306 Comment: - Unchanged at 0.04. EKG without evidence of ischemia. - Asymptomatic. - Recommend outpatient follow up for possible stress testing. (3) Depression Current Visit: Yes Status: Acute Code(s): F32.9 - MAJOR DEPRESSIVE DISORDER , SINGLE EPISODE, UNSPECIFIED SNOMED Code(s): 86044179 Comment: - vs bipolar disorder - Continue home meds - Patient follows with [facility]. (4) Hypothyroidism Current Visit: No Status: Acute Code(s): E03.9 - HYPOTHYROIDISM, UNSPECIFIED SNOMED Code(s): 74783360 Comment: - TSH dramatically elevated, patient reports only missing a few doses of levothyroxine. Suspect she missed more, will resume and recommend recheck in a couple of months. (5) DVT prophylaxis Current Visit: No Status: Acute Code(s): XCC8205 - SNOMED Code(s): 273138610 Comment: - HSQ (6) Full code status Current Visit: Yes Status: Acute Code(s): Z78.9 - OTHER SPECIFIED HEALTH STATUS SNOMED Code(s): 019119213 Comment: Status and Disposition: Inpatient. Anticipate discharge to home when medically stable.
[2017-12-02] MEDS: Ondansetron INJ* 2 MG/ML VIAL IV PRN (19:47)
[2017-12-02] MEDS: Docusate CAP* 100 MG PO PRN (19:54)
[2017-12-02] MEDS: Nicotine Patch Removal NOTE PATCH OFF SCH (20:08)
[2017-12-03] MEDS: cloNIDine TAB* 0.1 MG PO SCH ×5 (00:01→23:16)
[2017-12-03] MEDS: traMADol TAB* 50 MG PO PRN ×3 (01:06→13:54)
[2017-12-03] MEDS: Ondansetron INJ* 2 MG/ML VIAL IV PRN ×2 (05:21→13:53)
[2017-12-03] MEDS: Heparin VIAL(*) 5000 UNITS/ML VIAL (FIVE THOUSAND) SUBCUT SCH ×3 (05:23→23:17)
[2017-12-03] MEDS: Levothyroxine TAB* 150 MCG TAB PO SCH (05:23)
[2017-12-03] MEDS: clonazePAM TAB(*) 1 MG PO SCH ×2 (08:00→20:11)
[2017-12-03] MEDS: Thiamine TAB* 100 MG TAB PO SCH (08:01)
[2017-12-03] MEDS: Multivitamins/Minerals TAB PO SCH (08:01)
[2017-12-03] MEDS: Folic Acid TAB* 1 MG PO SCH (08:02)
[2017-12-03] MEDS: Omeprazole CAP* 20 MG PO SCH ×2 (08:02→20:11)
[2017-12-03] MEDS: lamoTRIgine TAB(*) 100 MG PO SCH ×2 (08:02→20:11)
[2017-12-03] MEDS: FLUoxetine CAP* 20 MG PO SCH ×2 (08:02→20:11)
[2017-12-03] MEDS: Nicotine PATCH 14 MG/24 HR* PATCH TRANSDERM SCH (08:03)
--- NOTE | 2017-12-03 18:58 | PN ---
Subjective Date of Service: 12/03/17 Interval History: Patient reports that she is severely depressed, states that she is hallucinating. states that she is seeing "red horses" in the hallway. Patient reports that she has been living in hotels. Patient states that she does not have any suicidal or homicidal thoughts. She then reports that she has been staying with her ex- boyfriend and rents a room from him. Patient reports that she would like a tranquiler to help her sleep. States that she needs to have ativan because it controls her seizures. States that she feels like she needs to go to the mental health unit because she is severely depressed . Denies chest pain or shortness of breath. Denies abd pain n/v/d. denies fever or chills . Family History: Unchanged from Admission Social History: Unchanged from Admission Past Medical History: Unchanged from Admission Objective Active Medications: Acetaminophen (Tylenol Tab*) 650 mg PO Q4H PRN PRN Reason: PAIN Last Admin: 11/29/17 07:53 Dose: 650 mg Clonazepam (Klonopin Tab(*)) [address] [facility] Last Admin: 12/03/17 08:00 Dose: 2 mg Clonidine HCl (Catapres Tab*) 0.[address] [facility] Last Admin: 12/03/17 17:37 Dose: 0.2 mg Device (Nicotine Mouth Piece*) 1 each INH .USE WITH NICOTROL PRN PRN Reason: CRAVING Last Admin: 11/28/17 23:59 Dose: 1 each Docusate Sodium (Colace Cap*) 100 mg PO BID PRN PRN Reason: CONSTIPATION Last Admin: 12/02/17 19:54 Dose: 100 mg Fluoxetine HCl (Prozac Cap*) [address] [facility] Last Admin: 12/03/17 08:02 Dose: 40 mg Folic Acid (Folvite Tab*) [address] [facility] Last Admin: 12/03/17 08:02 Dose: 1 mg Heparin Sodium (Porcine) (Heparin Vial(*)) 5,[address] [facility] Last Admin: 12/03/17 13:52 Dose: 5,000 units Lamotrigine (Lamictal Tab(*)) [address] [facility] Last Admin: 12/03/17 08:02 Dose: 200 mg Levothyroxine Sodium (Synthroid Tab*) 150 mcg PO DAILY@0600 [facility] Last Admin: 12/03/17 05:23 Dose: 150 mcg Multivitamins/Minerals (Theragran/Minerals Tab*) [address] [facility] Last Admin: 12/03/17 08:01 Dose: 1 tab Nicotine (Nicotine Inhaler*) 10 mg INH Q2H PRN PRN Reason: CRAVING Last Admin: 12/01/17 20:52 Dose: 10 mg Nicotine (Nicotine Patch 14 Mg/24 Hr*) [address] [facility] Last Admin: 12/03/17 08:03 Dose: 1 patch Nicotine Polacrilex (Nicotine Gum*) 2 mg PO Q2H PRN PRN Reason: CRAVING Last Admin: 11/29/17 07:55 Dose: 2 mg Omeprazole (Prilosec Cap*) [address] [facility] Last Admin: 12/03/17 08:02 Dose: 20 mg Ondansetron HCl (Zofran Inj*) 4 mg IV Q4H PRN PRN Reason: NAUSEA Last Admin: 12/03/17 13:53 Dose: 4 mg Pharmacy Profile Note (Nicotine Patch Removal Note*) 1 note PATCH OFF 2100 [facility] Last Admin: 12/02/17 20:08 Dose: 1 note Polyethylene Glycol/Electrolytes (Miralax*) 17 gm PO DAILY PRN PRN Reason: CONSTIPATION Last Admin: 11/29/17 11:26 Dose: 17 gm Senna (Senokot Tab*) 1 tab PO BEDTIME PRN PRN Reason: CONSTIPATION Last Admin: 12/02/17 19:54 Dose: 1 tab Thiamine HCl (Vitamin B-1 Tab*) [address] [facility] Last Admin: 12/03/17 08:01 Dose: 100 mg Tramadol HCl (Ultram*) 50 mg PO Q6H PRN PRN Reason: PAIN Last Admin: 12/03/17 13:54 Dose: 50 mg Vital Signs - 8 hr 12/03/17 12/03/17 12/03/17 13:07 13:54 15:45 Temperature 97.4 F 99.3 F Pulse Rate 49 42 Respiratory 16 16 18 Rate Blood Pressure 125/74 187/80 (mmHg) O2 Sat by Pulse 98 99 Oximetry Oxygen Devices in Use Now: None Appearance: appears calm resting in bed , no visible tremors Eyes: No Scleral Icterus Ears/Nose/Mouth/Throat: Clear Oropharnyx, Mucous Membranes Moist Neck: NL Appearance and Movements; NL JVP, Trachea Midline Respiratory: Symmetrical Chest Expansion and Respiratory Effort, Clear to Auscultation Cardiovascular: NL Sounds; No Murmurs; No JVD, No Edema Abdominal: NL Sounds; No Tenderness; No Distention Extremities: No Edema, No Clubbing, Cyanosis Skin: No Rash or Ulcers Neurological: Alert and Oriented x 3, - - visual hallucinations Nutrition: Taking PO's Result Diagrams: 11/26/17 18:21 12/02/17 05:11 Assess/Plan/Problems-Billing Assessment: Ms. Alonso is a 62 yo F with a PMH of alcoholism who was admitted on 11/26/17 with symptoms of alcohol withdrawal and an elevated troponin. - Patient Problems (1) Alcohol withdrawal Current Visit: No Status: Acute Code(s): F10.239 - ALCOHOL DEPENDENCE WITH WITHDRAWAL, UNSPECIFIED SNOMED Code(s): 373319335 Comment: - DTs improving - will stop ativan and decrease klonopin to BID - Continue WAM protocol- scoring 3-5 will change WAM to Q 8 hours - continue MVI, folate, and thiamine. - Appreciate SW consult. (2) Elevated troponin Current Visit: Yes Status: Acute Code(s): R74.8 - ABNORMAL LEVELS OF OTHER SERUM ENZYMES SNOMED Code(s): 807917141 Comment: - Unchanged at 0.04. EKG without evidence of ischemia. - Asymptomatic. - Recommend outpatient follow up for possible stress testing. (3) Depression Current Visit: Yes Status: Acute Code(s): F32.9 - MAJOR DEPRESSIVE DISORDER , SINGLE EPISODE, UNSPECIFIED SNOMED Code(s): 55746818 Comment: - vs bipolar disorder- patient reporting severe depression and hallucinations -Psych consulted - will see tomorrow - Continue home meds - Patient follows with [facility]. (4) Hypothyroidism Current Visit: No Status: Acute Code(s): E03.9 - HYPOTHYROIDISM, UNSPECIFIED SNOMED Code(s): 46484952 Comment: - TSH dramatically elevated, patient reports only missing a few doses of levothyroxine. Suspect she missed more, will resume and recommend recheck in a couple of months. (5) DVT prophylaxis Current Visit: No Status: Acute Code(s): YWK8826 - SNOMED Code(s): 584368936 Comment: - HSQ (6) Full code status Current Visit: Yes Status: Acute Code(s): Z78.9 - OTHER SPECIFIED HEALTH STATUS SNOMED Code(s): 822457636 Comment: Status and Disposition: Inpatient. Anticipate discharge to home when medically stable.
[2017-12-03] MEDS: Nicotine Patch Removal NOTE PATCH OFF SCH (20:12)
[2017-12-04] MEDS: Levothyroxine TAB* 150 MCG TAB PO SCH (06:34)
[2017-12-04] MEDS: cloNIDine TAB* 0.1 MG PO SCH ×2 (06:34→12:47)
[2017-12-04] MEDS: Nicotine GUM* 2 MG PO PRN (06:34)
[2017-12-04] MEDS: Heparin VIAL(*) 5000 UNITS/ML VIAL (FIVE THOUSAND) SUBCUT SCH (06:35)
[2017-12-04] MEDS: Ondansetron INJ* 2 MG/ML VIAL IV PRN (07:15)
[2017-12-04] MEDS ORDERED: Magnesium Hydroxide LIQ* 30 ML UDC PO PRN (07:51)
[2017-12-04] MEDS: Folic Acid TAB* 1 MG PO SCH (08:16)
[2017-12-04] MEDS: Omeprazole CAP* 20 MG PO SCH (08:16)
[2017-12-04] MEDS: clonazePAM TAB(*) 1 MG PO SCH (08:16)
[2017-12-04] MEDS: FLUoxetine CAP* 20 MG PO SCH (08:16)
[2017-12-04] MEDS: Docusate CAP* 100 MG PO PRN (08:16)
[2017-12-04] MEDS: Nicotine PATCH 14 MG/24 HR* PATCH TRANSDERM SCH (08:17)
[2017-12-04] MEDS: lamoTRIgine TAB(*) 100 MG PO SCH (08:17)
[2017-12-04] MEDS: Thiamine TAB* 100 MG TAB PO SCH (08:17)
[2017-12-04] MEDS: Multivitamins/Minerals TAB PO SCH (08:17)
[2017-12-04] MEDS: Polyethylene Glycol 3350* 17 GM PACKET PO PRN (08:17)
--- NOTE | 2017-12-04 09:10 | PN ---
Subjective Date of Service: 12/04/17 Interval History: No complaints today, Patient currently denying hallucinations. States that she is no longer seeing or hearing voices. Reports that she does not feel hopeless today. States that she want to start outpatient rehab for alcohol abuse. Patient is apologetic for her behavior and being mean yesterday. Patient reports that she slept well last night. Denies chest pain or shortness of breath. Denies abd pain v/d. Denies dizziness. denies fever or chills. Family History: Unchanged from Admission Social History: Unchanged from Admission Past Medical History: Unchanged from Admission Objective Active Medications: Acetaminophen (Tylenol Tab*) 650 mg PO Q4H PRN PRN Reason: PAIN Last Admin: 11/29/17 07:53 Dose: 650 mg Clonazepam (Klonopin Tab(*)) 2 mg PO BID [facility] Last Admin: 12/04/17 08:16 Dose: 2 mg Clonidine HCl (Catapres Tab*) 0.2 mg PO Q6HR [facility] Last Admin: 12/04/17 06:34 Dose: 0.2 mg Device (Nicotine Mouth Piece*) 1 each INH .USE WITH NICOTROL PRN PRN Reason: CRAVING Last Admin: 11/28/17 23:59 Dose: 1 each Docusate Sodium (Colace Cap*) 100 mg PO BID PRN PRN Reason: CONSTIPATION Last Admin: 12/04/17 08:16 Dose: 100 mg Fluoxetine HCl (Prozac Cap*) 40 mg PO BID [facility] Last Admin: 12/04/17 08:16 Dose: 40 mg Folic Acid (Folvite Tab*) 1 mg PO DAILY [facility] Last Admin: 12/04/17 08:16 Dose: 1 mg Heparin Sodium (Porcine) (Heparin Vial(*)) 5,000 units SUBCUT Q8HR [facility] Last Admin: 12/04/17 06:35 Dose: 5,000 units Lamotrigine (Lamictal Tab(*)) 200 mg PO BID [facility] Last Admin: 12/04/17 08:17 Dose: 200 mg Levothyroxine Sodium (Synthroid Tab*) 150 mcg PO DAILY@0600 [facility] Last Admin: 12/04/17 06:34 Dose: 150 mcg Magnesium Hydroxide (Milk Of Magnesia Liq*) 30 ml PO Q4H PRN PRN Reason: CONSTIPATION Last Admin: 12/04/17 08:17 Dose: 30 ml Multivitamins/Minerals (Theragran/Minerals Tab*) 1 tab PO DAILY [facility] Last Admin: 12/04/17 08:17 Dose: 1 tab Nicotine (Nicotine Inhaler*) 10 mg INH Q2H PRN PRN Reason: CRAVING Last Admin: 12/01/17 20:52 Dose: 10 mg Nicotine (Nicotine Patch 14 Mg/24 Hr*) 1 patch TRANSDERM DAILY [facility] Last Admin: 12/04/17 08:17 Dose: 1 patch Nicotine Polacrilex (Nicotine Gum*) 2 mg PO Q2H PRN PRN Reason: CRAVING Last Admin: 12/04/17 06:34 Dose: 2 mg Omeprazole (Prilosec Cap*) 20 mg PO BID [facility] Last Admin: 12/04/17 08:16 Dose: 20 mg Ondansetron HCl (Zofran Inj*) 4 mg IV Q4H PRN PRN Reason: NAUSEA Last Admin: 12/04/17 07:15 Dose: 4 mg Pharmacy Profile Note (Nicotine Patch Removal Note*) 1 note PATCH OFF 2100 [facility] Last Admin: 12/03/17 20:12 Dose: 1 note Polyethylene Glycol/Electrolytes (Miralax*) 17 gm PO DAILY PRN PRN Reason: CONSTIPATION Last Admin: 12/04/17 08:17 Dose: 17 gm Senna (Senokot Tab*) 1 tab PO BEDTIME PRN PRN Reason: CONSTIPATION Last Admin: 12/02/17 19:54 Dose: 1 tab Thiamine HCl (Vitamin B-1 Tab*) 100 mg PO DAILY [facility] Last Admin: 12/04/17 08:17 Dose: 100 mg Tramadol HCl (Ultram*) 50 mg PO Q6H PRN PRN Reason: PAIN Last Admin: 12/03/17 13:54 Dose: 50 mg Vital Signs - 8 hr 12/04/17 12/04/17 12/04/17 04:19 07:45 08:16 Temperature 97.5 F Pulse Rate 47 Respiratory 20 16 16 Rate Blood Pressure 150/65 (mmHg) O2 Sat by Pulse 98 Oximetry Oxygen Devices in Use Now: None Appearance: alert, oriented x 3, calm , no acute distress Eyes: No Scleral Icterus Ears/Nose/Mouth/Throat: Clear Oropharnyx, Mucous Membranes Moist Neck: NL Appearance and Movements; NL JVP, Trachea Midline Respiratory: Symmetrical Chest Expansion and Respiratory Effort, Clear to Auscultation Cardiovascular: NL Sounds; No Murmurs; No JVD, No Edema Abdominal: NL Sounds; No Tenderness; No Distention Lymphatic: No Cervical Adenopathy Extremities: No Edema, No Clubbing, Cyanosis Skin: No Rash or Ulcers Neurological: Alert and Oriented x 3 Result Diagrams: 11/26/17 18:21 12/02/17 05:11 Assess/Plan/Problems-Billing Assessment: Ms. Alonso is a 62 yo F with a PMH of alcoholism who was admitted on 11/26/17 with symptoms of alcohol withdrawal and an elevated troponin. - Patient Problems (1) Alcohol withdrawal Status: Acute Code(s): F10.239 - ALCOHOL DEPENDENCE WITH WITHDRAWAL, UNSPECIFIED SNOMED Code(s): 309168248 Comment: - DTs improving - will stop ativan and decrease klonopin to BID - Continue WAM protocol- scoring 3-5 will change WAM to Q 8 hours - continue MVI, folate, and thiamine. - Appreciate SW consult. (2) Elevated troponin Status: Acute Code(s): R74.8 - ABNORMAL LEVELS OF OTHER SERUM ENZYMES SNOMED Code(s): 952466523 Comment: - Unchanged at 0.04. EKG without evidence of ischemia. - Asymptomatic. - Recommend outpatient follow up for possible stress testing. (3) Depression Status: Acute Code(s): F32.9 - MAJOR DEPRESSIVE DISORDER, SINGLE EPISODE, UNSPECIFIED SNOMED Code(s): 41488034 Comment: - vs bipolar disorder- patient reporting severe depression and hallucinations -Psych consulted - ok to go home - Continue home meds - Patient follows with [facility]- as scheduled (4) Hypothyroidism Status: Acute Code(s): E03.9 - HYPOTHYROIDISM, UNSPECIFIED SNOMED Code(s): 80771788 Comment: - TSH dramatically elevated, patient reports only missing a few doses of levothyroxine. Suspect she missed more, will resume and recommend recheck in 1 month (5) Acute kidney injury Status: Acute Code(s): N17.9 - ACUTE KIDNEY FAILURE, UNSPECIFIED SNOMED Code (s): 64636175 Comment: - suspect this is Acute on Chronic as the patient does have a history of Lupus - suspect that her bun and creatinine are elevated above her baseline d/t dehydration and ETOH abuse (6) DVT prophylaxis Status: Acute Code(s): WBU8872 - SNOMED Code(s): 251880443 Comment: - HSQ (7) Full code status Status: Acute Code(s): Z78.9 - OTHER SPECIFIED HEALTH STATUS SNOMED Code(s) : 361237156 Comment: Status and Disposition: discharge
[2017-12-04 12:42] VITALS: BP 109/65
--- NOTE | 2017-12-04 14:31 | CONS ---
CONSULTATION REPORT: DATE OF CONSULT: 12/04/17 PROVIDER: Holly Palafox NP SUPERVISING PHYSICIAN: Kareem Velasquez MD PROVIDER REQUESTING THE CONSULT: Marianne Sam NP CHIEF COMPLAINT: "My drinking always ends in blackouts, I have no idea what I' m capable of doing." HISTORY OF PRESENT ILLNESS: The patient is a 62-year-old, single, white woman with a history of alcohol dependence and alcohol-induced mood disorder, who arrives to the hospital by ambulance. She is currently on the 4th floor in telemetry. She states since her stay started on 11/26/17, she had visual hallucinations for a day. She had auditory hallucinations the night before. These were in the context of withdrawing from alcohol. They have stopped. She has been drinking less than she used to, which is still 750 mL bottle of vodka every other day now. She is stressed by her alcoholism. You can read my old H and P for her for further details including past psychiatric history, which is the same as well as her med history, her family history, her substance abuse history, and her social history. MENTAL STATUS EXAMINATION: This is a somewhat overweight woman appearing older than her stated age, who is chronically drinking too much until she blacks out these days. She does have more insight than she did at the recent admission in which she was on the behavioral services unit. She states "people like me better when I am sober and I am shocked by that." She lives in a safe place right now. She is renting a room from her ex-boyfriend, Alexis. He takes the alcohol with him in the trunk of his car when he goes to work, so she does not have an option to drink. She is getting enrolled at [facility]. She says she was supposed to start during the time she has been admitted to the hospital. She stated she was involved with [facility], but upon further discussion, it seems she is not interested in working with them. She is doing the [facility] IOP program. She also wants to get hooked up with the [facility] programs. RECOMMENDATIONS: She does not need to come on the behavioral services unit. She is not a danger to herself or others. She is not behaving erratically at this time in the hospital. When she is sober she is safe and she states she is more motivated for sobriety than she has been before. She is motivated for sobriety for the past few days and has options of moving in that direction going forward. She does not require nor does she request inpatient mental health or alcohol rehab services. HOLLY PALAFOX, CHRISTINA [id number]/[facility] #: [id number] JEAN
--- NOTE | 2017-12-05 17:20 | DS ---
CC: Dr. Morris * DISCHARGE SUMMARY: DATE OF ADMISSION: 11/26/17 DATE OF DISCHARGE: 12/04/17 PROVIDER: Tim Sam NP ATTENDING PHYSICIAN: Dr. Isabel Araiza * (dictated by Tim Sam NP). PRIMARY CARE PROVIDER: Dr. Morris. PRIMARY DIAGNOSES: 1. Alcohol withdrawal. 2. Elevated troponin. 3. Hypothyroidism - noncompliant with medications. 4. Depression. SECONDARY DIAGNOSES: 1. Bipolar. 2. Seizure disorder. 3. Polysubstance abuse. 4. Hypertension. 5. Systemic lupus. 6. History of alcoholism. STUDIES COMPLETED WHILE IN THE HOSPITAL: The patient had a CT of her brain on 11/26/17, radiologist's impression: No intracranial abnormality. No interval changes. She had a chest x-ray on 11/26/17. No evidence of acute disease. She had an abdominal x-ray on 11/29/17, radiologist's impression: No evidence for obstruction. DISCHARGE MEDICATIONS: New home medications: 1. Multivitamin with minerals 1 tab p.o. daily. 2. Omeprazole 20 mg p.o. daily. Continued home medications: 1. Acetaminophen 650 mg p.o. q.4 hours as needed for pain. 2. Librium 10 mg p.o. t.i.d. 3. Clonidine 0.2 mg p.o. q.6 hours. 4. Prozac 40 mg p.o. b.i.d. 5. Folic acid 1 mg p.o. daily. 6. Hydroxyzine 50 mg p.o. q.6 hours. 7. Lamictal 200 mg p.o. b.i.d. 8. Levothyroxine 150 mcg p.o. daily. 9. Imodium 2 mg p.o. as needed for diarrhea. HISTORY OF PRESENT ILLNESS AND HOSPITAL COURSE: Ms. Alonso is a 62-year-old female with past medical history significant for alcoholism, systemic lupus, Sjogren's syndrome, and hypertension as well as depression versus bipolar disorder, who presented to the hospital with concern of what she initially describes as vertigo and chest pain but then further describes as symptoms consistent with her experience in the past of early delirium tremors. Ms. Alonso states that she was discharged from the psychiatric floor at the hospital on 11/03/17 and returned to drinking large amounts of alcohol. She does report that she was trying to cut back and was only consuming 750 mL of vodka every other day. Today, when she awoke, she felt dizzy, so she called the ambulance and was brought to the emergency room. The patient on evaluation was describing vertigo but states now that is more related to alcohol withdrawal symptoms that she is experiencing. She describes the chest pain earlier today in the center of her chest that was quite sharp. She has had those symptoms in the past as well. She states "I have a PFO." Denies any other illness. While in the emergency room, Ms. Alonso had routine lab work drawn. Her alcohol level was 263. Chest x-ray showed no abnormality. EKG showed no evidence of ischemia. Her lab work was unremarkable. Her troponin was 0.04 x3. BNP was 680. Ammonia level was 89. Her TSH was 109.59. The patient states that she is inconsistent in taking her medications at home and has been out of several of them. While in the hospital, the patient was monitored on [place] protocol and was treated as needed for alcohol withdrawal symptoms. She did not have any seizures during this hospitalization. Her lab work was monitored throughout the hospitalization. She had no further episodes of chest pain during this hospitalization. The patient did experience an episode on 12/03/17 where she reports that she was having hallucinations, reported seeing red horses in the hallway, and hearing voices. She states she was having weird dreams and having visual and auditory hallucinations in her dreams. The patient states that she is majorly depressed and hopeless and states that if she leaves the hospital, she will go home and continue to drink. Due to these concerns, Psychiatry was consulted. On 12/04/17, the patient had a good night's sleep. She has no complaints. She is well rested. The patient denies any visual or auditory hallucinations. She was seen by the psychiatrist and deemed okay to go home. She denies any current depression. She states that she is feeling better. She has a plan. She wants to go to outpatient rehab for alcohol abuse and she will continue to see Mental Health on as previously scheduled. The patient is looking forward to starting alcohol rehab as outpatient. At this time, Ms. Alonso is stable for discharge home. Vital signs are as follows: Temperature was 97.3, heart rate was 52, respirations 18, O2 saturation was 99%, blood pressure 109/65. DISCHARGE PLAN: Ms. Alonso will be discharged to home. Activity as tolerated. 1. Alcohol abuse/withdrawal. The patient should continue on her Librium as previously prescribed. The patient has had no further signs of alcohol withdrawal symptoms x48 hours. She has no tremors. She is alert and oriented and of sound mind. The patient was advised to refrain from all alcoholic beverages and to seek outpatient rehab. The patient plans to seek outpatient rehab and has a plan. I will give her multivitamin, folic acid, and thiamine to continue at home. 2. Hypothyroidism. The patient has not been taking her thyroid medication at home. The patient was instructed to resume her thyroid medication and take this on a daily basis. The patient verbalized understanding. The patient will need to have a TSH redrawn in 4 weeks. 3. Elevated troponin. The patient did have a mildly elevated troponin during this hospitalization at 0.04, which was consistent x3 at 0.04, 0.04. The patient had no further chest pain. I would recommend that she follow up with her primary care provider for further management of the elevated troponin and possible outpatient stress testing. 4. Depression/bipolar disorder. The patient should continue on her previous home medications as previously prescribed and follow up with [facility] on as previously scheduled. 5. Seizures. She should continue on her Lamictal 200 mg p.o. b.i.d. as previously prescribed. 6. Hypertension. She will continue her Catapres at 0.2 mg q.6 hours for hypertension. 7. Acute kidney injury. The patient did have elevated creatinine level throughout her hospitalization. I suspect this is related to dehydration as well as she does have a history of systemic lupus, which the patient reports that she has chronic kidney disease, insufficiency due to the lupus. I recommend that she follow up with her primary care provider and a repeat BMP on Monday to monitor her BUN and creatinine. She should also follow up with her primary marble coper as her creatinine level is elevated more than her baseline. DISCHARGE FOLLOWUP: The patient should follow up with her primary care provider in 4 to 7 days. She should have a repeat BMP on Monday. She should follow up with her primary marble coper. She needs to call to make an appointment. The patient was instructed to return to the emergency room for any chest pain or shortness of breath, vomiting, diarrhea, tremor, seizures, or any other concerning symptoms. The patient verbalized understanding. This is summarization of her hospitalization. For further details, please see the entire medical record. TIME SPENT: Time spent on this discharge was approximately 60 minutes; greater than half that time was spent with the patient discussing discharge plans and instructions. CONDITION ON DISCHARGE: Stable. I have discussed with my attending, Dr. Isabel Araiza, and she is in agreement with my plan. TIM SAM, BULB FILLER [id number]/[place] #: [id number] JEAN
== END 2017-12-04 13:45 | disposition home or self-care (01) | DRG 897 ==
LOC: ED 17:24 → MEDTELE 19:46
PROVIDERS: ADMIT Internal Medicine; ATTEND Internal Medicine
DX: F10.239 Alcohol dependence with withdrawal, unspecified (principal); E74.8 Other specified disorders of carbohydrate metabolism; N17.9 Acute kidney failure, unspecified; M32.9 Systemic lupus erythematosus, unspecified; F10.229 Alcohol dependence with intoxication, unspecified; M35.00 Sjogren syndrome, unspecified; F31.9 Bipolar disorder, unspecified; Y90.8 Blood alcohol level of 240 mg/100 ml or more; E03.9 Hypothyroidism, unspecified; F32.9 Major depressive disorder, single episode, unspecified; G40.909 Epilepsy, unspecified, not intractable, without status epilepticus; I10 Essential (primary) hypertension; F17.210 Nicotine dependence, cigarettes, uncomplicated; E86.0 Dehydration; Z91.14 Patient's other noncompliance with medication regimen; Z79.899 Other long term (current) drug therapy; Z88.2 Allergy status to sulfonamides; Z88.8 Allergy status to other drugs, medicaments and biological substances
CPT/HCPCS: 36415; 70450; 71045; 74019; 80048; 80053; 80320; 80329; 82140; 82550; 82553; 83605; 83690; 83735; 83880; 84443; 84484; 85025; 85379; 85610; 85730; 86140; 93005; A9270-GY; G0480; J1630; J1644; J2060; J2405

== ENCOUNTER 2017-12-27 08:15 | Day surgery (SDC) | payer MEDICARE ==
[~2017-12-27 08:15] MED LIST: Acetaminophen TAB* 325 MG PO PRN; Buffered Lidocaine 0.9% SYRIN* 5 ML/SYR SYRINGE INTRADERM ONE
[2017-12-27] MEDS ORDERED: Midazolam* 1 MG/ML 5 ML VIAL (5 MG) ONE ×2 (09:14→09:53)
[2017-12-27] MEDS ORDERED: fentaNYL* 50 MCG/ML 2 ML VIAL (100 MCG VIAL) ONE (09:14)
[2017-12-27] MEDS ORDERED: Triamcinolone Acetonide* 40 MG/ML 1 ML VIAL ONE (09:54)
[2017-12-27] MEDS ORDERED: Propofol* 10 MG/ML 20 ML BTL IV PUSH ONE (09:56)
[2017-12-27 10:17] VITALS: BP 170/68
[2017-12-27] MEDS ORDERED: Povidone Iodine 5% OPTH* 30 ML BTL ONE (11:53)
[2017-12-27] MEDS ORDERED: Phenylephrine 2.5% OPTH.SOL* 2 ML BTL ONE (11:53)
[2017-12-27] MEDS ORDERED: Lidocaine 2% EPI 1:200000 MPF*10-20 ML VIAL ONE (11:53)
[2017-12-27] MEDS ORDERED: Neomycin/Polymy/Dex OPTH.SUSP* MAXITROL 0.1% 5 ML ONE (11:53)
[2017-12-27] MEDS ORDERED: Proparacaine 0.5% OPHTH.SOL* 15 ML BTL ONE (11:53)
[2017-12-27] MEDS ORDERED: Ketorolac 0.5% OPHTH (NF) 0.5 % 5 ML BTL ONE (11:53)
[2017-12-27] MEDS ORDERED: Cyclopentolate 1% OPTH.SOL* 2 ML BTL ONE (11:53)
[2017-12-27] MEDS ORDERED: Lidocaine 1%* 5 ML VIAL ONE (11:53)
--- NOTE | 2017-12-27 12:00 | OP ---
DATE OF OPERATION: 12/27/2017. DATE OF : 1955. SURGEON: Nishant Napier M.D. PREOPERATIVE DIAGNOSIS: Cataract right eye. POSTOPERATIVE DIAGNOSIS: Cataract right eye. OPERATIVE PROCEDURE: Extracapsular cataract extraction with intraocular lens implant right eye. PROCEDURE: The patient was brought to the operating room after being given 1/2% Alcaine with epineph rine drops in the preoperative area. The eye was prepped and draped in the usual sterile fashion. S terile drape and eyelid speculum were placed. Again, topical 1/2% Alcaine with epinephrine was given . A paracentesis incision was made at the 9 o'clock position with the No.75 blade. Clear cornea inc ision 2.2 x 2.2-mm was created at the 12 o'clock position starting at the anterior limbus using the 2 .2-mm keratome. The anterior chamber was irrigated with 0.4 mL of 1% non-preservative intracameral l idocaine and filled with DisCoVisc. A capsulorrhexis was completed using the cystotome and the Utrat a forceps. Hydrodissection was performed with balanced salt solution. The lens nucleus was removed w ith the Phacoemulsification handpiece without incident. Cortex was removed with the irrigation-aspir ation handpiece. The capsular bag was re-inflated using DisCoVisc and an [id number] implant was inser angy with the shooter, followed by injection of 40 mg/ml 1 mg Kenalog. The irrigation-asp iration handpiece was used to remove all residual DisCoVisc. The eye was refilled with balanced salt solution and the wound checked and found to be watertight. Topical Maxitrol drops were given. [id number]/[facility] #: [id number]
== END 2017-12-27 10:20 | disposition home or self-care (01) ==
LOC: OREAST 08:15
PROVIDERS: ATTEND Specialist
DX: H25.11 Age-related nuclear cataract, right eye (principal); H44.113 Panuveitis, bilateral; H46.8 Other optic neuritis; H43.813 Vitreous degeneration, bilateral; Z72.0 Tobacco use; E03.9 Hypothyroidism, unspecified; E11.9 Type 2 diabetes mellitus without complications; I10 Essential (primary) hypertension; D64.9 Anemia, unspecified
CPT/HCPCS: A9270-GY; J2250; J2704; J3010; J3301; V2632

== ENCOUNTER 2018-03-22 14:29 | Emergency (ER) | payer MEDICARE ==
[2018-03-22] MEDS ORDERED: LORazepam INJ* 2 MG/ML 1 ML VIAL ONE (14:39)
[2018-03-22] MEDS ORDERED: diPHENhydraMINE PO* 50 MG ONE (14:53)
[2018-03-22] MEDS ORDERED: LORazepam INJ* 2 MG/ML 1 ML VIAL IV PUSH ONE (14:57)
[2018-03-22] MEDS ORDERED: diPHENhydraMINE PO* 50 MG PO ONE (14:57)
[2018-03-22] MEDS ORDERED: Thiamine IV* 100 MG/ML 2 ML VIAL IM ONE (15:00)
[2018-03-22] MEDS ORDERED: Nicotine Inhaler* 10 MG AMP INH PRN (15:00)
[2018-03-22] MEDS ORDERED: Acetaminophen TAB* 325 MG PO PRN (15:00)
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
[2018-03-22 16:57] LABS: ABS Basophils 0 10^3/ul (0-0.2); ABS Eosinophils 0.1 10^3/ul (0-0.6); ABS Lymphocytes 1.4 10^3/ul (1.0-4.8); ABS Monocytes 0.3 10^3/ul (0-0.8); ABS Nucleated RBC 0 10^3/ul; Hematocrit 36 % (35-47); Hemoglobin 11.6 g/dl (12.0-16.0); Mean Corpuscular HGB Conc 32 g/dl (31-36); Mean Corpuscular Hemoglobin 28 pg (27-31); Mean Corpuscular Volume 86 fL (80-97); Mean Platelet Volume 8.8 fL (7.4-10.4); Nucleated Red Blood Cells % 0.2; Platelet Count 179 10^3/ul (150-450); Red Blood Count 4.17 10^6/ul (4.00-5.40); Red Cell Distribution Width 17 % (10.5-15); White Blood Count 3.8 10^3/ul (3.5-10.8)
[2018-03-22 17:12] LABS: ALT 20 U/L (7-52); AST 33 U/L (13-39); Albumin 4.2 g/dL (3.2-5.2); Albumin/Globulin Ratio 1.5 (1-3); Alkaline Phosphatase 57 U/L (34-104); Anion Gap 9 mmol/L (2-11); BUN/Creatinine Ratio 20.2 (8-20); Blood Urea Nitrogen 17 mg/dL (6-24); CO2 Carbon Dioxide 26 mmol/L (22-32); Calcium 9.2 mg/dL (8.6-10.3); Chloride 109 mmol/L (101-111); Creatine Kinase 61 U/L (10-223); EGFR Non-African American 68.3 (>60); Globulin 2.8 g/dL (2-4); Glucose 101 mg/dL (70-100); Potassium 4.4 mmol/L (3.5-5.0); Sodium 144 mmol/L (135-145)
[2018-03-22 17:19] LABS: Acetaminophen < 15 mcg/mL; Alcohol 280 mg/dL (<10); Salicylate < 2.50 mg/dL (<30)
--- OUTSIDE RECORDS SUMMARY | 2018-03-22 19:28 | XMS REPORT | Continuity of Care Document ---
:1955 External Reference #:[id number] Author Name Celia Verde Care Team Providers Name Role Phone Marky Morris MD Primary Care Physician Unavailable Payers Type Date Identification Numbers Payment Provider Subscriber Policy Number: [id number] Medicare Clementine Alonso PayID: [id number] [facility] [address] [place] [address] Advance Directives Description No Information Available Problems Date Description Provider Status Onset: 09/27/2017 Syncope and collapse Adrianna Coates M.D. Active Onset: 09/27/2017 Seizure Adrianna Coates M.D. Active Onset: 09/27/2017 Bipolar disorder Adrianna Coates M.D. Active Onset: 09/27/2017 Alcohol withdrawal syndrome Adrianna Coates M.D. Active Onset: 12/04/2017 Systemic lupus erythematosus Marianne Sam NP Active Onset: 11/27/2017 High enzyme level in serum Concepcion Leblanc N.P. Active Onset: 11/27/2017 Major depressive disorder, single Concepcion Leblanc N.P. Active episode, unspecified Onset: 11/26/2017 Hypothyroidism Concepcion Leblanc N.P. Active Onset: 11/26/2017 Dizziness and giddiness Concepcion Leblanc N.P. 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 Active Family History Date Family Member(s) Problem(s) Comments General Drug Addiction Father Unknown Mother due to Rheumatic Heart () - at age 73 Disease Mother due to kidney dialysis, () heart disease, severely obese, Siblings 2 one sister-hypercholesterolemia/hy pertension one sister-emphysema, GI bleed Social History Type Date Description Comments Sex Unknown Lives With Roommate Occupation Disabled ETOH Use Occasionally consumed alcohol in the past Tobacco Use Start: Unknown Patient is a current smoker, smokes every day Smoking Status Reviewed: 03/06/18 Patient is a current smoker, smokes every day Exercise Exercises regularly Chastity Vega Type/Frequency program "Walk off the pounds" Allergies, Adverse Reactions, Alerts Date Description Reaction Status Severity Comments 10/19/2017 Sulfa Antibiotics Active 10/19/2017 [place] Active 10/19/2017 Steroids Active Medications Medication Date Status Form Strength Qnty SIG Indications Ordering Provider Omeprazole 03/06/ Active Capsules 20mg 30cap [address] garett Palumbo NP every day Slow Release Iron 02/27/ Active Tablets ER 47.5mg 90tab take Nishant 2017 s one Boaz, capsule M.D. /tablet daily by mouth Synthroid / Active Tablets 150mcg 1 by Unknown 0000 mouth every day Lamotrigine / Active Tablets 200mg 1 by Unknown 0000 mouth twice a day Prozac / Active Capsules 40mg 2 by Unknown 0000 mouth every day Clonazepam / Active Tablets 1mg Take 1 Unknown 0000 Tablet By Mouth Twice A Day as Needed Clonidine HCL / Active Tablets 0.1mg Take 1 Unknown 0000 Tablet By Mouth Every 8 Hours Folic Acid / Active Tablets Unknown 0000 Keppra / Hx Tablets 500mg 1 by Unknown 0000 - mouth 02/22/ a 2017 day Ativan / Hx Tablets 2mg take Unknown 0000 - one tablet 2018 by mouth bid Zyprexa / Hx Tablets 10mg 1 by Unknown 0000 - mouth 2018 Hydrochlorothiazide / Hx Tablets 50mg 3 by Unknown 0000 - mouth 02/22/ 2017 day Vitamin B-12 / Hx Tablets 250mcg 1 by Unknown 0000 - mouth 03/06/ 2017 day Immunizations Description No Information Available Vital Signs Date Vital Result Comment 03/06/2018 9:40am Height 63 inches 5'3" Weight 161.25 lb Heart Rate 55 /min BP Systolic Sitting 133 mmHg reg adult cuff left arm BP Diastolic Sitting 72 mmHg reg adult cuff left arm O2 % BldC Oximetry 98 % at rest on room air BMI (Body Mass Index) 28.6 kg/m2 02/22/2018 11:21am Height 63 inches 5'3" Weight 161.38 lb Heart Rate 67 /min BP Systolic 130 mmHg BP Diastolic 86 mmHg Pain Level 7 O2 % BldC Oximetry 98 % BMI (Body Mass Index) 28.6 kg/m2 10/19/2017 2:25pm Height 63 inches 5'3" Weight 161.00 lb Heart Rate 88 /min BP Systolic Sitting 130 mmHg BP Diastolic Sitting 90 mmHg BMI (Body Mass Index) 28.5 kg/m2 Results Test Date Facility Test Result H/L Range Note Vitamin B12 And 02/22/2018 [facility] Vitamin B12 > 1450 pg/mL High 180-914 1 [place] [address] [phone] Folic Acid (Folate) > 20.00 ng/mL >3.99 Celiac Panel 02/22/2018 [facility] Tissue Transglutaminase <1.2 U/mL 2 [facility] [place] [address] [phone] Immunoglobulin A 203 mg/dL 61 - 356 Celiac Interpretation See Comment 3 Celiac Hla 02/22/2018 [facility] Hla-[id number] SEE BELOW 4 [place] [address] [phone] Hla-[id number] SEE BELOW 5 Celiac Gene Pairs Present? No Celiac Gene Interpretation See Comment 6 Laboratory test 02/22/2018 [facility] Complement C3 84 mg/dL 75 - 175 7 [place] [address] [phone] Complement C4 22 mg/dL 14 - 40 8 Angiotensin Converting Enzyme 34 U/L 8 - 53 9 Anca AB Ser If 02/22/2018 [facility] C-Anca [place] [address] [phone] P-Anca Negative Negative 10 Nuclear AB 02/22/2018 [facility] Nuclear Ab Positive 1:640 Abnormal 11 (Amaya) By Ifa (Amaya) by Ifa, [place] [address] IgG [phone] Amaya Titer: 1:640 Amaya Pattern: Homogeneous 12 Laboratory test 02/22/2018 [facility] Anti Double <12.3 IU/mL [address] [place] [address] AB [phone] Iron & Iron 02/22/2018 [facility] Iron 16 g/dL Low 50-212 Binding Capacity [address] [place] [address] [phone] Unsaturated Iron Binding < 401 g/dL Total Iron Binding Capacity 416 g/dL N 250-450 Transferrin 297 mg/dL N 203-362 % Iron Saturation 4 % Low 15-55 Urinalysis Profile 02/22/2018 [facility] Urine Color Michelle [address] [place] [address] [phone] Urine Appearance Cloudy Urine Specific [place] 1.034 High 1.010-1.030 Urine pH 5.0 N 5-9 Urine Urobilinogen Positive Abnormal Negative Urine Ketones Trace Abnormal Negative Urine Protein 2+(100 mg/dL) Abnormal Negative Urine Leukocytes Negative Negative Urine Blood Negative Negative * * Abnormal Negative 14 Urine Nitrite Negative Negative Urine Bilirubin 1+ Abnormal Negative Urine Glucose Negative Negative Urine White Blood Cell Trace(0-5/hpf) Absent Urine Red Blood Cell Trace(0-2/hpf) Absent Urine Bacteria Absent Absent Urine Squamous Epithelial Cell Present Abnormal Absent Urine Hyaline Casts Present Abnormal Absent Urine Culture And 02/22/2018 [facility] Urine Culture SEE RESULT [address] [place] [address] [phone] 1 Normal Range 180 to 914 Indeterminate Range 145 to 180 Deficient Range <145 2 REFERENCE VALUE <4.0 (Negative) Test Performed by: [place] [address] 3 Negative serology. Celiac disease unlikely. However, approximately 10% of patients with celiac disease are seronegative. Also, patients who are already adhering to a gluten-free diet may be seronegative. If celiac disease is highly clinically suspected, consider HLA-DQ typing. Test Performed by: [place] [id number] RESULT: 01:02,01:02 REFERENCE VALUE Not Applicable 5 RESULT: 06:02,06:09 DQ Serologic Equivalent: 6,6 REFERENCE VALUE Not Applicable 6 The absence of HLA celiac permissive genes would make the presence of celiac disease unlikely. ADDITIONAL INFORMATION Method: Molecular typing of HLA antigens performed using reverse SSOP and/or SSP methods, reported as serological equivalents and low to medium resolution molecular values. Performing Laboratory CLIA# [id number] Test Performed by: [place] [address] 7 Test Performed by: [facility] [place] [address] 8 Test Performed by: [place] [address] 9 Test Performed by: [place] [address] 10 Negative for cANCA and pANCA patterns by immunofluorescence. ADDITIONAL INFORMATION This test was developed and its performance characteristics determined by [facility] in a manner consistent with CLIA requirements. This test has not been cleared or approved by the U.S. Food and Drug Administration. Test Performed by: [facility] [address] [place] [address] 11 REFERENCE VALUE <1:80 (Negative) 12 Test Performed by: [facility] [place] [address] 13 REFERENCE VALUE <30.0 (Negative) Test Performed by: [facility] [address] , [place] [address] 14 *Ascorbic acid is present which may interfere with detection of blood. 15 SEE RESULT BELOW Name: CLEMENTINE ALONSO : [address]: Nishant Sandra MD Acct: [id number] Unit: [id number] AGE: 62 Location: LAB Re02/22/18 SEX: F Status: REG REF SPEC: [id number] LUIS: 02/22/18 [facility] DR: Nishant Sandra MD REQ: [id number] RECD: 02/22/18 STATUS: COMP _ SOURCE: URINE SPDESC: ORDERED: Urine Culture Procedure Result Reported Site Urine Culture Final 02/23/18- 1214 ML No Growth (<1,000 CFU/mL) * ML - Main Lab . END OF REPORT DEPARTMENT OF PATHOLOGY, [address] [place] [address] Amos Lozano M.D. Director [facility] # [id number] Procedures Date Code Description Status 09/26/2017 15966 EEG Recording Awake & Drowsy Completed Encounters Type Date Location Provider Dx Diagnosis Office Visit 02/28/2018 [facility] Dermatology Navarro Acharya, L29.8 Other pruritus 9:20a MD Office Visit 12/04/2017 [facility] F10.239 Alcohol dependence 9:24a Assocdillan NP with withdrawal, Hospitalists unspecified R74.8 Abnormal levels of other serum enzymes E03.9 Hypothyroidism, unspecified F32.9 Major depressive disorder, single episode, unspecified R56.9 Unspecified convulsions M32.9 Systemic lupus erythematosus, unspecified Office Visit 12/03/2017 [facility] F10.239 Alcohol 9:23a Assdillan chery NP dependence with Hospitalists withdrawal, unspecified R74.8 Abnormal levels of other serum enzymes E03.9 Hypothyroidism, unspecified F32.9 Major depressive disorder, single episode, unspecified Office Visit 12/02/2017 [facility] F10.239 Alcohol 9:23a Assocdillan NP dependence with Hospitalists withdrawal, unspecified R74.8 Abnormal levels of other serum enzymes E03.9 Hypothyroidism, unspecified F32.9 Major depressive disorder, single episode, unspecified Office Visit 12/01/2017 [facility] Marianne F10.239 Alcohol 9:23a Assoc,pc CHRISTINA Sam dependence with Hospitalists withdrawal, unspecified R74.8 Abnormal levels of other serum enzymes F32.9 Major depressive disorder, single episode, unspecified E03.9 Hypothyroidism, unspecified Office Visit 11/30/2017 9:21a [facility] Concepcion Leblanc, F10.239 Alcohol Assoc,pc N.P. dependence with Hospitalists withdrawal, unspecified R74.8 Abnormal levels of other serum enzymes F32.9 Major depressive disorder, single episode, unspecified E03.9 Hypothyroidism, unspecified Office Visit 11/29/2017 9:21a [facility] Concepcion Leblanc, F10.239 Alcohol Assoc,pc N.P. dependence with Hospitalists withdrawal, unspecified R74.8 Abnormal levels of other serum enzymes F32.9 Major depressive disorder, single episode, unspecified E03.9 Hypothyroidism, unspecified Office Visit 11/28/2017 9:20a [facility] Concepcion Leblanc, F10.239 Alcohol Assoc,pc N.P. dependence with Hospitalists withdrawal, unspecified F32.9 Major depressive disorder, single episode, unspecified E03.9 Hypothyroidism, unspecified Office Visit 11/27/2017 9:20a [facility] Concepcion Leblanc, F10.239 Alcohol Assoc,pc N.P. dependence with Hospitalists withdrawal, unspecified F32.9 Major depressive disorder, single episode, unspecified E03.9 Hypothyroidism, unspecified R74.8 Abnormal levels of other serum enzymes Office Visit 11/26/2017 9:19a [facility] Concepcion Leblanc, R07.9 Chest pain , Assoc,pc N.P. unspecified Hospitalists F10.288 Alcohol dependence with other alcohol-induced disorder R42 Dizziness and giddiness E03.9 Hypothyroidism, unspecified Office Visit 10/19/2017 [facility] Saw Ross, R56.9 Unspecified 3:00p Clinic MD convulsions Office Visit 09/27/2017 [facility] Adrianna R55 Syncope and 3:41p Assoc,pc Hospitalists Navarro Coates collapse R56.9 Unspecified convulsions F31.9 Bipolar disorder, unspecified F10.239 Alcohol dependence with withdrawal, unspecified Office Visit 09/26/2017 [facility], R56.9 Unspecified 7:00a Clinic MD convulsions Office Visit 09/26/2017 [facility] Adrianna R55 Syncope and 3:41p Assoc, Hospitalists Navarro Coates collapse E03.9 Hypothyroidism, unspecified F10.239 Alcohol dependence with withdrawal, unspecified Office Visit 09/25/2017 3:40p [facility] Pedro Frankenberg R55 Syncope and Assoc, Navarro CUENCA collapse Hospitalists F10.129 Alcohol abuse with intoxication, unspecified Plan of Treatment Future Appointment(s):04/03/2018 10:00 am - Sarah Palumbo NP at [facility] Zlgnalqptjlzuwqi39/03/2019 10:20 am - Navarro Acharya MD at [facility] Bafhjjwqebk82/02/ 2019 11:40 am - Nishant Sandra M.D. at [facility]
--- OUTSIDE RECORDS SUMMARY | 2018-03-22 19:28 | XMS REPORT | Continuity of Care Document ---
:1955 External Reference #:[id number] Author Name LulyarethaJenn Care Team Providers Name Role Phone Marky Morris M.D. Primary Care Physician Unavailable Payers Type Date Identification Numbers Payment Provider Subscriber Policy Number: [id number] Medicare - [facility] Brissa Alonso PayID: [id number] [address] [place] [id number] Advance Directives Description No Information Available Problems Date Description Provider Status Onset: Sjogren's syndrome Active Onset: Lupus erythematosus Active Onset: Chronic inflammatory demyelinating Active polyneuropathy Onset: Graves' disease in remission Active Onset: Seizure Active Onset: Discoid lupus erythematosus Active Onset: Systemic lupus erythematosus Active Onset: 09/14/2017 Nuclear senile cataract Jesus Mcnair M.D. Active Onset: 09/14/2017 Vitreous degeneration Jesus Mcnair M.D. Active Onset: 09/14/2017 Hypermetropia Jesus Mcnair M.D. Active Onset: 09/14/2017 Myopia Jesus Mcnair M.D. Active Onset: 09/14/2017 Presbyopia Jesus Mcnair M.D. Active Onset: 09/14/2017 Panuveitis Jesus Mcnair M.D. Active Onset: 02/23/2018 Presence of intraocular lens Leti Mac O.D. Active Onset: 02/23/2018 Optic atrophy Leti Mac O.D. 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 ETOH Use Denies alcohol use Tobacco Use Start: Unknown Light tobacco smoker (10 (less than a pack or fewer cigarettes/day) per week) Recreational Drug Use Denies Drug Use Smoking Status Reviewed: 02/23/18 Light tobacco smoker (10 (less than a pack or fewer cigarettes/day) per week) Allergies, Adverse Reactions, Alerts Date Description Reaction Status Severity Comments 09/14/2017 Sulfa Antibiotics Active 09/14/2017 Cortisone STEROID PSYCHOSIS Active 09/14/2017 [place] Active 12/19/2017 Solu-Medrol Active steroid Medications Medication Date Status Form Strength Qnty SIG Indications Ordering Provider Levothyroxine 00/ Active Tablets 150mcg Unknown Sodium 0000 Lamictal 00/ Active Tablets 200mg twice Unknown 0000 daily Clonazepam 0000/ Active Tablets 1mg 3 times Unknown 0000 Dispers daily Clonidine HCL / Active Tablets 0.1mg 1 tab Unknown 0000 three times a day Ibuprofen 00/00/ Active Capsules 200mg 2-3 as Unknown 0000 needed Prozac / Active Capsules 40mg 1 by mouth Unknown 0000 every day Vigamox 12/19/ Hx Solution 0.5% 3ml one drop Nishant J. 2018 - right eye [place], 02/21/ three M.D. 2018 times a day, start the day before surgery Ketorolac 12/19/ Hx Solution 0.5% 10ml use one Nishant JBob Tromethamine 2018 - drop in [place], 02/21/ the right M.D. 2018 eye three times a day, start the day before surgery Prednisolone 12/19/ Hx Suspension 1% 15ml 1 drops Nishant JBob Acetate 2018 - right eye [place], 02/21/ three M.D. 2018 times a day. taper as directed Keppra XR 00/00/ Hx Tablets ER 500mg 3 times Unknown 0000 - 24HR daily 2017 Hydralazine HCL 00/00/ Hx Tablets 50mg 3 times Unknown 0000 - daily 2017 Doxepin HCL /00/ Hx Capsules 10mg at bedtime Unknown 0000 - 2017 Zyprexa 00/00/ Hx Solution Rec 10mg Unknown 0000 - 2017 Immunizations Description No Information Available Vital Signs Description No Information Available Results Description No Information Available Procedures Date Code Description Status 02/23/2018 14057 Visual Field Exam Extended Completed 01/03/2018 03866 Extracapsular Cataract Extraction W/Intraocular Lens Completed 12/27/2017 46316 Extracapsular Cataract Extraction W/Intraocular Lens Completed 12/19/2017 27931 Ophthalmic Biometry Completed 12/19/2017 72304 Ophthalmic Biometry Completed 12/19/2017 24565 Est Patient Intermediate Exam Completed 09/14/2017 97596 New Patient Comprehensive Exam Completed Encounters Description No Information Available Plan of Treatment 02/23/2018 - Leti Mac O.D.Z96.1 Presence of intraocular lensComments: Your lens implant looks stable in both eyes at this time. You should be done, or almost done with your drops at this time according to your surgical calendar. I have given you a prescription for glasses. If you have any questions, please feel free to call our office at .A53.113 Panuveitis, prnbjbvjgJ60.20 Unspecified optic atrophyComments:You have optic atrophy in both of your eyes. This means that the optic nerve is damaged and can cause vision difficulty.
--- OUTSIDE RECORDS SUMMARY | 2018-03-22 19:28 | XMS REPORT | Continuity of Care Document ---
:1955 External Reference #:[id number] Author Name Kathya Chen Care Team Providers Name Role Phone Marky Morris MD Primary Care Physician Unavailable Payers Type Date Identification Numbers Payment Provider Subscriber Policy Number: [id number] Medicare Brissa Alonso PayID: [id number] [facility] [address] [place] [address] Advance Directives Description No Information Available Problems [...] Onset: 11/27/2017 Major depressive disorder, single Concepcion Lbelanc N.P. Active episode, unspecified Onset: 11/26/2017 Hypothyroidism Concepcion Leblanc N.P. Active Onset: 11/26/2017 Dizziness and giddiness Concepcion Leblanc N.P. 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 Active Family History Date Family Member(s) Problem(s) Comments General Drug Addiction Social History Type Date Description Comments Sex Unknown ETOH Use Occasionally consumed alcohol in the past Tobacco Use Start: Unknown Patient is a current smoker, smokes every day Smoking Status Reviewed: 02/22/18 Patient is a current smoker, smokes every day Allergies, Adverse Reactions, Alerts Date Description Reaction Status Severity Comments 10/19/2017 Sulfa Antibiotics Active 10/19/2017 [place] Active 10/19/2017 Steroids Active Medications Medication Date Status Form Strength Qnty SIG Indications Ordering Provider Synthroid 00/00/ Active Tablets 150mcg 1 by Unknown 0000 mouth every day Lamotrigine 00/ Active Tablets 200mg 1 by Unknown 0000 [...] day Ativan / Hx Tablets 2mg take one Unknown 0000 - tablet 02/22/ by mouth 2018 bid Zyprexa / Hx Tablets 10mg 1 by Unknown 0000 - mouth 2018 Hydrochlorothiazide / Hx Tablets 50mg 3 by Unknown 0000 - mouth 02/22/ 2017 day Immunizations Description No Information Available Vital Signs Date Vital Result Comment 02/22/2018 11:21am Height 63 inches 5'3" Weight [...] BMI (Body Mass Index) 28.5 kg/m2 Results Description No Information Available Procedures Date Code Description Status 09/26/2017 98716 EEG Recording Awake & Drowsy Completed Encounters Type Date Location Provider Dx Diagnosis [facility] F[facility].239 Alcohol dependence 9:24a Assoc,dillan Sam NP with withdrawal, Hospitalists unspecified R74.8 Abnormal levels of other serum enzymes E03.9 Hypothyroidism, unspecified F32.9 Major depressive disorder, single episode, unspecified R56.9 Unspecified convulsions M32.9 Systemic lupus erythematosus, unspecified [facility] Visit [facility] F[facility].239 Alcohol 9:23a Assoc,pc Cecy, [employer] D[employer]ER dependence with Hospitalists withdrawal, unspecified R74.8 Abnormal levels of other serum enzymes E03.9 Hypothyroidism, unspecified F32.9 Major depressive disorder, single episode, unspecified Office Visit [facility]02[facility] F[facility].239 Alcohol 9:23a Assoc,pc [place], [employer] dependence with Hospitalists withdrawal, unspecified R74.8 Abnormal levels of other serum enzymes E03.9 Hypothyroidism, unspecified F32.9 Major depressive disorder, single episode, unspecified Office Visit 12[facility]01/[facility] F10.239 Alcohol 9:23a Assoc,pc [place], [employer] dependence with Hospitalists withdrawal, unspecified R74.8 Abnormal levels of other serum enzymes F32.9 Major depressive disorder, single episode, unspecified E03.9 Hypothyroidism, unspecified Office Visit 11/30/2017 9:21a [place] Aquiles Leblanc, F10.239 Alcohol Assoc,pc N.P. dependence with Hospitalists withdrawal, unspecified R74.8 Abnormal levels of other serum enzymes F32.9 Major depressive disorder, single episode, unspecified E03.9 Hypothyroidism, unspecified Office Visit 11/29/2017 9:21a Estefany Leblanc, F10.239 Alcohol Assoc,pc N.P. dependence with Hospitalists withdrawal, unspecified R74.8 Abnormal levels of other serum enzymes F32.9 Major depressive disorder, single episode, unspecified E03.9 Hypothyroidism, unspecified Office Visit 11/28/2017 9:20a [place] Aquiles Leblanc, F10.239 Alcohol Assoc,pc N.P. dependence with Hospitalists withdrawal, unspecified F32.9 Major depressive disorder, single episode, unspecified E03.9 Hypothyroidism, unspecified Office Visit 11/27/2017 9:20a [place] Leblanc, F10.239 Alcohol Assoc,pc N.P. dependence with Hospitalists withdrawal, unspecified F32.9 Major depressive disorder, single episode, unspecified E03.9 Hypothyroidism, unspecified R74.8 Abnormal levels of other serum enzymes Office Visit 11/26/2017 9:19a [place] Javier Benji, R07.9 Chest pain , Assoc,pc N.P. unspecified Hospitalists F10.288 Alcohol dependence with other alcohol-induced disorder R42 Dizziness and giddiness E03.9 Hypothyroidism, unspecified Office Visit 10/19/2017 [facility] [place], R56.9 Unspecified 3:00p Clinic convulsions Office Visit 09/27/[address] [facility] R55 Syncope and 3:41p Assoc, Hospitalists Navarro Coates collapse R56.9 Unspecified convulsions F31.9 Bipolar disorder, unspecified F10.239 Alcohol dependence with withdrawal, unspecified Office Visit 09/26/2017 [facility] [place], R56.9 Unspecified 7:00a Clinic convulsions Office Visit 09/26/[address] [facility] R55 Syncope and 3:41p Assoc, Hospitalists Navarro Coates collapse E03.9 Hypothyroidism, unspecified F10.239 Alcohol dependence with withdrawal, unspecified Office Visit 09/25/2017 3:40p [facility] Pedro Frankenberg R55 Syncope and Assoc,dillan CUENCA M.D. collapse Hospitalists F10.129 Alcohol abuse with intoxication, unspecified Plan of Treatment 02/22/2018 - Nishant Sandra M.D.M32.9 Systemic lupus erythematosus, unspecifiedComments:We will check a celiac panel in light of your GI issues and rashReferral:Navarro Acharya MD, OvogkkrpoxpE74.01 Sicca syndrome with keratoconjunctivitisNew Labs:Celiac Panel, Ordered: 02/22/18Celiac Hla, Ordered : 02/22/18Complement C3, Ordered: 02/22/18Complement C4, Ordered: Angiotensin Converting Enzyme, Ordered: 02/22/18Anca AB Ser If, Ordered: 02/22Nuclear AB (Amaya) By Ifa Igg, Ordered: 02/22/18Anti Double Stranded Dna AB, Ordered: 02/22/18Z79.899 Other fpc (current) drug therapyComments:1. Don?? t smoke any cigarettes. Each cigarette you smoke damages your lungs, your blood vessels, andcells throughout your body. Even occasional smoking is harmful.2. Write down why you want to quit. Do you want to??Be around for your loved ones? Have better health?Set a good example for your children?Protect your family from breathing other people??s smoke?Really wanting to quit smoking is very important to how much success you will have in quitting.3. Know that it will take commitment and effort toquit smoking. Nearly all smokers have some feelings of nicotine withdrawal when they try to quit. Nicotine is addictive.a Knowing this will help you deal with withdrawal symptoms that can occur, such as bad moods and really wanting to smoke.Your chances of quitting are better if you don't do it aloneThere are many ways smokers quit, including using nicotine replacement products (gum and patches) or FDA-approved, non-nicotine cessation medications. Some people do not experience any withdrawal symptoms. For most people, symptoms only last a few days to a couple of weeks.a Take quitting one day at a time, even one minute at a time??whatever you need to succeed.4. Get help if you want it. Smokers can receive free resources and assistance to help them quit by calling the 7-676-PBABNOW quitline ( ) or by visiting [facility]??s Tips From Former Smokers??. Your health care providers are also a good source for help and support.Concerned about weight gain? It??s a common concern, but not everyone gains weight when they stop smoking.b Learn ways to help you control your weight as you quit smoking.5. Remember this good news! More than half of all adult smokers have quit, and you can, too.c Millions of people have learned to face life without a cigarette. Quitting smoking is the single most important step you can take to protect your health and the health of your family.R20.8 Other disturbances of skin sensationNew Labs:Vitamin B12 And Folate Serum, Ordered: 02/22/18Iron & Iron Binding Capacity, Ordered: Urinalysis Profile, Ordered: 02/22/18D64.9 Anemia, unspecifiedFollow up: Follow up in 3 to 4 weeks or sooner if needed
[2018-03-22 21:52] LABS: Urine Appearance Clear; Urine Bacteria Absent (Absent); Urine Bilirubin Negative (Negative); Urine Blood Negative (Negative); Urine Color Yellow; Urine Glucose Negative (Negative); Urine Ketones Negative (Negative); Urine Nitrite Negative (Negative); Urine Protein 2+(100 mg/dL) (Negative); Urine Red Blood Cell Trace(0-2/hpf) (Absent); Urine Specific Gravity 1.014 (1.010-1.030); Urine Urobilinogen Negative (Negative); Urine White Blood Cell Trace(0-5/hpf) (Absent)
[2018-03-22 22:00] LABS: Barbiturates Urine Screen None Detected (None Detect); Benzodiazepine Urine Screen None Detected (None Detect); Urine Cannabinoids Screen None Detected (None Detect)
--- NOTE | 2018-03-22 22:21 | ED ---
Progress - Progress Note Progress Note: The patient was signed out by Dr. Segura to Dr. Sanford, pending sobriety. Re-Evaluation - Re-Evaluation First Eval Re-Evaluation Time: 21:10 Change: Improved Comment: Patient denies SI/HI. Confirms she did have an OD. Takes Levothyoxine 25 mcg. Second Eval Re-Evaluation Time: 22:40 Change: Improved - Pt is calm, cooperative. Speech is clear. Pt agrees to change into mental health scrubs. No sign of withdrawal. No tremor, no hallucinations. P 66. Pt states she is no suicidal or homicidal. States she just wants to go home. Pt reminded of mental health evaluation process, and that pending sobriety, pt will be cleared for MHE. Pt lying on bed with observation q [address]. Pt advised of labs showing hyperthyroidism, and that she will need to DC her levothyroxine and keep her appt with Dr. Morris on 03/26/18 if she is discharged. Course/Dx - Course Course Of Treatment: The patient was signed out by Dr. Segura to Dr. Sanford, pending sobriety. The patient will be discharged home with follow up from Dr. Morris. - Diagnoses Provider Diagnoses: Hyperthyroidism without crisis, Alcohol intoxication, Suicidal ideation, Lupus (systemic lupus erythematosus) - Provider Notifications Time Discussed With Above Provider: 21:10 Instructed by Provider To: Other - Discussed patients TSH of 0. 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 - Critical Care Time Critical Care Time: 30-74 min Discharge - Sign-Out/Discharge Documenting (check all that apply): Patient Departure - discharge, Receiving Sign-Out Receiving patient FROM: Barbra Segura - Discharge Plan Condition: Stable Disposition: HOME Patient Education Materials: Hyperthyroidism (ED), Abuse of Alcohol (ED) Referrals: Marky Morris MD [Primary Care Provider] - (Keep appointment for . ) Additional Instructions: You need to discontinue your levothyroxine and have definite follow up with Dr. Morris at your 03/26/18 scheduled appointment. - Billing Disposition and Condition Condition: STABLE Disposition: Home - Attestation Statements Document Initiated by Scribe: Yes Documenting Scribe: Silvio Smyth Provider For Whom Scribe is Documenting (Include Credential): Kraig Sanford MD Scribe Attestation: I, Silvio Smyth, scribed for Kraig Sanford MD on 03/23/18 at 0447. Scribe Documentation Reviewed: Yes Provider Attestation: The documentation as recorded by the scribe, Silvio Smyth accurately reflects the service I personally performed and the decisions made by me, Kraig Sanford MD Status of Scribe Document: Viewed
[2018-03-22] MEDS ORDERED: clonazePAM TAB(*) 1 MG PO ONE (22:47)
[2018-03-23 00:50] VITALS: BP 149/74
[2018-03-23] MEDS ORDERED: Multivitamins/Minerals TAB PO SCH (09:00)
[2018-03-23] MEDS ORDERED: Thiamine TAB* 100 MG TAB PO SCH (09:00)
[2018-03-23] MEDS ORDERED: Folic Acid TAB* 1 MG PO SCH (09:00)
== END 2018-03-23 00:48 | disposition home or self-care (01) ==
LOC: ED 14:29
DX: E05.90 Thyrotoxicosis, unspecified without thyrotoxic crisis or storm (principal); F10.129 Alcohol abuse with intoxication, unspecified; R45.851 Suicidal ideations; M32.9 Systemic lupus erythematosus, unspecified; I50.9 Heart failure, unspecified; I12.9 Hypertensive chronic kidney disease with stage 1 through stage 4 chronic kidney disease, or unspecified chronic kidney disease; N18.9 Chronic kidney disease, unspecified; D64.9 Anemia, unspecified; F17.210 Nicotine dependence, cigarettes, uncomplicated
CPT/HCPCS: 36415; 80053; 80307; 80320; 80329; 81003; 81015; 82550; 84439; 84443; 84479; 85025; 87086; 96372; 96374; 99284; A9270-GY; G0480; J2060; J3411

== ENCOUNTER 2018-05-25 14:02 | Emergency (ER) | payer MEDICARE, MEDICAID ==
[2018-05-25] MEDS ORDERED: LORazepam INJ* 2 MG/ML 1 ML VIAL IM ONE (14:04)
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
--- NOTE | 2018-05-25 18:09 | ED ---
Progress - Progress Note Progress Note: Receiving sign out from Dr. Dias, pending sobriety and disposition. Re-Evaluation - Re-Evaluation First Eval Re-Evaluation Time: 20:05 Change: Improved Comment: Patient ambulated with a steady gait Course/Dx - Course Course Of Treatment: Patient was signed out from Dr. Dias upon shift change pending sobriety and disposition. Patient was able to walk with a steady gait at 2004. The patient will be discharged home with follow up from PCP. - Diagnoses Provider Diagnoses: Alcohol intoxication Discharge - Sign-Out/Discharge Documenting (check all that apply): Patient Departure - Discharge home, Receiving Sign-Out Receiving patient FROM: Kraig Dias Patient Received Moderate/Deep Sedation with Procedure: No - Discharge Plan Condition: Stable Disposition: HOME Patient Education Materials: Alcohol Intoxication (ED) Referrals: Marky Morris MD [Primary Care Provider] - 2 Days Additional Instructions: RETURN TO THE EMERGENCY DEPARTMENT FOR NEW OR WORSENING SYMPTOMS - Attestation Statements Document Initiated by Scribe: Yes Documenting Scribe: Geovanna Young Provider For Whom Scribe is Documenting (Include Credential): Sydnee Pacheco MD Scribe Attestation: Geovanna Gerber, scribed for Sydnee Pacheco MD on 05/25/18 at 2005. Status of Scribe Document: Ready
[2018-05-25 20:17] VITALS: BP 149/89
== END 2018-05-25 20:16 | disposition home or self-care (01) ==
LOC: ED 14:02
DX: F10.229 Alcohol dependence with intoxication, unspecified (principal); F17.210 Nicotine dependence, cigarettes, uncomplicated; I10 Essential (primary) hypertension; Z86.79 Personal history of other diseases of the circulatory system
CPT/HCPCS: 96372; 99284; J2060

== ENCOUNTER → 2018-07-05 11:50 | Emergency (ER) | payer MEDICARE, MEDICAID ==
[~2018-07-05 11:50] MED LIST changes: -Acetaminophen TAB* 325 MG PO PRN; -Buffered Lidocaine 0.9% SYRIN* 5 ML/SYR SYRINGE INTRADERM ONE; +HYDROcodone/ACETAMIN 5-325 MG* 1 TAB PO ONE; +Ondansetron ODT TAB* 4 MG PO ONE
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
[2018-07-05 13:35] LABS: Urine Appearance Clear; Urine Bacteria Absent (Absent); Urine Bilirubin Negative (Negative); Urine Blood Negative (Negative); Urine Color Yellow; Urine Glucose Negative (Negative); Urine Ketones Negative (Negative); Urine Nitrite Negative (Negative); Urine Protein 1+(30 mg/dL) (Negative); Urine Red Blood Cell Absent (Absent); Urine Specific Gravity 1.011 (1.010-1.030); Urine Squamous Epithelial Cell Present (Absent); Urine Urobilinogen Negative (Negative); Urine White Blood Cell Trace(0-5/hpf) (Absent)
[2018-07-05 13:37] LABS: ABS Basophils 0 10^3/ul (0-0.2); ABS Eosinophils 0.3 10^3/ul (0-0.6); ABS Lymphocytes 1.3 10^3/ul (1.0-4.8); ABS Monocytes 0.5 10^3/ul (0-0.8); ABS Neutrophils 2.5 10^3/ul (1.5-7.7); ABS Nucleated RBC 0 10^3/ul; Eosinophil % 5.6 %; Hematocrit 34 % (33-41); Hemoglobin 11.3 g/dL (12.0-16.0); Lymphocyte % 27.8 %; Mean Corpuscular HGB Conc 34 g/dL (31-36); Mean Corpuscular Hemoglobin 32 pg (27-31); Mean Corpuscular Volume 96 fL (80-97); Mean Platelet Volume 9.1 fL (7.4-10.4); Nucleated Red Blood Cells % 0.1; Platelet Count 156 10^3/uL (150-450); Red Blood Count 3.52 10^6 /uL (3.70-4.87); Red Cell Distribution Width 17 % (10.5-15); White Blood Count 4.6 10^3/uL (3.5-10.8)
[2018-07-05 13:48] LABS: Urine Benzodiazepine Screen None Detected (None Detect); Urine Opiates Screen None Detected (None Detect)
[2018-07-05 13:59] LABS: INR 0.88 (0.77-1.02)
[2018-07-05 14:01] LABS: ALT 14 U/L (7-52); AST 22 U/L (13-39); Albumin/Globulin Ratio 1.5 (1-3); Alkaline Phosphatase 52 U/L (34-104); Anion Gap 8 mmol/L (2-11); Blood Urea Nitrogen 15 mg/dL (6-24); C Reactive Protein 6.75 mg/L (<8.01); CO2 Carbon Dioxide 24 mmol/L (22-32); Calcium 9.5 mg/dL (8.6-10.3); Chloride 107 mmol/L (101-111); EGFR African American 72.5 (>60); Globulin 2.6 g/dL (2-4); Glucose 88 mg/dL (70-100); Magnesium 1.9 mg/dL (1.9-2.7); Potassium 4.2 mmol/L (3.5-5.0); Sodium 139 mmol/L (135-145); Total Protein 6.6 g/dL (6.4-8.9)
[2018-07-05 14:08] LABS: Alcohol < 10 mg/dL (<10)
[2018-07-05 14:23] LABS: TSH (Thyroid Stimulating Horm) 0.25 mcIU/mL (0.34-5.60)
[2018-07-05 14:56] LABS: Erythrocyte Sed Rate 48 mm/Hr (0-29)
[2018-07-05 15:27] VITALS: BP 162/78
== END | disposition home or self-care (01) ==
LOC: ED 11:50
DX: M32.9 Systemic lupus erythematosus, unspecified (principal); I50.9 Heart failure, unspecified; I11.0 Hypertensive heart disease with heart failure; M19.90 Unspecified osteoarthritis, unspecified site; E05.00 Thyrotoxicosis with diffuse goiter without thyrotoxic crisis or storm; Z79.899 Other long term (current) drug therapy; Z79.890 Hormone replacement therapy; Z88.8 Allergy status to other drugs, medicaments and biological substances; Z88.2 Allergy status to sulfonamides
CPT/HCPCS: 36415; 80053; 80307; 80320; 81003; 81015; 83735; 84443; 85025; 85610; 85652; 86140; 87086; 99282; A9270-GY; G0480

== ENCOUNTER 2018-07-08 21:23 | Emergency (ER) | payer MEDICARE, MEDICAID ==
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
[2018-07-09] MEDS ORDERED: Morphine 10 MG/ML VIAL (1 ml) IM ONE (00:16)
[2018-07-09 00:30] VITALS: BP 178/82
== END 2018-07-09 00:30 | disposition home or self-care (01) ==
LOC: ED 21:23
DX: M32.9 Systemic lupus erythematosus, unspecified (principal); M25.441 Effusion, right hand; D64.9 Anemia, unspecified; F17.210 Nicotine dependence, cigarettes, uncomplicated; Z88.2 Allergy status to sulfonamides; Z91.09 Other allergy status, other than to drugs and biological substances
CPT/HCPCS: 96372; 99282; J2270

== ENCOUNTER 2018-07-12 12:20 | Emergency (ER) | payer MEDICARE, MEDICAID ==
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
[2018-07-12 13:45] VITALS: BP 97/57
== END 2018-07-12 13:44 | disposition home or self-care (01) ==
LOC: ED 12:20
DX: G89.29 Other chronic pain (principal); F17.210 Nicotine dependence, cigarettes, uncomplicated
CPT/HCPCS: 99282

== ENCOUNTER 2018-08-31 08:50 | Emergency (ER) | payer MEDICARE, MEDICAID ==
[2018-08-31] MEDS ORDERED: NS 0.9% 1000 ML** 1,000 ML IV ONE (09:05)
[2018-08-31 09:29] LABS: ABS Eosinophils 0.2 10^3/ul (0-0.6); ABS Lymphocytes 0.8 10^3/ul (1.0-4.8); ABS Monocytes 0.3 10^3/ul (0-0.8); ABS Neutrophils 1.3 10^3/ul (1.5-7.7); Eosinophil % 8.3 %; Hematocrit 37 % (35-47); Hemoglobin 12.5 g/dL (12.0-16.0); Lymphocyte % 30.6 %; Mean Corpuscular HGB Conc 34 g/dL (31-36); Mean Corpuscular Hemoglobin 32 pg (27-31); Mean Corpuscular Volume 95 fL (80-97); Mean Platelet Volume 8.5 fL (7.4-10.4); Nucleated Red Blood Cells % 0.1; Platelet Count 164 10^3/uL (150-450); Red Blood Count 3.89 10^6 /uL (3.70-4.87); Red Cell Distribution Width 15 % (10-15); White Blood Count 2.8 10^3/uL (3.5-10.8)
[2018-08-31 09:40] LABS: Activated Partial Thrombo Time 38.2 seconds (26.0-38.0); INR 0.9 (0.82-1.09)
[2018-08-31 09:57] LABS: ALT 16 U/L (7-52); AST 29 U/L (13-39); Albumin/Globulin Ratio 1.3 (1-3); Alkaline Phosphatase 52 U/L (34-104); Anion Gap 7 mmol/L (2-11); BUN/Creatinine Ratio 17.9 (8-20); Blood Urea Nitrogen 21 mg/dL (6-24); CO2 Carbon Dioxide 26 mmol/L (22-32); Calcium 9.7 mg/dL (8.6-10.3); Chloride 106 mmol/L (101-111); EGFR African American 56.2 (>60); EGFR Non-African American 46.4 (>60); Glucose 104 mg/dL (70-100); Magnesium 2.3 mg/dL (1.9-2.7); Potassium 4.5 mmol/L (3.5-5.0); Sodium 139 mmol/L (135-145)
[2018-08-31 09:59] LABS: Troponin I 0.01 ng/mL (<0.04)
[2018-08-31 10:19] LABS: Alcohol < 10 mg/dL (<10); TSH (Thyroid Stimulating Horm) 0.45 mcIU/mL (0.34-5.60)
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
[2018-08-31 11:06] LABS: Urine Benzodiazepine Screen None Detected (None Detect); Urine Opiates Screen None Detected (None Detect)
[2018-08-31] MEDS ORDERED: cloNIDine TAB* 0.1 MG PO ONE (12:06)
[2018-08-31] MEDS ORDERED: Orphenadrine Citrate IV* 30 MG/ML 2 ML VIAL IM ONE (12:06)
[2018-08-31 16:06] VITALS: BP 185/85
== END 2018-08-31 16:05 | disposition home or self-care (01) ==
LOC: ED 08:50
DX: R55 Syncope and collapse (principal); G89.29 Other chronic pain; I50.9 Heart failure, unspecified; N18.9 Chronic kidney disease, unspecified; R00.1 Bradycardia, unspecified; Z88.6 Allergy status to analgesic agent; Z88.2 Allergy status to sulfonamides; Z88.8 Allergy status to other drugs, medicaments and biological substances; F17.210 Nicotine dependence, cigarettes, uncomplicated
CPT/HCPCS: 36415; 70450; 71045; 80053; 80307; 80320; 83605; 83735; 84443; 84484; 85025; 85610; 85730; 93005; 96372; 99284; A9270-GY; G0480; J2360

== ENCOUNTER 2018-10-25 10:58 | Emergency (ER) | payer MEDICARE, MEDICAID ==
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
[2018-10-25 12:45] VITALS: BP 157/81
== END 2018-10-25 12:44 | disposition home or self-care (01) ==
LOC: ED 10:58
DX: G56.01 Carpal tunnel syndrome, right upper limb (principal); M32.9 Systemic lupus erythematosus, unspecified; E05.00 Thyrotoxicosis with diffuse goiter without thyrotoxic crisis or storm; D64.9 Anemia, unspecified; I13.0 Hypertensive heart and chronic kidney disease with heart failure and stage 1 through stage 4 chronic kidney disease, or unspecified chronic kidney disease; N18.9 Chronic kidney disease, unspecified; I50.9 Heart failure, unspecified; F90.9 Attention-deficit hyperactivity disorder, unspecified type; F41.9 Anxiety disorder, unspecified; F32.9 Major depressive disorder, single episode, unspecified; F43.10 Post-traumatic stress disorder, unspecified; F17.210 Nicotine dependence, cigarettes, uncomplicated; Z88.6 Allergy status to analgesic agent; Z88.2 Allergy status to sulfonamides; Z88.8 Allergy status to other drugs, medicaments and biological substances
CPT/HCPCS: 99282

== ENCOUNTER 2018-10-25 17:45 | Emergency (ER) | payer MEDICARE, MEDICAID ==
[2018-10-25] MEDS ORDERED: Diazepam TAB(*) 5 MG PO ONE (20:26)
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
[2018-10-25 20:38] VITALS: BP 176/76
== END 2018-10-25 20:37 | disposition home or self-care (01) ==
LOC: ED 17:45
DX: M25.531 Pain in right wrist (principal); M32.9 Systemic lupus erythematosus, unspecified; I11.0 Hypertensive heart disease with heart failure; I50.9 Heart failure, unspecified; N19 Unspecified kidney failure; M06.9 Rheumatoid arthritis, unspecified; Z88.6 Allergy status to analgesic agent; Z88.2 Allergy status to sulfonamides; Z88.8 Allergy status to other drugs, medicaments and biological substances; F17.210 Nicotine dependence, cigarettes, uncomplicated
CPT/HCPCS: 36415; 80053; 81003; 81015; 85025; 85652; 86140; 86225; 99282; A9270-GY

== ENCOUNTER 2018-11-12 18:22 | Emergency (ER) | payer MEDICARE, MEDICAID ==
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
[2018-11-12] MEDS ORDERED: diPHENhydraMINE IV* 50 MG/ML 1 ml VIAL (BENADRYL) IM ONE (18:59)
[2018-11-12] MEDS ORDERED: diPHENhydraMINE PO* 25 MG PO ONE (20:06)
[2018-11-12 20:23] VITALS: BP 162/76
== END 2018-11-12 20:21 | disposition home or self-care (01) ==
LOC: ED 18:22
DX: F41.9 Anxiety disorder, unspecified (principal); M32.9 Systemic lupus erythematosus, unspecified; E05.00 Thyrotoxicosis with diffuse goiter without thyrotoxic crisis or storm; I50.9 Heart failure, unspecified; E11.22 Type 2 diabetes mellitus with diabetic chronic kidney disease; I13.0 Hypertensive heart and chronic kidney disease with heart failure and stage 1 through stage 4 chronic kidney disease, or unspecified chronic kidney disease; N18.9 Chronic kidney disease, unspecified; D63.1 Anemia in chronic kidney disease; F90.9 Attention-deficit hyperactivity disorder, unspecified type; F43.10 Post-traumatic stress disorder, unspecified; F31.9 Bipolar disorder, unspecified; F17.210 Nicotine dependence, cigarettes, uncomplicated; Z79.899 Other long term (current) drug therapy; Z88.6 Allergy status to analgesic agent; Z88.2 Allergy status to sulfonamides; Z88.8 Allergy status to other drugs, medicaments and biological substances; E11.65 Type 2 diabetes mellitus with hyperglycemia; F10.21 Alcohol dependence, in remission; Z68.24 Body mass index [BMI] 24.0-24.9, adult; M06.9 Rheumatoid arthritis, unspecified
CPT/HCPCS: 96372; 97802; 99282; A9270-GY; J1200

== ENCOUNTER 2018-12-17 18:20 | Emergency (ER) | payer MEDICARE, MEDICAID ==
[2018-12-17 18:25] VITALS: BP 187/91
== END 2018-12-17 18:51 | disposition home or self-care (01) ==
LOC: ED 18:20
DX: R21 Rash and other nonspecific skin eruption (principal); Z53.21 Procedure and treatment not carried out due to patient leaving prior to being seen by health care provider

== ENCOUNTER 2018-12-20 14:41 | Emergency (ER) | payer MEDICARE, MEDICAID ==
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
[2018-12-20 15:49] LABS: ABS Eosinophils 0.2 10^3/ul (0-0.6); ABS Lymphocytes 1.5 10^3/ul (1.0-4.8); ABS Monocytes 0.4 10^3/ul (0-0.8); ABS Neutrophils 2.4 10^3/ul (1.5-7.7); Eosinophil % 4.2 %; Hematocrit 37 % (35-47); Hemoglobin 12.4 g/dL (12.0-16.0); Lymphocyte % 33.9 %; Mean Corpuscular HGB Conc 34 g/dL (31-36); Mean Corpuscular Hemoglobin 33 pg (27-31); Mean Corpuscular Volume 97 fL (80-97); Mean Platelet Volume 8.4 fL (7.4-10.4); Nucleated Red Blood Cells % 0.1; Platelet Count 178 10^3/uL (150-450); Red Blood Count 3.79 10^6 /uL (3.70-4.87); Red Cell Distribution Width 16 % (10-15); White Blood Count 4.6 10^3/uL (3.5-10.8)
[2018-12-20 16:01] LABS: ALT 17 U/L (7-52); AST 30 U/L (13-39); Albumin 3.8 g/dL (3.2-5.2); Albumin/Globulin Ratio 1.3 (1-3); Alkaline Phosphatase 69 U/L (34-104); BUN/Creatinine Ratio 29.4 (8-20); Blood Urea Nitrogen 30 mg/dL (6-24); CO2 Carbon Dioxide 24 mmol/L (22-32); Creatine Kinase 74 U/L (10-223); EGFR African American 65.8 (>60); EGFR Non-African American 54.4 (>60); Globulin 2.9 g/dL (2-4); Glucose 91 mg/dL (70-100); Potassium 3.8 mmol/L (3.5-5.0); Total Protein 6.7 g/dL (6.4-8.9)
[2018-12-20 16:02] LABS: Troponin I 0.01 ng/mL (<0.04)
[2018-12-20 16:03] LABS: Anion Gap 10 mmol/L (2-11); Chloride 113 mmol/L (101-111); Sodium 147 mmol/L (135-145)
[2018-12-20 16:10] LABS: Acetaminophen < 15 mcg/mL; Alcohol 340 mg/dL (<10); Salicylate < 2.50 mg/dL (<30)
[2018-12-20 16:21] LABS: TSH (Thyroid Stimulating Horm) 11.44 mcIU/mL (0.34-5.60)
[2018-12-20] MEDS ORDERED: Acetaminophen TAB* 325 MG PO ONE (16:53)
[2018-12-20] MEDS ORDERED: Ketorolac INJ* 30 MG/ML 1 ML VIAL IM ONE (17:14)
[2018-12-20 22:31] VITALS: BP 185/79
== END 2018-12-20 22:36 | disposition home or self-care (01) ==
LOC: ED 14:41
DX: F10.129 Alcohol abuse with intoxication, unspecified (principal); E03.9 Hypothyroidism, unspecified; M32.9 Systemic lupus erythematosus, unspecified; E05.00 Thyrotoxicosis with diffuse goiter without thyrotoxic crisis or storm; E11.22 Type 2 diabetes mellitus with diabetic chronic kidney disease; I13.0 Hypertensive heart and chronic kidney disease with heart failure and stage 1 through stage 4 chronic kidney disease, or unspecified chronic kidney disease; N18.9 Chronic kidney disease, unspecified; D63.1 Anemia in chronic kidney disease; I50.9 Heart failure, unspecified; F41.9 Anxiety disorder, unspecified; F90.9 Attention-deficit hyperactivity disorder, unspecified type; F32.9 Major depressive disorder, single episode, unspecified; F43.10 Post-traumatic stress disorder, unspecified; F17.210 Nicotine dependence, cigarettes, uncomplicated; Z79.890 Hormone replacement therapy; Z79.899 Other long term (current) drug therapy; Z88.6 Allergy status to analgesic agent; Z88.2 Allergy status to sulfonamides; Z88.8 Allergy status to other drugs, medicaments and biological substances
CPT/HCPCS: 36415; 80053; 80320; 80329; 82550; 83605; 84443; 84484; 85025; 93005; 96372; 99283; G0480; J1885

== ENCOUNTER 2019-01-03 10:46 | Emergency (ER) | payer MEDICARE, MEDICAID ==
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
[2019-01-03] MEDS ORDERED: PROCHLORPERAZINE INJ 5 MG/ML 2 ML VIAL IM ONE (11:36)
[2019-01-03] MEDS ORDERED: diPHENhydraMINE IV* 50 MG/ML 1 ml VIAL (BENADRYL) IM ONE (11:36)
[2019-01-03] MEDS ORDERED: Cyclobenzaprine TAB* 10 MG PO ONE (11:49)
[2019-01-03] MEDS ORDERED: cloNIDine TAB* 0.1 MG PO ONE (12:11)
[2019-01-03 13:20] VITALS: BP 197/102
== END 2019-01-03 13:22 | disposition home or self-care (01) ==
LOC: ED 10:46
DX: I13.0 Hypertensive heart and chronic kidney disease with heart failure and stage 1 through stage 4 chronic kidney disease, or unspecified chronic kidney disease (principal); N18.9 Chronic kidney disease, unspecified; R51 Headache; M79.10 Myalgia, unspecified site; M32.9 Systemic lupus erythematosus, unspecified; E05.00 Thyrotoxicosis with diffuse goiter without thyrotoxic crisis or storm; Z88.6 Allergy status to analgesic agent; Z88.2 Allergy status to sulfonamides; Z88.8 Allergy status to other drugs, medicaments and biological substances; F17.210 Nicotine dependence, cigarettes, uncomplicated
CPT/HCPCS: 96372; 99282; A9270-GY; J0780; J1200

== ENCOUNTER 2019-03-10 14:57 | Emergency (ER) | payer MEDICARE ==
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
--- OUTSIDE RECORDS SUMMARY | 2019-03-10 18:41 | XMS REPORT | Continuity of Care Document ---
:1955 External Reference #:[id number] Author Problems Active Problems Provider Date Tobacco dependence syndrome Onset: 11/05/2018 Type 2 diabetes mellitus Onset: 07/30/2018 Sjogren's syndrome Onset: 07/30/2018 Seizure disorder Onset: 07/30/2018 SLE glomerulonephritis syndrome Onset: 07/30/2018 Lupus erythematosus Onset: 07/30/2018 Graves' disease Onset: 07/30/2018 Adult health examination Onset: 07/26/2018 Carpal tunnel syndrome Olaf Portillo MD Onset: 11/30/2018 Chronic kidney disease Olaf Portillo MD Onset: 11/30/2018 Alcohol withdrawal syndrome Onset: 11/26/2017 Bipolar disorder Onset: 09/27/2017 Hypothyroidism Onset: 11/26/2017 Iron deficiency anemia Onset: 04/09/2018 Seizure Onset: 09/27/2017 Systemic lupus erythematosus Onset: 12/04/2017 Taking medication Onset: 05/18/2018 Proteinuria Olaf Portillo MD Onset: 12/01/2018 Note: Poss nephritis given lupus dx Abdominal pain Onset: 12/10/2018 Constipation Onset: 12/10/2018 Diarrhea Onset: 12/10/2018 Essential hypertension Onset: 12/17/2018 Incontinence of feces Onset: 12/10/2018 Nausea Onset: 12/10/2018 Inactive Problems Abnormal glucose level Onset: 11/05/2018 Inactive: 11/05/2018 Edema Onset: 11/05/2018 Inactive: 11/05/2018 Diarrhea Onset: 11/05/2018 Inactive: 11/05/2018 Cough Onset: 11/05/2018 Inactive: 11/05/2018 Raynaud's phenomenon Onset: 10/24/2018 Inactive: 10/24/2018 Proteinuria Onset: 10/24/2018 Inactive: 10/24/2018 Loss of hair Onset: 10/24/2018 Inactive: 10/24/2018 Repetitive self-excoriation Onset: 10/24/2018 Inactive: 10/24/2018 Diet poor Onset: 10/24/2018 Inactive: 10/24/2018 Benign essential hypertension Onset: 10/24/2018 Inactive: 10/24/2018 Social History Type Date Description Comments Sex Female Tobacco Use Start: Unknown Light tobacco smoker (10 or fewer cigarettes/day) Smoking Status Reviewed: 02/06/19 Light tobacco smoker (10 or fewer cigarettes/day) Allergies, Adverse Reactions, Alerts Active Allergies Reaction Severity Comments Date Fioricet 12/01/2018 Methotrexate 12/17/2018 [place] 12/01/2018 Soma 12/01/2018 Sulfa Antibiotics 12/01/2018 Buspirone Hydrochloride rash (per old records) 11/23/2018 Ketorolac Tromethamine itching and rash (per 11/23/2018 old records) [place] Analogues anaphylaxis (per old 11/23/2018 records) Methotrexate Analogues rash (per old records) 11/23/2018 Methylprednisolone Psychosis (per old 11/23/2018 records) Prednisone psychosis (per old 11/23/2018 records) Steroidal Neuromuscular Blockers psychosis (per old 11/23/2018 records) Steroids unknown 11/23/2018 Sulfa hives (per old records) 11/23/2018 Sulfacetamide Sodium hives (per old records) 11/23/2018 Sulpher unknown 11/23/2018 Plaquenil Vision loss Severe 12/01/2018 Medications Active Medications SIG Qnty Indications Ordering Date Provider Lipitor 1 tab by mouth 30tabs MELISSA Palomares 02/20/2019 40mg Tablets every day Amlodipine Besylate 1 by mouth 30tabs I10 MELISSA Fox 02/06/2019 5mg every day Tablets Blood Pressure Kit 1units I10 Lorna Stewart [facility] 01/16/2019 Kit Doxycycline Hyclate 2 pills once 2caps Olaf Portillo MD 01/04/2019 100mg Capsules Promethazine HCL 1 by mouth 90tabs Brandon Hudson 12/10/2018 25mg every 6 hours Tablets as needed for nausea Acthar SQ weekly 5units Nishant Sandra 11/28/2018 80Unit/ML Gel Clonazepam Take One Tablet 56tabs Aby Platt, 11/26/2018 1mg Tablets By Mouth Two MD Times Daily *Maximum Of Two Tablets Daily* Gabapentin 2 three times Unknown 10/24/2018 300mg Capsules daily Oral Gabapentin take one tablet 270tabs Nishant Sandra 10/24/2018 600mg Tablets by mouth three times a day Clonidine HCL 1 twice daily 180tabs Unknown 09/13/2018 0.2mg Tablets Oral Simvastatin 1 daily Oral 90tabs Unknown 09/13/2018 40mg Tablets CBD [place] apply every 12 5units Nishant Sandra 08/23/2018 4-3-9-1.2% hours as needed Patches to painful regions Naltrexone HCL 1 daily Oral 30units Unknown 08/22/2018 Powder Cellcept take one tablet 60tabs M32.9 Nishant Sandra 08/08/2018 500mg Tablets by mouth daily for 1 week then take 1 tab twice daily ongoing - On Hold Per MD as Of 08/31/18 Ferrous Sulfate 1 daily Oral Unknown 08/02/2018 325(65Fe) mg Tablets Fluoxetine HCL 1 daily Oral Unknown 08/02/2018 40mg Capsules Folic Acid 1 daily Oral Unknown 08/02/2018 1mg Tablets Prozac 1 every 30caps Unknown 07/30/2018 40mg Capsules morning Oral Meclizine HCL take one 60tabs Nishant Sandra 05/31/2018 12.5mg capsule/tablet Tablets by mouth twice daily as needed for vertigo Omeprazole 1 by mouth 90caps Unknown 03/06/[address] every day Lamotrigine 1 by mouth Unknown 200mg Tablets twice a day Levothyroxine Sodium 1 by mouth Unknown 100mcg every day Tablets Cyclobenzaprine HCL Take 1 Tablet Unknown 5mg By Mouth AT Tablets Bedtime as Needed For Pain/Spasms/Ins omnia Levothyroxine Sodium Unknown 100mcg Tablets Lamotrigine Unknown 200mg Tablets History Medications Clonazepam 1 twice daily prn 56tabs Unknown 09/17/2018 - 11/21/2018 1mg Tablets Oral Omeprazole 1 daily Oral 90caps Unknown 09/13/2018 - 11/26/2018 20mg Capsules Immunizations CPT Code Status Date Vaccine Lot # [id number] Given 08/23/2018 Prevnar 13 Vital Signs Date Vital Result Comment 02/06/2019 9:54am BP Systolic 130 mmHg BP Diastolic 82 mmHg Height 62.50 inches 5'2.50" Weight 150.00 lb Heart Rate 61 /min Body Temperature 97.5 F O2 % BldC Oximetry 99 % BMI (Body Mass Index) 27.0 kg/m2 01/16/2019 11:25am BP Systolic 142 mmHg BP Diastolic 88 mmHg Heart Rate 70 /min Body Temperature 98.2 F O2 % BldC Oximetry 98 % Results Test Acquired Date Facility Test Result H/L Range Note Laboratory test 02/25/2019 [facility] TSH 2.38 Normal 0.34- 5.[address] (Thyroid mcIU/[place] [address] Stim Horm) [phone] Comp Metabolic 02/25/2019 [facility] Sodium 137 mmol/L Normal 135-145 [address] [place] [address] [phone] Potassium 4.4 mmol/L Normal 3.5-5.0 Chloride 105 mmol/L Normal 101-111 Co2 Carbon Dioxide 24 mmol/L Normal 22-32 Anion Gap 8 mmol/L Normal 2-11 Glucose 96 mg/dL Normal 70-100 Blood Urea Nitrogen 19 mg/dL Normal 6-24 Creatinine 0.93 mg/dL Normal 0.51-0.95 BUN/Creatinine Ratio 20.4 High 8-20 Calcium 9.1 mg/dL Normal 8.6-10.3 Total Protein 6.6 g/dL Normal 6.4-8.9 Albumin 3.7 g/dL Normal 3.2-5.2 Globulin 2.9 g/dL Normal 2-4 Albumin/Globulin Ratio 1.3 Normal 1-3 Total Bilirubin 0.60 mg/dL Normal 0.2-1.0 Alkaline Phosphatase 69 U/L Normal 34-104 Alt 17 U/L Normal 7-52 Ast 34 U/L Normal 13-39 Egfr Non- 60.5 >60 Egfr 73.2 >60 2 Laboratory test 02/25/2019 [facility] C Reactive 1.83 mg/L Normal <8.01 [address] [place] [address] [phone] CBC Auto Diff 02/25/2019 [facility] White Blood 5.1 Normal 3.5 -10.[address] Count 10^3/[place] [address] [phone] Red Blood Count 3.51 10^6/uL Low 3.70-4.87 Hemoglobin 12.1 g/dL Normal 12.0-16.0 Hematocrit 36 % Normal 35-47 Mean Corpuscular Volume 102 fL High 80-97 Mean Corpuscular Hemoglobin 34 pg High 27-31 Mean Corpuscular HGB Conc 34 g/dL Normal 31-36 Red Cell Distribution Width 16 % High 10-15 Platelet Count 165 10^3/uL Normal 150-450 5 Mean Platelet Volume 9.1 fL Normal 7.4-10.4 Abs Neutrophils 3.9 10^3/uL Normal 1.5-7.7 Abs Lymphocytes 0.8 10^3/uL Low 1.0-4.8 Abs Monocytes 0.2 10^3/uL Normal 0-0.8 Abs Eosinophils 0.1 10^3/uL Normal 0-0.6 Abs Basophils 0.0 10^3/uL Normal 0-0.2 Abs Nucleated RBC 0.0 10^3/uL Granulocyte % 75.8 % Lymphocyte % 15.9 % Monocyte % 4.9 % Eosinophil % 2.5 % Basophil % 0.9 % Nucleated Red Blood Cells % 0.2 Laboratory test 02/25/2019 [facility] Erythrocyte Sed 50 mm/Hr High 0-29 [address] [place] [address] [phone] Complement C3 90 mg/dL 75 - 175 7 Complement C4 19 mg/dL 14 - 40 8 Anti Double Stranded Dna AB 16.0 IU/mL 9 CBC Auto 12/20/2018 [facility] White Blood 4.6 10^3/uL Normal 3.5-10.[address] [place] [address] [phone] Red Blood Count 3.79 10^6/uL Normal 3.70-4.87 Hemoglobin 12.4 g/dL Normal 12.0-16.0 Hematocrit 37 % Normal 35-47 Mean Corpuscular Volume 97 fL Normal 80-97 Mean Corpuscular Hemoglobin 33 pg High 27-31 Mean Corpuscular HGB Conc 34 g/dL Normal 31-36 Red Cell Distribution Width 16 % High 10-15 Platelet Count 178 10^3/uL Normal 150-450 Mean Platelet Volume 8.4 fL Normal 7.4-10.4 Abs Neutrophils 2.4 10^3/uL Normal 1.5-7.7 Abs Lymphocytes 1.5 10^3/uL Normal 1.0-4.8 Abs Monocytes 0.4 10^3/uL Normal 0-0.8 Abs Eosinophils 0.2 10^3/uL Normal 0-0.6 Abs Basophils 0.0 10^3/uL Normal 0-0.2 Abs Nucleated RBC 0.0 10^3/uL Granulocyte % 51.7 % Lymphocyte % 33.9 % Monocyte % 9.5 % Eosinophil % 4.2 % Basophil % 0.7 % Nucleated Red Blood Cells % 0.1 Laboratory test 12/20/2018 [facility] Lactic Acid 1.1 mmol/L Normal 0.5-2.0 [address] [place] [address] [phone] Comp Metabolic 12/20/2018 [facility] Potassium 3.8 mmol/L Normal 3.5-5.[address] [place] [address] [phone] Co2 Carbon Dioxide 24 mmol/L Normal 22-32 Glucose 91 mg/dL Normal 70-100 Blood Urea Nitrogen 30 mg/dL High 6-24 Creatinine 1.02 mg/dL High 0.51-0.95 BUN/Creatinine Ratio 29.4 High 8-20 Calcium 8.0 mg/dL Low 8.6-10.3 Total Protein 6.7 g/dL Normal 6.4-8.9 Albumin 3.8 g/dL Normal 3.2-5.2 Globulin 2.9 g/dL Normal 2-4 Albumin/Globulin Ratio 1.3 Normal 1-3 Total Bilirubin 0.20 mg/dL Normal 0.2-1.0 Alkaline Phosphatase 69 U/L Normal 34-104 Alt 17 U/L Normal 7-52 Ast 30 U/L Normal 13-39 Egfr Non- 54.4 >60 Egfr 65.8 >60 11 Sodium 147 mmol/L High 135-145 Chloride 113 mmol/L High 101-111 Anion Gap 10 mmol/L Normal 2-11 Laboratory test 12/20/2018 [facility] Creatine 74 U/L Normal 10-[address] [place] [address] [phone] Troponin I 0.01 ng/mL <0.04 12 Acetaminophen < 15 g/mL 13 Alcohol 340 mg/dL High <10 Salicylate < 2.50 mg/dL <30 TSH (Thyroid Stim Horm) 11.44 mcIU/mL High 0.34-5.60 Urine Culture And 11/28/2018 N2N/CCD Import Urine Culture See Result 14 Sensitivities Below Urinalysis Profile 11/28/2018 N2N/CCD Import Urine Color Yellow Urine Appearance Clear Urine Specific [place] 1.015 1 1.010-1.030 Urine pH 7.0 1 5-9 Urine Urobilinogen Negative Urine Ketones Negative Urine Protein 2+(100 mg/dL) Abnormal Urine Leukocytes Negative Urine Blood Negative * * Abnormal 15 Urine Nitrite Negative Urine Bilirubin Negative Urine Glucose Negative Urine White Blood Cell Trace(0-5/hpf) Urine Red Blood Cell 2+(6-10/hpf) Abnormal Urine Bacteria Absent Urine Squamous Epithelial Cell Present Abnormal Lab Results 10/25/2018 N2N/CCD Import Erythrocyte Sed Rate 46 mm/Hr High 0-29 16 C Reactive Protein 14.82 mg/L High 17 CBC Auto Diff 10/25/2018 N2N/CCD Import White Blood Count 4.2 10^3/uL 3.5-10.8 Red Blood Count 3.74 10^6/uL 3.70-4.87 Hemoglobin 11.8 g/dL Low 12.0-16.0 Hematocrit 36 % 35-47 Mean Corpuscular Volume 95 fL 80-97 Mean Corpuscular Hemoglobin 32 pg High 27-31 Mean Corpuscular HGB Conc 33 g/dL 31-36 Red Cell Distribution Width 16 % High 10-15 Platelet Count 157 10^3/uL 150-450 Mean Platelet Volume 9.0 fL 7.4-10.4 Abs Neutrophils 2.7 10^3/uL 1.5-7.7 Abs Lymphocytes 0.9 10^3/uL Low 1.0-4.8 Abs Monocytes 0.4 10^3/uL 0-0.8 Abs Eosinophils 0.2 10^3/uL 0-0.6 Abs Basophils 0.0 10^3/uL 0-0.2 Abs Nucleated RBC 0.0 10^3/uL Granulocyte % 64.8 % Lymphocyte % 21.6 % Monocyte % 8.8 % Eosinophil % 4.0 % Basophil % 0.8 % Nucleated Red Blood Cells % 0.0 1 Lab Results 10/25/2018 N2N/CCD Import Sodium 136 mmol/L 135-145 Chloride 104 mmol/L 101-111 Co2 Carbon Dioxide 27 mmol/L 22-32 Glucose 77 mg/dL 70-100 Blood Urea Nitrogen 24 mg/dL 6-24 Creatinine 1.09 mg/dL High 0.51-0.95 BUN/Creatinine Ratio 22.0 1 High 8-20 Calcium 9.2 mg/dL 8.6-10.3 Total Protein 6.8 g/dL 6.4-8.9 Albumin 4.0 g/dL 3.2-5.2 Globulin 2.8 g/dL 2-4 Albumin/Globulin Ratio 1.4 1 1-3 Total Bilirubin 0.40 mg/dL 0.2-1.0 Alkaline Phosphatase 68 U/L 34-104 Alt 16 U/L 7-52 Ast 30 U/L 13-39 Egfr Non- 50.4 1 Egfr 61.0 1 18 Potassium 5.1 mmol/L High 3.5-5.0 Anion Gap 5 mmol/L 2-11 Anti Double Stranded Dna AB 13.7 IU/mL 19 Urinalysis Profile 10/25/2018 N2N/CCD Import Urine Color Yellow Urine Appearance Cloudy Urine Specific [place] 1.014 1 1.010-1.030 Urine pH 6.0 1 5-9 Urine Urobilinogen Negative Urine Ketones Negative Urine Protein 2+(100 mg/dL) Abnormal Urine Leukocytes Negative Urine Blood Negative * * Abnormal 20 Urine Nitrite Negative Urine Bilirubin Negative Urine Glucose Negative Urine White Blood Cell Absent Urine Red Blood Cell Absent Urine Bacteria Absent Urine Squamous Epithelial Cell Present Abnormal Urine Hyaline Casts Present Abnormal Urobilinogen-Ua 10/24/2018 N2N/CCD Import Urobilinogen-Ua neg Negative - Negative SP Grav-Ua 10/24/2018 N2N/CCD Import SP Grav-Ua 1.030 _ 1.003 - 1.030 Protein-Ua 10/24/2018 N2N/CCD Import Protein-Ua 2+ PH-Ua 10/24/2018 N2N/CCD Import PH-Ua 5.5 _ 5 - 7 Nitrite-Ua 10/24/2018 N2N/CCD Import Nitrite-Ua Negative Negative - Negative Qual Leuk Est-Ua 10/24/2018 N2N/CCD Import Leuk Est-Ua Negative Negative - Negative Qual Ketones-Ua 10/24/2018 N2N/CCD Import Ketones-Ua Trace Negative - Negative Glucose-Ua 10/24/2018 N2N/CCD Import Glucose-Ua Negative Negative - Negative Qual Blood-Ua 10/24/2018 N2N/CCD Import Blood-Ua Negative Negative - Negative Qual Bilirubin-Ua 10/24/2018 N2N/CCD Import Bilirubin-Ua Negative Negative - Negative Qual Microalbumin 10/24/2018 N2N/CCD Import Microalbumin abnormal Interpretation Interpretation Microalbumin, Ur 10/24/2018 N2N/CCD Import Microalbumin, Ur 150 _ Microalb/CR Ratio 10/24/2018 N2N/CCD Import Microalb/CR Ratio 30-300 Creat, Ur Random 10/24/2018 N2N/CCD Import Creat, Ur Random 200 _ NRBC# 09/10/2018 N2N/CCD Import NRBC# 0.0 10_3/ul Neut% 09/10/2018 N2N/CCD Import Neut% 53.3 % 45 - 70 % Neut# 09/10/2018 N2N/CCD Import Neut# 1.7 1.5-7.7 10 10_3/ul 3/ul MPV 09/10/2018 N2N/CCD Import MPV 8.3 fL 7.4-10.4 fL Wright% 09/10/2018 N2N/CCD Import Wright% 9.8 % 0 - 10 % Wright# 09/10/2018 N2N/CCD Import Wright# 0.3 0-0.8 10 10_3/ul 3/ul MCV 09/10/2018 N2N/CCD Import MCV 95 fL 80-97 fL MCHC 09/10/2018 N2N/CCD Import MCHC 33 g/dL 31-36 g/dL MCH 09/10/2018 N2N/CCD Import MCH 31 pg 27-31 pg Lymph% 09/10/2018 N2N/CCD Import Lymph% 28.6 % 20 - 45 % Lymph# 09/10/2018 N2N/CCD Import Lymph# 0.9 Low 1.0-4.8 10 10_3/ul 3/ul NRBC% 09/10/2018 N2N/CCD Import NRBC% 0.3 _ Platelets 09/10/2018 N2N/CCD Import Platelets 256 150-450 10 10_3/uL 3/uL Potassium 09/10/2018 N2N/CCD Import Potassium 5.1 mmol/L High 3.5-5.0 mmol/L Protein, Total 09/10/2018 N2N/CCD Import Protein, Total 6.4 g/dL 6.4- 8.9 g/dL PTT 09/10/2018 N2N/CCD Import PTT 38.3 High 26.0-38.0 seconds seconds RBC 09/10/2018 N2N/CCD Import RBC 3.63 Low 3.70-4.87 10_6_/uL 10 6 /uL RDW 09/10/2018 N2N/CCD Import RDW 15 % 10-15 % Sodium 09/10/2018 N2N/CCD Import Sodium 138 mmol/L 135-145 mmol/L WBC 09/10/2018 N2N/CCD Import WBC 3.3 Low 3.5-10.8 10_3/uL 10 3/uL Lab Results 09/10/2018 N2N/CCD Import Complement C3 117 mg/dL 75-175 21 Complement C4 32 mg/dL 14-40 22 Anti Double Stranded Dna AB <12.3 Iu/ml 23 CBC Auto Diff 09/10/2018 N2N/CCD Import White Blood Count 3.3 10^3/uL Low 3.5-10.8 Red Blood Count 3.63 10^6/uL Low 3.70-4.87 Hemoglobin 11.4 g/dL Low 12.0-16.0 Hematocrit 35 % 35-47 Mean Corpuscular Volume 95 fL 80-97 Mean Corpuscular Hemoglobin 31 pg 27-31 Mean Corpuscular HGB Conc 33 g/dL 31-36 Red Cell Distribution Width 15 % 10-15 Platelet Count 256 10^3/uL 150-450 Mean Platelet Volume 8.3 fL 7.4-10.4 Abs Neutrophils 1.7 10^3/uL 1.5-7.7 Abs Lymphocytes 0.9 10^3/uL Low 1.0-4.8 Abs Monocytes 0.3 10^3/uL 0-0.8 Abs Eosinophils 0.2 10^3/uL 0-0.6 Abs Basophils 0.0 10^3/uL 0-0.2 Abs Nucleated RBC 0.0 10^3/uL Granulocyte % 53.3 % Lymphocyte % 28.6 % Monocyte % 9.8 % Eosinophil % 7.4 % Basophil % 0.9 % Nucleated Red Blood Cells % 0.3 1 Lab Results 09/10/2018 N2N/CCD Import Partial Thrombo Time 38.3 s High 26.0-38.0 24 PTT Sodium 138 mmol/L 135-145 Potassium 5.1 mmol/L High 3.5-5.0 Chloride 105 mmol/L 101-111 Co2 Carbon Dioxide 25 mmol/L 22-32 Anion Gap 8 mmol/L 2-11 Glucose 99 mg/dL 70-100 Blood Urea Nitrogen 20 mg/dL 6-24 Creatinine 1.06 mg/dL High 0.51-0.95 BUN/Creatinine Ratio 18.9 1 8-20 Calcium 9.2 mg/dL 8.6-10.3 Total Protein 6.4 g/dL 6.4-8.9 Albumin 3.5 g/dL 3.2-5.2 Globulin 2.9 g/dL 2-4 Albumin/Globulin Ratio 1.2 1 1-3 Total Bilirubin 0.20 mg/dL 0.2-1.0 Alkaline Phosphatase 54 U/L 34-104 Alt 13 U/L 7-52 Ast 20 U/L 13-39 Egfr Non- 52.0 1 Egfr 63.0 1 25 A/G Ratio 09/10/2018 N2N/CCD Import A/G Ratio 1.2 _ 1-3 Albumin 09/10/2018 N2N/CCD Import Albumin 3.5 g/dL 3.2-5.2 g/dL Alk Phos 09/10/2018 N2N/CCD Import Alk Phos 54 U/L 34-104 U/L Alt 09/10/2018 N2N/CCD Import Alt 13 U/L 7-52 U/L Anion Gap 09/10/2018 N2N/CCD Import Anion Gap 8 mmol/L 2-11 mmol/L Ast 09/10/2018 N2N/CCD Import Ast 20 U/L 13-39 U/L Baso# 09/10/2018 N2N/CCD Import Baso# 0.0 10_3/ul 0-0.2 10 3/ul Baso% 09/10/2018 N2N/CCD Import Baso% 0.9 % 0 - 2 % Bilirubin Total 09/10/2018 N2N/CCD Import Bilirubin Total 0.20 mg/dL 0.2 -1.0 mg/dL BUN 09/10/2018 N2N/CCD Import BUN 20 mg/dL 6-24 mg/dL BUN/Creat Ratio 09/10/2018 N2N/CCD Import BUN/Creat Ratio 18.9 _ 8-20 Hemoglobin 09/10/2018 N2N/CCD Import Hemoglobin 11.4 g/dL Low 12.0-16.0 g/dL Hematocrit 09/10/2018 N2N/CCD Import Hematocrit 35 % 35-47 % Glucose 09/10/2018 N2N/CCD Import Glucose 99 mg/dL 70-100 mg/dL Globulin 09/10/2018 N2N/CCD Import Globulin 2.9 g/dL 2-4 g/dL GFR Non Afr Amer 09/10/2018 N2N/CCD Import GFR Non Afr 52.0 _ >60 Amer GFR Afr Amer 09/10/2018 N2N/CCD Import GFR Afr Amer 63.0 _ >60 Eosin% 09/10/2018 N2N/CCD Import Eosin% 7.4 % High 0 - 5 % Eosin# 09/10/2018 N2N/CCD Import Eosin# 0.2 10_3/ul 0-0.6 10 3/ul Creatinine 09/10/2018 N2N/CCD Import Creatinine 1.06 mg/dL High 0.51- 0.95 mg/dL Co2 09/10/2018 N2N/CCD Import Co2 25 mmol/L 22-32 mmol/L Chloride 09/10/2018 N2N/CCD Import Chloride 105 mmol/L 101-111 mmol/L Calcium 09/10/2018 N2N/CCD Import Calcium 9.2 mg/dL 8.6-10.3 mg/dL Neut% 08/31/2018 N2N/CCD Import Neut% 48.7 % 45 - 70 % Neut# 08/31/2018 N2N/CCD Import Neut# 1.3 10_3/ul Low 1.5-7.7 10 3/ul MPV 08/31/2018 N2N/CCD Import MPV 8.5 fL 7.4-10.4 fL Wright% 08/31/2018 N2N/CCD Import Wright% 11.2 % High 0 - 10 % Wright# 08/31/2018 N2N/CCD Import Wright# 0.3 10_3/ul 0-0.8 10 3/ul MCV 08/31/2018 N2N/CCD Import MCV 95 fL 80-97 fL MCHC 08/31/2018 N2N/CCD Import MCHC 34 g/dL 31-36 g/dL MCH 08/31/2018 N2N/CCD Import MCH 32 pg High 27-31 pg Magnesium 08/31/2018 N2N/CCD Import Magnesium 2.3 mg/dL 1.9-2.7 mg/dL Lymph% 08/31/2018 N2N/CCD Import Lymph% 30.6 % 20 - 45 % Lymph# 08/31/2018 N2N/CCD Import Lymph# 0.8 10_3/ul Low 1.0-4.8 10 3/ul Lactic Acid 08/31/2018 N2N/CCD Import Lactic Acid 0.9 mmol/L 0.5-2.0 mmol/L NRBC# 08/31/2018 N2N/CCD Import NRBC# 0.0 10_3/ul NRBC% 08/31/2018 N2N/CCD Import NRBC% 0.1 _ Platelets 08/31/2018 N2N/CCD Import Platelets 164 10_3/uL 150-450 10 3/uL Potassium 08/31/2018 N2N/CCD Import Potassium 4.5 mmol/L 3.5-5.0 mmol/L Protein, Total 08/31/2018 N2N/CCD Import Protein, Total 7.0 g/dL 6.4- 8.9 g/dL PTT 08/31/2018 N2N/CCD Import PTT 38.2 seconds High 26.0-38.0 seconds RBC 08/31/2018 N2N/CCD Import RBC 3.89 3.70-4.87 10 10_6_/uL 6 /uL RDW 08/31/2018 N2N/CCD Import RDW 15 % 10-15 % Sodium 08/31/2018 N2N/CCD Import Sodium 139 mmol/L 135-145 mmol/L Troponin 08/31/2018 N2N/CCD Import Troponin 0.01 ng/mL <0.04 ng/mL TSH 08/31/2018 N2N/CCD Import TSH 0.45 mcIU/mL 0.34-5.60 mcIU/mL WBC 08/31/2018 N2N/CCD Import WBC 2.8 10_3/uL Low 3.5-10.8 10 3/uL A/G Ratio 08/31/2018 N2N/CCD Import A/G Ratio 1.3 _ 1-3 Albumin 08/31/2018 N2N/CCD Import Albumin 4.0 g/dL 3.2-5.2 g/dL Alcohol 08/31/2018 N2N/CCD Import Alcohol < 10 <10 mg/dL Alk Phos 08/31/2018 N2N/CCD Import Alk Phos 52 U/L 34-104 U/L Alt 08/31/2018 N2N/CCD Import Alt 16 U/L 7-52 U/L Anion Gap 08/31/2018 N2N/CCD Import Anion Gap 7 mmol/L 2-11 mmol/L Ast 08/31/2018 N2N/CCD Import Ast 29 U/L 13-39 U/L Baso# 08/31/2018 N2N/CCD Import Baso# 0.0 10_3/ul 0-0.2 10 3/ul Baso% 08/31/2018 N2N/CCD Import Baso% 1.2 % 0 - 2 % Bilirubin Total 08/31/2018 N2N/CCD Import Bilirubin Total 0.20 mg/dL 0.2 -1.0 mg/dL BUN 08/31/2018 N2N/CCD Import BUN 21 mg/dL 6-24 mg/dL BUN/Creat Ratio 08/31/2018 N2N/CCD Import BUN/Creat Ratio 17.9 _ 8-20 Calcium 08/31/2018 N2N/CCD Import Calcium 9.7 mg/dL 8.6-10.3 mg/dL Chloride 08/31/2018 N2N/CCD Import Chloride 106 mmol/L 101-111 mmol/L Co2 08/31/2018 N2N/CCD Import Co2 26 mmol/L 22-32 mmol/L Creatinine 08/31/2018 N2N/CCD Import Creatinine 1.17 mg/dL High 0.51- 0.95 mg/dL Eosin# 08/31/2018 N2N/CCD Import Eosin# 0.2 10_3/ul 0-0.6 10 3/ul Eosin% 08/31/2018 N2N/CCD Import Eosin% 8.3 % High 0 - 5 % GFR Afr Amer 08/31/2018 N2N/CCD Import GFR Afr Amer 56.2 _ >60 GFR Non Afr Amer 08/31/2018 N2N/CCD Import GFR Non Afr 46.4 _ >60 Amer Globulin 08/31/2018 N2N/CCD Import Globulin 3.0 g/dL 2-4 g/dL Glucose 08/31/2018 N2N/CCD Import Glucose 104 mg/dL High 70-100 mg/dL Hematocrit 08/31/2018 N2N/CCD Import Hematocrit 37 % 35-47 % Hemoglobin 08/31/2018 N2N/CCD Import Hemoglobin 12.5 g/dL 12.0-16.0 g/dL INR 08/31/2018 N2N/CCD Import INR 0.90 _ 0.82-1.09 1 Please check labs 2 days before follow up 2 Because ethnic data is not always readily available, this report includes an eGFR for both -Americans and non- Americans. The National Kidney Disease Education Program (NKDEP) does not endorse the use of the MDRD equation for patients that are not between the ages of 18 and 70, are , have extremes of body size, muscle mass, or nutritional status, or are non- or non-. According to the National Kidney Foundation, irrespective of diagnosis, the stage of the disease is based on the level of kidney function: Stage Description GFR(mL/min/1.73 m(2)) 1 Kidney damage with normal or decreased GFR 90 2 Kidney damage with mild decrease in GFR 60-89 3 Moderate decrease in GFR 30-59 4 Severe decrease in GFR 15-29 5 Kidney failure <15 (or dialysis) 3 Please check labs 2 days before follow up 4 White count confirmed by estimate 5 Platelet count confirmed by estimate 6 Please check labs 2 days before follow up 7 Test Performed by: [place] [address] [employer]r: Ryne Matson M.D. Ph.D.; CLIA# [id number] 8 Test Performed by: [place] [address] [employer]r: Ryne Matson M.D. Ph.D.; CLIA# [id number] 9 REFERENCE VALUE <30.0 (Negative) Test Performed by: [place] [address] [employer]r: Ryne Matson M.D. Ph.D.; CLIA# [id number] 10 [facility] Severe Sepsis and Septic Shock Management Bundle Measure requires all lactic acids initially measuring >2.0 mmol/L be repeated. 11 Because ethnic data is not always readily available, this report includes an eGFR for both -Americans and non- Americans. The National Kidney Disease Education Program (NKDEP) does not endorse the use of the MDRD equation for patients that are not between the ages of 18 and 70, are , have extremes of body size, muscle mass, or nutritional status, or are non- or non-. According to the National Kidney Foundation, irrespective of diagnosis, the stage of the disease is based on the level of kidney function: Stage Description GFR(mL/min/1.73 m(2)) 1 Kidney damage with normal or decreased GFR 90 2 Kidney damage with mild decrease in GFR 60-89 3 Moderate decrease in GFR 30-59 4 Severe decrease in GFR 15-29 5 Kidney failure <15 (or dialysis) 12 Troponin-I testing on Plasma Separator Tubes (PST) has a known false positive rate of 0.20-0.40%. All positive troponins reflex immediately to secondary confirmatory testing. Using the [employer] DxI 800 Access Immunoassay systems, the 99th percentile upper reference limit was demonstrated to be < 0.03 ng/mL. 13 Therapeutic concentration: <50 ug/mL Toxic concentration: >120 ug/mL 14 SEE RESULT BELOW Name: EHSANBRISSA M : [address]: Nishant Sandra MD Acct: [id number] Unit: [id number] AGE: 63 Location: [facility] Re11/28/18 SEX: F Status: REG REF SPEC: [id number] LUIS: 11/28/18-1038 [facility] DR: Nishant Sandra MD REQ: [id number] RECD: 11/28/[id number] STATUS: COMP _ SOURCE: URINE SPDESC: ORDERED: Urine Culture Procedure Result Reported Site Urine Culture Final 11/29/18- 1606 ML No Growth (<1,000 CFU/mL) * ML - Main Lab . END OF REPORT DEPARTMENT OF PATHOLOGY, [address] [place] [address] Amos Lozano M.D. Director [facility] # [id number] 15 *Ascorbic acid is present which may interfere with detection of blood. 16 Please check labs 2 days before follow up 17 Please check labs 2 days before follow up 18 Because ethnic data is not always readily available, this report includes an eGFR for both -Americans and non- Americans. The National Kidney Disease Education Program (NKDEP) does not endorse the use of the MDRD equation for patients that are not between the ages of 18 and 70, are , have extremes of body size, muscle mass, or nutritional status, or are non- or non-. According to the National Kidney Foundation, irrespective of diagnosis, the stage of the disease is based on the level of kidney function: Stage Description GFR(mL/min/1.73 m(2)) 1 Kidney damage with normal or decreased GFR 90 2 Kidney damage with mild decrease in GFR 60-89 3 Moderate decrease in GFR 30-59 4 Severe decrease in GFR 15-29 5 Kidney failure <15 (or dialysis) 19 Please check labs 2 days before follow up 20 *Ascorbic acid is present which may interfere with detection of blood. 21 Test Performed by: [facility] [place] [address] 22 Test Performed by: [facility] [address] [place] [address] 23 REFERENCE VALUE <30.0 (Negative) Test Performed by: [facility] [place] [address] 24 Test Performed by: [facility] [place] [address] 25 Because ethnic data is not always readily available, this report includes an eGFR for both -Americans and non- Americans. The National Kidney Disease Education Program (NKDEP) does not endorse the use of the MDRD equation for patients that are not between the ages of 18 and 70, are , have extremes of body size, muscle mass, or nutritional status, or are non- or non-. According to the National Kidney Foundation, irrespective of diagnosis, the stage of the disease is based on the level of kidney function: Stage Description GFR(mL/min/1.73 m(2)) 1 Kidney damage with normal or decreased GFR 90 2 Kidney damage with mild decrease in GFR 60-89 3 Moderate decrease in GFR 30-59 4 Severe decrease in GFR 15-29 5 Kidney failure <15 (or dialysis) Procedures Description No Information Available Medical Devices Description No Information Available Encounters Type Date Location Provider Dx Diagnosis Office Visit 02/06/2019 [facility] MELISSA Valadez I10 Essential (primary) 10:00a hypertension Office Visit 01/16/2019 [facility] MELISSA Valadez I10 Essential (primary) 11:30a hypertension Office Visit 12/31/2018 [facility] Main Aby Platt MD F41.9 Anxiety disorder , 9:45a unspecified Office Visit 11/26/2018 [facility] Vern Platt MD F41.9 Anxiety disorder , 11:45a unspecified Assessments Date Code Description Provider 02/06/2019 I10 Essential (primary) hypertension Lorna Stewart, [facility] 01/16/2019 I10 Essential (primary) hypertension Lorna Stewart, [facility] 12/31/2018 F41.9 Anxiety disorder, unspecified Aby Platt MD 11/26/2018 F41.9 Anxiety disorder, unspecified Aby Platt MD Plan of Treatment Future Appointment(s):03/08/2019 10:15 am - Aby Platt MD at [facility] Main2018 - Lorna Stewart [id number] Essential (primary) hypertensionNew Medication: Amlodipine Besylate 5 mg - 1 by mouth every dayComments:Add amlodipine daily. Continue Clonidine 2 x daily as well. SE reviewed. Follow up in 1 month with CMP and TSH 2 days prior. Bring 10 home reading to apt. please.AllComments: ETOH abuse. Continue work with [facility] and [facility]. Supportive listening. Thyroid TSH elevatedon recent bloodwork. States new medication added. Will request records from [facility]. Repeat TSH in 3 weeks. Functional Status Description No Information Available Mental Status Description No Information Available Referrals Description No Information Available
--- OUTSIDE RECORDS SUMMARY | 2019-03-10 18:41 | XMS REPORT | Continuity of Care Document ---
:1955 External Reference #:[id number] Author Name Nishant Sandra M.D. (transmitted by agent of provider Dinorah Allen) Address [address] [place] [address] Care Team Providers Name Role Phone Aby Platt M.D. - Family Care Team Information Manager Payer [phone] Medicine Problems Active Problems Provider Date Seizure Adrianna Coates M.D. Onset: 09/27/2017 Note: Says she had tonic-clonic seizures in [place] cared for by a neurologist in [facility] ([facility]man Gomez sp?). 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 As of May 2018 the [place] reports are pending. Alcohol withdrawal syndrome Concepcion Leblanc N.P. Onset: 11/26/2017 Note: Patient description of 3 day relapse upon return from [place] in early May 2018 does correspond to the 05/25/18 description of absconding from the ER in the ER note; no sign of liver disease; Iron deficiency anemia Sarah Palumbo NP Onset: 04/09/2018 Note: alcoholism history, Lupus Bipolar disorder Adrianna Coates M.D. Onset: 09/27/2017 Note: see ER note 05/25/18; Hypothyroidism Concepcion Leblanc N.P. Onset: 11/26/2017 Major depressive disorder, single episode, Concepcion Leblanc N.P. Onset: 11/27/2017 unspecified Systemic lupus erythematosus Marianne Sam NP Onset: 12/04/2017 Note: in May 2018 referred to having Sjogren's Syndrome 23 yrs ago. Taking medication Sarah Palumbo NP Onset: 05/18/2018 Social History Type Date Description Comments Sex Unknown ETOH Use Former alcoholic ETOH Use Denies alcohol use Tobacco Use Start: Unknown Patient is a current smoker, smokes every day Recreational Drug Use Denies Drug Use Tobacco Use Start: Unknown Light tobacco smoker (10 or fewer cigarettes/day) Smoking Status Reviewed: 02/28/19 Light tobacco smoker (10 or fewer cigarettes/day) Exercise Type/Frequency Exercises regularly [employer] program "Walk off the pounds" Allergies, Adverse Reactions, Alerts Active Allergies Reaction Severity Comments Date Sulfa Antibiotics rash 10/19/2017 [place] anaphylaxis 10/19/2017 Steroids pychosis 10/19/2017 Fioricet avoids taking if she can 09/04/2018 Soma avoids taking if she can 09/04/2018 Medications Active Medications SIG Qnty Indications Ordering Date Provider Gabapentin Take 2 Capsules By 120caps Nishant Sandra, 12/04/2018 400mg Mouth 3 Times A Day M.D. Capsules Cyclobenzaprine HCL 1 by mouth as needed 30tabs Nishant Sandra, 12/03/2018 5mg at bedtime for M.D. Tablets pain/spasms/insomnia Paraffin use daily for hand 500gm Nishant Sandra, 09/03/2018 Wax stretching and M.D. osteoarthritis m72 CBD [place] apply every 12 hours 5units Nishant Sandra, 08/23/2018 4-3-9-1.2% as needed to painful M.D. Patches regions Wrist Splint use nightly to help 1units M32.9 Nishant Sandra, 08/23/2018 Misc with carpal tunnel M.D. features g56.01 on the right Meclizine HCL take one 60tabs Nishant Sandra, 05/31/2018 12.5mg capsule/tablet by M.D. Tablets mouth twice daily as needed for vertigo Slow Release Iron take one 90tabs Nishant Sandra, 02/27/2018 capsule/tablet daily M.D. 47.5mg Tablets ER by mouth Prozac 1 by mouth every day 90caps Nishant Sandra, 03/30/2017 40mg Capsules M.D. Clonazepam Take 1 Tablet By Unknown 12/29/2016 1mg Tablets Mouth three times daily Atorvastatin Calcium Unknown 40mg Tablets Liothyronine Sodium take 5mcg daily, in Unknown addition to 5mcg Tablets levothyroxine Amoxicillin 1 cap by mouth two Unknown 500mg times a day Capsules Abilify 1 by mouth every day Unknown 2mg Tablets Simvastatin 1 tab by mouth daily [place], 40mg [place] Tablets Levothyroxine Sodium 1 by mouth every day Unknown 150mcg Tablets Clonidine HCL Take 1 Tablet By Unknown 0.1mg Mouth Every 8 Hours Tablets Lamotrigine 1 by mouth twice a Unknown 200mg day Tablets History Medications Tramadol HCL take one 14tabs Nishant Sandra, 01/04/2019 - 50mg capsule/tablet by M.DBob 01/30/2019 Tablets mouth twice daily as needed for pain Xeljanz 1 by mouth twice a day 60tabs Nishant Sandra, 12/17/2018 - 5mg Tablets M.D. 01/18/2019 Quinacrine HCL 50 mg by mouth daily 25gm Nishant Sandra, 12/12/2018 - Powder M.D. 12/17/2018 Acthar sq weekly 5ml Nishant Sandra, 11/28/2018 - 80Unit/ML Gel M.D. 12/12/2018 Gabapentin take one tablet by 270tabs Nishant Sandra, 10/24/2018 - 600mg mouth three times a M.D. 12/04/2018 Tablets day Gabapentin take one capsule by 120caps Nishant Sandra, 09/12/2018 - 400mg mouth in the am, 1 cap M.D. 10/24/2018 Capsules at noon, 1 cap at at bedtime, may increase to 2 caps at at bedtime if tolerated Gabapentin take one capsule/tab 90tabs Nishant Sandra, 09/03/2018 - 600mg every 8 hours (total M.D. 09/19/2018 Tablets of 3 per day) Per DR Sandra, DR Acharya Prescribing This Med Now Methocarbamol take one 30tabs Nishant Sandra, 08/30/2018 - 750mg capsule/tablet by M.DBob 09/03/2018 Tablets mouth twice daily as needed for muscular spasms, pain, avoid other muscular relaxants Medications Administered in Office Medication SIG Qnty Indications Ordering Provider Date Toradol Injection 15MG Nurse Visit 01/01/2019 Injection Toradol Injection 15MG Nurse Visit 01/01/2019 Injection Triamcinolone (Kenalog) Nishant Sandra M.D. 12/12/2018 Injection PPD Nishant Sandra M.D. 03/21/2018 Injection Immunizations CPT Code Status Date Vaccine Reaction Lot # [id number] Given 01/30/2019 Influenza Virus Vaccine, Patient denies ever [id number] Quadrivalent, Split, having a serious Preservative Free reaction to eggs or egg products, ever having a serious reaction or other problem after getting influenza vaccination, ever being diagnosed with Lececlk-Czblg-Diyrrwdv , possibility of being , fever or moderate/severe illness today, allergy to latex. Patient verifies "I have read or had explained to me the information about influenza and influenza vaccine. I have had a chance to ask questions that were answered to my satisfaction. I believe I understand the benefits and risks of influenza vaccine and ask that the vaccine be given to me." Patient tolerated injection w/ no immediate adverse effect. [id number] Given 08/23/2018 Pneumococcal Conjugate no immediate reaction [id number] Vaccine 13 Valent For noted Intramuscular Use Vital Signs Date Vital Result Comment 02/28/2019 3:41pm Height 64.5 inches 5'4.50" Weight 152.00 lb Heart Rate 62 /min BP Systolic Sitting 128 mmHg BP Diastolic Sitting 80 mmHg Body Temperature 98.0 F Pain Level 7 O2 % BldC Oximetry 98 % BMI (Body Mass Index) 25.7 kg/m2 01/30/2019 9:24am Height 64.5 inches 5'4.50" Weight 154.00 lb Heart Rate 74 /min BP Systolic 150 mmHg BP Diastolic 84 mmHg Respiratory Rate 18 /min Body Temperature 96.8 F O2 % BldC Oximetry 99 % BMI (Body Mass Index) 26.0 kg/m2 Results Test Acquired Date Facility Test Result H/L Range Note Laboratory test 02/28/2019 [facility] Alcohol <pending> finding [address] [place] [address] [phone] Laboratory test 02/25/2019 [facility] C Reactive 1.83 mg/L Normal <8.01 1, [address] [place] [address] [phone] Erythrocyte Sed Rate 50 mm/Hr High 0-29 3 Complement C3 90 mg/dL 75 - 175 4 Complement C4 19 mg/dL 14 - 40 5 Anti Double Stranded Dna AB 16.0 IU/mL 6 CBC Auto 02/25/2019 [facility] White Blood 5.1 10^3/uL Normal 3.5-10.8 [address] [place] [address] [phone] Red Blood Count 3.51 10^6/uL Low 3.70-4.87 Hemoglobin 12.1 g/dL Normal 12.0-16.0 Hematocrit 36 % Normal 35-47 Mean Corpuscular Volume 102 fL High 80-97 Mean Corpuscular Hemoglobin 34 pg High 27-31 Mean Corpuscular HGB Conc 34 g/dL Normal 31-36 Red Cell Distribution Width 16 % High 10-15 Platelet Count 165 10^3/uL Normal 150-450 8 Mean Platelet Volume 9.1 fL Normal 7.4-10.4 [...] % Nucleated Red Blood Cells % 0.2 Comp Metabolic 02/25/2019 [facility] Sodium 137 mmol/L Normal 135-[address] [place] [address] [phone] Potassium 4.4 mmol/L Normal 3.5-5.0 Chloride 105 [...] Egfr Non- 60.5 >60 Egfr 73.2 >60 9 Laboratory 02/25/2019 [facility] TSH (Thyroid 2.38 Normal 0.34 -5.60 test finding [address] Stim Horm) mcIU/[place] [address] [phone] Urinalysis 11/28/2018 [facility] Urine Color Yellow Profile [address] [place] [address] [phone] Urine Appearance Clear Urine Specific [place] 1.015 Normal 1.010-1.030 Urine pH 7.0 Normal 5-9 Urine Urobilinogen Negative Negative Urine Ketones Negative Negative Urine Protein 2+(100 mg/dL) Abnormal Negative Urine Leukocytes Negative Negative Urine Blood Negative Negative * * Abnormal Negative 10 Urine Nitrite Negative Negative Urine Bilirubin Negative Negative Urine Glucose Negative Negative Urine White Blood Cell Trace(0-5/hpf) Absent Urine Red Blood Cell 2+(6-10/hpf) Abnormal Absent Urine Bacteria Absent Absent Urine Squamous Epithelial Cell Present Abnormal Absent Urine Culture And 11/28/2018 [facility] Urine SEE RESULT [address] [address] [phone] Comp Metabolic 10/25/2018 [facility] Sodium 136 mmol/L Normal 135- Panel [address] [place] [address] [phone] Chloride 104 mmol/L Normal 101-111 Co2 Carbon Dioxide 27 mmol/L Normal 22-32 Glucose 77 mg/dL Normal 70-100 Blood Urea Nitrogen 24 mg/dL Normal 6-24 Creatinine 1.09 mg/dL High 0.51-0.95 BUN/Creatinine Ratio 22.0 High 8-20 Calcium 9.2 mg/dL Normal 8.6-10.3 Total Protein 6.8 g/dL Normal 6.4-8.9 Albumin 4.0 g/dL Normal 3.2-5.2 Globulin 2.8 g/dL Normal 2-4 Albumin/Globulin Ratio 1.4 Normal 1-3 Total Bilirubin 0.40 mg/dL Normal 0.2-1.0 Alkaline Phosphatase 68 U/L Normal 34-104 Alt 16 U/L Normal 7-52 Ast 30 U/L Normal 13-39 Egfr Non- 50.4 >60 Egfr 61.0 >60 12 Potassium 5.1 mmol/L High 3.5-5.0 Anion Gap 5 mmol/L Normal 2-11 Laboratory test 10/25/2018 [facility] Anti Double 13.7 IU/mL [address] [place] [address] [phone] Urinalysis Profile 10/25/2018 [facility] Urine Color Yellow [address] [place] [address] [phone] Urine Appearance Cloudy Urine Specific [place] 1.014 Normal 1.010-1.030 Urine pH 6.0 Normal 5-9 Urine Urobilinogen Negative Negative Urine Ketones Negative Negative Urine Protein 2+(100 mg/dL) Abnormal Negative Urine Leukocytes Negative Negative Urine Blood Negative Negative * * Abnormal Negative 14 Urine Nitrite Negative Negative Urine Bilirubin Negative Negative Urine Glucose Negative Negative Urine White Blood Cell Absent Absent Urine Red Blood Cell Absent Absent Urine Bacteria Absent Absent Urine Squamous Epithelial Cell Present Abnormal Absent Urine Hyaline Casts Present Abnormal Absent CBC Auto 10/25/2018 [facility] White Blood 4.2 10^3/uL Normal 3.5-10.[address] [place] [address] [phone] Red Blood Count 3.74 10^6/uL Normal 3.70-4.87 Hemoglobin 11.8 g/dL Low 12.0-16.0 Hematocrit 36 % Normal 35-47 Mean Corpuscular Volume 95 fL Normal 80-97 Mean Corpuscular Hemoglobin 32 pg High 27-31 Mean Corpuscular HGB Conc 33 g/dL Normal 31-36 Red Cell Distribution Width 16 % High 10-15 Platelet Count 157 10^3/uL Normal 150-450 Mean Platelet Volume 9.0 fL Normal 7.4-10.4 Abs Neutrophils 2.7 10^3/uL Normal 1.5-7.7 Abs Lymphocytes 0.9 10^3/uL Low 1.0-4.8 Abs Monocytes 0.4 10^3/uL Normal 0-0.8 Abs Eosinophils 0.2 10^3/uL Normal 0-0.6 Abs Basophils 0.0 10^3/uL Normal 0-0.2 Abs Nucleated RBC 0.0 10^3/uL Granulocyte % 64.8 % Lymphocyte % 21.6 % Monocyte % 8.8 % Eosinophil % 4.0 % Basophil % 0.8 % Nucleated Red Blood Cells % 0.0 Laboratory test 10/25/2018 [facility] Erythrocyte Sed 46 mm/Hr High 0-29 [address] [place] [address] [phone] C Reactive Protein 14.82 mg/L High <8.01 16 Laboratory test 09/10/2018 [facility] Complement C3 117 mg/dL 75 - 175 [address] [place] [address] [phone] Complement C4 32 mg/dL 14 - 40 18 Anti Double Stranded Dna AB <12.3 IU/mL 19 CBC Auto 09/10/2018 [facility] White Blood 3.3 10^3/uL Low 3.5 -10.[address] [place] [address] [phone] Red Blood Count 3.63 10^6/uL Low 3.70-4.87 Hemoglobin 11.4 g/dL Low 12.0-16.0 Hematocrit 35 % Normal 35-47 Mean Corpuscular Volume 95 fL Normal 80-97 Mean Corpuscular Hemoglobin 31 pg Normal 27-31 Mean Corpuscular HGB Conc 33 g/dL Normal 31-36 Red Cell Distribution Width 15 % Normal 10-15 Platelet Count 256 10^3/uL Normal 150-450 Mean Platelet Volume 8.3 fL Normal 7.4-10.4 Abs Neutrophils 1.7 10^3/uL Normal 1.5-7.7 Abs Lymphocytes 0.9 10^3/uL Low 1.0-4.8 Abs Monocytes 0.3 10^3/uL Normal 0-0.8 Abs Eosinophils 0.2 10^3/uL Normal 0-0.6 Abs Basophils 0.0 10^3/uL Normal 0-0.2 Abs Nucleated RBC 0.0 10^3/uL Granulocyte % 53.3 % Lymphocyte % 28.6 % Monocyte % 9.8 % Eosinophil % 7.4 % Basophil % 0.9 % Nucleated Red Blood Cells % 0.3 Laboratory 09/10/2018 [facility] Partial 38.3 High 26.0-38.0 20 test finding [address] [facility] [place] [address] Time PTT [phone] Comp Metabolic 09/10/2018 [facility] Sodium 138 mmol/L Normal 135-145 Panel [address] [place] [address] [phone] Potassium 5.1 mmol/L High 3.5-5.0 Chloride 105 mmol/L Normal 101-111 Co2 Carbon Dioxide 25 mmol/L Normal 22-32 Anion Gap 8 mmol/L Normal 2-11 Glucose 99 mg/dL Normal 70-100 Blood Urea Nitrogen 20 mg/dL Normal 6-24 Creatinine 1.06 mg/dL High 0.51-0.95 BUN/Creatinine Ratio 18.9 Normal 8-20 Calcium 9.2 mg/dL Normal 8.6-10.3 Total Protein 6.4 g/dL Normal 6.4-8.9 Albumin 3.5 g/dL Normal 3.2-5.2 Globulin 2.9 g/dL Normal 2-4 Albumin/Globulin Ratio 1.2 Normal 1-3 Total Bilirubin 0.20 mg/dL Normal 0.2-1.0 Alkaline Phosphatase 54 U/L Normal 34-104 Alt 13 U/L Normal 7-52 Ast 20 U/L Normal 13-39 Egfr Non- 52.0 >60 Egfr 63.0 >60 21 1 Please check labs 2 days before follow up 2 Please check labs 2 days before follow up 3 Please check labs 2 days before follow up 4 Test Performed by: [facility] [place] [address] Safety Net Maker: Ryne Matson M.D. Ph.D.; CLIA# [id number] 5 Test Performed by: [facility] [place] [address] Safety Net Maker: Ryne Matson M.D. Ph.D.; CLIA# [id number] 6 REFERENCE VALUE <30.0 (Negative) Test Performed by: [place] [address] Safety Net Maker: Ryne Matson M.D. Ph.D.; CLIA# [id number] 7 White count confirmed by estimate 8 Platelet count confirmed by estimate 9 Because ethnic data is not always readily [...] 15-29 5 Kidney failure <15 (or dialysis) 10 *Ascorbic acid is present which may interfere with detection of blood. 11 SEE RESULT BELOW Name: EHSANCLEMENTINE M : [address]: Nishant Sandra MD Acct: [id number] Unit: [id number] AGE: 63 Location: [facility] Re11/28/18 SEX: F Status: REG REF SPEC: [id number] LUIS: 11/28/18-1038 [facility] DR: Nishant Sandra MD REQ: [id number] RECD: 11/28/18-4 STATUS: COMP _ SOURCE: URINE SPDESC: ORDERED: Urine Culture Procedure Result Reported Site Urine Culture Final 11/29/18- 1606 ML No Growth (<1,000 CFU/mL) * ML - Main Lab . END OF REPORT DEPARTMENT OF PATHOLOGY, [address] [place] [address] Amos Lozano M.D. Director [facility] # [id number] 12 Because ethnic data is not always readily [...] 15-29 5 Kidney failure <15 (or dialysis) 13 REFERENCE VALUE <30.0 (Negative) Test Performed by: [place] [address] 14 *Ascorbic acid is present which may interfere with detection of blood. 15 Please check labs 2 days before follow up 16 Please check labs 2 days before follow up 17 Test Performed by: [facility] [place] [address] 18 Test Performed by: [place] [address] 19 REFERENCE VALUE <30.0 (Negative) Test Performed by: [place] [address] 20 Please check labs this week 21 Because ethnic data is not always readily [...] 5 Kidney failure <15 (or dialysis) Procedures Date Code Description Status 01/01/2019 28296 Admin Of Inj Completed 12/12/2018 50625 Admin Of Inj Completed 10/31/2018 50239 Holter Monitor Review (24 hr)dr hernandez & juan only Completed 10/29/2018 58088 ECHO Transthoracic, Real-Time 2D With Doppler And Completed Color Flow 10/29/2018 93380 ECHO Transthoracic, Real-Time 2D With Doppler And Completed Color Flow 10/29/2018 48839 ECG Monitor/Recording W/Visual Superimposition Completed Scanning 03/30/2018 [id number] Bone Mineral Density Test Completed Medical Devices Description No Information Available Encounters Type Date Location Provider Dx Diagnosis Office Visit 01/30/2019 Rheumatology Andi Bacon2.9 Systemic lupus 9:20a [facility] erythematosus, unspecified D64.9 Anemia, unspecified R79.82 Elevated C-reactive protein (CRP) Z79.899 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 erythematosus, unspecified D64.9 Anemia, unspecified R79.82 Elevated C-reactive protein (CRP) Z79.899 Other prison (current) drug therapy Office Visit 11/28/2018 Rheumatology Nishant M32.9 Systemic lupus 9:40a [facility] M.D. erythematosus, unspecified D64.9 Anemia, unspecified R79.82 Elevated C-reactive protein (CRP) Z79.899 Other prison (current) drug therapy Office Visit 09/03/2018 Rheumatology Nishant M32.9 Systemic lupus 1:20p [facility] M.D. erythematosus, unspecified D64.9 Anemia, unspecified G56.01 Carpal tunnel syndrome, right upper limb N18.9 Chronic kidney disease, unspecified R79.82 Elevated C-reactive protein (CRP) Assessments Date Code Description Provider 02/28/2019 M32.10 Systemic lupus erythematosus, organ or Nishant Sandra M.D. system involvement unspecified 02/28/2019 Z79.899 Other prison (current) drug therapy Nishant Sandra M.D. 02/28/2019 D64.9 Anemia, unspecified Nishant Sandra M.D. 02/28/2019 R79.82 Elevated C-reactive protein (CRP) Nishant Sandra M.D. 02/21/2019 M32.10 Systemic lupus erythematosus, organ or Siddhartha Mills MD , FACS system involvement unspecified 01/30/2019 M32.9 Systemic lupus erythematosus, unspecified Nishant Sandra M.D. 01/30/2019 D64.9 Anemia, unspecified Nishant Sandra M.D. 01/30/2019 R79.82 Elevated C-reactive protein (CRP) Nishant Sandra M.D. 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 01/30/2019 Z23 Encounter for immunization Nishant Sandra M.D. 01/30/2019 F17.210 Nicotine dependence, cigarettes, Nishant Sandra M.D. uncomplicated 01/03/2019 M32.10 Systemic lupus erythematosus, organ or Siddhartha Mills MD , FACS system involvement unspecified 01/01/2019 M32.9 Systemic lupus erythematosus, unspecified Nurse Visit 01/01/2019 R52 Pain, unspecified Nurse Visit 01/01/2019 M32.9 Systemic lupus erythematosus, unspecified Nishant Sandra M.D. 12/12/2018 M32.9 Systemic lupus erythematosus, unspecified Nishant Sandra M.D. 12/12/2018 D64.9 Anemia, unspecified Nishant Sandra M.D. 12/12/2018 R79.82 Elevated C-reactive protein (CRP) Nishant Sandra M.D. 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 11/28/2018 M32.9 Systemic lupus erythematosus, unspecified Nishant Sandra M.D. 11/28/2018 D64.9 Anemia, unspecified Nishant Sandra M.D. 11/28/2018 R79.82 Elevated C-reactive protein (CRP) Nishant Sandra M.D. 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 10/31/2018 R00.1 Bradycardia, unspecified Siddhartha Dumont, DO [facility] 10/29/2018 R94.31 Abnormal electrocardiogram [ECG] [EKG] Siddhartha Dumont DO [facility] 10/29/2018 R94.31 Abnormal electrocardiogram [ECG] [EKG] Ica ECHO Schedule 10/29/2018 R00.1 Bradycardia, unspecified Nurse Visit IC 09/03/2018 M32.9 Systemic lupus erythematosus, unspecified Nishant Sandra M.D. 09/03/2018 D64.9 Anemia, unspecified Nishant Sandra M.D. 09/03/2018 G56.01 Carpal tunnel syndrome, right upper limb Nishant Sandra M.D. 09/03/2018 N18.9 Chronic kidney disease, unspecified Nishant Sandra M.D. 09/03/2018 R79.82 Elevated C-reactive protein (CRP) Nishant Sandra M.D. Plan of Treatment Future Appointment(s):05/01/2019 10:00 am - Nishant Sandra M.D. at [facility]03/27/2019 3:30 pm - Siddhartha Mills MD, FACS at [facility]02/28/2019 - Nishant Sandra M.D.M32.10 Systemic lupus erythematosus, organ or system involvement [id number] Other long wall shear operator ( current) drug therapyFollow up:Follow up in 2 months or sooner if ianoyjB70.9 Anemia, ifrnilozmbcZ74.82 Elevated C-reactive protein (CRP) Functional Status Description No Information Available Mental Status Description No Information Available Referrals Refer to Dr Reason for Referral Status Appt Date Siddhartha Mills MD Please evaluate patient for port placement as she Sent has poor IV access and needs IVIG [address] [facility] [place] [address] [phone] Leyla Diehl MD Please evaluate for causes of hematuria and Sent proteinuria, history of lupus [address] [facility] [place] [address] [phone]
--- OUTSIDE RECORDS SUMMARY | 2019-03-10 18:41 | XMS REPORT | Continuity of Care Document ---
:1955 External Reference #:[id number] Author Problems Active Problems Provider Date Tobacco [...] Severity Comments Date Fioricet 12/01/2018 Methotrexate 12/17/2018 [place] 12/01/2018 Soma 12/01/2018 Sulfa Antibiotics 12/01/2018 Buspirone Hydrochloride rash (per old records) 11/23/2018 Ketorolac Tromethamine itching and rash (per 11/23/2018 old records) [place] Analogues anaphylaxis (per old 11/23/2018 records) Methotrexate [...] Amlodipine Besylate 1 by mouth 30tabs I10 FABIOLA FoxP 02/06/2019 5mg every day Tablets Blood Pressure Kit 1units I10 Lorna Stewart [facility] 01/16/2019 Kit Doxycycline Hyclate 2 pills once 2caps Olaf Portillo MD 01/04/2019 100mg Capsules Promethazine HCL 1 by mouth 90tabs Brandon Hudson 12/10/2018 25mg every 6 hours Tablets as needed for nausea Acthar SQ weekly 5units Nishant Sandra 11/28/2018 80Unit/ML Gel Clonazepam 1 tab by mouth 84tabs Aby Platt 11/26/2018 1mg Tablets three times a MD day Gabapentin 2 three times Unknown 10/24/2018 300mg Capsules daily Oral Gabapentin take one tablet 270tabs Nishant Sandra 10/24/2018 600mg Tablets by mouth three times a day Clonidine HCL 1 twice daily 180tabs Unknown 09/13/2018 0.2mg Tablets Oral Simvastatin 1 daily Oral 90tabs Unknown 09/13/2018 40mg Tablets CBD [place] apply every 12 5units Nishant Sandra 08/23/2018 [...] CPT Code Status Date Vaccine Lot # [id number] Given 08/23/2018 Prevnar 13 Vital Signs Date [...] Result H/L Range Note Laboratory test 02/25/2019 [facility] TSH 2.38 Normal 0.34- 5.[address] (Thyroid mcIU/[place] [address] Stim Horm) [phone] Comp Metabolic 02/25/2019 [facility] Sodium 137 mmol/L Normal 135-145 [address] [place] [address] [phone] Potassium 4.4 mmol/L Normal 3.5-5.0 Chloride 105 [...] Egfr 73.2 >60 2 Laboratory test 02/25/2019 [facility] C Reactive 1.83 mg/L Normal <8.01 [address] [place] [address] [phone] CBC Auto Diff 02/25/2019 [facility] White Blood 5.1 Normal 3.5 -10.[address] Count 10^3/[place] [address] [phone] Red Blood Count 3.51 10^6/uL Low 3.70-4.87 [...] Blood Cells % 0.2 Laboratory test 02/25/2019 [facility] Erythrocyte Sed 50 mm/Hr High 0-29 [address] [place] [address] [phone] CBC Auto Diff 12/20/2018 [facility] White Blood 4.6 Normal 3.5 -10.[address] Count 10^3/uL [place], [place] [id number] [phone] Red Blood Count 3.79 10^6/uL Normal 3.70-4.87 [...] Blood Cells % 0.1 Laboratory test 12/20/2018 [facility] Lactic Acid 1.1 mmol/L Normal 0.5-2.0 [address] [place] [address] [phone] Comp Metabolic 12/20/2018 [facility] Potassium 3.8 mmol/L Normal 3.5-5.[address] [place] [address] [phone] Co2 Carbon Dioxide 24 mmol/L Normal 22-32 [...] Egfr Non- 54.4 >60 Egfr 65.8 >60 8 Sodium 147 mmol/L High 135-145 Chloride 113 mmol/L High 101-111 Anion Gap 10 mmol/L Normal 2-11 Laboratory test 12/20/2018 [facility] Creatine 74 U/L Normal 10-[address] [place] [address] [phone] Troponin I 0.01 ng/mL <0.04 9 Acetaminophen < 15 g/mL 10 Alcohol 340 mg/dL High <10 Salicylate < 2.50 mg/dL <30 TSH (Thyroid Stim Horm) 11.44 mcIU/mL High 0.34-5.60 Urine Culture And 11/28/2018 N2N/CCD Import Urine Culture See Result 11 Sensitivities Below Urinalysis Profile 11/28/2018 N[facility] Import Urine Color Yellow Urine Appearance Clear Urine Specific [place] 1.015 1 1.010-1.030 Urine pH 7.0 1 5-9 Urine Urobilinogen Negative Urine Ketones Negative Urine Protein 2+(100 mg/dL) Abnormal Urine Leukocytes Negative Urine Blood Negative * * Abnormal 12 Urine Nitrite Negative Urine Bilirubin Negative Urine Glucose Negative Urine White Blood Cell Trace(0-5/hpf) Urine Red Blood Cell 2+(6-10/hpf) Abnormal Urine Bacteria Absent Urine Squamous Epithelial Cell Present Abnormal Lab Results 10/25/2018 [employer] Import Erythrocyte Sed Rate 46 mm/Hr High 0-29 13 C Reactive Protein 14.82 mg/L High 14 CBC Auto Diff 10/25/2018 [facility] Import White Blood Count 4.2 10^3/uL 3.5-10.8 [...] Cells % 0.0 1 Lab Results 10/25/2018 [facility] Import Sodium 136 mmol/L 135-145 Chloride 104 [...] Egfr Non- 50.4 1 Egfr 61.0 1 15 Potassium 5.1 mmol/L High 3.5-5.0 Anion Gap 5 mmol/L 2-11 Anti Double Stranded Dna AB 13.7 IU/mL 16 Urinalysis Profile 10/25/2018 N2N/CCD Import Urine Color Yellow Urine Appearance Cloudy Urine Specific [place] 1.014 1 1.010-1.030 Urine pH 6.0 1 5-9 Urine Urobilinogen Negative Urine Ketones Negative Urine Protein 2+(100 mg/dL) Abnormal Urine Leukocytes Negative Urine Blood Negative * * Abnormal 17 Urine Nitrite Negative Urine Bilirubin Negative Urine [...] N2N/CCD Import MPV 8.3 fL 7.4-10.4 fL [place]% 09/10/2018 N2N/CCD Import [place]% 9.8 % 0 - 10 % [place]# 09/10/2018 N2N/CCD Import [place]# 0.3 0-0.8 10 10_3/ul 3/ul MCV 09/10/2018 [...] N2N/CCD Import Complement C3 117 mg/dL 75-175 18 Complement C4 32 mg/dL 14-40 19 Anti Double Stranded Dna AB <12.3 Iu/ml 20 CBC Auto Diff 09/10/2018 N2N/CCD Import White [...] Partial Thrombo Time 38.3 s High 26.0-38.0 21 PTT Sodium 138 mmol/L 135-145 Potassium 5.1 [...] Egfr Non- 52.0 1 Egfr 63.0 1 22 A/G Ratio 09/10/2018 N2N/CCD Import A/G Ratio [...] N2N/CCD Import MPV 8.5 fL 7.4-10.4 fL [place]% 08/31/2018 N2N/CCD Import [place]% 11.2 % High 0 - 10 % [place]# 08/31/2018 N2N/CCD Import [place]# 0.3 10_3/ul 0-0.8 10 3/ul MCV 08/31/2018 [...] labs 2 days before follow up 7 [place] Severe Sepsis and Septic Shock Management Bundle Measure requires all lactic acids initially measuring >2.0 mmol/L be repeated. 8 Because ethnic data is not always readily [...] 15-29 5 Kidney failure <15 (or dialysis) 9 Troponin-I testing on Plasma Separator Tubes (PST) has a known false positive rate of 0.20-0.40%. All positive troponins reflex immediately to secondary confirmatory testing. Using the [employer] Access Immunoassay systems, the 99th percentile upper reference limit was demonstrated to be < 0.03 ng/mL. 10 Therapeutic concentration: <50 ug/mL Toxic concentration: >120 ug/mL 11 SEE RESULT BELOW Name: BRISSA ALONSO : [address]: Nishant Sandra MD Acct: [id number] Unit: [id number] AGE: 63 Location: [facility] Re11/28/18 SEX: F Status: REG REF SPEC: [id number] LUIS: 11/28/18-[address] [place] [address] DR: Nishant Sandra MD REQ: [id number] RECD: 11/28/18124 STATUS: COMP _ SOURCE: URINE SPDESC: ORDERED: Urine Culture Procedure Result Reported Site Urine Culture Final 11/29/18- 1606 ML No Growth (<1,000 CFU/mL) * ML - Main Lab . END OF REPORT DEPARTMENT OF PATHOLOGY, [address] [place] [address] Amos Lozano M.D. Director [facility] # [id number] 12 *Ascorbic acid is present which may interfere with detection of blood. 13 Please check labs 2 days before follow up 14 Please check labs 2 days before follow up 15 Because ethnic data is not always readily [...] 15-29 5 Kidney failure <15 (or dialysis) 16 Please check labs 2 days before follow up 17 *Ascorbic acid is present which may interfere with detection of blood. 18 Test Performed by: [facility] [place] [address] 19 Test Performed by: [facility] [place] [address] 20 REFERENCE VALUE <30.0 (Negative) Test Performed by: [facility] [place] [address] 21 Test Performed by: [place] [address] 22 Because ethnic data is not always readily [...] Location Provider Dx Diagnosis Office Visit 02/06/2019 [facility] MELISSA Fox I10 Essential (primary) 10:00a hypertension Office Visit 01/16/2019 [facility] MELISSA Fox I10 Essential (primary) 11:30a hypertension Office Visit 12/31/2018 [facility] Aby Platt MD F41.9 Anxiety disorder , 9:45a unspecified Office Visit 11/26/2018 [facility] Vern Platt MD F41.9 Anxiety disorder , 11:45a unspecified Assessments Date Code Description Provider 02/06/2019 I10 Essential (primary) hypertension MELISSA Fox 01/16/2019 I10 Essential (primary) hypertension MELISSA Fox 12/31/2018 F41.9 Anxiety disorder, unspecified Aby Platt MD 11/26/2018 F41.9 Anxiety disorder, unspecified Aby Platt MD Plan of Treatment Future Appointment(s):03/08/2019 10:15 am - Aby Platt MD at [facility]2018 - FABIOLA FoxPI10 Essential (primary) hypertensionNew Medication: Amlodipine Besylate 5 [...]
--- OUTSIDE RECORDS SUMMARY | 2019-03-10 18:41 | XMS REPORT | Continuity of Care Document ---
:1955 External Reference #:[id number] Author Problems Active Problems Provider Date Tobacco [...] Severity Comments Date Fioricet 12/01/2018 Methotrexate 12/17/2018 [place] 12/01/2018 Soma 12/01/2018 Sulfa Antibiotics 12/01/2018 Buspirone Hydrochloride rash (per old records) 11/23/2018 Ketorolac Tromethamine itching and rash (per 11/23/2018 old records) [place] Analogues anaphylaxis (per old 11/23/2018 records) Methotrexate [...] Blood Pressure Kit 1units I10 Lorna Stewart [facility] 01/16/2019 Kit Doxycycline Hyclate 2 pills [...] Oral 90tabs Unknown 09/13/2018 40mg Tablets CBD [place] apply every 12 5units Nishant Sandra 08/23/2018 [...] CPT Code Status Date Vaccine Lot # [id number] Given 08/23/2018 Prevnar 13 Vital Signs Date [...] BldC Oximetry 98 % Results Test Acquired Facility Test Result H/L Range Note Date Laboratory 02/28/2019 [facility] Miscellaneous See [address] [place] [address] [phone] Laboratory 02/25/2019 [facility] TSH (Thyroid Stim 2.38 Normal 0.34-5.[address] Horm) mcIU/mL 0 [place] [address] [phone] Comp Metabolic 02/25/2019 [facility] Sodium 137 mmol/L Normal 135-[address] [place] [address] [phone] Potassium 4.4 mmol/L Normal 3.5-5.0 Chloride 105 [...] Egfr Non- 60.5 >60 Egfr 73.2 >60 3 Laboratory test 02/25/2019 [facility] C Reactive 1.83 mg/L Normal <8.[address] [place] [address] [phone] CBC Auto Diff 02/25/2019 [facility] White Blood 5.1 Normal 3.5 -10.[address] Count 10^3/[place] [address] [phone] Red Blood Count 3.51 10^6/uL Low 3.70-4.87 Hemoglobin 12.1 g/dL Normal 12.0-16.0 Hematocrit 36 % Normal 35-47 Mean Corpuscular Volume 102 fL High 80-97 Mean Corpuscular Hemoglobin 34 pg High 27-31 Mean Corpuscular HGB Conc 34 g/dL Normal 31-36 Red Cell Distribution Width 16 % High 10-15 Platelet Count 165 10^3/uL Normal 150-450 6 Mean Platelet Volume 9.1 fL Normal 7.4-10.4 [...] Blood Cells % 0.2 Laboratory test 02/25/2019 [facility] Erythrocyte Sed 50 mm/Hr High 0-29 [address] Rate [place] [id number] [phone] Complement C3 90 mg/dL 75 - 175 8 Complement C4 19 mg/dL 14 - 40 9 Anti Double Stranded Dna AB 16.0 IU/mL 10 CBC Auto 12/20/2018 [facility] White Blood 4.6 10^3/uL Normal 3.5-10.[address] [place] [address] [phone] Red Blood Count 3.79 10^6/uL Normal 3.70-4.87 [...] Blood Cells % 0.1 Laboratory test 12/20/2018 [facility] Lactic Acid 1.1 mmol/L Normal 0.5-2.0 [address] [place] [address] [phone] Comp Metabolic 12/20/2018 [facility] Potassium 3.8 mmol/L Normal 3.5-5.[address] [place] [address] [phone] Co2 Carbon Dioxide 24 mmol/L Normal 22-32 [...] Egfr Non- 54.4 >60 Egfr 65.8 >60 12 Sodium 147 mmol/L High 135-145 Chloride 113 mmol/L High 101-111 Anion Gap 10 mmol/L Normal 2-11 Laboratory test 12/20/2018 [facility] Creatine 74 U/L Normal 10-[address] [place] [address] [phone] Troponin I 0.01 ng/mL <0.04 13 Acetaminophen < 15 g/mL 14 Alcohol 340 mg/dL High <10 Salicylate < 2.50 mg/dL <30 TSH (Thyroid Stim Horm) 11.44 mcIU/mL High 0.34-5.60 Urine Culture And 11/28/2018 N2N/CCD Import Urine Culture See Result 15 Sensitivities Below Urinalysis Profile 11/28/2018 N2N/CCD Import Urine Color Yellow Urine Appearance Clear Urine Specific [place] 1.015 1 1.010-1.030 Urine pH 7.0 1 5-9 Urine Urobilinogen Negative Urine Ketones Negative Urine Protein 2+(100 mg/dL) Abnormal Urine Leukocytes Negative Urine Blood Negative * * Abnormal 16 Urine Nitrite Negative Urine Bilirubin Negative Urine Glucose Negative Urine White Blood Cell Trace(0-5/hpf) Urine Red Blood Cell 2+(6-10/hpf) Abnormal Urine Bacteria Absent Urine Squamous Epithelial Cell Present Abnormal Lab Results 10/25/2018 N2N/CCD Import Erythrocyte Sed Rate 46 mm/Hr High 0-29 17 C Reactive Protein 14.82 mg/L High 18 CBC Auto Diff 10/25/2018 N2N/CCD Import White [...] Egfr Non- 50.4 1 Egfr 61.0 1 19 Potassium 5.1 mmol/L High 3.5-5.0 Anion Gap 5 mmol/L 2-11 Anti Double Stranded Dna AB 13.7 IU/mL 20 Urinalysis Profile 10/25/2018 N2N/CCD Import Urine Color Yellow Urine Appearance Cloudy Urine Specific [place] 1.014 1 1.010-1.030 Urine pH 6.0 1 5-9 Urine Urobilinogen Negative Urine Ketones Negative Urine Protein 2+(100 mg/dL) Abnormal Urine Leukocytes Negative Urine Blood Negative * * Abnormal 21 Urine Nitrite Negative Urine Bilirubin Negative Urine [...] N2N/CCD Import MPV 8.3 fL 7.4-10.4 fL [place]% 09/10/2018 N2N/CCD Import [place]% 9.8 % 0 - 10 % [place]# 09/10/2018 N2N/CCD Import [place]# 0.3 0-0.8 10 10_3/ul 3/ul MCV 09/10/2018 [...] N2N/CCD Import Complement C3 117 mg/dL 75-175 22 Complement C4 32 mg/dL 14-40 23 Anti Double Stranded Dna AB <12.3 Iu/ml 24 CBC Auto Diff 09/10/2018 N2N/CCD Import White [...] Partial Thrombo Time 38.3 s High 26.0-38.0 25 PTT Sodium 138 mmol/L 135-145 Potassium 5.1 [...] Egfr Non- 52.0 1 Egfr 63.0 1 26 A/G Ratio 09/10/2018 N2N/CCD Import A/G Ratio [...] U/L Baso# 09/10/2018 N2N/CCD Import Baso# 0.0 0-0.2 10 10_3/ul 3/ul Baso% 09/10/2018 N2N/CCD Import Baso% 0.9 % 0 - 2 % Bilirubin Total 09/10/2018 N2N/CCD Import Bilirubin Total 0.20 mg/dL 0.2 -1.0 mg/dL BUN 09/10/2018 N2N/CCD Import BUN 20 mg/dL 6-24 mg/dL BUN/Creat Ratio 09/10/2018 N2N/CCD Import BUN/Creat Ratio 18.9 _ 8-20 Calcium 09/10/2018 N2N/CCD Import Calcium 9.2 mg/dL 8.6-10.3 mg/dL Chloride 09/10/2018 N2N/CCD Import Chloride 105 mmol/L 101-111 mmol/L Co2 09/10/2018 N2N/CCD Import Co2 25 mmol/L 22-32 mmol/L Creatinine 09/10/2018 N2N/CCD Import Creatinine 1.06 mg/dL High 0.51- 0.95 mg/dL Eosin# 09/10/2018 N2N/CCD Import Eosin# 0.2 0-0.6 10 10_3/ul 3/ul Eosin% 09/10/2018 N2N/CCD Import Eosin% 7.4 % High 0 - 5 % GFR Afr Amer 09/10/2018 N2N/CCD Import GFR Afr Amer 63.0 _ >60 GFR Non Afr Amer 09/10/2018 N2N/CCD Import GFR Non Afr Amer 52.0 _ >60 Globulin 09/10/2018 N2N/CCD Import Globulin 2.9 g/dL 2-4 g/dL Glucose 09/10/2018 N2N/CCD Import Glucose 99 mg/dL 70-100 mg/dL Hematocrit 09/10/2018 N2N/CCD Import Hematocrit 35 % 35-47 % Hemoglobin 09/10/2018 N2N/CCD Import Hemoglobin 11.4 g/dL Low 12.0-16.0 g/dL 1 Test Result Flag Unit RefValue Ethyl Glucuronide Scrn w/Reflex, U Ethyl Presumptive Positive A ng/mL Glucuronide Screen, U Drug confirmation to follow. Presumptive Positive means that the screening method is positive, but the test needs to be run by a confirmatory method. REFERENCE VALUE Cutoff: 500 ADDITIONAL INFORMATION This test was developed and its performance characteristics determined by [facility] in a manner consistent with CLIA requirements. This test has not been cleared or approved by the U.S. Food and Drug Administration. Test Performed by: [place] [address] [employer]: Ryne Matson M.D. Ph.D.; CLIA# [id number] 2 Please check labs 2 days before follow up 3 Because ethnic data is not always readily [...] 15-29 5 Kidney failure <15 (or dialysis) 4 Please check labs 2 days before follow up 5 White count confirmed by estimate 6 Platelet count confirmed by estimate 7 Please check labs 2 days before follow up 8 Test Performed by: [place] [address] [employer]: Ryne Matson M.D. Ph.D.; CLIA# [id number] 9 Test Performed by: [place] [address] [employer]: Ryne Matson M.D. Ph.D.; CLIA# [id number] 10 REFERENCE VALUE <30.0 (Negative) Test Performed by: [facility] [address] [place] [address] [employer]: Ryne Matson M.D. Ph.D.; IA# [id number] 11 [facility] Severe Sepsis and Septic Shock Management Bundle Measure requires all lactic acids initially measuring >2.0 mmol/L be repeated. 12 Because ethnic data is not always [...] 5 Kidney failure <15 (or dialysis) 13 Troponin-I testing on Plasma Separator Tubes (PST) has a known false positive rate of 0.20-0.40%. All positive troponins reflex immediately to secondary confirmatory testing. Using the [employer] 800 Access Immunoassay systems, the 99th percentile upper reference limit was demonstrated to be < 0.03 ng/mL. 14 Therapeutic concentration: <50 ug/mL Toxic concentration: >120 ug/mL 15 SEE RESULT BELOW Name: BRISSA ALONSO : [address]: Nishant Sandra MD Acct: [id number] Unit: [id number] AGE: 63 Location: [facility] Re11/28/18 SEX: F Status: REG REF SPEC: [id number] LUIS: 11/28/18-[address] [facility] [address]: Nishant Sandra MD REQ: [id number] RECD: 11/28/18124 STATUS: COMP _ SOURCE: URINE SPDESC: ORDERED: Urine Culture Procedure Result Reported Site Urine Culture Final 11/29/18- 1606 ML No Growth (<1,000 CFU/mL) * ML - Main Lab . END OF REPORT DEPARTMENT OF PATHOLOGY, [address] [place] [address] Amos Lozano M.D. Director [facility] # [id number] 16 *Ascorbic acid is present which may interfere with detection of blood. 17 Please check labs 2 days before follow up 18 Please check labs 2 days before follow up 19 Because ethnic data is not always readily [...] 15-29 5 Kidney failure <15 (or dialysis) 20 Please check labs 2 days before follow up 21 *Ascorbic acid is present which may interfere with detection of blood. 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 I10 Essential (primary) 10:00a hypertension Office Visit 01/16/2019 [facility] Lorna MELISSA Stewart I10 Essential (primary) 11:30a hypertension Office Visit 12/31/2018 [facility] Aby Platt MD F41.9 Anxiety disorder , 9:45a unspecified Office Visit 11/26/2018 [facility] Aby Platt MD F41.9 Anxiety disorder , 11:45a unspecified Assessments Date Code Description Provider 02/06/2019 I10 Essential (primary) hypertension MELISSA Fox 01/16/2019 I10 Essential (primary) hypertension MELISSA Fox 12/31/2018 F41.9 Anxiety disorder, unspecified Aby Platt MD 11/26/2018 F41.9 Anxiety disorder, unspecified Aby Platt MD Plan of Treatment 02/06/2019 - Lorna Pat FNPI10 Essential (primary) hypertensionNew Medication: Amlodipine Besylate [...]
--- OUTSIDE RECORDS SUMMARY | 2019-03-10 18:41 | XMS REPORT | Continuity of Care Document ---
:1955 External Reference #:[id number] Author Problems Active Problems Provider Date Tobacco [...] Severity Comments Date Fioricet 12/01/2018 Methotrexate 12/17/2018 [place] 12/01/2018 Soma 12/01/2018 Sulfa Antibiotics 12/01/2018 Buspirone Hydrochloride rash (per old records) 11/23/2018 Ketorolac Tromethamine itching and rash (per 11/23/2018 old records) [place] Analogues anaphylaxis (per old 11/23/2018 records) Methotrexate [...] Blood Pressure Kit 1units I10 Lorna Stewart [facility] 01/16/2019 Kit Doxycycline Hyclate 2 pills [...] Oral 90tabs Unknown 09/13/2018 40mg Tablets CBD [place] apply every 12 5units Nishant Sandra 08/23/2018 [...] CPT Code Status Date Vaccine Lot # [id number] Given 08/23/2018 Prevnar 13 Vital Signs Date [...] Result H/L Range Note Laboratory test 02/25/2019 [facility] TSH 2.38 Normal 0.34- 5.[address] (Thyroid mcIU/[place] [address] Stim Horm) [phone] Comp Metabolic 02/25/2019 [facility] Sodium 137 mmol/L Normal 135-[address] [place] [address] [phone] Potassium 4.4 mmol/L Normal 3.5-5.0 Chloride 105 [...] Egfr 73.2 >60 2 Laboratory test 02/25/2019 [facility] C Reactive 1.83 mg/L Normal <8.01 [address] [place] [address] [phone] CBC Auto Diff 02/25/2019 [facility] White Blood 5.1 Normal 3.5 -10.[address] Count 10^3/[place] [address] [phone] Red Blood Count 3.51 10^6/uL Low 3.70-4.87 [...] Blood Cells % 0.2 Laboratory test 02/25/2019 [facility] Erythrocyte Sed 50 mm/Hr High 0-29 [address] [place] [address] [phone] CBC Auto Diff 12/20/2018 [facility] White Blood 4.6 Normal 3.5 -10.[address] Count 10^3/uL [place], [place] [address] [phone] Red Blood Count 3.79 10^6/uL Normal 3.70-4.87 [...] Blood Cells % 0.1 Laboratory test 12/20/2018 [facility] Lactic Acid 1.1 mmol/L Normal 0.5-2.0 [address] [place] [address] [phone] Comp Metabolic 12/20/2018 [facility] Potassium 3.8 mmol/L Normal 3.5-5.[address] [place] [address] [phone] Co2 Carbon Dioxide 24 mmol/L Normal 22-32 [...] 10 mmol/L Normal 2-11 Laboratory test 12/20/2018 [facility] Creatine 74 U/L Normal 10-[address] [place] [address] [phone] Troponin I 0.01 ng/mL <0.04 9 Acetaminophen < 15 g/mL 10 Alcohol 340 mg/dL High <10 Salicylate < 2.50 mg/dL <30 TSH (Thyroid Stim Horm) 11.44 mcIU/mL High 0.34-5.60 Urine Culture And 11/28/2018 N2N/CCD Import Urine Culture See Result 11 Sensitivities Below Urinalysis Profile 11/28/2018 [email or web address] Import Urine Color Yellow Urine Appearance Clear Urine Specific [place] 1.015 1 1.010-1.030 Urine pH 7.0 1 5-9 Urine Urobilinogen Negative Urine Ketones Negative Urine Protein 2+(100 mg/dL) Abnormal Urine Leukocytes Negative Urine Blood Negative * * Abnormal 12 Urine Nitrite Negative Urine Bilirubin Negative Urine Glucose Negative Urine White Blood Cell Trace(0-5/hpf) Urine Red Blood Cell 2+(6-10/hpf) Abnormal Urine Bacteria Absent Urine Squamous Epithelial Cell Present Abnormal Lab Results 10/25/2018 [email or web address] Import Erythrocyte Sed Rate 46 mm/Hr High 0-29 13 C Reactive Protein 14.82 mg/L High 14 CBC Auto Diff 10/25/2018 [email or web address] Import White Blood Count 4.2 10^3/uL 3.5-10.8 [...] Cells % 0.0 1 Lab Results 10/25/2018 [email or web address] Import Sodium 136 mmol/L 135-145 Chloride 104 [...] Color Yellow Urine Appearance Cloudy Urine Specific [place] 1.014 1 1.010-1.030 Urine pH 6.0 1 [...] N2N/CCD Import MPV 8.3 fL 7.4-10.4 fL [place]% 09/10/2018 N2N/CCD Import [place]% 9.8 % 0 - 10 % Ogle# 09/10/2018 N2N/CCD Import [place]# 0.3 0-0.8 10 10_3/ul 3/ul MCV 09/10/2018 [...] N2N/CCD Import MPV 8.5 fL 7.4-10.4 fL [place]% 08/31/2018 N2N/CCD Import [place]% 11.2 % High 0 - 10 % Ogle# 08/31/2018 N2N/CCD Import [place]# 0.3 10_3/ul 0-0.8 10 3/ul MCV 08/31/2018 [...] immediately to secondary confirmatory testing. Using the imagoo Access Immunoassay systems, the 99th percentile upper reference limit was demonstrated to be < 0.03 ng/mL. 10 Therapeutic concentration: <50 ug/mL Toxic concentration: >120 ug/mL 11 SEE RESULT BELOW Name: BRISSA ALONSO : [address]: Nishant Sandra MD Acct: [id number] Unit: [id number] AGE: 63 Location: [facility] Re11/28/18 SEX: F Status: REG REF SPEC: [id number] LUIS: 11/28/18-[address] [place] [address] DR: Nishant Sandra MD REQ: [id number] RECD: 11/28/18124 STATUS: COMP _ SOURCE: URINE SPDESC: ORDERED: Urine Culture Procedure Result Reported Site Urine Culture Final 11/29/18- 1606 ML No Growth (<1,000 CFU/mL) * ML - Main Lab . END OF REPORT DEPARTMENT OF PATHOLOGY, [address] [place] [address] Amos Lozano M.D. Director [facility] # [id number] 12 *Ascorbic acid is present which may [...] of blood. 18 Test Performed by: [facility] [place] [address] 19 Test Performed by: [facility] [place] [address] 20 REFERENCE VALUE <30.0 (Negative) Test Performed by: [facility] [place] [address] 21 Test Performed by: [place] [address] 22 Because ethnic data is not always [...] Location Provider Dx Diagnosis Office Visit 02/06/2019 [facility] MELISSA Fox I10 Essential (primary) 10:00a hypertension Office Visit 01/16/2019 [facility] MELISSA Fox I10 Essential (primary) 11:30a hypertension Office Visit 12/31/2018 [facility] Aby Platt MD F41.9 Anxiety disorder , 9:45a unspecified Office Visit 11/26/2018 [facility] Vern Platt MD F41.9 Anxiety disorder , 11:45a unspecified Assessments Date Code Description Provider 02/06/2019 I10 Essential (primary) hypertension MELISSA Fox 01/16/2019 I10 Essential (primary) hypertension MELISSA Fox 12/31/2018 F41.9 Anxiety disorder, unspecified Aby Platt MD 11/26/2018 F41.9 Anxiety disorder, unspecified Aby Platt MD Plan of Treatment Future Appointment(s):03/08/2019 10:15 am - Aby Platt MD at [facility]2018 - FABIOLA FoxPI10 Essential (primary) hypertensionNew [...]
--- OUTSIDE RECORDS SUMMARY | 2019-03-10 18:41 | XMS REPORT | Continuity of Care Document ---
:1955 External Reference #:[id number] Author Name Aby Platt MD Address [address] [place] [address] Problems Active Problems Provider Date Tobacco dependence [...] (10 or fewer cigarettes/day) Smoking Status Reviewed: 03/08/19 Light tobacco smoker (10 or fewer cigarettes/day) Allergies, Adverse Reactions, Alerts Active Allergies Reaction Severity Comments Date Fioricet 12/01/2018 Methotrexate 12/17/2018 [place] 12/01/2018 Soma 12/01/2018 Sulfa Antibiotics 12/01/2018 Buspirone Hydrochloride rash (per old records) 11/23/2018 Ketorolac Tromethamine itching and rash (per 11/23/2018 old records) [place] Analogues anaphylaxis (per old 11/23/2018 records) Methotrexate [...] Medications SIG Qnty Indications Ordering Date Provider Amlodipine Besylate oral; take 1 90tabs I10 Aby Platt, 03/08/2019 10mg tablet by mouth Tablets once daily Lipitor 1 tab by mouth 30tabs MELISSA Palomares 02/20/2019 40mg Tablets every day Blood Pressure Kit 1units I10 MELISSA Fox 01/16/2019 Kit Doxycycline Hyclate 2 pills once 2caps Olaf Portillo MD 01/04/2019 100mg Capsules Promethazine HCL 1 by mouth 90tabs Brandon Hudson 12/10/2018 25mg every 6 hours Tablets as needed for nausea Acthar SQ weekly 5units Nishant Sandra 11/28/2018 80Unit/ML Gel Clonazepam Take One Tablet 56tabs Aby Platt, 11/26/2018 1mg Tablets By Mouth Two MD Times Daily *Maximum Of Two Tablets Daily* Clonidine HCL 1 twice daily 180tabs Unknown 09/13/2018 0.2mg Tablets Oral Simvastatin 1 daily Oral 90tabs Unknown 09/13/2018 40mg Tablets CBD [place] apply every 12 5units Nishant Sandra 08/23/2018 4-3-9-1.2% hours as needed Patches to painful regions Naltrexone HCL 1 daily Oral 30units Unknown 08/22/2018 Powder Cellcept take one tablet 60tabs M32.9 Boaz Nishant 08/08/2018 500mg Tablets by mouth daily for 1 week then take 1 tab twice daily ongoing - On Hold Per MD as Of 08/31/18 Folic Acid 1 daily Oral Unknown 08/02/2018 1mg Tablets Fluoxetine HCL 1 daily Oral Unknown 08/02/2018 40mg Capsules Ferrous Sulfate 1 daily Oral Unknown 08/02/2018 325(65Fe) mg Tablets Prozac 1 every 30caps Unknown 07/30/2018 40mg Capsules morning Oral Meclizine HCL take one 60tabs Nishant Sandra 05/31/2018 12.5mg capsule/tablet Tablets by mouth twice daily as needed for vertigo Omeprazole 1 by mouth 90caps Unknown 03/06/[address] every day Gabapentin 2 caps by mouth 60caps Unknown 400mg Capsules three times a day Lamotrigine 1 by mouth Unknown 200mg Tablets twice a day Levothyroxine Sodium 1 by mouth Unknown 100mcg every day Tablets Cyclobenzaprine HCL Take 1 Tablet Unknown 5mg By Mouth AT Tablets Bedtime as Needed For Pain/Spasms/Ins omnia Levothyroxine Sodium Unknown 100mcg Tablets Lamotrigine Unknown 200mg Tablets History Medications Amlodipine Besylate 1 by mouth every 30tabs I10 MELISSA Fox 2018 - 5mg day 03/08/2019 Tablets Gabapentin 2 three times Unknown 10/24/2018 - 300mg daily Oral 03/04/2019 Capsules Clonazepam 1 twice daily 56tabs Unknown 09/17/2018 - 1mg Tablets prn Oral 11/21/2018 Omeprazole 1 daily Oral 90caps Unknown 09/13/2018 - 20mg 11/26/[address] Spence CPT Code Status Date Vaccine Lot # [id number] Given 08/23/2018 Prevnar 13 Vital Signs Date Vital Result Comment 03/08/2019 10:28am BP Systolic 142 mmHg BP Diastolic 84 mmHg Heart Rate 57 /min Body Temperature 97.2 F O2 % BldC Oximetry 99 % 02/06/2019 9:54am BP Systolic 130 mmHg BP Diastolic 82 mmHg Height 62.50 inches 5'2.50" Weight 150.00 lb Heart Rate 61 /min Body Temperature 97.5 F O2 % BldC Oximetry 99 % BMI (Body Mass Index) 27.0 kg/m2 Results Test Acquired Facility Test Result H/L Range Note Date Laboratory 02/28/2019 [facility] Miscellaneous See [address] [place] [address] [phone] Laboratory 02/25/2019 [facility] TSH (Thyroid Stim 2.38 Normal 0.34-5.[address] Horm) mcIU/mL 0 [place], [place] [address] [phone] Comp Metabolic 02/25/2019 [facility] Sodium 137 mmol/L Normal 135-[address] [place] [address] [phone] Potassium 4.4 mmol/L Normal 3.5-5.0 Chloride 105 [...] Egfr 73.2 >60 3 Laboratory test 02/25/2019 [facility] C Reactive 1.83 mg/L Normal <8.01 [address] [place] [address] [phone] CBC Auto Diff 02/25/2019 [facility] White Blood 5.1 Normal 3.5 -10.[address] Count 10^3/[place] [address] [phone] Red Blood Count 3.51 10^6/uL Low 3.70-4.87 [...] Blood Cells % 0.2 Laboratory test 02/25/2019 [facility] Erythrocyte Sed 50 mm/Hr High 0-29 [address] [place] [address] [phone] Complement C3 90 mg/dL 75 - 175 8 Complement C4 19 mg/dL 14 - 40 9 Anti Double Stranded Dna AB 16.0 IU/mL 10 CBC Auto 12/20/2018 [facility] White Blood 4.6 10^3/uL Normal 3.5-10.[address] [place] [address] [phone] Red Blood Count 3.79 10^6/uL Normal 3.70-4.87 [...] Blood Cells % 0.1 Laboratory test 12/20/2018 [facility] Lactic Acid 1.1 mmol/L Normal 0.5-2.0 11 finding [address] [place] [address] [phone] Comp Metabolic 12/20/2018 [facility] Potassium 3.8 mmol/L Normal 3.5-5.0 Panel [address] [place] [address] [phone] Co2 Carbon Dioxide 24 mmol/L Normal 22-32 [...] 10 mmol/L Normal 2-11 Laboratory test 12/20/2018 [facility] Creatine 74 U/L Normal 10-[address] [employer] [place], [place] [address] [phone] Troponin I 0.01 ng/mL <0.04 13 Acetaminophen < 15 g/mL 14 Alcohol 340 mg/dL High <10 Salicylate < 2.50 mg/dL <30 TSH (Thyroid Stim Horm) 11.44 mcIU/mL High 0.34-5.60 Urine Culture And 11/28/2018 N2N/CCD Import Urine Culture See Result 15 Sensitivities Below Urinalysis Profile 11/28/2018 N2N/CCD Import Urine Color Yellow Urine Appearance Clear Urine Specific [place] 1.015 1 1.010-1.030 Urine pH 7.0 1 [...] Color Yellow Urine Appearance Cloudy Urine Specific [place] 1.014 1 1.010-1.030 Urine pH 6.0 1 [...] N2N/CCD Import MPV 8.3 fL 7.4-10.4 fL [place]% 09/10/2018 N2N/CCD Import [place]% 9.8 % 0 - 10 % [place]# 09/10/2018 N2N/CCD Import [place]# 0.3 0-0.8 10 10_3/ul 3/ul MCV 09/10/2018 [...] developed and its performance characteristics determined by [facility] in a manner consistent with CLIA requirements. This test has not been cleared or approved by the U.S. Food and Drug Administration. Test Performed by: [place] [address] [employer] Manager: Ryne Matson M.D. Ph.D.; CLIA# [id number] 2 Please check labs 2 days before [...] before follow up 8 Test Performed by: [place] [address] [employer] Manager: Ryne Matson M.D. Ph.D.; CLIA# [id number] 9 Test Performed by: [place] [address] [employer] Manager: Ryne Matson M.D. Ph.D.; CLIA# [id number] 10 REFERENCE VALUE <30.0 (Negative) Test Performed by: [facility] [address] [place] [address] [employer] Manager: Ryne Matson M.D. Ph.D.; CLIA# [id number] 11 [facility] Severe Sepsis and Septic Shock [...] immediately to secondary confirmatory testing. Using the joiz DxI 800 Access Immunoassay systems, the 99th percentile upper reference limit was demonstrated to be < 0.03 ng/mL. 14 Therapeutic concentration: <50 ug/mL Toxic concentration: >120 ug/mL 15 SEE RESULT BELOW Name: BRISSA ALONSO : [address]: Nishant Sandra MD Acct: [id number] Unit: [id number] AGE: 63 Location: [facility] Re11/28/18 SEX: F Status: REG REF SPEC: [id number] LUIS: 11/28/18-[address]: Nishant Sandra MD REQ: [id number] RECD: 11/28/181244 STATUS: COMP _ SOURCE: URINE SPDESC: ORDERED: Urine Culture Procedure Result Reported Site Urine Culture Final 11/29/18- 1606 ML No Growth (<1,000 CFU/mL) * ML - Main Lab . END OF REPORT DEPARTMENT OF PATHOLOGY, [address] [place] [address] Amos Lozano M.D. Director [facility] # [id number] 16 *Ascorbic acid is present which may [...] detection of blood. 22 Test Performed by: [facility] [place] [address] 23 Test Performed by: [facility] [email or web address] [place] [address] 24 REFERENCE VALUE <30.0 (Negative) Test Performed by: [facility] [place] [address] 25 Test Performed by: [facility] [place] [address] 26 Because ethnic data is not always [...] Date Location Provider Dx Diagnosis Office Visit 03/08/2019 [facility] Main Aby Platt MD I10 Essential (primary ) 10:15a hypertension F41.9 Anxiety disorder, unspecified F10.11 Alcohol abuse, in remission Office Visit 02/06/2019 10:00a [facility] Main MELISSA Fox I10 Essential ( primary) hypertension Office Visit 01/16/2019 11:30a [facility] Main MELISSA Fox I10 Essential ( primary) hypertension Office Visit 12/31/2018 9:45a [facility] Main Aby Platt MD F41.9 Anxiety disorder, unspecified Office Visit 11/26/2018 11:45a [facility] Main Aby Platt MD F41.9 Anxiety disorder, unspecified Assessments Date Code Description Provider 03/08/2019 I10 Essential (primary) hypertension Aby Platt MD 03/08/2019 F41.9 Anxiety disorder, unspecified Aby Platt MD 03/08/2019 F10.11 Alcohol abuse, in remission Aby Platt MD 02/06/2019 I10 Essential (primary) hypertension FABIOLA FoxP 01/16/2019 I10 Essential (primary) hypertension MELISSA Fox 12/31/2018 F41.9 Anxiety disorder, unspecified Aby Platt MD 11/26/2018 F41.9 Anxiety disorder, unspecified Aby Platt MD Plan of Treatment Future Appointment(s):04/19/2019 9:30 am - Aby Platt MD at [facility] Main2018 - Aby Platt MDI10 Essential (primary) hypertensionNew Medication: Amlodipine Besylate 10 mg - oral; take 1 tablet by mouth once awbvaU22.9 Anxiety disorder, swmffvrhhnoB92.11 Alcohol abuse, in remission Functional Status Description No Information Available Mental Status Description No Information Available Referrals Description No Information Available
--- OUTSIDE RECORDS SUMMARY | 2019-03-10 18:42 | XMS REPORT | Continuity of Care Document ---
:1955 External Reference #:[id number] Author Name Nishant Sandra M.D. (transmitted by agent of provider Dinorah Allen) Address [address] [place] [address] Care Team Providers Name Role Phone Olaf Portillo MD - Family Medicine Care Team Information [employer] Transactions Attorney [phone] Problems Active Problems Provider Date Seizure Adrianna Coates M.D. Onset: 09/27/2017 Note: Says she had tonic-clonic seizures in [place] cared for by a neurologist in [facility] (Usman Gomez sp?). 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 As of May 2018 the [place] reports are pending. Alcohol withdrawal syndrome Concepcion Leblanc N.P. Onset: 11/26/2017 Note: Patient description of 3 day relapse upon return from [place] in early May 2018 does correspond to [...] (10 or fewer cigarettes/day) Smoking Status Reviewed: 01/30/19 Light tobacco smoker (10 or fewer cigarettes/day) Exercise Type/Frequency Exercises regularly [employer] program "Walk off the pounds" Allergies, Adverse Reactions, Alerts Active Allergies Reaction Severity Comments Date Sulfa Antibiotics rash 10/19/2017 [place] anaphylaxis 10/19/2017 Steroids pychosis 10/19/2017 Fioricet avoids taking if she can 09/04/2018 Soma avoids taking if she can 09/04/2018 Medications Active Medications SIG Qnty Indications Ordering Date Provider Gabapentin take 2 tabs by mouth 120caps Nishant Sandra, 12/04/2018 400mg three times daily M.D. Capsules Cyclobenzaprine HCL 1 by mouth as needed 30tabs Nishant Sandra, 12/03/2018 5mg at bedtime for M.D. Tablets pain/spasms/insomnia Paraffin use daily for hand 500gm Nishant Sandra, 09/03/2018 Wax stretching and M.D. osteoarthritis m72 CBD Dickey apply every 12 hours 5units Nishant Sandra, [...] mouth Prozac 1 by mouth every day 30caps Nishant Sandra, 03/30/2017 40mg Capsules M.D. Clonazepam Take 1 Tablet By Unknown 12/29/2016 1mg Tablets Mouth three times daily Amoxicillin 1 cap by mouth two Unknown [...] Medications Tramadol HCL take one 14tabs Nishant 01/04/2019 - 50mg capsule/tablet by Navarro Sandra 01/30/2019 Tablets mouth twice daily as needed for pain Xeljanz 1 by mouth twice a 60tabs Nishant 12/17/2018 - 5mg Tablets day Navarro Sandra 01/18/2019 Quinacrine HCL 50 mg by mouth daily 25gm [place] 12/12/2018 - Navarro Sandra 12/17/2018 Powder Acthar sq weekly 5ml Nishant 11/28/2018 - 80Unit/ML Gel Navarro Sandra 12/12/2018 Gabapentin take one tablet by 270tabs Nishant 10/24/2018 - 600mg mouth three times a Navarro Sandra 12/04/2018 Tablets day Gabapentin take one capsule by 120capgarett Nishant 09/12/2018 - 400mg mouth in the am, 1 Navarro Sandra 10/24/2018 Capsules cap at noon, 1 cap at at bedtime, may increase to 2 caps at at bedtime if tolerated Gabapentin take one capsule/tab 90tabs Nishant 09/03/2018 - 600mg every 8 hours (total Navarro Sandra 09/19/2018 Tablets of 3 per day) Per DR Sandra, DR Acharya Prescribing This Med Now Methocarbamol take one 30tabs Nishant 08/30/2018 - 750mg capsule/tablet by Navarro Sandra 09/03/2018 Tablets mouth twice daily as needed for muscular spasms, pain, avoid other muscular relaxants Tizanidine HCL take one 30caps Nishant 08/29/2018 - 2mg capsule/tablet by Navarro Sandra 08/29/2018 Capsules mouth twice daily as needed for pain/ spasms Tizanidine HCL Please take one tab 30tabs [place] 08/29/2018 - 2mg twice daily as Navarro Sandra 08/30/2018 Tablets needed, muscle spasms Bacitracin apply twice daily to 28.400gm [place] 08/23/2018 - (External) the right leg Navarro Sandra 11/28/2018 500Unit/GM Ointment Cellcept take one tablet by 60tabs M32.9 [place] 08/08/2018 - 500mg mouth daily for 1 Navarro Sandra 12/04/2018 Tablets week then take 1 tab twice daily ongoing - On Hold Per MD as Of 08/31/18 Medications Administered in Office Medication SIG Qnty Indications Ordering Provider Date Toradol Injection 15MG Nurse Visit 01/01/2019 Injection Toradol Injection 15MG Nurse Visit 01/01/2019 Injection Triamcinolone (Kenalog) Nishant Sandra M.D. 12/12/2018 Injection PPD Nishant Sandra M.D. 03/21/2018 Injection Immunizations CPT Code Status Date Vaccine Reaction Lot # [id number] Given 01/30/2019 Influenza Virus Vaccine, Patient denies ever [id number] Quadrivalent, Split, having a serious Preservative Free reaction to eggs or egg products, ever having a serious reaction or other problem after getting influenza vaccination, ever being diagnosed with Sdekjvb-Vwmbr-Ngzelotj , possibility of being , fever or [...] tolerated injection w/ no immediate adverse effect. 01231 Given 08/23/2018 Pneumococcal Conjugate no immediate reaction [id number] Vaccine 13 Valent For noted Intramuscular Use Vital Signs Date Vital Result Comment 01/30/2019 9:24am Height 64.5 inches 5'4.50" Weight 154.00 lb Heart Rate 74 /min BP Systolic 150 mmHg BP Diastolic 84 mmHg Respiratory Rate 18 /min Body Temperature 96.8 F O2 % BldC Oximetry 99 % BMI (Body Mass Index) 26.0 kg/m2 01/03/2019 10:04am Height 64.5 inches 5'4.50" Weight 145.00 lb Heart Rate 90 /min BP Systolic Sitting 162 mmHg BP Diastolic Sitting 108 mmHg Respiratory Rate 16 /min Body Temperature 98.7 F BMI (Body Mass Index) 24.5 kg/m2 Results Test Acquired Date Facility Test Result H/L Range Note Urinalysis Profile 11/28/2018 [facility] Urine Color Yellow [address] [place] [address] [phone] Urine Appearance Clear Urine Specific [place] 1.015 Normal 1.010-1.030 Urine pH 7.0 Normal 5-9 Urine Urobilinogen Negative Negative Urine Ketones Negative Negative Urine Protein 2+(100 mg/dL) Abnormal Negative Urine Leukocytes Negative Negative Urine Blood Negative Negative * * Abnormal Negative 1 Urine Nitrite Negative Negative Urine Bilirubin Negative Negative Urine Glucose Negative Negative Urine White Blood Cell Trace(0-5/hpf) Absent Urine Red Blood Cell 2+(6-10/hpf) Abnormal Absent Urine Bacteria Absent Absent Urine Squamous Epithelial Cell Present Abnormal Absent Urine Culture And 11/28/2018 [facility] Urine Culture SEE RESULT [address] [place] [address] [phone] Laboratory test 10/25/2018 [facility] Erythrocyte Sed 46 mm/Hr High 0-29 [address] [place] [address] [phone] C Reactive Protein 14.82 mg/L High <8.01 4 CBC Auto 10/25/2018 [facility] White Blood 4.2 10^3/uL Normal 3.5-10.[address] [place] [address] [phone] Red Blood Count 3.74 10^6/uL Normal 3.70-4.87 [...] % Nucleated Red Blood Cells % 0.0 Comp Metabolic 10/25/2018 [facility] Sodium 136 mmol/L Normal 135-145 Panel [address] [place] [address] [phone] Chloride 104 mmol/L Normal 101-111 Co2 Carbon [...] Egfr Non- 50.4 >60 Egfr 61.0 >60 5 Potassium 5.1 mmol/L High 3.5-5.0 Anion Gap 5 mmol/L Normal 2-11 Laboratory test 10/25/2018 [facility] Anti Double 13.7 IU/mL 6 finding [address] [facility] [place] [address] [phone] Urinalysis Profile 10/25/2018 [facility] Urine Color Yellow [address] [place] [address] [phone] Urine Appearance Cloudy Urine Specific [place] 1.014 Normal 1.010-1.030 Urine pH 6.0 Normal 5-9 Urine Urobilinogen Negative Negative Urine Ketones Negative Negative Urine Protein 2+(100 mg/dL) Abnormal Negative Urine Leukocytes Negative Negative Urine Blood Negative Negative * * Abnormal Negative 7 Urine Nitrite Negative Negative Urine Bilirubin Negative Negative Urine Glucose Negative Negative Urine White Blood Cell Absent Absent Urine Red Blood Cell Absent Absent Urine Bacteria Absent Absent Urine Squamous Epithelial Cell Present Abnormal Absent Urine Hyaline Casts Present Abnormal Absent Laboratory test 09/10/2018 [facility] Complement C3 117 mg/dL 75 - 175 [address] [place] [address] [phone] Complement C4 32 mg/dL 14 - 40 9 Anti Double Stranded Dna AB <12.3 IU/mL 10 CBC Auto 09/10/2018 [facility] White Blood 3.3 10^3/uL Low 3.5 -10.[address] [place] [address] [phone] Red Blood Count 3.63 10^6/uL Low 3.70-4.87 [...] Red Blood Cells % 0.3 Laboratory 09/10/2018 [facility] Partial 38.3 High 26.0-38.0 11 test finding [address] [place] [address] Time PTT [phone] Comp Metabolic 09/10/2018 [facility] Sodium 138 mmol/L Normal 135-[address] [place] [address] [phone] Potassium 5.1 mmol/L High 3.5-5.0 Chloride 105 [...] Egfr Non- 52.0 >60 Egfr 63.0 >60 12 1 *Ascorbic acid is present which may interfere with detection of blood. 2 SEE RESULT BELOW Name: CLEMENTINE MOSER : [address]: Nishant Sandra MD Acct: [id number] Unit: [id number] AGE: 63 Location: [facility] Re11/28/18 SEX: F Status: REG REF SPEC: [id number] LUIS: 11/28/18-[address] [facility] [address]: Nishant Sandra MD REQ: [id number] RECD: 11/28/18-1244 STATUS: COMP _ SOURCE: URINE SPDESC: ORDERED: Urine Culture Procedure Result Reported Site Urine Culture Final 11/29/18- 1606 ML No Growth (<1,000 CFU/mL) * ML - Main Lab . END OF REPORT DEPARTMENT OF PATHOLOGY, [address] [place] [address] Amos Lozano M.D. Director [facility] # [id number] 3 Please check labs 2 days before follow up 4 Please check labs 2 days before follow up 5 Because ethnic data is not always readily [...] 15-29 5 Kidney failure <15 (or dialysis) 6 REFERENCE VALUE <30.0 (Negative) Test Performed by: [place] [address] 7 *Ascorbic acid is present which may interfere with detection of blood. 8 Test Performed by: [facility] [address] 9 Test Performed by: [facility] [address] 10 REFERENCE VALUE <30.0 (Negative) Test Performed by: [place] [address] 11 Please check labs this week 12 Because ethnic data is not always [...] dialysis) Procedures Date Code Description Status 01/01/2019 51034 Admin Of Inj Completed 12/12/2018 59121 Admin Of Inj Completed 10/31/2018 19089 Holter Monitor Review (24 hr)dr hernandez & frankyp only Completed 10/29/2018 63900 ECHO Transthoracic, Real-Time 2D With Doppler And Completed Color Flow 10/29/2018 98234 ECHO Transthoracic, Real-Time 2D With Doppler And Completed Color Flow 10/29/2018 64854 ECG Monitor/Recording W/Visual Superimposition Completed Scanning 03/30/2018 [id number] Bone Mineral Density Test Completed Medical Devices Description No Information Available Encounters Type Date Location Provider Dx Diagnosis Office Visit 01/30/2019 Rheumatology Andi Bacon2.Loretta Systemic lupus 9:20a [facility] erythematosus, unspecified D64.9 Anemia, unspecified R79.82 Elevated C-reactive protein (CRP) Z79.899 Other longterm (current) drug therapy Z23 Encounter for immunization Office Visit 01/03/2019 Surgical Siddhartha Vysa M32.10 Systemic lupus 9:45a [facility] MD, erythematosus, organ FACS or system involv unsp Office Visit 12/12/2018 Rheumatology Nishant M32.9 Systemic lupus 2:00p [facility] M.D. erythematosus, unspecified D64.9 Anemia, unspecified R79.82 Elevated C-reactive protein (CRP) Z79.899 Other longterm (current) drug therapy Office Visit 11/28/2018 Rheumatology Nishant M32.9 Systemic lupus 9:40a [facility] M.D. erythematosus, unspecified D64.9 Anemia, unspecified R79.82 Elevated C-reactive protein (CRP) Z79.899 Other longterm (current) drug therapy Office Visit 09/03/2018 Rheumatology Nishant M32.9 Systemic lupus 1:20p [facility] M.D. erythematosus, unspecified D64.9 Anemia, unspecified G56.01 Carpal tunnel syndrome, right upper limb N18.9 Chronic kidney disease, unspecified R79.82 Elevated C-reactive protein (CRP) Office Visit 08/23/2018 Rheumatology Nishant Escamilla2.Loretta Systemic lupus 3:40p [facility] M.D. 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 01/30/2019 D64.9 Anemia, unspecified Nishant Sandra M.D. 01/30/2019 R79.82 Elevated C-reactive protein (CRP) Nishant Sandra M.D. 01/30/2019 Z79.899 Other longterm (current) drug therapy Nishant Sandra M.D. 01/30/2019 Z23 Encounter for immunization Nishant Sandra M.D. 01/03/2019 M32.10 Systemic lupus erythematosus, organ or [...] (CRP) Nishant Sandra M.D. 12/12/2018 Z79.899 Other longterm (current) drug therapy Nishant Sandra M.D. 11/28/2018 M32.9 Systemic lupus erythematosus, unspecified Nishant Sandra M.D. 11/28/2018 D64.9 Anemia, unspecified Nishant Sandra M.D. 11/28/2018 R79.82 Elevated C-reactive protein (CRP) Nishant Sandra M.D. 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 10/31/2018 R00.1 Bradycardia, unspecified Siddhartha Dumont, DO [facility] 10/29/2018 R94.31 Abnormal electrocardiogram [ECG] [EKG] Siddhartha Dumont, DO [facility] 10/29/2018 R94.31 Abnormal electrocardiogram [ECG] [EKG] Ica ECHO Schedule 10/29/2018 R00.1 Bradycardia, unspecified Nurse Visit IC 09/03/2018 M32.9 Systemic lupus erythematosus, unspecified Nishant Sandra M.D. 09/03/2018 D64.9 Anemia, unspecified Nishant Sandra M.D. 09/03/2018 G56.01 Carpal tunnel syndrome, right upper limb Nishant Sandra M.D. 09/03/2018 N18.9 Chronic kidney disease, unspecified Nishant Sandra M.D. 09/03/2018 R79.82 Elevated C-reactive protein (CRP) Nishant Sandra M.D. 08/23/2018 M32.9 Systemic lupus erythematosus, unspecified Nishant Sandra M.D. 08/23/2018 D64.9 Anemia, unspecified Nishant Sandra M.D. 08/23/2018 G56.01 Carpal tunnel syndrome, right upper limb Nishant Sandra M.D. 08/23/2018 Z79.899 Other longterm (current) drug therapy Nishant Sandra M.D. 08/23/2018 N18.9 Chronic kidney disease, unspecified Nishant Sandra M.D. 08/23/2018 Z23 Encounter for immunization Nishant Sandra M.D. Plan of Treatment Future Appointment(s):02/28/2019 3:40 pm - Nishant Sandra M.D. at [facility]01/30/2019 - Nishant Sandra M.D.M32.9 Systemic lupus erythematosus, unspecifiedComments:1. Don??t smoke any cigarettes. Each cigarette you smoke damages your lungs, your blood vessels, andcells throughout your body. Even occasional smoking is harmful.2. Write down why you want to quit. Do you want to??Be around for your loved ones?Have better health?Set a good example for your children?Protect your family from breathing other people?? s smoke?Really wanting to quit smoking is very [...] to help them quit by calling the 0-896-VBWGNOW quitline ( ) or by visiting [facility]??s Tips From Former Smokers??. Your health care [...] your health and the health of your family.D64.9 Anemia, wlrxzsrowolK92.82 Elevated C-reactive protein (CRP)Z79.899 Other intermediate school teacher (current) drug therapyComments:Follow up with your other specialistsFollow up:Follow up in 3 to 4 weeks or sooner if [email or web address] Encounter for immunization Functional Status Description No Information Available Mental Status Description No Information Available Referrals Refer to Reason for Referral Status Appt Date Siddhartha Mills MD Please evaluate patient for port placement as she Sent has poor IV access and needs IVIG [address] [facility] [address] [phone] Leyla Diehl MD Please evaluate for causes of hematuria and Sent proteinuria, history of lupus [address] [facility] [address] [phone]
--- OUTSIDE RECORDS SUMMARY | 2019-03-10 18:42 | XMS REPORT | Continuity of Care Document ---
:1955 External Reference #:[id number] Author Name Lorna Stewart, MELISSA Address [address] [place] [address] Problems Active Problems Provider Date Tobacco dependence [...] Benign essential hypertension Onset: 10/24/2018 Inactive: 10/24/2018 Swelling of eyelid Onset: 08/22/2018 Inactive: 08/22/2018 Ex-smoker Onset: 08/22/2018 Inactive: 08/22/2018 Moderate alcohol dependence Onset: 08/22/2018 Inactive: 08/22/2018 Abdominal pain Onset: 08/22/2018 Inactive: 08/22/2018 Hypothyroidism Onset: 07/26/2018 Inactive: 07/26/2018 Patient new to provider Onset: 07/26/2018 Inactive: 07/26/2018 Systemic lupus erythematosus Onset: 07/26/2018 Inactive: 07/26/2018 Abnormal urine odor Onset: 07/26/2018 Inactive: 07/26/2018 Stomach cramps Onset: 07/26/2018 Inactive: 07/26/2018 Social History Type Date Description Comments Sex Unknown Allergies, Adverse Reactions, Alerts Active Allergies Reaction Severity Comments Date Fioricet 12/01/2018 Methotrexate 12/17/2018 [place] 12/01/2018 Soma 12/01/2018 Sulfa Antibiotics 12/01/2018 Buspirone Hydrochloride rash (per old records) 11/23/2018 Ketorolac Tromethamine itching and rash (per 11/23/2018 old records) [place] Analogues anaphylaxis (per old 11/23/2018 records) Methotrexate [...] Medications SIG Qnty Indications Ordering Date Provider Blood Pressure Kit 1units I10 MELISSA Fox 01/16/2019 Kit Doxycycline Hyclate 2 pills once 2caps Olaf Portillo MD 01/04/2019 100mg Capsules Promethazine HCL 1 by mouth 90tabs Brandon Hudson 12/10/2018 25mg every 6 hours Tablets as needed for nausea Acthar SQ weekly 5units BoazNishant tyson 11/28/2018 80Unit/ML Gel Clonazepam 1 tab by mouth 84tabs Aby Gonzalezt, 11/26/2018 1mg Tablets three times a MD day Gabapentin 2 three times Unknown 10/24/2018 300mg Capsules daily Oral Gabapentin take one tablet 270tabs BoazNishant tyson 10/24/2018 600mg Tablets by mouth three times a day Simvastatin 1 daily Oral 90tabs Unknown 09/13/2018 40mg Tablets Clonidine HCL 1 twice daily 180tabs Unknown 09/13/2018 0.2mg Tablets Oral CBD Heard apply every 12 5units BoazNishant tyson 08/23/2018 4-3-9-1.2% hours as needed Patches to [...] 90caps Unknown 09/13/2018 - 11/26/[address] Simvastatin 1 daily Oral 30tabs Unknown 08/22/2018 - 11/26/2018 40mg Tablets Clonazepam 1 twice daily prn 56tabs Unknown 08/22/2018 - 10/15/2018 1mg Tablets Oral Mycophenolate Mofetil Oral Unknown 08/22/2018 - 10/24/2018 500mg Tablets Clonidine HCL 1 twice daily 60tabs Unknown 08/22/2018 - 09/21/2018 0.2mg Tablets Oral Gabapentin 1 daily Oral Unknown 08/02/2018 - 10/24/2018 300mg Capsules Meloxicam 1 twice daily Unknown 08/02/2018 - 10/24/2018 7.5mg Tablets Oral Omeprazole 1 twice daily 60caps Unknown 08/02/2018 - 09/01/2018 20mg Capsules Oral Levothyroxine Sodium 1 daily Oral 30tabs Unknown 07/30/2018 - 07/30/2018 100mcg Tablets Levothyroxine Sodium 1 daily Oral 30tabs Unknown 07/30/2018 - 08/29/2018 100mcg Tablets Lamotrigine 1 twice daily 56tabs Unknown 07/27/2018 - 08/24/2018 200mg Tablets Oral Immunizations CPT Code Status Date Vaccine Lot # [id number] Given 08/23/2018 Prevnar 13 Vital Signs Date Vital Result Comment 01/16/2019 11:25am BP Systolic 142 mmHg BP Diastolic 88 mmHg Heart Rate 70 /min Body Temperature 98.2 F O2 % BldC Oximetry 98 % 12/31/2018 9:04am BP Systolic 144 mmHg BP Diastolic 90 mmHg Weight 146.00 lb Heart Rate 104 /min Body Temperature 98.5 F O2 % BldC Oximetry 98 % Results Test Acquired Date Facility Test Result H/L Range Note CBC Auto 12/20/2018 [facility] White Blood 4.6 10^3/uL Normal 3.5-10.[address] [place] [address] [phone] Red Blood Count 3.79 10^6/uL Normal 3.70-4.87 [...] Blood Cells % 0.1 Laboratory test 12/20/2018 [facility] Lactic Acid 1.1 mmol/L Normal 0.5-2.0 [address] [place] [address] [phone] Comp Metabolic 12/20/2018 [facility] Potassium 3.8 mmol/L Normal 3.5-5.[address] [place], [place] [id number] [phone] Co2 Carbon Dioxide 24 mmol/L Normal 22-32 [...] Egfr Non- 54.4 >60 Egfr 65.8 >60 2 Sodium 147 mmol/L High 135-145 Chloride 113 mmol/L High 101-111 Anion Gap 10 mmol/L Normal 2-11 Laboratory test 12/20/2018 [facility] Creatine 74 U/L Normal 10-[address] [place] [address] [phone] Troponin I 0.01 ng/mL <0.04 3 Acetaminophen < 15 g/mL 4 Alcohol 340 mg/dL High <10 Salicylate < 2.50 mg/dL <30 TSH (Thyroid Stim Horm) 11.44 mcIU/mL High 0.34-5.60 Urinalysis Profile 11/28/2018 N2N/CCD Import Urine Color Yellow Urine Appearance Clear Urine Specific [place] 1.015 1 1.010-1.030 Urine pH 7.0 1 5-9 Urine Urobilinogen Negative Urine Ketones Negative Urine Protein 2+(100 mg/dL) Abnormal Urine Leukocytes Negative Urine Blood Negative * * Abnormal 5 Urine Nitrite Negative Urine Bilirubin Negative Urine Glucose Negative Urine White Blood Cell Trace(0-5/hpf) Urine Red Blood Cell 2+(6-10/hpf) Abnormal Urine Bacteria Absent Urine Squamous Epithelial Cell Present Abnormal Urine Culture And 11/28/2018 N2N/CCD Import Urine Culture See Result Below 6 Sensitivities Urinalysis Profile 10/25/2018 N2N/CCD Import Urine Color Yellow Urine Appearance Cloudy Urine Specific [place] 1.014 1 1.010-1.030 Urine pH 6.0 1 5-9 Urine Urobilinogen Negative Urine Ketones Negative Urine Protein 2+(100 mg/dL) Abnormal Urine Leukocytes Negative Urine Blood Negative * * Abnormal 7 Urine Nitrite Negative Urine Bilirubin Negative Urine Glucose Negative Urine White Blood Cell Absent Urine Red Blood Cell Absent Urine Bacteria Absent Urine Squamous Epithelial Cell Present Abnormal Urine Hyaline Casts Present Abnormal Lab Results 10/25/2018 N2N/CCD Import Sodium 136 [...] Egfr Non- 50.4 1 Egfr 61.0 1 8 Potassium 5.1 mmol/L High 3.5-5.0 Anion Gap 5 mmol/L 2-11 Anti Double Stranded Dna AB 13.7 IU/mL 9 CBC Auto Diff 10/25/2018 N2N/CCD Import White [...] 0.0 1 Lab Results 10/25/2018 N2N/CCD Import Erythrocyte Sed Rate 46 mm/Hr High 0-29 10 C Reactive Protein 14.82 mg/L High 11 Urobilinogen-Ua 10/24/2018 N2N/CCD Import Urobilinogen-Ua neg Negative [...] N2N/CCD Import MPV 8.3 fL 7.4-10.4 fL Harmon% 09/10/2018 N2N/CCD Import Harmon% 9.8 % 0 - 10 % Harmon# 09/10/2018 N2N/CCD Import Harmon# 0.3 0-0.8 10 10_3/ul 3/ul MCV 09/10/2018 [...] N2N/CCD Import Complement C3 117 mg/dL 75-175 12 Complement C4 32 mg/dL 14-40 13 Anti Double Stranded Dna AB <12.3 Iu/ml 14 CBC Auto Diff 09/10/2018 N2N/CCD Import White [...] Partial Thrombo Time 38.3 s High 26.0-38.0 15 PTT Sodium 138 mmol/L 135-145 Potassium 5.1 [...] Egfr Non- 52.0 1 Egfr 63.0 1 16 A/G Ratio 09/10/2018 N2N/CCD Import A/G Ratio [...] GFR Non Afr Amer 52.0 _ >60 GFR Afr Amer 09/10/2018 N2N/CCD Import GFR [...] N2N/CCD Import MPV 8.5 fL 7.4-10.4 fL Harmon% 08/31/2018 N2N/CCD Import Harmon% 11.2 % High 0 - 10 % Harmon# 08/31/2018 N2N/CCD Import Harmon# 0.3 10_3/ul 0-0.8 10 3/ul MCV 08/31/2018 [...] g/dL PTT 08/31/2018 N2N/CCD Import PTT 38.2 High 26.0-38.0 seconds seconds RBC 08/31/2018 N2N/CCD Import RBC 3.89 3.70-4.87 10_6_/uL 10 6 /uL RDW 08/31/2018 N2N/CCD Import RDW 15 % 10-15 % Sodium 08/31/2018 N2N/CCD Import Sodium 139 mmol/L 135-145 mmol/L Troponin 08/31/2018 N2N/CCD Import Troponin 0.01 ng/mL <0.04 ng/mL TSH 08/31/2018 N2N/CCD Import TSH 0.45 0.34-5.60 mcIU/mL mcIU/mL WBC 08/31/2018 N2N/CCD Import WBC 2.8 [...] Amer 08/31/2018 N2N/CCD Import GFR Non Afr Amer 46.4 _ >60 Globulin 08/31/2018 N2N/CCD Import Globulin 3.0 g/dL 2-4 g/dL Glucose 08/31/2018 N2N/CCD Import Glucose 104 mg/dL High 70-100 mg/dL Hematocrit 08/31/2018 N2N/CCD Import Hematocrit 37 % 35-47 % Hemoglobin 08/31/2018 N2N/CCD Import Hemoglobin 12.5 g/dL 12.0-16.0 g/dL INR 08/31/2018 N2N/CCD Import INR 0.90 _ 0.82-1.09 10 Yr CHD Risk 08/22/2018 N2N/CCD Import 10 Yr CHD Risk 13.3% LDL Cholesterol 08/20/2018 N2N/CCD Import LDL Cholesterol 191 mg/dL Lymph# 08/20/2018 N2N/CCD Import Lymph# 0.9 10_3/ul Low 1.0-4.8 10 3/ul Lymph% 08/20/2018 N2N/CCD Import Lymph% 20.7 % 20 - 45 % MCH 08/20/2018 N2N/CCD Import MCH 32 pg High 27-31 pg MCHC 08/20/2018 N2N/CCD Import MCHC 32 g/dL 31-36 g/dL MCV 08/20/2018 N2N/CCD Import MCV 97 fL 80-97 fL Harmon# 08/20/2018 N2N/CCD Import Harmon# 0.3 10_3/ul 0-0.8 10 3/ul Harmon% 08/20/2018 N2N/CCD Import Harmon% 7.2 % 0 - 10 % MPV 08/20/2018 N2N/CCD Import MPV 9.0 fL 7.4-10.4 fL Neut# 08/20/2018 N2N/CCD Import Neut# 3.0 10_3/ul 1.5-7.7 10 3/ul Neut% 08/20/2018 N2N/CCD Import Neut% 67.4 % 45 - 70 % NRBC# 08/20/2018 N2N/CCD Import NRBC# 0.0 10_3/ul NRBC% 08/20/2018 N2N/CCD Import NRBC% 0.0 _ Platelets 08/20/2018 N2N/CCD Import Platelets 165 10_3/uL 150-450 10 3/uL Potassium 08/20/2018 N2N/CCD Import Potassium 4.8 mmol/L 3.5-5.0 mmol/L Protein, Total 08/20/2018 N2N/CCD Import Protein, Total 7.5 g/dL 6.4- 8.9 g/dL RBC 08/20/2018 N2N/CCD Import RBC 4.36 3.70-4.87 10_6_/uL 10 6 /uL RDW 08/20/2018 N2N/CCD Import RDW 16 % High 10.5-15 % Sodium 08/20/2018 N2N/CCD Import Sodium 138 mmol/L 135-145 mmol/L T4 08/20/2018 N2N/CCD Import T4 8.23 g/dL 6.09-12.23 mcg/dL T4, Free 08/20/2018 N2N/CCD Import T4, Free 1.10 ng/dL 0.61-1.12 ng/dL Triglycerides 08/20/2018 N2N/CCD Import Triglycerides 93 mg/dL TSH 08/20/2018 N2N/CCD Import TSH 1.02 0.34-5.60 mcIU/mL mcIU/mL WBC 08/20/2018 N2N/CCD Import WBC 4.5 10_3/uL 3.5-10.8 10 3/uL A/G Ratio 08/20/2018 N2N/CCD Import A/G Ratio 1.7 _ 1-3 Albumin 08/20/2018 N2N/CCD Import Albumin 4.7 g/dL 3.2-5.2 g/dL Alk Phos 08/20/2018 N2N/CCD Import Alk Phos 62 U/L 34-104 U/L Alt 08/20/2018 N2N/CCD Import Alt 13 U/L 7-52 U/L Anion Gap 08/20/2018 N2N/CCD Import Anion Gap 9 mmol/L 2-11 mmol/L Ast 08/20/2018 N2N/CCD Import Ast 21 U/L 13-39 U/L Baso# 08/20/2018 N2N/CCD Import Baso# 0.0 10_3/ul 0-0.2 10 3/ul Baso% 08/20/2018 N2N/CCD Import Baso% 0.5 % 0 - 2 % Bilirubin Total 08/20/2018 N2N/CCD Import Bilirubin Total 0.50 mg/dL 0.2 -1.0 mg/dL BUN 08/20/2018 N2N/CCD Import BUN 25 mg/dL High 6-24 mg/dL BUN/Creat Ratio 08/20/2018 N2N/CCD Import BUN/Creat Ratio 19.8 _ 8-20 Calcium 08/20/2018 N2N/CCD Import Calcium 10.1 mg/dL 8.6-10.3 mg/dL Hemoglobin 08/20/2018 N2N/CCD Import Hemoglobin 13.7 g/dL 12.0-16.0 g/dL Hematocrit 08/20/2018 N2N/CCD Import Hematocrit 42 % 35-47 % HDL Cholesterol 08/20/2018 N2N/CCD Import HDL Cholesterol 68.7 mg/dL Glucose 08/20/2018 N2N/CCD Import Glucose 88 mg/dL 70-100 mg/dL Globulin 08/20/2018 N2N/CCD Import Globulin 2.8 g/dL 2-4 g/dL GFR Non Afr Amer 08/20/2018 N2N/CCD Import GFR Non Afr Amer 42.6 _ >60 GFR Afr Amer 08/20/2018 N2N/CCD Import GFR Afr Amer 51.6 _ >60 Eosin% 08/20/2018 N2N/CCD Import Eosin% 4.2 % 0 - 5 % Eosin# 08/20/2018 N2N/CCD Import Eosin# 0.2 10_3/ul 0-0.6 10 3/ul Creatinine 08/20/2018 N2N/CCD Import Creatinine 1.26 mg/dL High 0.51- 0.95 mg/dL Co2 08/20/2018 N2N/CCD Import Co2 24 mmol/L 22-32 mmol/L Cholesterol 08/20/2018 N2N/CCD Import Cholesterol 278 mg/dL Chloride 08/20/2018 N2N/CCD Import Chloride 105 mmol/L 101-111 mmol/L Urobilinogen-Ua 07/26/2018 N2N/CCD Import Urobilinogen-Ua neg Negative - Negative Urine Culture 07/26/2018 N2N/CCD Import Urine Culture positive - scanned SP Grav-Ua 07/26/2018 N2N/CCD Import SP Grav-Ua 1.015 _ 1.003 - 1.030 Protein-Ua 07/26/2018 N2N/CCD Import Protein-Ua 2+ PH-Ua 07/26/2018 N2N/CCD Import PH-Ua 7.0 _ 5 - 7 Nitrite-Ua 07/26/2018 N2N/CCD Import Nitrite-Ua Negative Negative - Negative Qual Leuk Est-Ua 07/26/2018 N2N/CCD Import Leuk Est-Ua Negative Negative - Negative Qual Ketones-Ua 07/26/2018 N2N/CCD Import Ketones-Ua Negative Negative - Negative Qual Glucose-Ua 07/26/2018 N2N/CCD Import Glucose-Ua Negative Negative - Negative Qual Blood-Ua 07/26/2018 N2N/CCD Import Blood-Ua Negative Negative - Negative Qual Bilirubin-Ua 07/26/2018 N2N/CCD Import Bilirubin-Ua Negative Negative - Negative Qual HIV Test Offered 07/26/2018 N2N/CCD Import HIV Test Offered Accepted and ordered 1 [facility] Severe Sepsis and Septic Shock Management Bundle Measure requires all lactic acids initially measuring >2.0 mmol/L be repeated. 2 Because ethnic data is not always [...] 5 Kidney failure <15 (or dialysis) 3 Troponin-I testing on Plasma Separator Tubes (PST) has a known false positive rate of 0.20-0.40%. All positive troponins reflex immediately to secondary confirmatory testing. Using the [employer] D[employer]I 800 Access Immunoassay systems, the 99th percentile upper reference limit was demonstrated to be < 0.03 ng/mL. 4 Therapeutic concentration: <50 ug/mL Toxic concentration: >120 ug/mL 5 *Ascorbic acid is present which may interfere with detection of blood. 6 SEE RESULT BELOW Name: EHSANBRISSA M : [address]: Nishant Sandra MD Acct: [id number] Unit: [id number] AGE: 63 Location: [facility] Re11/28/18 SEX: F Status: REG REF SPEC: [id number] LUIS: 11/28/18-[address] [facility] [address]: Nishant Sandra MD REQ: [id number] RECD: 11/28/18124 STATUS: COMP _ S[facility]: Urine Culture Procedure Result Reported Site Urine Culture Final 11/29/18- 1606 ML No Growth (<1,000 CFU/mL) * ML - Main Lab . END OF REPORT DEPARTMENT OF PATHOLOGY, [address] [place] [address] Amos Lozano M.D. Director [facility] # [id number] 7 *Ascorbic acid is present which may interfere with detection of blood. 8 Because ethnic data is not always [...] 5 Kidney failure <15 (or dialysis) 9 Please check labs 2 days before follow up 10 Please check labs 2 days before follow up 11 Please check labs 2 days before follow up 12 Test Performed by: [facility] [employer] [address] [place] [address] 13 Test Performed by: [place] [address] 14 REFERENCE VALUE <30.0 (Negative) Test Performed by: [facility] [place] [address] 15 Test Performed by: [facility] [employer] [address] [place] [address] 16 Because ethnic data is not always readily [...] (or dialysis) Procedures Date Code Description Status 08/22/2018 19400 Brief Emotional/Behav Assessment W/ Scoring Doc Per Completed Standard Inst Medical Devices Description No Information Available Encounters Type Date Location Provider Dx Diagnosis Office Visit 01/16/2019 [facility] Main MELISSA Fox I10 Essential (primary) 11:30a hypertension Office Visit 12/31/2018 [facility] Main Aby Platt MD F41.9 Anxiety disorder , 9:45a unspecified Office Visit 11/26/2018 [facility] Vern Platt MD F41.9 Anxiety disorder , 11:45a unspecified Assessments Date Code Description Provider 01/16/2019 I10 Essential (primary) hypertension MELISSA Fox 12/31/2018 F41.9 Anxiety disorder, unspecified Aby Platt MD 11/26/2018 F41.9 Anxiety disorder, unspecified Aby Platt MD Plan of Treatment Future Appointment(s):02/06/2019 10:00 am - MELISSA Fox at [facility] Main2018 - FABIOLA FoxPI10 Essential (primary) hypertensionNew Medication:Blood Pressure Kit -Comments:Reduced dose of clonidine currently. Numbers slightly elevated in office. Suspect elevation duringport due to anxiety. Disc. starting at 0.1 mg 3 x daily and increasing to max of 0.6mg. Consult with Dr. Platt who is more aware of patient. -pending visit with automatic folder seamer- consider amlodipine if control no obtained with clonidine. Would look to automatic folder seamer for their opinion as well. Ukhcav21 numbers in the next 3 weeks and call office if consistently above 130 / 80. Functional Status Description No Information Available Mental Status Description No Information Available Referrals Description No Information Available
--- OUTSIDE RECORDS SUMMARY | 2019-03-10 18:42 | XMS REPORT | Continuity of Care Document ---
:1955 External Reference #:[id number] Author Name Olrna RainamelaniemacielMELISSA Address [address] [place] [address] Problems Active Problems Provider Date Tobacco dependence [...] 08/22/2018 Abdominal pain Onset: 08/22/2018 Inactive: 08/22/2018 Social History Type Date Description Comments Sex Female Tobacco Use Start: Unknown Light tobacco smoker (10 or fewer cigarettes/day) Smoking Status Reviewed: 02/06/19 Light tobacco smoker (10 or fewer cigarettes/day) Allergies, Adverse Reactions, Alerts Active Allergies Reaction Severity Comments Date Fioricet 12/01/2018 Methotrexate 12/17/2018 [place] 12/01/2018 Soma 12/01/2018 Sulfa Antibiotics 12/01/2018 Buspirone Hydrochloride rash (per old records) 11/23/2018 Ketorolac Tromethamine itching and rash (per 11/23/2018 old records) [place] Analogues anaphylaxis (per old 11/23/2018 records) Methotrexate [...] Qnty Indications Ordering Date Provider Amlodipine Besylate 1 by mouth 30tabs I10 MELISSA Fox 02/06/2019 5mg every day Tablets Blood Pressure Kit 1units I10 MELISSA Fox [...] Oral 90tabs Unknown 09/13/2018 40mg Tablets CBD Troup apply every 12 5units BoazNishant tyson 08/23/2018 4-3-9-1.2% hours as needed Patches to painful regions Naltrexone HCL 1 daily Oral 30units Unknown 08/22/2018 Powder Cellcept take one tablet 60tabs M32.9 BoazNishant tyson 08/08/2018 500mg Tablets by mouth daily for [...] Unknown 09/13/2018 - 11/26/[address] Clonidine HCL 1 twice daily 60tabs Unknown 08/22/2018 - 09/21/2018 0.2mg Tablets Oral Mycophenolate Mofetil Oral Unknown 08/22/2018 - 10/24/2018 500mg Tablets Clonazepam 1 twice daily prn 56tabs Unknown 08/22/2018 - 10/15/2018 1mg Tablets Oral Simvastatin 1 daily Oral 30tabs Unknown 08/22/2018 - 11/26/2018 40mg Tablets Immunizations CPT Code Status Date Vaccine Lot # [id number] Given 08/23/2018 Prevnar 13 Vital Signs Date [...] Result H/L Range Note CBC Auto 12/20/2018 [facility] White Blood 4.6 10^3/uL Normal 3.5-10.[address] [place], [place] [address] [phone] Red Blood Count 3.79 10^6/uL Normal 3.70-4.87 [...] Blood Cells % 0.1 Laboratory test 12/20/2018 [facility] Lactic Acid 1.1 mmol/L Normal 0.5-2.0 [address] [place] [address] [phone] Comp Metabolic 12/20/2018 [facility] Potassium 3.8 mmol/L Normal 3.5-5.[address] [place] [address] [phone] Co2 Carbon Dioxide 24 mmol/L Normal 22-32 [...] 10 mmol/L Normal 2-11 Laboratory test 12/20/2018 [facility] Creatine 74 U/L Normal 10-[address] [place] [address] [phone] Troponin I 0.01 ng/mL <0.04 3 Acetaminophen < 15 g/mL 4 Alcohol 340 mg/dL High <10 Salicylate < 2.50 mg/dL <30 TSH (Thyroid Stim Horm) 11.44 mcIU/mL High 0.34-5.60 Urinalysis Profile 11/28/2018 N2N/CCD Import Urine Color Yellow Urine Appearance Clear Urine Specific Lucas 1.015 1 1.010-1.030 Urine pH 7.0 1 [...] Color Yellow Urine Appearance Cloudy Urine Specific [place] 1.014 1 1.010-1.030 Urine pH 6.0 1 [...] N2N/CCD Import MPV 8.3 fL 7.4-10.4 fL [place]% 09/10/2018 N2N/CCD Import [place]% 9.8 % 0 - 10 % [place]# 09/10/2018 N2N/CCD Import [place]# 0.3 0-0.8 10 10_3/ul 3/ul MCV 09/10/2018 [...] N2N/CCD Import MPV 8.5 fL 7.4-10.4 fL [place]% 08/31/2018 N2N/CCD Import [place]% 11.2 % High 0 - 10 % [place]# 08/31/2018 N2N/CCD Import [place]# 0.3 10_3/ul 0-0.8 10 3/ul MCV 08/31/2018 [...] N2N/CCD Import MCV 97 fL 80-97 fL [place]# 08/20/2018 N2N/CCD Import [place]# 0.3 10_3/ul 0-0.8 10 3/ul [place]% 08/20/2018 N2N/CCD Import [place]% 7.2 % 0 - 10 % MPV [...] N2N/CCD Import Calcium 10.1 mg/dL 8.6-10.3 mg/dL Chloride 08/20/2018 N2N/CCD Import Chloride 105 mmol/L 101-111 mmol/L Cholesterol 08/20/2018 N2N/CCD Import Cholesterol 278 mg/dL Co2 08/20/2018 N2N/CCD Import Co2 24 mmol/L 22-32 mmol/L Creatinine 08/20/2018 N2N/CCD Import Creatinine 1.26 mg/dL High 0.51- 0.95 mg/dL Eosin# 08/20/2018 N2N/CCD Import Eosin# 0.2 10_3/ul 0-0.6 10 3/ul Eosin% 08/20/2018 N2N/CCD Import Eosin% 4.2 % 0 - 5 % GFR Afr Amer 08/20/2018 N2N/CCD Import GFR Afr Amer 51.6 _ >60 GFR Non Afr Amer 08/20/2018 N2N/CCD Import GFR Non Afr Amer 42.6 _ >60 Globulin 08/20/2018 N2N/CCD Import Globulin 2.8 g/dL 2-4 g/dL Glucose 08/20/2018 N2N/CCD Import Glucose 88 mg/dL 70-100 mg/dL HDL Cholesterol 08/20/2018 N2N/CCD Import HDL Cholesterol 68.7 mg/dL Hematocrit 08/20/2018 N2N/CCD Import Hematocrit 42 % 35-47 % Hemoglobin 08/20/2018 N2N/CCD Import Hemoglobin 13.7 g/dL 12.0-16.0 g/dL 1 [facility] Severe Sepsis and Septic Shock Management [...] immediately to secondary confirmatory testing. Using the [employer] 800 Access Immunoassay systems, the 99th percentile upper reference limit was demonstrated to be < 0.03 ng/mL. 4 Therapeutic concentration: <50 ug/mL Toxic concentration: >120 ug/mL 5 *Ascorbic acid is present which may interfere with detection of blood. 6 SEE RESULT BELOW Name: BRISSA ALONSO : [address]: Nishant Sandra MD Acct: [id number] Unit: [id number] AGE: 63 Location: [facility] Re11/28/18 SEX: F Status: REG REF SPEC: [id number] LUIS: 11/28/18-[address] [place] [address] DR: Nishant Sandra MD REQ: [id number] RECD: 11/28/18 STATUS: COMP _ SOURCE: URINE SPDESC: ORDERED: Urine Culture Procedure Result Reported Site Urine Culture Final 11/29/18- 1606 ML No Growth (<1,000 CFU/mL) * ML - Main Lab . END OF REPORT DEPARTMENT OF PATHOLOGY, [address] [place] [address] Amos Lozano M.D. Director [facility] # [id number] 7 *Ascorbic acid is present which may [...] before follow up 12 Test Performed by: [facility] [place] [address] 13 Test Performed by: [place] [address] 14 REFERENCE VALUE <30.0 (Negative) Test Performed by: [place] [address] 15 Test Performed by: [place] [address] 16 Because ethnic data is not always [...] dialysis) Procedures Date Code Description Status 08/22/2018 31239 Brief Emotional/Behav Assessment W/ Scoring Doc Per Completed Standard Inst Medical Devices Description No Information Available Encounters Type Date Location Provider Dx Diagnosis Office Visit 02/06/2019 [facility] Main MELISSA Fox I10 Essential (primary) 10:00a hypertension Office Visit 01/16/2019 [facility] MELISSA Fox I10 Essential (primary) 11:30a hypertension Office Visit 12/31/2018 [facility] Aby Platt MD F41.9 Anxiety disorder , 9:45a unspecified Office Visit 11/26/2018 [facility] Main Aby Platt MD F41.9 Anxiety disorder , 11:45a unspecified Assessments Date Code Description Provider 02/06/2019 I10 Essential (primary) hypertension MELISSA Fox 01/16/2019 I10 Essential (primary) hypertension MELISSA Fox 12/31/2018 F41.9 Anxiety disorder, unspecified Aby Platt MD 11/26/2018 F41.9 Anxiety disorder, unspecified Aby Platt MD Plan of Treatment Future Appointment(s):03/08/2019 10:15 am - Aby Platt MD at [facility]2018 - FABIOLA FoxPI10 Essential (primary) hypertensionNew Medication: [...] new medication added. Will request records from [facility]. Repeat TSH in 3 weeks. Functional Status Description No Information Available Mental Status Description No Information Available Referrals Description No Information Available
--- OUTSIDE RECORDS SUMMARY | 2019-03-10 18:42 | XMS REPORT | Continuity of Care Document ---
:1955 External Reference #:[id number] Author Name Lorna RainamelaniemacielMELISSA Address [address] [place] [address] Problems Active Problems Provider Date Tobacco dependence [...] Severity Comments Date Fioricet 12/01/2018 Methotrexate 12/17/2018 [place] 12/01/2018 Soma 12/01/2018 Sulfa Antibiotics 12/01/2018 Buspirone Hydrochloride rash (per old records) 11/23/2018 Ketorolac Tromethamine itching and rash (per 11/23/2018 old records) [place] Analogues anaphylaxis (per old 11/23/2018 records) Methotrexate [...] Blood Pressure Kit 1units I10 Lorna Stewart [facility] 01/16/2019 Kit Doxycycline Hyclate 2 pills once [...] Oral 90tabs Unknown 09/13/2018 40mg Tablets CBD [place] apply every 12 5units Nishant Sandra 08/23/2018 [...] CPT Code Status Date Vaccine Lot # [id number] Given 08/23/2018 Prevnar 13 Vital Signs Date [...] Result H/L Range Note Laboratory test 02/25/2019 [facility] TSH 2.38 Normal 0.34- 5.[address] (Thyroid mcIU/[place] [address] Stim Horm) [phone] Comp Metabolic 02/25/2019 [facility] Sodium 137 mmol/L Normal 135-[address] [place] [address] [phone] Potassium 4.4 mmol/L Normal 3.5-5.0 Chloride 105 [...] Egfr 73.2 >60 2 Laboratory test 02/25/2019 [facility] C Reactive 1.83 mg/L Normal <8.01 [address] [place] [address] [phone] CBC Auto Diff 02/25/2019 [facility] White Blood 5.1 Normal 3.5 -10.[address] Count 10^3/uL [place], [place] [id number] [phone] Red Blood Count 3.51 10^6/uL Low 3.70-4.87 [...] Blood Cells % 0.2 Laboratory test 02/25/2019 [facility] Erythrocyte Sed 50 mm/Hr High 0-29 [address] [place] [address] [phone] CBC Auto Diff 12/20/2018 [facility] White Blood 4.6 Normal 3.5 -10.[address] Count 10^3/uL [place], [place] [id number] [phone] Red Blood Count 3.79 10^6/uL Normal 3.70-4.87 [...] Blood Cells % 0.1 Laboratory test 12/20/2018 [facility] Lactic Acid 1.1 mmol/L Normal 0.5-2.0 [address] [place] [address] [phone] Comp Metabolic 12/20/2018 [facility] Potassium 3.8 mmol/L Normal 3.5-5.0 Panel [address] [place] [address] [phone] Co2 Carbon Dioxide 24 mmol/L Normal 22-32 [...] 10 mmol/L Normal 2-11 Laboratory test 12/20/2018 [facility] Creatine 74 U/L Normal 10-[address] [address] [phone] Troponin I 0.01 ng/mL <0.04 9 Acetaminophen < 15 g/mL 10 Alcohol 340 mg/dL High <10 Salicylate < 2.50 mg/dL <30 TSH (Thyroid Stim Horm) 11.44 mcIU/mL High 0.34-5.60 Urine Culture And 11/28/2018 [employer] Import Urine Culture See Result 11 Sensitivities Below Urinalysis Profile 11/28/2018 [employer] [facility] Urine Color Yellow Urine Appearance Clear Urine Specific [place] 1.015 1 1.010-1.030 Urine pH 7.0 1 5-9 Urine Urobilinogen Negative Urine Ketones Negative Urine Protein 2+(100 mg/dL) Abnormal Urine Leukocytes Negative Urine Blood Negative * * Abnormal 12 Urine Nitrite Negative Urine Bilirubin Negative Urine Glucose Negative Urine White Blood Cell Trace(0-5/hpf) Urine Red Blood Cell 2+(6-10/hpf) Abnormal Urine Bacteria Absent Urine Squamous Epithelial Cell Present Abnormal Lab Results 10/25/2018 [employer] Erythrocyte Sed Rate 46 mm/Hr High 0-29 13 C Reactive Protein 14.82 mg/L High 14 CBC Auto Diff 10/25/2018 [employer] White Blood Count 4.2 10^3/uL 3.5-10.8 [...] Cells % 0.0 1 Lab Results 10/25/2018 [employer] Sodium 136 mmol/L 135-145 Chloride 104 [...] Color Yellow Urine Appearance Cloudy Urine Specific [place] 1.014 1 1.010-1.030 Urine pH 6.0 1 [...] [facility] MPV 8.3 fL 7.4-10.4 fL [place]% 09/10/2018 [facility] [place]% 9.8 % 0 - 10 % [place]# 09/10/2018 [facility] [place]# 0.3 0-0.8 10 10_3/ul 3/ul MCV 09/10/2018 [...] N2N/CCD Import MPV 8.5 fL 7.4-10.4 fL [place]% 08/31/2018 [facility] [place]% 11.2 % High 0 - 10 % [place]# 08/31/2018 [facility] [place]# 0.3 10_3/ul 0-0.8 10 3/ul MCV 08/31/2018 [...] immediately to secondary confirmatory testing. Using the [employer] DxI 800 Access Immunoassay systems, the 99th percentile upper reference limit was demonstrated to be < 0.03 ng/mL. 10 Therapeutic concentration: <50 ug/mL Toxic concentration: >120 ug/mL 11 SEE RESULT BELOW Name: BRISSA ALONSO : [address]: Nishant Sandra MD Acct: [id number] Unit: [id number] AGE: 63 Location: [facility] Re11/28/18 SEX: F Status: REG REF SPEC: [id number] LUIS: 11/28/18-[address] [place] [address] DR: Nishant Sandra MD REQ: [id number] RECD: 11/28/18 STATUS: COMP _ SOURCE: URINE SPDESC: ORDERED: Urine Culture Procedure Result Reported Site Urine Culture Final 11/29/18- 1606 ML No Growth (<1,000 CFU/mL) * ML - Main Lab . END OF REPORT DEPARTMENT OF PATHOLOGY, [address] [place] [address] Amos Lozano M.D. Director [facility] # [id number] 12 *Ascorbic acid is present which may [...] detection of blood. 18 Test Performed by: [facility] [place] [address] [place] [address] 19 Test Performed by: [facility] [place] [address] 20 REFERENCE VALUE <30.0 (Negative) Test Performed by: [facility] [address] [place] [address] 21 Test Performed by: [facility] [address] [place] [address] 22 Because ethnic data is not always [...] Location Provider Dx Diagnosis Office Visit 02/06/2019 [facility] Main MELISSA Fox I10 Essential (primary) 10:00a hypertension Office Visit 01/16/2019 [facility] MELISSA Fox I10 Essential (primary) 11:30a hypertension Office Visit 12/31/2018 [facility] Vern Platt MD F41.9 Anxiety disorder , 9:45a unspecified Office Visit 11/26/2018 [facility] Vern Platt MD F41.9 Anxiety disorder , 11:45a unspecified Assessments Date Code Description Provider 02/06/2019 I10 Essential (primary) hypertension MELISSA Fox 01/16/2019 I10 Essential (primary) hypertension MELISSA Fox 12/31/2018 F41.9 Anxiety disorder, unspecified Aby Platt MD 11/26/2018 F41.9 Anxiety disorder, unspecified Aby Platt MD Plan of Treatment Future Appointment(s):03/08/2019 10:15 am - Aby Platt MD at [facility] Main2018 - FABIOLA FoxPI10 Essential (primary) hypertensionNew Medication: [...]
[2019-03-10 21:30] VITALS: BP 168/82
== END 2019-03-10 21:15 | disposition home or self-care (01) ==
LOC: ED 14:57
DX: F10.229 Alcohol dependence with intoxication, unspecified (principal); M32.9 Systemic lupus erythematosus, unspecified; I13.0 Hypertensive heart and chronic kidney disease with heart failure and stage 1 through stage 4 chronic kidney disease, or unspecified chronic kidney disease; N18.9 Chronic kidney disease, unspecified; I50.9 Heart failure, unspecified; F41.9 Anxiety disorder, unspecified; F43.10 Post-traumatic stress disorder, unspecified; F90.9 Attention-deficit hyperactivity disorder, unspecified type; F17.210 Nicotine dependence, cigarettes, uncomplicated; Z88.6 Allergy status to analgesic agent; Z88.2 Allergy status to sulfonamides; Z88.8 Allergy status to other drugs, medicaments and biological substances
CPT/HCPCS: 99283

== ENCOUNTER → 2019-03-27 07:30 | Day surgery (SDC) | payer MEDICARE ==
[~2019-03-27 07:30] MED LIST changes: +Buffered Lidocaine 1% SYRIN* 1 ML/SYRINGE INTRADERM ONE; +Glycopyrrolate IV* 0.2 MG/ML 1 ML VIAL ONE; -HYDROcodone/ACETAMIN 5-325 MG* 1 TAB PO ONE; +Lactated Ringers 1000 ML Bag* 1,000 ML IV SCH; +Midazolam* 1 MG/ML 5 ML VIAL (5 MG) ONE; +Naloxone* 0.4 MG/ML 1 ML VIAL IV PRN; -Ondansetron ODT TAB* 4 MG PO ONE; +PROCHLORPERAZINE INJ 5 MG/ML 2 ML VIAL ONE; +Propofol* 10 MG/ML 20 ML BTL ONE; +ceFAZolin 2 GM in NS PREMIX(*) 2 GM/100 ML BAG IVPB ONE; +fentaNYL* 50 MCG/ML 2 ML VIAL (100 MCG VIAL) IV PRN; +fentaNYL* 50 MCG/ML 2 ML VIAL (100 MCG VIAL) ONE
--- NOTE | 2019-03-27 10:59 | OP ---
Operative Report - Blank - Operative Report Date of Operation: 03/27/19 Note: Pre-OP Diagnoses: poor IV access Post-op Diagnosis: same Procedure: Insertion of powerport Surgeon: Lina Asst: none Anethesia: local, MAC EBL: minimal IVF: min Specimen: none Drains: none 8Fr single lumen power port via R IJV
[2019-03-27 11:05] VITALS: BP 146/76
--- NOTE | 2019-03-27 20:13 | OP ---
CC: Dr. Aby Platt; Dr. Nishant Sandra; [facility] * DATE OF OPERATION: 03/27/19 - [facility] DATE OF : 51 SURGEON: Siddhartha Mills MD UPPER LEATHER CUTTER: None. ANESTHESIA: Local MAC anesthesia. PRE-OP DIAGNOSES: Lupus and poor IV access, for planned infusion therapy. POST-OP DIAGNOSES: Lupus and poor IV access, for planned infusion therapy. OPERATIVE PROCEDURE: Insertion of PowerPort. ESTIMATED BLOOD LOSS: Minimal blood loss. FLUIDS: Minimal crystalloid fluid given. SPECIMENS: None. IMPLANT: An 8-Setswana PowerPort tubing inserted through right internal jugular vein. COMPLICATIONS: None. INDICATIONS: Ms. Alonso is a 63-year-old female who is undergoing treatment for lupus requiring infusion therapy. She has poor IV access and the decision was made to place a PowerPort. The risks, benefits, and alternatives were discussed with the patient. Consent was signed. DESCRIPTION OF PROCEDURE: She was marked in the preoperative area, brought to the OR and placed on the operating room table in supine position. Preoperative antibiotics were given. Sequential devices were placed on bilateral lower extremities. Gentle sedation was given. The patient's right neck and right chest were prepped and draped in a standard surgical fashion and time-out was performed. With the aid of ultrasound, the right IJ vein was identified and accessed, wire inserted and under fluoroscopy noted to be in the superior vena cava. An incision was made on the right chest and a pocket created for the PowerPort. The tubing of the PowerPort was then tunneled through the chest incision up towards where the wire had been. We did incise over the wire with an 11-blade. Once the tubing was in place, the split-away catheter was inserted under fluoroscopy. Tubing was inserted and the catheter removed. Tubing was cut to size and then attached to the pre-flushed catheter, which was then placed into the pocket on the right chest and sutured at the lateral and medial aspects with a 0 Prolene suture. The wound was then irrigated. Hemostasis was achieved and the incision was closed with 3-0 Vicryl followed by 4-0 Monocryl subcuticular sutures. The port was accessed and aspiration of blood was achieved and it was flushed with sterile saline followed be heparinized saline. Sterile dressing was applied. The patient tolerated the procedure well and was transferred to the PACU in stable condition. [id number]/[facility] #: [id number] MTDD
== END | disposition home or self-care (01) ==
LOC: OR 07:30
PROVIDERS: ATTEND Surgery
DX: M32.9 Systemic lupus erythematosus, unspecified (principal); N18.9 Chronic kidney disease, unspecified; I12.9 Hypertensive chronic kidney disease with stage 1 through stage 4 chronic kidney disease, or unspecified chronic kidney disease; E03.9 Hypothyroidism, unspecified; Q21.1 Atrial septal defect; F41.8 Other specified anxiety disorders; G40.89 Other seizures; R00.1 Bradycardia, unspecified
CPT/HCPCS: 76000; C1788; J0690; J0780; J2250; J2704; J3010

== ENCOUNTER 2019-06-07 08:59 | Emergency (ER) | payer MEDICARE, MEDICAID, OTHER ==
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
[2019-06-07 09:59] VITALS: BP 180/90
--- OUTSIDE RECORDS SUMMARY | 2019-06-07 10:19 | XMS REPORT | Continuity of Care Document ---
:1955 External Reference #:[id number] Author Name Nishant Sandra M.D. (transmitted by agent of provider Dinorah Allen) Address [address] [place] [address] Care Team Providers Name Role Phone Aby Platt M.D. - Family Care Team Information Display Department Manager [phone] Medicine Problems Active Problems Provider Date Seizure Adrianna Coates M.D. Onset: 09/27/2017 Note: Says she had tonic-clonic seizures in [place] cared for by a neurologist in [facility] (Usman Gomez sp?). 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 As of May 2018 the [place] reports are pending. Alcohol withdrawal syndrome Concepcion Leblanc N.P. Onset: 11/26/2017 Note: Patient description of 3 day relapse upon return from [place] in early May 2018 does correspond to [...] (10 or fewer cigarettes/day) Smoking Status Reviewed: 04/29/19 Light tobacco smoker (10 or fewer cigarettes/day) Exercise Type/Frequency Exercises regularly [employer] program "Walk off the pounds" Allergies, Adverse Reactions, Alerts Active Allergies Reaction Severity Comments Date Sulfa Antibiotics rash 10/19/2017 Radom anaphylaxis 10/19/2017 Steroids pychosis 10/19/2017 Fioricet avoids taking if she can 09/04/2018 Soma avoids taking if she can 09/04/2018 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 Medications Active Medications SIG Qnty Indications Ordering Date Provider Colchicine take one 6caps Nishant Sandra, 04/29/2019 0.6mg capsule/tablet by M.DBob Capsules mouth twice daily as needed for flare of joint pain Lyrica take one 30caps Nishant Sandra, 04/29/2019 75mg capsule/tablet daily M.DBob Capsules by mouth for 1 week then 2 tabs daily ongoing (stop gabapentin) Skelaxin take one 30tabs Nishant Sandra, 03/14/2019 800mg capsule/tablet by M.DBob Tablets mouth twice daily as needed for pain/ spasms, avoid with driving Paraffin use daily for hand 500gm Nishant Sandra, 09/03/2018 Wax stretching and M.D. osteoarthritis m72 CBD [place] apply every 12 hours 5units Nishant Sandra, 08/23/2018 as needed to painful M.D. 4-3-9-1.2% Patches regions Wrist Splint use nightly to help 1units M32.9 Nishant Sandra, 08/23/2018 Misc with carpal tunnel M.D. features g56.01 on the right Meclizine HCL take one 60tabs Nishant Sandra, 05/31/2018 capsule/tablet by M.DBob 12.5mg Tablets mouth twice daily as needed for vertigo Slow Release Iron take one 90tabs Nishant Sandra, 02/27/2018 capsule/tablet daily M.D. 47.5mg Tablets ER by mouth Prozac 1 by mouth every day 90caps Nishant Sandra, 03/30/2017 40mg M.D. Capsules Clonazepam Take 1 Tablet By Unknown 12/29/2016 1mg Mouth twice daily Tablets Amlodipine Besylate 2 tabs daily Unknown 5mg Tablets Atorvastatin 1 tab daily Unknown Calcium 40mg Tablets Liothyronine Sodium take 5mcg twice Unknown daily, in addition to 5mcg Tablets levothyroxine Clonidine HCL Take 1 Tablet By Unknown 0.1mg Mouth Every 8 Hours Tablets Lamotrigine 1 by mouth twice a Unknown 200mg day Tablets History Medications Methocarbamol take 1 or 2 at 30tabs Nishant Sandra, 03/14/2019 - 800mg Tablets night as needed M.D. 03/14/2019 for spasms, avoid with other muscular relaxant Tramadol HCL take one 14tabs Nishant Sandra, 01/04/2019 - 50mg Tablets capsule/tablet by M.D. 01/30/2019 mouth twice daily as needed for pain Xeljanz 1 by mouth twice 60tabs Nishant Sandra, 12/17/2018 - 5mg Tablets a day M.D. 01/18/2019 Quinacrine HCL 50 mg by mouth 25gm Nishant Sandra, 12/12/2018 - Powder daily M.D. 12/17/2018 Gabapentin take 2 capsules 180caps Nishant Sandra, 12/04/2018 - 400mg Capsules by mouth 3 times M.D. 04/29/2019 a day Cyclobenzaprine HCL 1 by mouth as 30tabs Nishant Sandra, 12/03/2018 - 500mg needed at bedtime M.D. 03/14/2019 Tablets for pain/spasms/insom tiffanie Acthar sq weekly 5ml Nishant Sandra, 11/28/2018 - 80Unit/ML Gel M.D. 12/12/2018 Medications Administered in Office Medication SIG Qnty Indications Ordering Provider Date Triamcinolone (Kenalog) Nishant Sandra M.D. 04/29/2019 Injection Triamcinolone (Kenalog) Nishant Sandra M.D. 03/14/2019 Injection Toradol Injection 15MG Nurse Visit 01/01/2019 Injection Toradol Injection 15MG Nurse Visit 01/01/2019 Injection Triamcinolone (Kenalog) Nishant Sandra M.D. 12/12/2018 Injection PPD Nishant Sandra M.D. 03/21/2018 Injection Immunizations CPT Code Status Date Vaccine Reaction Lot # [id number] Given 01/30/2019 Influenza Virus Vaccine, Patient denies ever [id number] Quadrivalent, Split, having a serious Preservative Free reaction to eggs or egg products, ever having a serious reaction or other problem after getting influenza vaccination, ever being diagnosed with Sljzaay-Xkpio-Rgrflkwa , possibility of being , fever or [...] tolerated injection w/ no immediate adverse effect. [id number] Given 08/23/2018 Pneumococcal Conjugate no immediate reaction [id number] Vaccine 13 Valent For noted Intramuscular Use Vital Signs Date Vital Result Comment 04/29/2019 10:24am Height 64.5 inches 5'4.50" Weight 150.00 lb Heart Rate 63 /min BP Systolic Sitting 128 mmHg BP Diastolic Sitting 80 mmHg Body Temperature 98.4 F Pain Level 8 O2 % BldC Oximetry 98 % BMI (Body Mass Index) 25.3 kg/m2 04/24/2019 3:28pm Height 64.5 inches 5'4.50" Weight 150.12 lb Heart Rate 63 /min BP Systolic Sitting 126 mmHg BP Diastolic Sitting 80 mmHg Pain Level 8 O2 % BldC Oximetry 98 % BMI (Body Mass Index) 25.4 kg/m2 Results Test Acquired Date Facility Test Result H/L Range Note Laboratory test 04/29/2019 [facility] Complement C3 <pending> finding [address] [place] [address] [phone] Complement C4 <pending> Anti Double Stranded Dna AB <pending> Erythrocyte Sed Rate 64 mm/Hr High 0-29 C Reactive Protein 3.32 mg/L Normal <8.01 Uric Acid 4.9 mg/dL Normal 2.3-6.6 Rheumatoid Factor < 10 IU/mL Normal <15 Cyclic Citrullinated Pep Igg <pending> Basic Metabolic 04/29/2019 [facility] Sodium 140 mmol/L Normal 135-145 Panel [address] [place] [address] [phone] Potassium 4.3 mmol/L Normal 3.5-5.0 Chloride 108 mmol/L Normal 101-111 Co2 Carbon Dioxide 24 mmol/L Normal 22-32 Anion Gap 8 mmol/L Normal 2-11 Glucose 123 mg/dL High 70-100 Blood Urea Nitrogen 23 mg/dL Normal 6-24 Creatinine 1.15 mg/dL High 0.51-0.95 BUN/Creatinine Ratio 20.0 Normal 8-20 Calcium 9.2 mg/dL Normal 8.6-10.3 Egfr Non- 47.4 >60 Egfr 57.3 >60 1 Laboratory test 03/21/2019 [facility] Alcohol < 10 mg/dL Normal <10 finding [address] [place] [address] [phone] Comp Metabolic 03/21/2019 [facility] Sodium 134 mmol/L Low 135 -145 Panel [address] [place] [address] [phone] Potassium 4.6 mmol/L Normal 3.5-5.0 Chloride 105 mmol/L Normal 101-111 Co2 Carbon Dioxide 22 mmol/L Normal 22-32 Anion Gap 7 mmol/L Normal 2-11 Glucose 84 mg/dL Normal 70-100 Blood Urea Nitrogen 29 mg/dL High 6-24 Creatinine 1.26 mg/dL High 0.51-0.95 BUN/Creatinine Ratio 23.0 High 8-20 Calcium 9.2 mg/dL Normal 8.6-10.3 Total Protein 7.4 g/dL Normal 6.4-8.9 Albumin 3.9 g/dL Normal 3.2-5.2 Globulin 3.5 g/dL Normal 2-4 Albumin/Globulin Ratio 1.1 Normal 1-3 Total Bilirubin 0.30 mg/dL Normal 0.2-1.0 Alkaline Phosphatase 68 U/L Normal 34-104 Alt 31 U/L Normal 7-52 Ast 47 U/L High 13-39 Egfr Non- 42.6 >60 Egfr 51.6 >60 2 Laboratory test finding 03/21/2019 [facility] LDH 193 U/L Normal 140-271 [address] [place] [address] [phone] C Reactive Protein 1.66 mg/L Normal <8.01 CBC Auto 03/21/2019 [facility] White Blood 3.8 10^3/uL Normal 3.5-10.[address] [place] [address] [phone] Red Blood Count 3.77 10^6/uL Normal 3.70-4.87 Hemoglobin 13.1 g/dL Normal 12.0-16.0 Hematocrit 38 % Normal 35-47 Mean Corpuscular Volume 102 fL High 80-97 Mean Corpuscular Hemoglobin 35 pg High 27-31 Mean Corpuscular HGB Conc 34 g/dL Normal 31-36 Red Cell Distribution Width 14 % Normal 10-15 Platelet Count 219 10^3/uL Normal 150-450 Mean Platelet Volume 8.9 fL Normal 7.4-10.4 Abs Neutrophils 2.2 10^3/uL Normal 1.5-7.7 Abs Lymphocytes 0.9 10^3/uL Low 1.0-4.8 Abs Monocytes 0.5 10^3/uL Normal 0-0.8 Abs Eosinophils 0.1 10^3/uL Normal 0-0.6 Abs Basophils 0.0 10^3/uL Normal 0-0.2 Abs Nucleated RBC 0.0 10^3/uL Granulocyte % 58.5 % Lymphocyte % 23.9 % Monocyte % 14.2 % Eosinophil % 2.5 % Basophil % 0.9 % Nucleated Red Blood Cells % 0.1 Laboratory test 03/21/2019 [facility] Erythrocyte Sed 43 mm/Hr High 0-[address] [place] [address] [phone] Connective 03/21/2019 [facility] Anti-Nuclear 1.2 U High 3 Tissue Panel [address] [place] [address] [phone] Cyclic Citrullinated Peptide <15.6 U 4 Interpretation See Comment 5 CBC Auto 03/14/2019 [facility] White Blood 2.5 10^3/uL Low 3.5 -10.[address] [place] [address] [phone] Red Blood Count 3.59 10^6/uL Low 3.70-4.87 Hemoglobin 12.4 g/dL Normal 12.0-16.0 Hematocrit 37 % Normal 35-47 Mean Corpuscular Volume 102 fL High 80-97 Mean Corpuscular Hemoglobin 35 pg High 27-31 Mean Corpuscular HGB Conc 34 g/dL Normal 31-36 Red Cell Distribution Width 15 % Normal 10-15 Platelet Count 143 10^3/uL Low 150-450 Mean Platelet Volume 9.4 fL Normal 7.4-10.4 Abs Neutrophils 1.4 10^3/uL Low 1.5-7.7 Abs Lymphocytes 0.7 10^3/uL Low 1.0-4.8 Abs Monocytes 0.3 10^3/uL Normal 0-0.8 Abs Eosinophils 0.1 10^3/uL Normal 0-0.6 Abs Basophils 0.0 10^3/uL Normal 0-0.2 Abs Nucleated RBC 0.0 10^3/uL Granulocyte % 55.4 % Lymphocyte % 27.0 % Monocyte % 13.0 % Eosinophil % 4.1 % Basophil % 0.5 % Nucleated Red Blood Cells % 0.0 Comp Metabolic 03/14/2019 [facility] Sodium 137 mmol/L Normal 135-[address] [place] [address] [phone] Potassium 4.3 mmol/L Normal 3.5-5.0 Chloride 105 mmol/L Normal 101-111 Co2 Carbon Dioxide 22 mmol/L Normal 22-32 Anion Gap 10 mmol/L Normal 2-11 Glucose 86 mg/dL Normal 70-100 Blood Urea Nitrogen 28 mg/dL High 6-24 Creatinine 1.54 mg/dL High 0.51-0.95 BUN/Creatinine Ratio 18.2 Normal 8-20 Calcium 9.1 mg/dL Normal 8.6-10.3 Total Protein 7.5 g/dL Normal 6.4-8.9 Albumin 3.9 g/dL Normal 3.2-5.2 Globulin 3.6 g/dL Normal 2-4 Albumin/Globulin Ratio 1.1 Normal 1-3 Total Bilirubin 0.40 mg/dL Normal 0.2-1.0 Alkaline Phosphatase 78 U/L Normal 34-104 Alt 51 U/L Normal 7-52 Ast 63 U/L High 13-39 Egfr Non- 33.8 >60 Egfr 40.9 >60 6 Laboratory test 03/14/2019 [facility] Erythrocyte Sed 82 mm/Hr High 0-[address] [place] [address] [phone] C Reactive Protein 3.20 mg/L Normal <8.01 Magnesium 2.1 mg/dL Normal 1.9-2.7 Vitamin B12 03/14/2019 [facility] Vitamin B12 420 pg/mL Normal 180-914 7 And Folate [address] [place] [address] [phone] Folic Acid (Folate) > 20.00 ng/mL >3.99 Laboratory test 03/14/2019 [facility] Creatine 80 U/L Normal 10-[address] Kinase(CK) [place] [address] [phone] Laboratory test 02/28/2019 [facility] Miscellaneous See 8, finding [address] Test Comment 9 [place] [address] [phone] Urine 02/28/2019 [facility] Urine Lorazepam Negative [address] GC/MS ng/[place] [address] [phone] Urine Nordiazepam GC/MS Negative ng/mL 11 Urine Oxazepam GC/MS 661 ng/mL 12 Urine Temazepam GC/MS Negative ng/mL 13 Ur Oh Ethyl Flurazepam GC/MS Negative ng/mL 14 Ur 7 [place] Clonazepam GC/MS 1723 ng/mL 15 Ur 7 [place] Flunitrazepam GC/MS Negative ng/mL Cutoff: 50 Ur Alpha Oh Alprazolam GC/MS Negative ng/mL 16 Ur Alpha Oh Triazolam GC/MS Negative ng/mL 17 Ur Benzodiazepine Interp Positive. 18 Barbiturate 02/28/2019 [facility] Urine Butalbital Negative ng/ mL 19 Confirm Urine [address] by GC/[place] [address] [phone] Urine Amobarbital by GC/MS Negative ng/mL 20 Urine Pentobarbital by GC/MS Negative ng/mL 21 Urine Secobarbital by GC/MS Negative ng/mL 22 Urine Phenobarbital by GC/MS Negative ng/mL 23 Urine Barbiturates Interp Negative. 24 Drug Abuse 02/28/2019 [facility] Urine Negative Cutoff: 10 W/Confirm, Ur [address] Alcohol mg/[place] [address] [phone] Urine Amphetamine Negative ng/mL 25 Urine Barbiturates Presumptive Posi <SEE NOTE> ng/mL Abnormal 26 Urine Benzodiazepines Presumptive Posi <SEE NOTE> ng/mL Abnormal 27 Urine Cocaine Negative ng/mL 28 Urine Methadone Negative ng/mL Negative 29 Urine Opiates Negative ng/mL Negative 30 Urine Phencyclidine Negative ng/mL Cutoff: 25 Urine Tetrahydrocannabinol Negative ng/mL Cutoff: 50 31 Laboratory test 02/25/2019 [facility] C Reactive 1.83 Normal < 8.01 32, [address] Protein mg/L [place], [place] [address] [phone] Erythrocyte Sed Rate 50 mm/Hr High 0-29 34 Complement C3 90 mg/dL 75 - 175 35 Complement C4 19 mg/dL 14 - 40 36 Anti Double Stranded Dna AB 16.0 IU/mL 37 CBC Auto 02/25/2019 [facility] White Blood 5.1 10^3/uL Normal 3.5-10.8 [address] [place] [address] [phone] Red Blood Count 3.51 10^6/uL Low 3.70-4.87 Hemoglobin 12.1 g/dL Normal 12.0-16.0 Hematocrit 36 % Normal 35-47 Mean Corpuscular Volume 102 fL High 80-97 Mean Corpuscular Hemoglobin 34 pg High 27-31 Mean Corpuscular HGB Conc 34 g/dL Normal 31-36 Red Cell Distribution Width 16 % High 10-15 Platelet Count 165 10^3/uL Normal 150-450 39 Mean Platelet Volume 9.1 fL Normal 7.4-10.4 [...] Blood Cells % 0.2 Comp Metabolic 02/25/2019 [facility] Sodium 137 mmol/L Normal 135-[address] [place] [address] [phone] Potassium 4.4 mmol/L Normal 3.5-5.0 Chloride 105 [...] Egfr Non- 60.5 >60 Egfr 73.2 >60 40 Laboratory 02/25/2019 [facility] TSH (Thyroid 2.38 Normal 0.34 -5.60 test finding 101 [facility] Stim Horm) mcIU/[place] [address] [phone] Urinalysis 11/28/2018 [facility] Urine Color Yellow Profile [address] [place] [address] [phone] Urine Appearance Clear Urine Specific Atlantic 1.015 Normal 1.010-1.030 Urine pH 7.0 Normal 5-9 Urine Urobilinogen Negative Negative Urine Ketones Negative Negative Urine Protein 2+(100 mg/dL) Abnormal Negative Urine Leukocytes Negative Negative Urine Blood Negative Negative * * Abnormal Negative 41 Urine Nitrite Negative Negative Urine Bilirubin Negative Negative Urine Glucose Negative Negative Urine White Blood Cell Trace(0-5/hpf) Absent Urine Red Blood Cell 2+(6-10/hpf) Abnormal Absent Urine Bacteria Absent Absent Urine Squamous Epithelial Cell Present Abnormal Absent Urine Culture And 11/28/2018 [facility] Urine Culture SEE RESULT [address] [place] [address] [phone] 1 Because ethnic data is not always readily [...] 15-29 5 Kidney failure <15 (or dialysis) 2 Because ethnic data is not always [...] 5 Kidney failure <15 (or dialysis) 3 Interpretation: Weak Positive (1.1-2.9) REFERENCE VALUE <=1.0 (Negative) 4 REFERENCE VALUE <20.0 (Negative) 5 Tests for antibodies to dsDNA and MAICOL antigens are not performed automatically unless the ARMAND result is > or = 3.0 U. Studies performed at [facility] indicate that positive ARMAND results <3.0 U are rarely accompanied by positive second order tests. Test Performed by: [facility] [address] [place] [address] Supervisor [employer]: Ryne Matson M.D. Ph.D.; CLIA# [id number] 6 Because ethnic data is not always readily [...] 15-29 5 Kidney failure <15 (or dialysis) 7 Normal Range 180 to 914 Indeterminate Range 145 to 180 Deficient Range <145 8 [id number] Test Result Flag Unit RefValue Ethyl Glucuronide Confirmation, U Ethyl Glucuronide 98224 ng/mL REFERENCE VALUE Cutoff: 250 Ethyl Sulfate 75481 ng/mL REFERENCE VALUE Cutoff: 100 Ethyl Gluc/Sulfate See Comment Interpretation Positive. A positive interpretation will be given if either the Ethyl Glucuronide result is > or = 250 ng/mL and/or the Sulfate is > or = 100 ng/mL. A "high" positive (i.e., >1,000 ng/mL) may indicate: -Heavy drinking on the same day or previously (i.e., previous day or two). -Light drinking the same day A "low" positive (i.e., 500 - 1000 ng/mL) may indicate: -Previous heavy drinking (i.e., previous 1 - 3 days). -Recent light drinking (i.e., past 24 hours). -Recent intense "extraneous" exposure (i.e., within 24 hours or less). A "very low" positive (i.e., 100 - 500 ng/mL) may indicate: -Previous heavy drinking (i.e., 1-3 days) -Previous light drinking (i.e., 12 - 36 hours). -Recent "extraneous" exposure. ADDITIONAL INFORMATION This report is intended for use in clinical monitoring and management of patients. It is not intended for use in employment-related testing. This test was developed and its performance characteristics determined by [facility] in a manner consistent with CLIA requirements. This test has not been cleared or approved by the U.S. Food and Drug Administration. Test Performed by: [facility] - [address] [address] Supervisor [employer]: Ryne Matson M.D. Ph.D.; CLIA# [id number] 10 REFERENCE VALUE Cutoff: 100 11 REFERENCE VALUE Cutoff: 100 12 REFERENCE VALUE Cutoff: 100 13 REFERENCE VALUE Cutoff: 100 14 REFERENCE VALUE Cutoff: 100 15 REFERENCE VALUE Cutoff: 100 16 REFERENCE VALUE Cutoff: 100 17 REFERENCE VALUE Cutoff: 100 18 ADDITIONAL INFORMATION This report is intended for use in clinical monitoring and management of patients. It is not intended for use in employment-related testing. This test was developed and its performance characteristics determined by [facility] in a manner consistent with CLIA requirements. This test has not been cleared or approved by the U.S. Food and Drug Administration. Test Performed by: [facility] [address] [place] [address] Supervisor [employer]: Ryne Matson M.D. Ph.D.; CLIA# [id number] 19 REFERENCE VALUE Cutoff: 100 20 REFERENCE VALUE Cutoff: 100 21 REFERENCE VALUE Cutoff: 100 22 REFERENCE VALUE Cutoff: 100 23 REFERENCE VALUE Cutoff: 100 24 ADDITIONAL INFORMATION This report is intended for use in clinical monitoring and management of patients. It is not intended for use in employment-related testing. This test was developed and its performance characteristics determined by [facility] in a manner consistent with CLIA requirements. This test has not been cleared or approved by the U.S. Food and Drug Administration. Test Performed by: [facility] [place] [address] Supervisor [employer]: Ryne Matson M.D. Ph.D.; CLIA# [id number] 25 REFERENCE VALUE Cutoff: 500 26 Presumptive Positive Drug confirmation to follow. Presumptive Positive means that the screening method is positive, but the test needs to be run by a confirmatory method before being finalized. REFERENCE VALUE Cutoff: 200 27 Presumptive Positive Drug confirmation to follow. Presumptive Positive means that the screening method is positive, but the test needs to be run by a confirmatory method before being finalized. REFERENCE VALUE Cutoff: 100 28 REFERENCE VALUE Cutoff: 150 29 REFERENCE VALUE Cutoff: 300 30 REFERENCE VALUE Cutoff: 300 31 ADDITIONAL INFORMATION This report is intended for use in clinical monitoring or management of patients. It is not intended for use in employment-related testing. This test has been modified from the barrel lathe operator's instructions. Its performance characteristics were determined by [facility] in a manner consistent with CLIA requirements. This test has not been cleared or approved by the U.S. Food and Drug Administration. Test Performed by: [place] [address] Supervisor [employer]: Ryne Matson M.D. Ph.D.; CLIA# [id number] 32 Please check labs 2 days before follow up 33 Please check labs 2 days before follow up 34 Please check labs 2 days before follow up 35 Test Performed by: [place] [address] Supervisor [employer]: Ryne Matson M.D. Ph.D.; CLIA# [id number] 36 Test Performed by: [place] [address] Supervisor [employer]: Ryne Matson M.D. Ph.D.; CLIA# [id number] 37 REFERENCE VALUE <30.0 (Negative) Test Performed by: [facility] [address] [facility], [place] [address] Supervisor [employer]: Ryne Matson M.D. Ph.D.; CLIA# [id number] 38 White count confirmed by estimate 39 Platelet count confirmed by estimate 40 Because ethnic data is not always readily [...] 15-29 5 Kidney failure <15 (or dialysis) 41 *Ascorbic acid is present which may interfere with detection of blood. 42 SEE RESULT BELOW Name: EHSANCLEMENTINE M : [address]: Nishant Sandra MD Acct: [id number] Unit: [id number] AGE: 63 Location: [facility] Re11/28/18 SEX: F Status: REG REF SPEC: [id number] LUIS: 11/28/18-1038 [facility] DR: Nishant Sandra MD REQ: [id number] RECD: 11/28/181244 STATUS: COMP _ SOURCE: URINE SPDESC: ORDERED: Urine Culture Procedure Result Reported Site Urine Culture Final 11/29/18- 1606 ML No Growth (<1,000 CFU/mL) * ML - Main Lab . END OF REPORT DEPARTMENT OF PATHOLOGY, [address] [place] [address] Amos Lozano M.D. Director [facility] # [id number] Procedures Date Code Description Status 04/29/2019 19683 Admin Of Inj Completed 03/27/2019 47567 Fluoroscopic Guidance For Cent Completed 03/27/2019 06699 Ultrasound Guidance For Vascular Access Completed 03/27/2019 76308 Insertion Tunneled Cent Venous Cathr W Subcut Port 5 Completed Yrs Or Oldr 03/14/2019 18181 Admin Of Inj Completed 01/01/2019 65283 Admin Of Inj Completed 12/12/2018 17164 Admin Of Inj Completed 10/31/2018 91279 Holter Monitor Review (24 hr)dr hernandez & interp only Completed 10/29/2018 46672 ECHO Transthoracic, Real-Time 2D With Doppler And Completed Color Flow 10/29/2018 77992 ECHO Transthoracic, Real-Time 2D With Doppler And Completed Color Flow 10/29/2018 51645 ECG Monitor/Recording W/Visual Superimposition Completed Scanning 03/30/2018 [id number] Bone Mineral Density Test Completed Medical Devices Description No Information Available Encounters Type Date Location Provider Dx Diagnosis Office Visit 04/24/2019 Rheumatology Dennys Bacon.10 Systemic lupus 3:20p [facility] erythematosus, organ or system involv unsp Z79.899 Other usp (current) drug therapy R94.4 Abnormal results of kidney function studies R20.8 Other disturbances of skin sensation Office Visit 03/21/2019 Rheumatology Nishant M32.10 Systemic lupus 11:40a [facility] M.D. 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 erythematosus, organ or system involv unsp Z79.899 Other usp (current) drug therapy D64.9 Anemia, unspecified R79.82 Elevated C-reactive protein (CRP) Office Visit 01/30/2019 Rheumatology Nishant M32.9 Systemic lupus 9:20a [facility] M.D. erythematosus, unspecified D64.9 Anemia, unspecified R79.82 Elevated C-reactive protein (CRP) Z79.899 Other usp (current) drug therapy Z23 Encounter for immunization F17.210 Nicotine dependence, cigarettes, uncomplicated Office Visit 01/03/2019 Surgical Siddhartha Vyas M32.10 Systemic lupus 9:45a [facility] MD, erythematosus, organ FACS or system involv unsp Office Visit 12/12/2018 Rheumatology Nishant M32.9 Systemic lupus 2:00p [facility] M.D. erythematosus, unspecified D64.9 Anemia, unspecified R79.82 Elevated C-reactive protein (CRP) Z79.899 Other [facility] (current) drug therapy Office Visit 11/28/2018 Rheumatology Nishant M32.9 Systemic lupus 9:40a [facility] Sandra M.D. erythematosus, unspecified D64.9 Anemia, unspecified R79.82 Elevated C-reactive protein (CRP) Z79.899 Other [facility] (current) drug therapy Assessments Date Code Description Provider 04/29/2019 M79.672 Pain in left foot Nishant Sandra M.D. 04/29/2019 M32.10 Systemic lupus erythematosus, organ or Nishant Sandra M.D. system involvement unspecified 04/29/2019 M79.10 Myalgia, unspecified site Nishant Sandra M.D. 04/29/2019 M79.605 Pain in left leg Nishant Sandra M.D. 04/29/2019 Z79.899 Other [facility] (current) drug therapy Nishant Sandra M.D. 04/24/2019 M32.10 Systemic lupus erythematosus, organ or Nishatn Sandra M.D. system involvement unspecified 04/24/2019 Z79.899 Other [employer] (current) drug therapy Nishant Sandra M.D. 04/24/2019 R94.4 Abnormal results of kidney function Nishant Sandra M.D. studies 04/24/2019 R20.8 Other disturbances of skin sensation Nishant Sandra M.D. 04/22/2019 G56.03 Carpal tunnel syndrome, bilateral upper Saw Ross MD limbs 04/22/2019 R56.9 Unspecified convulsions Saw Ross MD 03/27/2019 I99.8 Other disorder of circulatory system Siddhartha Mills MD, FACS 03/27/2019 M32.10 Systemic lupus erythematosus, organ or Siddhartha Mills MD , FACS system involvement unspecified 03/21/2019 M32.10 Systemic lupus erythematosus, organ or Nishant Sandra M.D. system involvement unspecified 03/21/2019 Z79.899 Other [facility]p (current) drug therapy Nishant Sandra M.D. 03/21/2019 R94.4 Abnormal results of kidney function Nishant Sandra M.D. studies 03/21/2019 R52 Pain, unspecified Nishant Sandra M.D. 03/14/2019 R20.8 Other disturbances of skin sensation Nishant Sandra M.D. 03/14/2019 M32.10 Systemic lupus erythematosus, organ or Nishant Sandra M.D. system involvement unspecified 03/14/2019 R05 Cough Nishant Sandra M.D. 03/14/2019 Z79.899 Other [facility]p (current) drug therapy Nishant Sandra M.D. 02/28/2019 M32.10 Systemic lupus erythematosus, organ or Nishant Sandra M.D. system involvement unspecified 02/28/2019 Z79.899 Other [facility]p (current) drug therapy Nishant Sandra M.D. 02/28/2019 [...] (CRP) Nishant Sandra M.D. 01/30/2019 Z79.899 Other [employer] (current) drug therapy Nishant Sandra M.D. 01/30/2019 [...] (CRP) Nishant Sandra M.D. 12/12/2018 Z79.899 Other [facility]p (current) drug therapy Nishant Sandra M.D. 11/28/2018 M32.9 Systemic lupus erythematosus, unspecified Nishant Sandra M.D. 11/28/2018 D64.9 Anemia, unspecified Nishant Sandra M.D. 11/28/2018 R79.82 Elevated C-reactive protein (CRP) Nishant Sandra M.D. 11/28/2018 Z79.899 Other [employer] (current) drug therapy Nishant Sandra M.D. 10/31/2018 R00.1 Bradycardia, unspecified Siddhartha Dumont, DO FAC 10/29/2018 R94.31 Abnormal electrocardiogram [ECG] [EKG] Siddhartha Dumont, DO FACC 10/29/2018 R94.31 Abnormal electrocardiogram [ECG] [EKG] [facility]CHO Schedule 10/29/2018 R00.1 Bradycardia, unspecified Nurse Visit IC Plan of Treatment Future Appointment(s):06/05/2019 1:40 pm - Nishant Sandra M.D. at [facility]04/29/2019 - Nishant Sandra M.D.M79.672 Pain in left footM32.10 Systemic lupus erythematosus, organ or system involvement velqdhqyonkH87.10 Myalgia, unspecified siteM79.605 Pain in left legZ79.899 Other [employer] ( current) drug therapy Functional Status Description No Information Available Mental Status Description No Information Available Referrals Refer to Dr Reason for Referral Status Appt Date Hernán Tapia MD Please evaluate patient for a chronic pain Sent syndrome. History of lupus lupus on chronic gabapentin [address] [place] [address] [phone] Siddhartha Mills MD Please evaluate patient for port placement as she Sent has poor IV access and needs IVIG [address] [place] [id number] [phone] Leyla Diehl MD Please evaluate for causes of hematuria and Sent proteinuria, history of lupus [address] [facility] [id number] [phone]
--- OUTSIDE RECORDS SUMMARY | 2019-06-07 10:19 | XMS REPORT | Continuity of Care Document ---
:1955 External Reference #:[id number] Author Name Saw Ross MD (transmitted by agent of provider Clarisa Schilling) Address [address], [place] [address] Care Team Providers Name Role Phone Aby Platt M.D. - Family Care Team Information Director Industrial Nursing [phone] Medicine Problems Active Problems Provider Date Seizure Adrianna Coates M.D. Onset: 09/27/2017 Note: Says she had tonic-clonic seizures in [place] cared for by a neurologist in [facility] (Usman Gomez sp?). 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 As of May 2018 the [place] reports are pending. Alcohol withdrawal syndrome Concepcion Leblanc N.P. Onset: 11/26/2017 Note: Patient description of 3 day relapse upon return from [place] in early May 2018 does correspond to [...] (10 or fewer cigarettes/day) Smoking Status Reviewed: 04/22/19 Light tobacco smoker (10 or fewer cigarettes/day) Exercise Type/Frequency Exercises regularly [employer] program "Walk off the pounds" Allergies, Adverse Reactions, Alerts Active Allergies Reaction Severity Comments Date Sulfa Antibiotics rash 10/19/2017 [place] anaphylaxis 10/19/2017 Steroids pychosis 10/19/2017 Fioricet avoids taking if she can 09/04/2018 Soma avoids taking if she can 09/04/2018 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 Medications Active Medications SIG Qnty Indications Ordering Date Provider Skelaxin take one 30tabs Nishant Sandra, 03/14/2019 800mg capsule/tablet by M.DoBb Tablets mouth twice daily as needed for pain/ spasms, avoid with driving Gabapentin Take 2 Capsules By 120caps Nishant Sandra, 12/04/2018 400mg Mouth 3 Times A Day M.D. Capsules Paraffin use daily for hand 500gm Nishant Sandra, 09/03/2018 Wax stretching and M.D. osteoarthritis m72 CBD [place] apply every 12 hours 5units Nishant Sandra, [...] Sandra, 12/12/2018 - Powder daily M.D. 12/17/2018 Cyclobenzaprine HCL 1 by mouth as 30tabs Nishant Sandra, 12/03/2018 - 500mg needed at bedtime M.DBob 03/14/2019 Tablets for pain/spasms/insom tiffanie Acthar sq weekly 5ml Nishant Sandra, 11/28/2018 - 80Unit/ML Gel M.D. 12/12/2018 Gabapentin take one tablet 270tabs Nishant Sandra, 10/24/2018 - 600mg Tablets by mouth three M.D. 12/04/2018 times a day Medications Administered in Office Medication SIG Qnty Indications Ordering Provider Date Triamcinolone (Kenalog) Nishant Sandra M.D. 03/14/2019 Injection Toradol Injection 15MG Nurse Visit 01/01/2019 Injection Toradol Injection 15MG Nurse Visit 01/01/2019 Injection Triamcinolone (Kenalog) Nishant Sandra M.D. 12/12/2018 Injection PPD Nishant Sandra M.D. 03/21/2018 Injection Immunizations CPT Code Status Date Vaccine Reaction Lot # [id number] Given 01/30/2019 Influenza Virus Vaccine, Patient denies ever [id number] Quadrivalent, Split, having a serious Preservative Free reaction to eggs or egg products, ever having a serious reaction or other problem after getting influenza vaccination, ever being diagnosed with [id number]-[id number]-[id number] , possibility of being , fever or [...] tolerated injection w/ no immediate adverse effect. [id number] Given 08/23/2018 Pneumococcal Conjugate no immediate reaction [id number] Vaccine 13 Valent For noted Intramuscular Use Vital Signs Date Vital Result Comment 04/22/2019 1:14pm Height 64.5 inches 5'4.50" Weight 147.00 lb Heart Rate 64 /min BP Systolic 122 mmHg BP Diastolic 78 mmHg BMI (Body Mass Index) 24.8 kg/m2 03/21/2019 11:54am Height 64.5 inches 5'4.50" Weight 147.12 lb Heart Rate 66 /min BP Systolic Sitting 118 mmHg BP Diastolic Sitting 80 mmHg Body Temperature 98.4 F Pain Level 5 O2 % BldC Oximetry 98 % BMI (Body Mass Index) 24.9 kg/m2 Results Test Acquired Date Facility Test Result H/L Range Note Laboratory test 03/21/2019 [facility] Alcohol < 10 mg/dL Normal <10 finding [address] [place] [address] [phone] Comp Metabolic 03/21/2019 [facility] Sodium 134 mmol/L Low 135 -145 Panel [address] [place], [place] [id number] [phone] Potassium 4.6 mmol/L Normal 3.5-5.0 Chloride 105 [...] Egfr Non- 42.6 >60 Egfr 51.6 >60 1 Laboratory test finding 03/21/2019 [facility] LDH 193 U/L Normal 140-[address] [place] [address] [phone] C Reactive Protein 1.66 mg/L Normal <8.01 CBC Auto 03/21/2019 [facility] White Blood 3.8 10^3/uL Normal 3.5-10.[address] [place] [address] [phone] Red Blood Count 3.77 10^6/uL Normal 3.70-4.87 [...] Blood Cells % 0.1 Laboratory test 03/21/2019 [facility] Erythrocyte Sed 43 mm/Hr High 0-[address] [place] [address] [phone] Connective 03/21/2019 [facility] Anti-Nuclear 1.2 U High 2 Tissue Panel [address] [place] [address] [phone] Cyclic Citrullinated Peptide <15.6 U 3 Interpretation See Comment 4 CBC Auto 03/14/2019 [facility] White Blood 2.5 10^3/uL Low 3.5 -10.[address] [place] [address] [phone] Red Blood Count 3.59 10^6/uL Low 3.70-4.87 [...] Blood Cells % 0.0 Comp Metabolic 03/14/2019 [facility] Sodium 137 mmol/L Normal 135-[address] [place] [address] [phone] Potassium 4.3 mmol/L Normal 3.5-5.0 Chloride 105 [...] Egfr Non- 33.8 >60 Egfr 40.9 >60 5 Laboratory test 03/14/2019 [facility] Erythrocyte Sed 82 mm/Hr High 0-[address] [place] [address] [phone] C Reactive Protein 3.20 mg/L Normal <8.01 Magnesium 2.1 mg/dL Normal 1.9-2.7 Vitamin B12 03/14/2019 [facility] Vitamin B12 420 pg/mL Normal 180-914 [address] [place] [address] [phone] Folic Acid (Folate) > 20.00 ng/mL >3.99 Laboratory test 03/14/2019 [facility] Creatine 80 U/L Normal 10-[address] Kinase(CK) [place] [address] [phone] Laboratory test 02/28/2019 [facility] Miscellaneous See 7, finding [address] Test Comment 8 [place] [address] [phone] Urine 02/28/2019 [facility] Urine Lorazepam Negative [address] GC/MS ng/[place] [address] [phone] Urine Nordiazepam GC/MS Negative ng/mL 10 Urine Oxazepam GC/MS 661 ng/mL 11 Urine Temazepam GC/MS Negative ng/mL 12 Ur Oh Ethyl Flurazepam GC/MS Negative ng/mL 13 Ur 7 [place] Clonazepam GC/MS 1723 ng/mL 14 Ur 7 NH Flunitrazepam GC/MS Negative ng/mL Cutoff: 50 Ur Alpha Oh Alprazolam GC/MS Negative ng/mL 15 Ur Alpha Oh Triazolam GC/MS Negative ng/mL 16 Ur Benzodiazepine Interp Positive. 17 Barbiturate 02/28/2019 [facility] Urine Butalbital Negative ng/ mL 18 Confirm Urine [address] by GC/[place] [address] [phone] Urine Amobarbital by GC/MS Negative ng/mL 19 Urine Pentobarbital by GC/MS Negative ng/mL 20 Urine Secobarbital by GC/MS Negative ng/mL 21 Urine Phenobarbital by GC/MS Negative ng/mL 22 Urine Barbiturates Interp Negative. 23 Drug Abuse 02/28/2019 [facility] Urine Negative Cutoff: 10 W/Confirm, Ur [address] Alcohol mg/[place] [address] [phone] Urine Amphetamine Negative ng/mL 24 Urine Barbiturates Presumptive Posi <SEE NOTE> ng/mL Abnormal 25 Urine Benzodiazepines Presumptive Posi <SEE NOTE> ng/mL Abnormal 26 Urine Cocaine Negative ng/mL 27 Urine Methadone Negative ng/mL Negative 28 Urine Opiates Negative ng/mL Negative 29 Urine Phencyclidine Negative ng/mL Cutoff: 25 Urine Tetrahydrocannabinol Negative ng/mL Cutoff: 50 30 Laboratory test 02/25/2019 [facility] C Reactive 1.83 Normal < 8.01 31, [address] Protein mg/[place] [address] [phone] Erythrocyte Sed Rate 50 mm/Hr High 0-29 33 Complement C3 90 mg/dL 75 - 175 34 Complement C4 19 mg/dL 14 - 40 35 Anti Double Stranded Dna AB 16.0 IU/mL 36 CBC Auto 02/25/2019 [facility] White Blood 5.1 10^3/uL Normal 3.5-10.8 [address] [place] [address] [phone] Red Blood Count 3.51 10^6/uL Low 3.70-4.87 Hemoglobin 12.1 g/dL Normal 12.0-16.0 Hematocrit 36 % Normal 35-47 Mean Corpuscular Volume 102 fL High 80-97 Mean Corpuscular Hemoglobin 34 pg High 27-31 Mean Corpuscular HGB Conc 34 g/dL Normal 31-36 Red Cell Distribution Width 16 % High 10-15 Platelet Count 165 10^3/uL Normal 150-450 38 Mean Platelet Volume 9.1 fL Normal 7.4-10.4 [...] Blood Cells % 0.2 Comp Metabolic 02/25/2019 [facility] Sodium 137 mmol/L Normal 135-[address] [place] [address] [phone] Potassium 4.4 mmol/L Normal 3.5-5.0 Chloride 105 [...] Egfr Non- 60.5 >60 Egfr 73.2 >60 39 Laboratory 02/25/2019 [facility] TSH (Thyroid 2.38 Normal 0.34 -5.60 test finding [address] [place] [address] Stim Horm) mcIU/[place] [address] [phone] Urinalysis 11/28/2018 [facility] Urine Color Yellow Profile [address] [place] [address] [phone] Urine Appearance Clear Urine Specific [place] 1.015 Normal 1.010-1.030 Urine pH 7.0 Normal 5-9 Urine Urobilinogen Negative Negative Urine Ketones Negative Negative Urine Protein 2+(100 mg/dL) Abnormal Negative Urine Leukocytes Negative Negative Urine Blood Negative Negative * * Abnormal Negative 40 Urine Nitrite Negative Negative Urine Bilirubin Negative Negative Urine Glucose Negative Negative Urine White Blood Cell Trace(0-5/hpf) Absent Urine Red Blood Cell 2+(6-10/hpf) Abnormal Absent Urine Bacteria Absent Absent Urine Squamous Epithelial Cell Present Abnormal Absent Urine Culture And 11/28/2018 [facility] Urine Culture SEE RESULT [address] [place] [address] [phone] Laboratory test 10/25/2018 [facility] Erythrocyte Sed 46 mm/Hr High 0-29 [address] [place] [address] [phone] C Reactive Protein 14.82 mg/L High <8.01 43 CBC Auto 10/25/2018 [facility] White Blood 4.2 10^3/uL Normal 3.5-10.[address] [place] [address] [phone] Red Blood Count 3.74 10^6/uL Normal 3.70-4.87 [...] Blood Cells % 0.0 Comp Metabolic 10/25/2018 [facility] Sodium 136 mmol/L Normal 135-[address] [place] [address] [phone] Chloride 104 mmol/L Normal 101-111 Co2 Carbon [...] Egfr Non- 50.4 >60 Egfr 61.0 >60 44 Potassium 5.1 mmol/L High 3.5-5.0 Anion Gap 5 mmol/L Normal 2-11 Laboratory test 10/25/2018 [facility] Anti Double 13.7 IU/mL 45 finding [address] Str[address] Dna AB [place], [place] [address] [phone] Urinalysis Profile 10/25/2018 [facility] Urine Color Yellow [address] [employer] [place], [place] [address] [phone] Urine Appearance Cloudy Urine Specific [place] 1.014 Normal 1.010-1.030 Urine pH 6.0 Normal 5-9 Urine Urobilinogen Negative Negative Urine Ketones Negative Negative Urine Protein 2+(100 mg/dL) Abnormal Negative Urine Leukocytes Negative Negative Urine Blood Negative Negative * * Abnormal Negative 46 Urine Nitrite Negative Negative Urine Bilirubin Negative Negative Urine Glucose Negative Negative Urine White Blood Cell Absent Absent Urine Red Blood Cell Absent Absent Urine Bacteria Absent Absent Urine Squamous Epithelial Cell Present Abnormal Absent Urine Hyaline Casts Present Abnormal Absent 1 Because ethnic data is not always [...] 5 Kidney failure <15 (or dialysis) 2 Interpretation: Weak Positive (1.1-2.9) REFERENCE VALUE <=1.0 (Negative) 3 REFERENCE VALUE <20.0 (Negative) 4 Tests for antibodies to dsDNA and MAICOL antigens are not performed automatically unless the ARMAND result is > or = 3.0 U. Studies performed at [facility] indicate that positive ARMAND results <3.0 U are rarely accompanied by positive second order tests. Test Performed by: [facility] [place] [address] Medical Coding Instructor: Ryne Matson M.D. Ph.D.; CLIA# [id number] 5 Because ethnic data is not always [...] 5 Kidney failure <15 (or dialysis) 6 Normal Range 180 to 914 Indeterminate Range 145 to 180 Deficient Range <145 7 [id number] Test Result Flag Unit RefValue Ethyl Glucuronide Confirmation, U Ethyl Glucuronide 75192 ng/mL REFERENCE VALUE Cutoff: 250 Ethyl Sulfate 38798 ng/mL REFERENCE VALUE Cutoff: 100 Ethyl Gluc/Sulfate [...] developed and its performance characteristics determined by [facility] in a manner consistent with CLIA requirements. This test has not been cleared or approved by the U.S. Food and Drug Administration. Test Performed by: [facility] [address] [place] [address] Medical Coding Instructor: Ryne Matson M.D. Ph.D.; CLIA# [id number] 9 REFERENCE VALUE Cutoff: 100 10 REFERENCE VALUE Cutoff: 100 11 REFERENCE VALUE Cutoff: 100 12 REFERENCE VALUE Cutoff: 100 13 REFERENCE VALUE Cutoff: 100 14 REFERENCE VALUE Cutoff: 100 15 REFERENCE VALUE Cutoff: 100 16 REFERENCE VALUE Cutoff: 100 17 ADDITIONAL INFORMATION This report is intended for use in clinical monitoring and management of patients. It is not intended for use in employment-related testing. This test was developed and its performance characteristics determined by [facility] in a manner consistent with CLIA requirements. This test has not been cleared or approved by the U.S. Food and Drug Administration. Test Performed by: [facility] [address] [place] [address] Medical Coding Instructor: Ryne Matson M.D. Ph.D.; CLIA# [id number] 18 REFERENCE VALUE Cutoff: 100 19 REFERENCE VALUE Cutoff: 100 20 REFERENCE VALUE Cutoff: 100 21 REFERENCE VALUE Cutoff: 100 22 REFERENCE VALUE Cutoff: 100 23 ADDITIONAL INFORMATION This report is intended for use in clinical monitoring and management of patients. It is not intended for use in employment-related testing. This test was developed and its performance characteristics determined by [facility] in a manner consistent with CLIA requirements. This test has not been cleared or approved by the U.S. Food and Drug Administration. Test Performed by: [facility] [address] [place] [address] Medical Coding Instructor: Ryne Matson M.D. Ph.D.; IA# [id number] 24 REFERENCE VALUE Cutoff: 500 25 Presumptive Positive Drug confirmation to follow. Presumptive Positive means that the screening method is positive, but the test needs to be run by a confirmatory method before being finalized. REFERENCE VALUE Cutoff: 200 26 Presumptive Positive Drug confirmation to follow. Presumptive Positive means that the screening method is positive, but the test needs to be run by a confirmatory method before being finalized. REFERENCE VALUE Cutoff: 100 27 REFERENCE VALUE Cutoff: 150 28 REFERENCE VALUE Cutoff: 300 29 REFERENCE VALUE Cutoff: 300 30 ADDITIONAL INFORMATION This report is intended for use in clinical monitoring or management of patients. It is not intended for use in employment-related testing. This test has been modified from the gis software engineer's instructions. Its performance characteristics were determined by [facility] in a manner consistent with CLIA requirements. This test has not been cleared or approved by the U.S. Food and Drug Administration. Test Performed by: [place] [address] Medical Coding Instructor: Ryne Matson M.D. Ph.D.; CLIA# [id number] 31 Please check labs 2 days before follow up 32 Please check labs 2 days before follow up 33 Please check labs 2 days before follow up 34 Test Performed by: [facility] [place] [address] Medical Coding Instructor: Ryne Matson M.D. Ph.D.; CLIA# [id number] 35 Test Performed by: [place] [address] Medical Coding Instructor: Ryne Matson M.D. Ph.D.; CLIA# [id number] 36 REFERENCE VALUE <30.0 (Negative) Test Performed by: [place] [address] Medical Coding Instructor: Ryne Matson M.D. Ph.D.; CLIA# [id number] 37 White count confirmed by estimate 38 Platelet count confirmed by estimate 39 Because ethnic data is not always readily [...] 15-29 5 Kidney failure <15 (or dialysis) 40 *Ascorbic acid is present which may interfere with detection of blood. 41 SEE RESULT BELOW Name: CLEMENTINE MOSER : [address]: Nishant Sandra MD Acct: [id number] Unit: [id number] AGE: 63 Location: [facility] Re11/28/18 SEX: F Status: REG REF SPEC: [id number] LUIS: 11/28/18-[address] [place] [address] DR: Nishant Sandra MD REQ: [id number] RECD: 11/28/18 STATUS: COMP _ SOURCE: URINE SPDESC: ORDERED: Urine Culture Procedure Result Reported Site Urine Culture Final 11/29/18- 1606 ML No Growth (<1,000 CFU/mL) * ML - Main Lab . END OF REPORT DEPARTMENT OF PATHOLOGY, [address] [place] [address] Amos Lozano M.D. Director [facility] # [id number] 42 Please check labs 2 days before follow up 43 Please check labs 2 days before follow up 44 Because ethnic data is not always readily [...] 15-29 5 Kidney failure <15 (or dialysis) 45 REFERENCE VALUE <30.0 (Negative) Test Performed by: [facility] [address] [place] [address] 46 *Ascorbic acid is present which may interfere with detection of blood. Procedures Date Code Description Status 03/27/2019 64000 Fluoroscopic Guidance For Cent Completed 03/27/2019 69321 Ultrasound Guidance For Vascular Access Completed 03/27/2019 16244 Insertion Tunneled Cent Venous Cathr W Subcut Port 5 Completed Yrs Or Oldr 03/14/2019 24388 Admin Of Inj Completed 01/01/2019 12155 Admin Of Inj Completed 12/12/2018 65958 Admin Of Inj Completed 10/31/2018 39175 Holter Monitor Review (24 hr)dr review & interp only Completed 10/29/2018 67028 ECHO Transthoracic, Real-Time 2D With Doppler And Completed Color Flow 10/29/2018 82563 ECHO Transthoracic, Real-Time 2D With Doppler And Completed Color Flow 10/29/2018 82695 ECG Monitor/Recording W/Visual Superimposition Completed Scanning 03/30/2018 618003629 Bone Mineral Density Test Completed Medical Devices Description No Information Available Encounters Type Date Location Provider Dx Diagnosis Office Visit 03/21/2019 Rheumatology Nishant Sandra M32.10 Systemic lupus 11:40a [facility] erythematosus, organ or system involv unsp Z79.899 Other senior living (current) drug therapy R94.4 Abnormal results of kidney function studies R52 Pain, unspecified Office Visit 03/14/2019 10:20a Rheumatology Nishant R20.8 Other disturbances [facility] M.D. 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 erythematosus, organ or system involv unsp Z79.899 Other senior living (current) drug therapy D64.9 Anemia, unspecified R79.82 Elevated C-reactive protein (CRP) Office Visit 01/30/2019 Rheumatology Nishant M32.9 Systemic lupus 9:20a [facility] M.D. erythematosus, unspecified D64.9 Anemia, unspecified R79.82 Elevated C-reactive protein (CRP) Z79.899 Other senior living (current) drug therapy Z23 Encounter for immunization F17.210 Nicotine dependence, cigarettes, uncomplicated Office Visit 01/03/2019 Surgical Siddhartha Vyas M32.10 Systemic lupus 9:45a [facility] MD, erythematosus, organ FACS or system involv unsp Office Visit 12/12/2018 Rheumatology Nishant M32.9 Systemic lupus 2:00p [facility] M.D. erythematosus, unspecified D64.9 Anemia, unspecified R79.82 Elevated C-reactive protein (CRP) Z79.899 Other senior living (current) drug therapy Office Visit 11/28/2018 Rheumatology Nishant M32.9 Systemic lupus 9:40a [facility] M.D. 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 system involvement unspecified 03/21/2019 Z79.899 Other senior living (current) drug therapy Nishant Sandra M.D. 03/21/2019 R94.4 Abnormal results of kidney function Nishant Sandra M.D. studies 03/21/2019 R52 Pain, unspecified Nishant Sandra M.D. 03/14/2019 R20.8 Other disturbances of skin sensation Nishant Sandra M.D. 03/14/2019 M32.10 Systemic lupus erythematosus, organ or Nishant Sandra M.D. system involvement unspecified 03/14/2019 R05 Cough Nishant Sandra M.D. 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 02/28/2019 M32.10 Systemic lupus erythematosus, organ or Nishant Sandra M.D. system involvement unspecified 02/28/2019 Z79.899 Other senior living (current) drug therapy Nishant Sandra M.D. 02/28/2019 [...] (CRP) Nishant Sandra M.D. 01/30/2019 Z79.899 Other senior living (current) drug therapy Nishant Sandra M.D. 01/30/2019 [...] (CRP) Nishant Sandra M.D. 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 11/28/2018 M32.9 Systemic lupus erythematosus, unspecified Nishant Sandra M.D. 11/28/2018 D64.9 Anemia, unspecified Nishant Sandra M.D. 11/28/2018 R79.82 Elevated C-reactive protein (CRP) Nishant Sandra M.D. 11/28/2018 Z79.899 Other senior living (current) drug therapy Nishant Sandra M.D. 10/31/2018 R00.1 Bradycardia, unspecified Siddhartah Dumont, DO FAC 10/29/2018 R94.31 Abnormal electrocardiogram [ECG] [EKG] Siddhartha Dumont, DO FACC 10/29/2018 R94.31 Abnormal electrocardiogram [ECG] [EKG] [facility] ECHO Schedule 10/29/2018 R00.1 Bradycardia, unspecified Nurse Visit IC Plan of Treatment Future Appointment(s):04/24/2019 3:20 pm - [facility] M.D. at [facility]04/22/2019 - Saw Ross MDG56.03 Carpal tunnel syndrome, bilateral upper limbsNew Orders:EMG w/Nerve Conduct Study, Upper, Ordered: 04/22Follow up:as lcllfdL76.9 Unspecified convulsions Functional Status Description No Information Available Mental Status Description No Information Available Referrals Refer to Reason for Referral Status Appt Date Siddhartha Mills MD Please evaluate patient for port placement as she Sent has poor IV access and needs IVIG [address] [facility] [address] [phone] Leyla Diehl MD Please evaluate for causes of hematuria and Sent proteinuria, history of lupus [address] [facility] [id number] [phone]
--- OUTSIDE RECORDS SUMMARY | 2019-06-07 10:19 | XMS REPORT | Continuity of Care Document ---
:1955 External Reference #:[id number] Author Name Nishant Sandra M.D. (transmitted by agent of provider Dinorah Allen) Address [address] [place] [address] Care Team Providers Name Role Phone Aby Platt M.D. - Family Care Team Information [facility] Medicine Problems Active Problems Provider Date Seizure Adrianna Coates M.D. Onset: 09/27/2017 Note: Says she had tonic-clonic seizures in [place] cared for by a neurologist in [facility] ([facility] Gomez sp?). 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 As of May 2018 the [place] reports are pending. Alcohol withdrawal syndrome Concepcion Leblanc N.P. Onset: 11/26/2017 Note: Patient description of 3 day relapse upon return from [place] in early May 2018 does correspond to [...] N.P. Onset: 11/27/2017 unspecified Systemic lupus erythematosus Mairanne Sam NP Onset: 12/04/2017 Note: in May [...] (10 or fewer cigarettes/day) Smoking Status Reviewed: 04/24/19 Light tobacco smoker (10 or fewer cigarettes/day) Exercise Type/Frequency Exercises regularly [employer] program "Walk off the pounds" Allergies, Adverse Reactions, Alerts Active Allergies Reaction Severity Comments Date Sulfa Antibiotics rash 10/19/2017 Breese anaphylaxis 10/19/2017 Steroids pychosis 10/19/2017 Fioricet avoids [...] Wax stretching and M.D. osteoarthritis m72 CBD [place] apply every 12 hours 5units Nishant Sandra, [...] Code Status Date Vaccine Reaction Lot # [id number] Given 01/30/2019 Influenza Virus Vaccine, Patient denies ever [id number] Quadrivalent, Split, having a serious Preservative Free reaction to eggs or egg products, ever having a serious reaction or other problem after getting influenza vaccination, ever being diagnosed with Dayeqmj-Noyqk-Dmnnyxlx , possibility of being , fever or [...] tolerated injection w/ no immediate adverse effect. 50034 Given 08/23/2018 Pneumococcal Conjugate no immediate reaction [id number] Vaccine 13 Valent For noted Intramuscular Use Vital Signs Date Vital Result Comment 04/24/2019 3:28pm Height 64.5 inches 5'4.50" Weight 150.12 lb Heart Rate 63 /min BP Systolic Sitting 126 mmHg BP Diastolic Sitting 80 mmHg Pain Level 8 O2 % BldC Oximetry 98 % BMI (Body Mass Index) 25.4 kg/m2 04/22/2019 1:14pm Height 64.5 inches 5'4.50" Weight 147.00 lb Heart Rate 64 /min BP Systolic 122 mmHg BP Diastolic 78 mmHg BMI (Body Mass Index) 24.8 kg/m2 Results Test Acquired Date Facility Test Result H/L Range Note Laboratory test 03/21/2019 [facility] Alcohol < 10 mg/dL Normal <10 finding [address] [place] [address] [phone] Comp Metabolic 03/21/2019 [facility] Sodium 134 mmol/L Low 135 -145 Panel [address] [place], [place] [id number] [phone] Potassium 4.6 mmol/L Normal 3.5-5.0 Chloride 105 [...] 51.6 >60 1 Laboratory test finding 03/21/2019 [facility] LDH 193 U/L Normal 140-[address] [place] [address] [phone] C Reactive Protein 1.66 mg/L Normal <8.01 CBC Auto 03/21/2019 [facility] White Blood 3.8 10^3/uL Normal 3.5-10.[address] [place] [address] [phone] Red Blood Count 3.77 10^6/uL Normal 3.70-4.87 [...] Blood Cells % 0.1 Laboratory test 03/21/2019 [facility] Erythrocyte Sed 43 mm/Hr High 0-[address] [place] [address] [phone] Connective 03/21/2019 [facility] Anti-Nuclear 1.2 U High 2 Tissue Panel [address] [place] [address] [phone] Cyclic Citrullinated Peptide <15.6 U 3 Interpretation See Comment 4 CBC Auto 03/14/2019 [facility] White Blood 2.5 10^3/uL Low 3.5 -10.[address] [place] [address] [phone] Red Blood Count 3.59 10^6/uL Low 3.70-4.87 [...] Blood Cells % 0.0 Comp Metabolic 03/14/2019 [facility] Sodium 137 mmol/L Normal 135-[address] [place] [address] [phone] Potassium 4.3 mmol/L Normal 3.5-5.0 Chloride 105 [...] Egfr 40.9 >60 5 Laboratory test 03/14/2019 [facility] Erythrocyte Sed 82 mm/Hr High 0-[address] [place] [address] [phone] C Reactive Protein 3.20 mg/L Normal <8.01 Magnesium 2.1 mg/dL Normal 1.9-2.7 Vitamin B12 03/14/2019 [facility] Vitamin B12 420 pg/mL Normal 180-914 [address] [place] [address] [phone] Folic Acid (Folate) > 20.00 ng/mL >3.99 Laboratory test 03/14/2019 [facility] Creatine 80 U/L Normal 10-[address] Kinase(CK) [place] [address] [phone] Laboratory test 02/28/2019 [facility] Miscellaneous See 7, finding [address] Test Comment 8 [place] [address] [phone] Urine 02/28/2019 [facility] Urine Lorazepam Negative [address] GC/MS ng/[place] [address] [phone] Urine Nordiazepam GC/MS Negative ng/mL 10 Urine [...] Ur Benzodiazepine Interp Positive. 17 Barbiturate 02/28/2019 [facility] Urine Butalbital Negative ng/ mL 18 Confirm Urine [address] by GC/[place] [address] [phone] Urine Amobarbital by GC/MS Negative ng/mL 19 Urine Pentobarbital by GC/MS Negative ng/mL 20 Urine Secobarbital by GC/MS Negative ng/mL 21 Urine Phenobarbital by GC/MS Negative ng/mL 22 Urine Barbiturates Interp Negative. 23 Drug Abuse 02/28/2019 [facility] Urine Negative Cutoff: 10 W/Confirm, Ur [address] Alcohol mg/[place] [address] [phone] Urine Amphetamine Negative ng/mL 24 Urine Barbiturates Presumptive Posi <SEE NOTE> ng/mL Abnormal 25 Urine Benzodiazepines Presumptive Posi <SEE NOTE> ng/mL Abnormal 26 Urine Cocaine Negative ng/mL 27 Urine Methadone Negative ng/mL Negative 28 Urine Opiates Negative ng/mL Negative 29 Urine Phencyclidine Negative ng/mL Cutoff: 25 Urine Tetrahydrocannabinol Negative ng/mL Cutoff: 50 30 Laboratory test 02/25/2019 [facility] C Reactive 1.83 Normal < 8.01 31, [address] Protein mg/[place] [address] [phone] Erythrocyte Sed Rate 50 mm/Hr High 0-29 33 Complement C3 90 mg/dL 75 - 175 34 Complement C4 19 mg/dL 14 - 40 35 Anti Double Stranded Dna AB 16.0 IU/mL 36 CBC Auto 02/25/2019 [facility] White Blood 5.1 10^3/uL Normal 3.5-10.8 [address] [place] [address] [phone] Red Blood Count 3.51 10^6/uL Low 3.70-4.87 [...] Blood Cells % 0.2 Comp Metabolic 02/25/2019 [facility] Sodium 137 mmol/L Normal 135-[address] [place] [address] [phone] Potassium 4.4 mmol/L Normal 3.5-5.0 Chloride 105 [...] >60 Egfr 73.2 >60 39 Laboratory 02/25/2019 [facility] TSH (Thyroid 2.38 Normal 0.34 -5.60 test finding [address] [place] [address] Stim Horm) mcIU/[place] [address] [phone] Urinalysis 11/28/2018 [facility] Urine Color Yellow Profile [address] [place] [address] [phone] Urine Appearance Clear Urine Specific [place] 1.015 Normal 1.010-1.030 Urine pH 7.0 Normal [...] Present Abnormal Absent Urine Culture And 11/28/2018 [facility] Urine Culture SEE RESULT [address] [place] [address] [phone] Laboratory test 10/25/2018 [facility] Erythrocyte Sed 46 mm/Hr High 0-29 [address] [place] [address] [phone] C Reactive Protein 14.82 mg/L High <8.01 43 CBC Auto 10/25/2018 [facility] White Blood 4.2 10^3/uL Normal 3.5-10.[address] [place] [address] [phone] Red Blood Count 3.74 10^6/uL Normal 3.70-4.87 [...] Blood Cells % 0.0 Comp Metabolic 10/25/2018 [facility] Sodium 136 mmol/L Normal 135-[address] [place] [address] [phone] Chloride 104 mmol/L Normal 101-111 Co2 Carbon [...] 5 mmol/L Normal 2-11 Laboratory test 10/25/2018 [facility] Anti Double 13.7 IU/mL 45 finding [address] [employer] [place] [address] [phone] Urinalysis Profile 10/25/2018 [facility] Urine Color Yellow [address] [place] [address] [phone] Urine Appearance Cloudy Urine Specific [place] 1.014 Normal 1.010-1.030 Urine pH 6.0 Normal [...] or = 3.0 U. Studies performed at [facility] indicate that positive ARMAND results <3.0 U are rarely accompanied by positive second order tests. Test Performed by: [facility] [place] [address] Neck Fitter: Ryne Matson M.D. Ph.D.; CLIA# [id number] 5 Because ethnic data is not always [...] 145 to 180 Deficient Range <145 7 [id number] Test Result Flag Unit RefValue Ethyl Glucuronide Confirmation, U Ethyl Glucuronide 87986 ng/mL REFERENCE VALUE Cutoff: 250 Ethyl Sulfate 75091 ng/mL REFERENCE VALUE Cutoff: 100 Ethyl Gluc/Sulfate [...] developed and its performance characteristics determined by [facility] in a manner consistent with CLIA requirements. This test has not been cleared or approved by the U.S. Food and Drug Administration. Test Performed by: [facility] [address] [place] [address] Neck Fitter: Ryne Matson M.D. Ph.D.; CLIA# [id number] 9 REFERENCE VALUE Cutoff: 100 10 REFERENCE [...] developed and its performance characteristics determined by [facility] in a manner consistent with CLIA requirements. This test has not been cleared or approved by the U.S. Food and Drug Administration. Test Performed by: [facility] [address] [place] [address] Neck Fitter: Ryne Matson M.D. Ph.D.; CLIA# [id number] 18 REFERENCE VALUE Cutoff: 100 19 REFERENCE VALUE Cutoff: 100 20 REFERENCE VALUE Cutoff: 100 21 REFERENCE VALUE Cutoff: 100 22 REFERENCE VALUE Cutoff: 100 23 ADDITIONAL INFORMATION This report is intended for use in clinical monitoring and management of patients. It is not intended for use in employment-related testing. This test was developed and its performance characteristics determined by [facility] in a manner consistent with CLIA requirements. This test has not been cleared or approved by the U.S. Food and Drug Administration. Test Performed by: [facility] [address] [place] [address] Neck Fitter: Ryne Matson M.D. Ph.D.; IA# [id number] 24 REFERENCE VALUE Cutoff: 500 25 Presumptive [...] This test has been modified from the cereal maker's instructions. Its performance characteristics were determined by [facility] in a manner consistent with CLIA requirements. This test has not been cleared or approved by the U.S. Food and Drug Administration. Test Performed by: [place] [address] Neck Fitter: Ryne Matson M.D. Ph.D.; CLIA# [id number] 31 Please check labs 2 days before follow up 32 Please check labs 2 days before follow up 33 Please check labs 2 days before follow up 34 Test Performed by: [facility] [place] [address] Neck Fitter: Ryne Matson M.D. Ph.D.; CLIA# [id number] 35 Test Performed by: [place] [address] Neck Fitter: Ryne Maston M.D. Ph.D.; CLIA# [id number] 36 REFERENCE VALUE <30.0 (Negative) Test Performed by: [place] [address] Neck Fitter: Ryne Matson M.D. Ph.D.; CLIA# [id number] 37 White count confirmed by estimate 38 [...] blood. 41 SEE RESULT BELOW Name: CLEMENTINE ALONSO : [address]: Nishant Sandra MD Acct: [id number] Unit: [id number] AGE: 63 Location: [facility] Re11/28/18 SEX: F Status: REG REF SPEC: [id number] LUIS: 11/28/18-1038 [facility] DR: Nishant Sandra MD REQ: [id number] RECD: 11/28/18 STATUS: COMP _ SOURCE: URINE SPDESC: ORDERED: Urine Culture Procedure Result Reported Site Urine Culture Final 11/29/18- 1606 ML No Growth (<1,000 CFU/mL) * ML - Main Lab . END OF REPORT DEPARTMENT OF PATHOLOGY, [address] [place] [address] Amos Lozano M.D. Director [facility] # [id number] 42 Please check labs 2 days before [...] <30.0 (Negative) Test Performed by: [facility] [address] [place] [address] 46 *Ascorbic acid is present which may interfere with detection of blood. Procedures Date Code Description Status 03/27/2019 09332 Fluoroscopic Guidance For Cent Completed 03/27/2019 95977 Ultrasound Guidance For Vascular Access Completed 03/27/2019 03607 Insertion Tunneled Cent Venous Cathr W Subcut Port 5 Completed Yrs Or Oldr 03/14/2019 61208 Admin Of Inj Completed 01/01/2019 52456 Admin Of Inj Completed 12/12/2018 05676 Admin Of Inj Completed 10/31/2018 97895 Holter Monitor Review (24 hr)dr review & interp only Completed 10/29/2018 52300 ECHO Transthoracic, Real-Time 2D With Doppler And Completed Color Flow 10/29/2018 62426 ECHO Transthoracic, Real-Time 2D With Doppler And Completed Color Flow 10/29/2018 72877 ECG Monitor/Recording W/Visual Superimposition Completed Scanning 03/30/2018 [id number] Bone Mineral Density Test Completed Medical Devices Description No Information Available Encounters Type Date Location Provider Dx Diagnosis Office Visit 03/21/2019 Rheumatology Nishant Sandra M32.10 Systemic lupus 11:40a [facility] erythematosus, organ or system involv unsp Z79.899 Other [facility] (current) drug therapy R94.4 Abnormal results of kidney function studies R52 Pain, unspecified Office Visit 03/14/2019 10:20a Rheumatology Nishant R20.8 Other disturbances [facility] M.D. of skin sensation M32.10 Systemic lupus erythematosus, organ or system involv unsp R05 Cough Z79.899 Other [facility] (current) drug therapy Office Visit 02/28/2019 Rheumatology Nishant M32.10 Systemic lupus 3:40p [facility] M.D. erythematosus, organ or system involv unsp Z79.899 Other [facility] (current) drug therapy D64.9 Anemia, unspecified R79.82 Elevated C-reactive protein (CRP) Office Visit 01/30/2019 Rheumatology Nishant M32.9 Systemic lupus 9:20a [facility] M.D. erythematosus, unspecified D64.9 Anemia, unspecified R79.82 Elevated C-reactive protein (CRP) Z79.899 Other [facility] (current) drug therapy Z23 Encounter for immunization F17.210 Nicotine dependence, cigarettes, uncomplicated Office Visit 01/03/2019 Surgical Siddhartha Vyas M32.10 Systemic lupus 9:45a [facility] MD, erythematosus, organ FACS or system involv unsp Office Visit 12/12/2018 Rheumatology Nishant M32.9 Systemic lupus 2:00p [facility] M.D. erythematosus, unspecified D64.9 Anemia, unspecified R79.82 Elevated C-reactive protein (CRP) Z79.899 Other medication care manager (current) drug therapy Office Visit 11/28/2018 Rheumatology Nishant M32.9 Systemic lupus 9:40a [facility] M.D. erythematosus, unspecified D64.9 Anemia, unspecified R79.82 Elevated C-reactive protein (CRP) Z79.899 Other [facility] (current) drug therapy Assessments Date Code Description Provider 04/24/2019 M32.10 Systemic lupus erythematosus, organ or Nishant Sandra M.D. system involvement unspecified 04/24/2019 Z79.899 Other [facility] (current) drug therapy Nishant Sandra M.D. 04/24/2019 [...] M.D. system involvement unspecified 03/21/2019 Z79.899 Other medication care manager (current) drug therapy Nishant Sandra M.D. 03/21/2019 R94.4 Abnormal results of kidney function Nishant Sandra M.D. studies 03/21/2019 R52 Pain, unspecified Nishant Sandra M.D. 03/14/2019 R20.8 Other disturbances of skin sensation Nishant Sandra M.D. 03/14/2019 M32.10 Systemic lupus erythematosus, organ or Nishant Sandra M.D. system involvement unspecified 03/14/2019 R05 Cough Nishant Sandra M.D. 03/14/2019 Z79.899 Other m[facility] (current) drug therapy Nishant Sandra M.D. 02/28/2019 M32.10 Systemic lupus erythematosus, organ or Nishant Sandra M.D. system involvement unspecified 02/28/2019 Z79.899 Other [facility] (current) drug therapy Nishant Sandra M.D. 02/28/2019 [...] (CRP) Nishant Sandra M.D. 01/30/2019 Z79.899 Other [facility] (current) drug therapy Nishant Sandra M.D. 01/30/2019 [...] (CRP) Nishant Sandra M.D. 12/12/2018 Z79.899 Other medication care manager (current) drug therapy Nishant Sandra M.D. 11/28/2018 M32.9 Systemic lupus erythematosus, unspecified Nishant Sandra M.D. 11/28/2018 D64.9 Anemia, unspecified Nishant Sandra M.D. 11/28/2018 R79.82 Elevated C-reactive protein (CRP) Nishant Sandra M.D. 11/28/2018 Z79.899 Other medication care manager (current) drug therapy Nishant Sandra M.D. 10/31/2018 R00.1 Bradycardia, unspecified Siddhartha Dumont, DO FAC 10/29/2018 R94.31 Abnormal electrocardiogram [ECG] [EKG] Siddhartha Dumont, DO FAC 10/29/2018 R94.31 Abnormal electrocardiogram [ECG] [EKG] Ica ECHO Schedule 10/29/2018 R00.1 Bradycardia, unspecified Nurse Visit IC Plan of Treatment Future Appointment(s):06/05/2019 1:40 pm - Nishant Sandra M.D. at [facility]04/24/2019 - Nishant Sandra M.D.M32.10 Systemic lupus erythematosus, organ or system involvement unspecifiedFollow up:Follow up in 6 weeks or sooner if arthzgV90.899 Other [facility] (current) drug cwfjzyvE94.4 Abnormal results of kidney function owodakuG49.8 Other disturbances of skin sensation Functional Status Description No Information Available Mental Status Description No Information Available Referrals Refer to Reason for Referral Status Appt Date Siddhartha Mills MD Please evaluate patient for port placement as she Sent has poor IV access and needs IVIG [address] [facility] [address] [phone] Leyla Diehl MD Please evaluate for causes of hematuria and Sent proteinuria, history of lupus [address] [facility] [id number] [phone]
--- OUTSIDE RECORDS SUMMARY | 2019-06-07 10:19 | XMS REPORT | Continuity of Care Document ---
:1955 External Reference #:[id number] Author Name Saw Ross MD (transmitted by agent of provider Clarisa Schilling) Address [address], [place] [address] Care Team Providers Name Role Phone Aby Platt M.D. 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 Onset: 09/27/2017 Note: Says she had tonic-clonic seizures in [place] cared for by a neurologist in [facility] (Usman Gomez sp?). 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 As of May 2018 the [place] reports are pending. Alcohol withdrawal syndrome Concepcion Leblanc N.P. Onset: 11/26/2017 Note: Patient description of 3 day relapse upon return from [place] in early May 2018 does correspond to [...] or fewer cigarettes/day) Exercise Type/Frequency Exercises regularly Double the Donation program "Walk off the pounds" Allergies, Adverse Reactions, Alerts Active Allergies Reaction Severity Comments Date Sulfa Antibiotics rash 10/19/2017 Peterson anaphylaxis 10/19/2017 Steroids pychosis 10/19/2017 Fioricet avoids [...] Wax stretching and M.D. osteoarthritis m72 CBD Pima apply every 12 hours 5units Nishant Sandra, [...] Code Status Date Vaccine Reaction Lot # [id number] Given 01/30/2019 Influenza Virus Vaccine, Patient denies ever [id number] Quadrivalent, Split, having a serious Preservative Free reaction to eggs or egg products, ever having a serious reaction or other problem after getting influenza vaccination, ever being diagnosed with Rykqimg-Hnltv-Tesihvdy , possibility of being , fever or [...] tolerated injection w/ no immediate adverse effect. 32391 Given 08/23/2018 Pneumococcal Conjugate no immediate reaction [id number] Vaccine 13 Valent For noted Intramuscular Use [...] Result H/L Range Note Laboratory test 03/21/2019 [facility] Alcohol < 10 mg/dL Normal <10 finding [address] [place] [address] [phone] Comp Metabolic 03/21/2019 [facility] Sodium 134 mmol/L Low 135 -145 Panel [address] [place], [place] [address] [phone] Potassium 4.6 mmol/L Normal 3.5-5.0 Chloride 105 [...] 51.6 >60 1 Laboratory test finding 03/21/2019 [facility] LDH 193 U/L Normal 140-[address] [place] [address] [phone] C Reactive Protein 1.66 mg/L Normal <8.01 CBC Auto 03/21/2019 [facility] White Blood 3.8 10^3/uL Normal 3.5-10.[address] [place] [address] [phone] Red Blood Count 3.77 10^6/uL Normal 3.70-4.87 [...] Blood Cells % 0.1 Laboratory test 03/21/2019 [facility] Erythrocyte Sed 43 mm/Hr High 0-[address] [place] [address] [phone] Connective 03/21/2019 [facility] Anti-Nuclear 1.2 U High 2 Tissue Panel [address] [place] [address] [phone] Cyclic Citrullinated Peptide <15.6 U 3 Interpretation See Comment 4 CBC Auto 03/14/2019 [facility] White Blood 2.5 10^3/uL Low 3.5 -10.[address] [place] [address] [phone] Red Blood Count 3.59 10^6/uL Low 3.70-4.87 [...] Blood Cells % 0.0 Comp Metabolic 03/14/2019 [facility] Sodium 137 mmol/L Normal 135-[address] [place] [address] [phone] Potassium 4.3 mmol/L Normal 3.5-5.0 Chloride 105 [...] Egfr 40.9 >60 5 Laboratory test 03/14/2019 [facility] Erythrocyte Sed 82 mm/Hr High 0-[address] [place] [address] [phone] C Reactive Protein 3.20 mg/L Normal <8.01 Magnesium 2.1 mg/dL Normal 1.9-2.7 Vitamin B12 03/14/2019 [facility] Vitamin B12 420 pg/mL Normal 180-914 [address] [place] [address] [phone] Folic Acid (Folate) > 20.00 ng/mL >3.99 Laboratory test 03/14/2019 [facility] Creatine 80 U/L Normal 10-[address] Kinase(CK) [place] [address] [phone] Laboratory test 02/28/2019 [facility] Miscellaneous See 7, finding [address] Test Comment 8 [place] [address] [phone] Urine 02/28/2019 [facility] Urine Lorazepam Negative [address] GC/MS ng/[place] [address] [phone] Urine Nordiazepam GC/MS Negative ng/mL 10 Urine [...] Ur Benzodiazepine Interp Positive. 17 Barbiturate 02/28/2019 [facility] Urine Butalbital Negative ng/ mL 18 Confirm Urine [address] by GC/[place] [address] [phone] Urine Amobarbital by GC/MS Negative ng/mL 19 Urine Pentobarbital by GC/MS Negative ng/mL 20 Urine Secobarbital by GC/MS Negative ng/mL 21 Urine Phenobarbital by GC/MS Negative ng/mL 22 Urine Barbiturates Interp Negative. 23 Drug Abuse 02/28/2019 [facility] Urine Negative Cutoff: 10 W/Confirm, Ur [address] Alcohol mg/[place] [address] [phone] Urine Amphetamine Negative ng/mL 24 Urine Barbiturates Presumptive Posi <SEE NOTE> ng/mL Abnormal 25 Urine Benzodiazepines Presumptive Posi <SEE NOTE> ng/mL Abnormal 26 Urine Cocaine Negative ng/mL 27 Urine Methadone Negative ng/mL Negative 28 Urine Opiates Negative ng/mL Negative 29 Urine Phencyclidine Negative ng/mL Cutoff: 25 Urine Tetrahydrocannabinol Negative ng/mL Cutoff: 50 30 Laboratory test 02/25/2019 [facility] C Reactive 1.83 Normal < 8.01 31, [address] Protein mg/[place] [address] [phone] Erythrocyte Sed Rate 50 mm/Hr High 0-29 33 Complement C3 90 mg/dL 75 - 175 34 Complement C4 19 mg/dL 14 - 40 35 Anti Double Stranded Dna AB 16.0 IU/mL 36 CBC Auto 02/25/2019 [facility] White Blood 5.1 10^3/uL Normal 3.5-10.8 [address] [place] [address] [phone] Red Blood Count 3.51 10^6/uL Low 3.70-4.87 [...] Blood Cells % 0.2 Comp Metabolic 02/25/2019 [facility] Sodium 137 mmol/L Normal 135-[address] [place] [address] [phone] Potassium 4.4 mmol/L Normal 3.5-5.0 Chloride 105 [...] >60 Egfr 73.2 >60 39 Laboratory 02/25/2019 [facility] TSH (Thyroid 2.38 Normal 0.34 -5.60 test finding [address] [place] [address] Stim Horm) mcIU/[place] [address] [phone] Urinalysis 11/28/2018 [facility] Urine Color Yellow Profile [address] [place] [address] [phone] Urine Appearance Clear Urine Specific Imperial 1.015 Normal 1.010-1.030 Urine pH 7.0 Normal [...] Present Abnormal Absent Urine Culture And 11/28/2018 [facility] Urine Culture SEE RESULT [address] [place] [address] [phone] Laboratory test 10/25/2018 [facility] Erythrocyte Sed 46 mm/Hr High 0-29 [address] [place] [address] [phone] C Reactive Protein 14.82 mg/L High <8.01 43 CBC Auto 10/25/2018 [facility] White Blood 4.2 10^3/uL Normal 3.5-10.[address] [place] [address] [phone] Red Blood Count 3.74 10^6/uL Normal 3.70-4.87 [...] Blood Cells % 0.0 Comp Metabolic 10/25/2018 [facility] Sodium 136 mmol/L Normal 135-[address] [place] [address] [phone] Chloride 104 mmol/L Normal 101-111 Co2 Carbon [...] 5 mmol/L Normal 2-11 Laboratory test 10/25/2018 [facility] Anti Double 13.7 IU/mL 45 finding [address] Stranded Dna AB [place], [place] [address] [phone] Urinalysis Profile 10/25/2018 [facility] Urine Color Yellow [address] [place], [place] [address] [phone] Urine Appearance Cloudy Urine Specific Imperial 1.014 Normal 1.010-1.030 Urine pH 6.0 Normal [...] or = 3.0 U. Studies performed at [facility] indicate that positive ARMAND results <3.0 U are rarely accompanied by positive second order tests. Test Performed by: [facility] [place] [address] Marker Hand: Ryne Matson M.D. Ph.D.; CLIA# [id number] 5 Because ethnic data is not always [...] 145 to 180 Deficient Range <145 7 [id number] Test Result Flag Unit RefValue Ethyl Glucuronide Confirmation, U Ethyl Glucuronide 47889 ng/mL REFERENCE VALUE Cutoff: 250 Ethyl Sulfate 89464 ng/mL REFERENCE VALUE Cutoff: 100 Ethyl Gluc/Sulfate [...] developed and its performance characteristics determined by [facility] in a manner consistent with CLIA requirements. This test has not been cleared or approved by the U.S. Food and Drug Administration. Test Performed by: [facility] [address] [place] [address] Marker Hand: Ryne Matson M.D. Ph.D.; CLIA# [id number] 9 REFERENCE VALUE Cutoff: 100 10 REFERENCE [...] developed and its performance characteristics determined by [facility] in a manner consistent with CLIA requirements. This test has not been cleared or approved by the U.S. Food and Drug Administration. Test Performed by: [facility] [address] [place] [address] Marker Hand: Ryne Matson M.D. Ph.D.; CLIA# [id number] 18 REFERENCE VALUE Cutoff: 100 19 REFERENCE VALUE Cutoff: 100 20 REFERENCE VALUE Cutoff: 100 21 REFERENCE VALUE Cutoff: 100 22 REFERENCE VALUE Cutoff: 100 23 ADDITIONAL INFORMATION This report is intended for use in clinical monitoring and management of patients. It is not intended for use in employment-related testing. This test was developed and its performance characteristics determined by [facility] in a manner consistent with CLIA requirements. This test has not been cleared or approved by the U.S. Food and Drug Administration. Test Performed by: [facility] [address] [place] [address] Marker Hand: Ryne Matson M.D. Ph.D.; IA# [id number] 24 REFERENCE VALUE Cutoff: 500 25 Presumptive [...] This test has been modified from the assistant plant manager's instructions. Its performance characteristics were determined by [facility] in a manner consistent with CLIA requirements. This test has not been cleared or approved by the U.S. Food and Drug Administration. Test Performed by: [place] [address] Marker Hand: Ryne Matson M.D. Ph.D.; CLIA# [id number] 31 Please check labs 2 days before follow up 32 Please check labs 2 days before follow up 33 Please check labs 2 days before follow up 34 Test Performed by: [place] [address] Marker Hand: Ryne Matson M.D. Ph.D.; CLIA# [id number] 35 Test Performed by: [place] [address] Marker Hand: Ryne Matson M.D. Ph.D.; CLIA# [id number] 36 REFERENCE VALUE <30.0 (Negative) Test Performed by: [place] [address] Marker Hand: Ryne Matson M.D. Ph.D.; CLIA# [id number] 37 White count confirmed by estimate 38 [...] [address]: Nishant Sandra MD Acct: [id number] Unit: [id number] AGE: 63 Location: [facility] Re11/28/18 SEX: F Status: REG REF SPEC: [id number] LUIS: 11/28/18-[address] [place] [address] DR: Nishant Sandra MD REQ: [id number] RECD: 11/28/18 STATUS: COMP _ SOURCE: URINE SPDESC: ORDERED: Urine Culture Procedure Result Reported Site Urine Culture Final 11/29/18- 1606 ML No Growth (<1,000 CFU/mL) * ML - Main Lab . END OF REPORT DEPARTMENT OF PATHOLOGY, [address] [place] [address] Amos Lozano M.D. Director [facility] # [id number] Please check labs 2 days before [...] REFERENCE VALUE <30.0 (Negative) Test Performed by: [facility] [address] [place] [address] 46 *Ascorbic acid is present which may interfere with detection of blood. Procedures Date Code Description Status 03/27/2019 54451 Fluoroscopic Guidance For Cent Completed 03/27/2019 32531 Ultrasound Guidance For Vascular Access Completed 03/27/2019 28961 Insertion Tunneled Cent Venous Cathr W Subcut Port 5 Completed Yrs Or Oldr 03/14/2019 25392 Admin Of Inj Completed 01/01/2019 52594 Admin Of Inj Completed 12/12/2018 08198 Admin Of Inj Completed 10/31/2018 98949 Holter Monitor Review (24 hr)dr review & interp only Completed 10/29/2018 28057 ECHO Transthoracic, Real-Time 2D With Doppler And Completed Color Flow 10/29/2018 19177 ECHO Transthoracic, Real-Time 2D With Doppler And Completed Color Flow 10/29/2018 61889 ECG Monitor/Recording W/Visual Superimposition Completed Scanning 03/30/2018 675110112 Bone Mineral Density Test Completed Medical Devices Description No Information Available Encounters Type Date Location Provider Dx Diagnosis Office Visit 03/21/2019 Rheumatology Nishant Sandra M32.10 Systemic lupus 11:40a [facility] erythematosus, organ or system involv unsp Z79.899 Other snf (current) drug therapy R94.4 Abnormal results of kidney function studies R52 Pain, unspecified Office Visit 03/14/2019 10:20a Rheumatology Nishant R20.8 Other disturbances [facility] M.D. of skin sensation M32.10 Systemic lupus erythematosus, organ or system involv unsp R05 Cough Z79.899 Other terminal carman (current) drug therapy Office Visit 02/28/2019 Rheumatology Nishant M32.10 Systemic lupus 3:40p [facility] M.D. erythematosus, organ or system involv unsp Z79.899 Other snf (current) drug therapy D64.9 Anemia, unspecified R79.82 Elevated C-reactive protein (CRP) Office Visit 01/30/2019 Rheumatology Nishant M32.9 Systemic lupus 9:20a [facility] M.D. erythematosus, unspecified D64.9 Anemia, unspecified R79.82 Elevated C-reactive protein (CRP) Z79.899 Other snf (current) drug therapy Z23 Encounter for immunization F17.210 Nicotine dependence, cigarettes, uncomplicated Office Visit 01/03/2019 Surgical Siddhartha Vyas M32.10 Systemic lupus 9:45a [facility] MD, erythematosus, organ FACS or system involv unsp Office Visit 12/12/2018 Rheumatology Nishant M32.9 Systemic lupus 2:00p [facility] M.D. erythematosus, unspecified D64.9 Anemia, unspecified R79.82 Elevated C-reactive protein (CRP) Z79.899 Other snf (current) drug therapy Office Visit 11/28/2018 Rheumatology Nishant M32.9 Systemic lupus 9:40a [facility] M.D. erythematosus, unspecified D64.9 Anemia, unspecified R79.82 Elevated C-reactive protein (CRP) Z79.899 Other terminal carman (current) drug therapy Assessments Date Code Description Provider 03/27/2019 I99.8 Other disorder of circulatory system Siddhartha Mills MD, FACS 03/27/2019 M32.10 Systemic lupus erythematosus, organ or Siddhartha Mills MD , FACS system involvement unspecified 03/21/2019 M32.10 Systemic lupus erythematosus, organ or Nishant Sandra M.D. system involvement unspecified 03/21/2019 Z79.899 Other snf (current) drug therapy Nishant Sandra M.D. 03/21/2019 R94.4 Abnormal results of kidney function Nishant Sandra M.D. studies 03/21/2019 R52 Pain, unspecified Nishant Sandra M.D. 03/14/2019 R20.8 Other disturbances of skin sensation Nishant Sandra M.D. 03/14/2019 M32.10 Systemic lupus erythematosus, organ or Nishant Sandra M.D. system involvement unspecified 03/14/2019 R05 Cough Nishant Sandra M.D. 03/14/2019 Z79.899 Other terminal carman (current) drug therapy Nishant Sandra M.D. 02/28/2019 M32.10 Systemic lupus erythematosus, organ or Nishant Sandra M.D. system involvement unspecified 02/28/2019 Z79.899 Other terminal carman (current) drug therapy Nishant Sandra M.D. 02/28/2019 [...] (CRP) Nishant Sandra M.D. 01/30/2019 Z79.899 Other snf (current) drug therapy Nishant Sandra M.D. 01/30/2019 [...] (CRP) Nishant Sandra M.D. 12/12/2018 Z79.899 Other terminal carman (current) drug therapy Nishant Sandra M.D. 11/28/2018 M32.9 Systemic lupus erythematosus, unspecified Nishant Sandra M.D. 11/28/2018 D64.9 Anemia, unspecified Nishant Sandra M.D. 11/28/2018 R79.82 Elevated C-reactive protein (CRP) Nishant Sandra M.D. 11/28/2018 Z79.899 Other snf (current) drug therapy Nishant Sandra M.D. 10/31/2018 R00.1 Bradycardia, unspecified Siddhartha Dumont, DO [facility] 10/29/2018 R94.31 Abnormal electrocardiogram [ECG] [EKG] Siddhartha Dumont, DO FAC 10/29/2018 R94.31 Abnormal electrocardiogram [ECG] [EKG] Ica ECHO Schedule 10/29/2018 R00.1 Bradycardia, unspecified Nurse Visit IC Plan of Treatment Future Appointment(s):04/24/2019 3:20 pm - Nishant Sandra M.D. at [facility] Functional Status Description No Information Available Mental Status Description No Information Available Referrals Refer to Dr Reason for Referral Status Appt Date Siddhartha Mills MD Please evaluate patient for port placement as she Sent has poor IV access and needs IVIG [address] [facility] [address] [phone] Leyla Diehl MD Please evaluate for causes of hematuria and Sent proteinuria, history of lupus [address] [facility] [address] [phone]
--- OUTSIDE RECORDS SUMMARY | 2019-06-07 10:19 | XMS REPORT | Continuity of Care Document ---
:1955 External Reference #:[id number] Author Name Aby Platt MD (transmitted by agent of provider Katiuska Rodrigues) Address [address] [place] [address] Problems Active Problems Provider Date Tobacco dependence syndrome Onset: 11/05/2018 Type 2 diabetes mellitus Onset: 07/30/2018 Sjogren's syndrome Onset: 07/30/2018 Seizure disorder Onset: 07/30/2018 SLE glomerulonephritis syndrome Onset: 07/30/2018 Lupus erythematosus Onset: 07/30/2018 Graves' disease Onset: 07/30/2018 Carpal tunnel syndrome Olaf Portillo MD Onset: 11/30/2018 Chronic kidney disease Olaf Portillo MD Onset: 11/30/2018 Alcohol withdrawal syndrome Onset: 11/26/2017 Note: Detox admission Jan 2019, Dr. Sandra test Feb 2019 shows heavy drinking Bipolar disorder Onset: 09/27/2017 Hypothyroidism Onset: 11/26/2017 Iron deficiency anemia Onset: 04/09/2018 Seizure Onset: 09/27/2017 Systemic lupus erythematosus Onset: 12/04/2017 Proteinuria Olaf Portillo MD Onset: 12/01/2018 Note: Poss nephritis given lupus dx Constipation Onset: 12/10/2018 Essential hypertension Onset: 12/17/2018 Incontinence of feces Onset: 12/10/2018 Nausea Onset: 12/10/2018 Mild major depression, single episode Olaf Portillo MD Onset: 03/14/2019 Inactive Problems Abdominal pain Onset: 12/10/2018 Inactive: 04/19/2019 Diarrhea Onset: 12/10/2018 Inactive: 04/19/2019 Pneumonia Olaf Portillo MD Onset: 03/14/2019 Inactive: 04/19/2019 Note: Admission Jan 2019, "intubated twice" Social History Type Date Description Comments Sex Female Tobacco Use Start: Unknown Light tobacco smoker (10 or fewer cigarettes/day) Smoking Status Reviewed: 05/22/19 Light tobacco smoker (10 or fewer cigarettes/day) Allergies, Adverse Reactions, Alerts Active Allergies Reaction Severity Comments Date Fioricet 12/01/2018 Methotrexate 12/17/2018 [facility] 12/01/2018 Soma 12/01/2018 Sulfa Antibiotics 12/01/2018 Buspirone Hydrochloride rash (per old records) 11/23/2018 Ketorolac Tromethamine itching and rash (per 11/23/2018 old records) [facility] Analogues anaphylaxis (per old 11/23/2018 records) Methotrexate [...] Medications SIG Qnty Indications Ordering Date Provider Liothyronine Sodium Take One Tablet 30tabs Aby Platt, 04/17/2019 5mcg By Mouth Once MD Tablets Daily Amlodipine Besylate oral; take 1 90tabs I10 Aby Platt, 03/08/2019 10mg tablet by mouth MD Tablets once daily Lipitor 1 tab by [...] 5units Nishant Sandra 11/28/2018 80Unit/ML Gel Clonazepam take one tablet 28tabs Aby Wineholt, 11/26/2018 1mg Tablets by mouth once MD daily *maximum of 1 tablet daily" Gabapentin take one tablet 270tabs Nishant Sandra 10/24/2018 600mg Tablets by mouth three times a day Clonidine HCL 1 twice daily 180tabs Unknown 09/13/2018 0.2mg Tablets Oral Simvastatin 1 daily Oral 90tabs Unknown 09/13/2018 40mg Tablets CBD Tripp apply every 12 5units BoazNishant tyson 08/23/2018 4-3-9-1.2% hours as needed Patches to painful regions Naltrexone HCL 1 daily Oral 30units Unknown 08/22/2018 Powder Cellcept take one tablet 60tabs M32.9 BoazNishant 08/08/2018 500mg Tablets by mouth daily for 1 week then take 1 tab twice daily ongoing - On Hold Per as Of 08/31/18 Folic Acid 1 daily Oral Unknown 08/02/2018 1mg Tablets Fluoxetine HCL 1 daily Oral Unknown 08/02/2018 40mg Capsules Ferrous Sulfate 1 daily Oral Unknown 08/02/2018 325(65Fe) mg Tablets Prozac 1 every morning 30caps Aby Platt, 07/30/2018 40mg Capsules oral Meclizine HCL take one 60tabs Nishant Sandra [...] Unknown 100mcg Tablets Lamotrigine Unknown 200mg Tablets Clonidine HCL Take 1 Tablet Unknown 0.1mg Tablets By Mouth Every 8 Hours Naltrexone HCL Take 1/2 Tab By Unknown 50mg Tablets Mouth Every Day Am For 7 Days Then 1 Tab In The Morning Aripiprazole Unknown 2mg Tablets History Medications Cytomel 1 tab by mouth 30tabs Aby Platt MD 03/29/2019 - 5mcg Tablets daily 04/17/2019 Amlodipine Besylate 1 by mouth 30tabs I10 MELISSA Fox 02/06/2019 - every day 03/08/2019 5mg Tablets Immunizations CPT Code Status Date Vaccine Lot # [id number] Given 08/23/2018 Prevnar 13 Vital Signs Date Vital Result Comment 05/22/2019 8:51am BP Systolic 154 mmHg BP Diastolic 84 mmHg Height 62.75 inches 5'2.75" Weight 140.00 lb Heart Rate 57 /min Body Temperature 97.7 F O2 % BldC Oximetry 99 % BMI (Body Mass Index) 25.0 kg/m2 04/19/2019 9:34am BP Systolic 144 mmHg BP Diastolic 96 mmHg Height 62.75 inches 5'2.75" Weight 141.00 lb Heart Rate 80 /min Body Temperature 98.4 F O2 % BldC Oximetry 99 % BMI (Body Mass Index) 25.2 kg/m2 Results Test Acquired Facility Test Result H/L Range Note Date Laboratory 02/28/2019 [facility] Miscellaneous See [address] Test Comment [place], [place] [id number] [phone] Laboratory 02/28/2019 [facility] Miscellaneous See [address] [place] [address] [phone] Laboratory 02/25/2019 [facility] TSH (Thyroid Stim 2.38 Normal 0.34-5.[address] Horm) mcIU/mL 0 [place], [place] [id number] [phone] Comp Metabolic 02/25/2019 [facility] Sodium 137 mmol/L Normal 135-[address] [place] [address] [phone] Potassium 4.4 mmol/L Normal 3.5-5.0 Chloride 105 [...] Egfr Non- 60.5 >60 Egfr 73.2 >60 4 Laboratory test 02/25/2019 [facility] C Reactive 1.83 mg/L Normal <8.01 [address] [place] [address] [phone] CBC Auto Diff 02/25/2019 [facility] White Blood 5.1 Normal 3.5 -10.[address] Count 10^3/[place] [address] [phone] Red Blood Count 3.51 10^6/uL Low 3.70-4.87 Hemoglobin 12.1 g/dL Normal 12.0-16.0 Hematocrit 36 % Normal 35-47 Mean Corpuscular Volume 102 fL High 80-97 Mean Corpuscular Hemoglobin 34 pg High 27-31 Mean Corpuscular HGB Conc 34 g/dL Normal 31-36 Red Cell Distribution Width 16 % High 10-15 Platelet Count 165 10^3/uL Normal 150-450 7 Mean Platelet Volume 9.1 fL Normal 7.4-10.4 [...] Blood Cells % 0.2 Laboratory test 02/25/2019 [facility] Erythrocyte Sed 50 mm/Hr High 0-29 [address] [place] [address] [phone] Complement C3 90 mg/dL 75 - 175 9 Complement C4 19 mg/dL 14 - 40 10 Anti Double Stranded Dna AB 16.0 IU/mL 11 Lipid Panel 01/23/2019 N2N/CCD Import Cholesterol Total Mass/Vol 284 High Density Lipoprotein 70 LDL Cholesterol Mass/Vol 196 Triglycerides QN Ser/PLS MCNC 92 T3,FT4,TSH 01/23/2019 N2N/CCD Import T3 Total Serum/Plasma MCNC 2.3 T4 Free Thyroxine Mass/Vol 0.38 TSH Thyroid Stimulating Horm 96.76 CBC Auto 12/20/2018 [facility] White Blood 4.6 10^3/uL Normal 3.5-10.[address] [place] [address] [phone] Red Blood Count 3.79 10^6/uL Normal 3.70-4.87 [...] Blood Cells % 0.1 Laboratory test 12/20/2018 [facility] Lactic Acid 1.1 mmol/L Normal 0.5-2.0 [address] [place] [address] [phone] Comp Metabolic 12/20/2018 [facility] Potassium 3.8 mmol/L Normal 3.5-5.[address] [place] [address] [phone] Co2 Carbon Dioxide 24 mmol/L Normal 22-32 [...] Egfr Non- 54.4 >60 Egfr 65.8 >60 13 Sodium 147 mmol/L High 135-145 Chloride 113 mmol/L High 101-111 Anion Gap 10 mmol/L Normal 2-11 Laboratory test 12/20/2018 [facility] Creatine 74 U/L Normal 10-[address] Kinase [place], [place] [address] [phone] Troponin I 0.01 ng/mL <0.04 14 Acetaminophen < 15 g/mL 15 Alcohol 340 mg/dL High <10 Salicylate < 2.50 mg/dL <30 TSH (Thyroid Stim Horm) 11.44 mcIU/mL High 0.34-5.60 1 Test Result Flag Unit RefValue Ethyl Glucuronide Scrn w/Reflex, U Ethyl Presumptive Positive A ng/mL Glucuronide Screen, U Drug confirmation to follow. Presumptive Positive means that the screening method is positive, but the test needs to be run by a confirmatory method. REFERENCE VALUE Cutoff: 500 ADDITIONAL INFORMATION This test was developed and its performance characteristics determined by [facility] in a manner consistent with CLIA requirements. This test has not been cleared or approved by the U.S. Food and Drug Administration. Test Performed by: [facility] [address] [place] [address] Cigar Packer And Grader: Ryne Matson M.D. Ph.D.; CLIA# [id number] 2 Test Result Flag Unit RefValue Ethyl Glucuronide Confirmation, U Ethyl Glucuronide 57059 ng/mL REFERENCE VALUE Cutoff: 250 Ethyl Sulfate 26043 ng/mL REFERENCE VALUE Cutoff: 100 Ethyl Gluc/Sulfate [...] developed and its performance characteristics determined by [facility] in a manner consistent with CLIA requirements. This test has not been cleared or approved by the U.S. Food and Drug Administration. Test Performed by: [place] [address] Cig[employer] Packer And Grader: Ryne Matson M.D. Ph.D.; CLIA# [id number] 3 Please check labs 2 days before follow up 4 Because ethnic data is not always readily [...] 15-29 5 Kidney failure <15 (or dialysis) 5 Please check labs 2 days before follow up 6 White count confirmed by estimate 7 Platelet count confirmed by estimate 8 Please check labs 2 days before follow up 9 Test Performed by: [place] [address] Cig[employer] Packer [employer] Grader: Ryne Matson M.D. Ph.D.; CLIA# [id number] 10 Test Performed by: [place] [address] Cig[employer] Packer And Grader: Ryne Matson M.D. Ph.D.; CLIA# [id number] 11 REFERENCE VALUE <30.0 (Negative) Test Performed by: [facility] [address], [place] [address] Cigar Packer And Grader: Ryne Matson M.D. Ph.D.; IA# [id number] 12 [facility] Severe Sepsis and Septic Shock Management Bundle Measure requires all lactic acids initially measuring >2.0 mmol/L be repeated. 13 Because ethnic data is not always readily [...] 15-29 5 Kidney failure <15 (or dialysis) 14 Troponin-I testing on Plasma Separator Tubes (PST) has a known false positive rate of 0.20-0.40%. All positive troponins reflex immediately to secondary confirmatory testing. Using the [employer] DxI 800 Access Immunoassay systems, the 99th percentile upper reference limit was demonstrated to be < 0.03 ng/mL. 15 Therapeutic concentration: <50 ug/mL Toxic concentration: >120 ug/mL Procedures Description No Information Available Medical Devices Description No Information Available Encounters Type Date Location Provider Dx Diagnosis Office Visit 05/22/2019 VAISHNAVI Platt MD L98.9 Disorder of the skin 8:45a and subcutaneous tissue, unspecified F41.9 Anxiety disorder, unspecified Office Visit 04/19/2019 9:30a VAISHNAVI Platt MD F41.9 Anxiety disorder, unspecified I10 Essential (primary) hypertension F10.929 Alcohol use, unspecified with intoxication, unspecified Office Visit 03/08/2019 10:15a VAISHNAVI Platt MD I10 Essential ( primary) hypertension F41.9 Anxiety disorder, unspecified F10.11 Alcohol abuse, in remission Office Visit 02/06/2019 10:00a [facility] Lorna Stewart, [employer] I10 Essential ( primary) hypertension Office Visit 01/16/2019 11:30a [facility] Lorna Stewart, [employer] I10 Essential ( primary) hypertension Office Visit 12/31/2018 9:45a [facility] Aby Platt MD F41.9 Anxiety disorder, unspecified Assessments Date Code Description Provider 05/22/2019 L98.9 Disorder of the skin and subcutaneous tissue, Aby Platt MD unspecified 05/22/2019 F41.9 Anxiety disorder, unspecified Aby Platt MD 04/19/2019 F41.9 Anxiety disorder, unspecified Aby Platt MD 04/19/2019 I10 Essential (primary) hypertension Aby Platt MD 04/19/2019 F10.929 Alcohol use, unspecified with intoxication, Aby Platt MD unspecified 03/08/2019 I10 Essential (primary) hypertension Aby Platt MD 03/08/2019 F41.9 Anxiety disorder, unspecified Aby Platt MD 03/08/2019 F10.11 Alcohol abuse, in remission Aby Platt MD 02/06/2019 I10 Essential (primary) hypertension Lorna [place], [facility] 01/16/2019 I10 Essential (primary) hypertension Lorna Stewart, [facility] 12/31/2018 F41.9 Anxiety disorder, unspecified Aby Platt MD Plan of Treatment 05/22/2019 - Aby Platt MDL98.9 Disorder of the skin and subcutaneous tissue, unspecifiedReferral:Patient Choice,F41.9 Anxiety disorder, unspecifiedAllComments:Discussed that I do not have recent bloodwork from Dr. Sandra. She has a F/U appt scheduled so should discuss results with him. Functional Status Description No Information Available Mental Status Description No Information Available Referrals Refer to Reason for Referral Status Appt Date Patient Choice Patient with lupus now having skin Created wounds/excoriations that are slow healing without infections. Patient interested in diagnosis if there is an underlying rash or concern as to why her skin has changed. Patient Choice Chronic pain in the setting of severe lupus. Scheduled Rajat Millard Type II diabetes and Graves disease- needing to transfer Sent care to a local medicare coordinator as she is not able to travel to see her old medicare coordinator This is a level 3 referral, which is defined by [facility] as needing to be seen within four weeks. [address] [place] [address] [phone]
--- OUTSIDE RECORDS SUMMARY | 2019-06-07 10:19 | XMS REPORT | Continuity of Care Document ---
:1955 External Reference #:[id number] Author Name Aby Platt MD (transmitted by agent of provider Sugey Delarosa) Address [address] [place] [address] Problems Active Problems Provider Date Tobacco dependence [...] Severity Comments Date Fioricet 12/01/2018 Methotrexate 12/17/2018 [place] 12/01/2018 Soma 12/01/2018 Sulfa Antibiotics 12/01/2018 Buspirone Hydrochloride rash (per old records) 11/23/2018 Ketorolac Tromethamine itching and rash (per 11/23/2018 old records) [place] Analogues anaphylaxis (per old 11/23/2018 records) Methotrexate [...] Oral 90tabs Unknown 09/13/2018 40mg Tablets CBD Quitman apply every 12 5units BoazNishant tyson 08/23/2018 [...] CPT Code Status Date Vaccine Lot # [id number] Given 08/23/2018 Prevnar 13 Vital Signs Date [...] Result H/L Range Note Date Laboratory 02/28/2019 [facility] Miscellaneous See 1 test finding [address] Test Comment [place], [place] [id number] [phone] Laboratory 02/28/2019 [facility] Miscellaneous See [address] [place] [address] [phone] Laboratory 02/25/2019 [facility] TSH (Thyroid Stim 2.38 Normal 0.34-5.[address] Horm) mcIU/mL 0 [place], [place] [id number] [phone] Comp Metabolic 02/25/2019 [facility] Sodium 137 mmol/L Normal 135-[address] [place] [address] [phone] Potassium 4.4 mmol/L Normal 3.5-5.0 Chloride 105 [...] Egfr 73.2 >60 4 Laboratory test 02/25/2019 [facility] C Reactive 1.83 mg/L Normal <8.01 [address] [place] [address] [phone] CBC Auto Diff 02/25/2019 [facility] White Blood 5.1 Normal 3.5 -10.[address] Count 10^3/[place] [address] [phone] Red Blood Count 3.51 10^6/uL Low 3.70-4.87 [...] Blood Cells % 0.2 Laboratory test 02/25/2019 [facility] Erythrocyte Sed 50 mm/Hr High 0-29 [address] [place] [address] [phone] Complement C3 90 mg/dL 75 - 175 [...] Thyroid Stimulating Horm 96.76 CBC Auto 12/20/2018 [facility] White Blood 4.6 10^3/uL Normal 3.5-10.[address] [place] [address] [phone] Red Blood Count 3.79 10^6/uL Normal 3.70-4.87 [...] Blood Cells % 0.1 Laboratory test 12/20/2018 [facility] Lactic Acid 1.1 mmol/L Normal 0.5-2.0 [address] [place] [address] [phone] Comp Metabolic 12/20/2018 [facility] Potassium 3.8 mmol/L Normal 3.5-5.[address] [place] [address] [phone] Co2 Carbon Dioxide 24 mmol/L Normal 22-32 [...] 10 mmol/L Normal 2-11 Laboratory test 12/20/2018 [facility] Creatine 74 U/L Normal 10-[address] [place] [address] [phone] Troponin I 0.01 ng/mL <0.04 14 Acetaminophen < 15 g/mL 15 Alcohol 340 mg/dL High <10 Salicylate < 2.50 mg/dL <30 TSH (Thyroid Stim Horm) 11.44 mcIU/mL High 0.34-5.60 Urinalysis Profile 11/28/2018 N2N/CCD Import Urine Color Yellow Urine Appearance Clear Urine Specific Orrum 1.015 1 1.010-1.030 Urine pH 7.0 1 [...] 11/28/2018 N2N/CCD Import Urine Culture See Result 17 Sensitivities Below 1 Test Result Flag Unit RefValue Ethyl Glucuronide Scrn w/Reflex, U Ethyl Presumptive Positive A ng/mL Glucuronide Screen, U Drug confirmation to follow. Presumptive Positive means that the screening method is positive, but the test needs to be run by a confirmatory method. REFERENCE VALUE Cutoff: 500 ADDITIONAL INFORMATION This test was developed and its performance characteristics determined by [facility] in a manner consistent with CLIA requirements. This test has not been cleared or approved by the U.S. Food and Drug Administration. Test Performed by: [facility] [address] [place] [address] Clinical Care Manager: Ryne Matson M.D. Ph.D.; CLIA# [id number] 2 Test Result Flag Unit RefValue Ethyl Glucuronide Confirmation, U Ethyl Glucuronide 55172 ng/mL REFERENCE VALUE Cutoff: 250 Ethyl Sulfate 34347 ng/mL REFERENCE VALUE Cutoff: 100 Ethyl Gluc/Sulfate [...] developed and its performance characteristics determined by [facility] in a manner consistent with CLIA requirements. This test has not been cleared or approved by the U.S. Food and Drug Administration. Test Performed by: [facility] [place] [place] [address] Clinical Care Manager: Ryne Matson M.D. Ph.D.; CLIA# [id number] 3 Please check labs 2 days before [...] before follow up 9 Test Performed by: [facility] [place] [address] Clinical Care Manager: Ryne Matson M.D. Ph.D.; CLIA# [id number] 10 Test Performed by: [place] [address] Clinical Care Manager: Ryne Matson M.D. Ph.D.; CLIA# [id number] 11 REFERENCE VALUE <30.0 (Negative) Test Performed by: [place] [address] Clinical Care Manager: Ryne Matson M.D. Ph.D.; CLIA# [id number] 12 [facility] Severe Sepsis and Septic Shock [...] immediately to secondary confirmatory testing. Using the [employer] DxI 800 Access Immunoassay systems, the 99th percentile upper reference limit was demonstrated to be < 0.03 ng/mL. 15 Therapeutic concentration: <50 ug/mL Toxic concentration: >120 ug/mL 16 *Ascorbic acid is present which may interfere with detection of blood. 17 SEE RESULT BELOW Name: BRISSA ALONSO : [address]: Nishant Sandra MD Acct: [id number] Unit: [id number] AGE: 63 Location: [facility] Re11/28/18 SEX: F Status: REG REF SPEC: [id number] LUIS: 11/28/18-[address] [facility] [address]: Nishant Sandra MD REQ: [id number] RECD: 11/28/18 STATUS: COMP _ SOURCE: URINE SPDESC: ORDERED: Urine Culture Procedure Result Reported Site Urine Culture Final 11/29/18- 1606 ML No Growth (<1,000 CFU/mL) * - Main Lab . END OF REPORT DEPARTMENT OF PATHOLOGY, [address] [place] [address] Amos Lozano M.D. Director [facility] # [id number] Procedures Description No Information Available Medical Devices Description No Information Available Encounters Type Date Location Provider Dx Diagnosis Office Visit 04/19/2019 [facility] Vern Platt MD F41.9 Anxiety disorder , 9:30a unspecified I10 Essential (primary) hypertension F10.929 Alcohol use, unspecified with intoxication, unspecified Office Visit 03/08/2019 10:15a [facility] Vern Platt MD I10 Essential ( primary) hypertension F41.9 Anxiety disorder, unspecified F10.11 Alcohol abuse, in remission Office Visit 02/06/2019 10:[address]a [facility] Main MELISSA Fox I10 Essential ( primary) hypertension Office Visit 01/16/2019 11:30a [facility] Main MELISSA Fox I10 Essential ( primary) hypertension Office Visit 12/31/2018 9:45a [facility] Vern Platt MD F41.9 Anxiety disorder, unspecified Office Visit 11/26/2018 11:45a [facility] Vern Platt MD F41.9 Anxiety disorder, unspecified Assessments Date Code Description Provider 05/22/2019 L98.9 Disorder of the skin and subcutaneous tissue, Aby Platt MD unspecified 04/19/2019 F41.9 Anxiety disorder, unspecified Aby Platt MD 04/19/2019 I10 Essential (primary) hypertension Aby Platt MD 04/19/2019 F10.929 Alcohol use, unspecified with intoxication, Aby Platt MD unspecified 03/08/2019 I10 Essential (primary) hypertension Aby Platt MD 03/08/2019 F41.9 Anxiety disorder, unspecified Aby Platt MD 03/08/2019 F10.11 Alcohol abuse, in remission Aby Platt MD 02/06/2019 I10 Essential (primary) hypertension MELISSA Fox 01/16/2019 I10 Essential (primary) hypertension MELISSA Fox 12/31/2018 F41.9 Anxiety disorder, unspecified Aby Platt MD 11/26/2018 F41.9 Anxiety disorder, unspecified Aby Platt MD Plan of Treatment 05/22/2019 - Aby Platt MDL98.9 Disorder of the skin and subcutaneous tissue, unspecifiedReferral:Rajni Cantu, Functional Status Description No Information Available Mental Status Description No Information Available Referrals Refer to Reason for Referral Status Appt Date Rajni Cantu Patient with lupus now having skin Created wounds/excoriations that are slow healing without infections. Patient interested in diagnosis if there is an underlying rash or concern as to why her skin has changed. [address] [place] [address] [phone] Patient [facility] Chronic pain in the setting of severe lupus. Scheduled Rajat Millard Type II diabetes and Graves disease- needing to transfer Sent care to a local marketing reporting analyst as she is not able to travel to see her old marketing reporting analyst This is a level 3 referral, which is defined by [facility] as needing to be seen within four weeks. [address] [place] [phone]
--- OUTSIDE RECORDS SUMMARY | 2019-06-07 10:20 | XMS REPORT | Continuity of Care Document ---
:1955 External Reference #:[id number] Author Name Aby Platt MD Address [address] [place] [address] Problems Active Problems Provider Date Tobacco dependence [...] Olaf Portillo MD Onset: 03/14/2019 Inactive Problems Abnormal glucose level Onset: 11/05/2018 Inactive: 11/05/2018 Edema Onset: 11/05/2018 Inactive: 11/05/2018 Diarrhea Onset: 11/05/2018 Inactive: 11/05/2018 Cough Onset: 11/05/2018 Inactive: 11/05/2018 Raynaud's phenomenon Onset: 10/24/2018 Inactive: 10/24/2018 Proteinuria Onset: 10/24/2018 Inactive: 10/24/2018 Loss of hair Onset: 10/24/2018 Inactive: 10/24/2018 Repetitive self-excoriation Onset: 10/24/2018 Inactive: 10/24/2018 Diet poor Onset: 10/24/2018 Inactive: 10/24/2018 Benign essential hypertension Onset: 10/24/2018 Inactive: 10/24/2018 Abdominal pain Onset: 12/10/2018 Inactive: 04/19/2019 Diarrhea Onset: 12/10/2018 Inactive: 04/19/2019 Pneumonia Olaf Portillo MD Onset: 03/14/2019 Inactive: 04/19/2019 Note: Admission Jan 2019, "intubated twice" Social History Type Date Description Comments Sex Female Tobacco Use Start: Unknown Light tobacco smoker (10 or fewer cigarettes/day) Smoking Status Reviewed: 04/19/19 Light tobacco smoker (10 or fewer cigarettes/day) Allergies, Adverse Reactions, Alerts Active Allergies Reaction Severity Comments Date Fioricet 12/01/2018 Methotrexate 12/17/2018 Beauregard 12/01/2018 Soma 12/01/2018 Sulfa Antibiotics 12/01/2018 Buspirone Hydrochloride rash (per old records) 11/23/2018 Ketorolac Tromethamine itching and rash (per 11/23/2018 old records) Beauregard Analogues anaphylaxis (per old 11/23/2018 records) Methotrexate [...] Liothyronine Sodium Take One Tablet 30tabs Aby Wineholt, 04/17/2019 5mcg By Mouth Once MD Tablets Daily Amlodipine Besylate oral; take 1 90tabs I10 Aby Wineholt, 03/08/2019 10mg tablet by mouth MD Tablets [...] 11/28/2018 80Unit/ML Gel Clonazepam take one tablet 56tabs Aby Giulia, 11/26/2018 1mg Tablets by mouth two MD times daily *maximum of two tablets daily* Gabapentin take one tablet 270tabs Nishant Sandra 10/24/2018 600mg Tablets by mouth three times a day Clonidine HCL 1 twice daily 180tabs Unknown 09/13/2018 0.2mg Tablets Oral Simvastatin 1 daily Oral 90tabs Unknown 09/13/2018 40mg Tablets CBD Asotin apply every 12 5units Nishant Sandra 08/23/2018 [...] Unknown 03/06/[address] every day Aripiprazole Unknown 2mg Tablets Naltrexone HCL Take 1/2 Tab By Unknown 50mg Tablets Mouth Every Day Am For 7 Days Then 1 Tab In The Morning Clonidine HCL Take 1 Tablet Unknown 0.1mg Tablets By Mouth Every 8 Hours Lamotrigine Unknown 200mg Tablets Levothyroxine Sodium Unknown 100mcg Tablets Cyclobenzaprine HCL Take 1 Tablet Unknown 5mg By Mouth AT Tablets Bedtime as Needed For Pain/Spasms/Ins omnia Levothyroxine Sodium 1 by mouth Unknown 100mcg every day Tablets Lamotrigine 1 by mouth Unknown 200mg Tablets twice a day Gabapentin 2 caps by mouth 60caps Unknown 400mg Capsules three times a day History Medications Cytomel 1 tab by mouth 30tabs Aby Platt MD 03/29/2019 - 5mcg Tablets daily 04/17/2019 Amlodipine Besylate 1 by mouth 30tabs I10 MELISSA Fox 02/06/2019 - every day 03/08/2019 5mg Tablets Gabapentin 2 three times Unknown 10/24/2018 - 300mg daily Oral 03/04/2019 Capsules Immunizations CPT Code Status Date Vaccine Lot # [id number] Given 08/23/2018 Prevnar 13 Vital Signs Date Vital Result Comment 04/19/2019 9:34am BP Systolic 144 mmHg BP Diastolic 96 mmHg Height 62.75 inches 5'2.75" Weight 141.00 lb Heart Rate 80 /min Body Temperature 98.4 F O2 % BldC Oximetry 99 % BMI (Body Mass Index) 25.2 kg/m2 03/08/2019 10:28am BP Systolic 142 mmHg BP Diastolic 84 mmHg Heart Rate 57 /min Body Temperature 97.2 F O2 % BldC Oximetry 99 % Results Test Acquired Facility Test Result H/L Range Note Date Laboratory 02/28/2019 [facility] Miscellaneous See 1 test finding [address] [place] [address] [phone] Laboratory 02/28/2019 [facility] Miscellaneous See 2 test finding [address] [place] [address] [phone] Laboratory 02/25/2019 [facility] TSH (Thyroid Stim 2.38 Normal 0.34-5.6 test finding 201 Horm) mcIU/mL 0 [place] [address] [phone] Comp Metabolic 02/25/2019 [facility] Sodium 137 mmol/L Normal 135-145 3 Panel [address] [place] [address] [phone] Potassium 4.4 mmol/L Normal 3.5-5.0 Chloride 105 [...] Egfr 73.2 >60 4 Laboratory test 02/25/2019 [facility] C Reactive 1.83 mg/L Normal <8.01 [address] [place] [address] [phone] CBC Auto Diff 02/25/2019 [facility] White Blood 5.1 Normal 3.5 -10.[address] Count 10^3/[place] [address] [phone] Red Blood Count 3.51 10^6/uL Low 3.70-4.87 [...] Blood Cells % 0.2 Laboratory test 02/25/2019 [facility] Erythrocyte Sed 50 mm/Hr High 0-29 [address] [place] [address] [phone] Complement C3 90 mg/dL 75 - 175 9 Complement C4 19 mg/dL 14 - 40 10 Anti Double Stranded Dna AB 16.0 IU/mL 11 T3,FT4,TSH 01/23/2019 N2N/CCD Import T3 Total Serum/Plasma MCNC 2.3 T4 Free Thyroxine Mass/Vol 0.38 TSH Thyroid Stimulating Horm 96.76 Lipid Panel 01/23/2019 N2N/CCD Import Cholesterol Total Mass/Vol 284 High Density Lipoprotein 70 LDL Cholesterol Mass/Vol 196 Triglycerides QN Ser/PLS MCNC 92 CBC Auto 12/20/2018 [facility] White Blood 4.6 10^3/uL Normal 3.5-10.[address] [place] [address] [phone] Red Blood Count 3.79 10^6/uL Normal 3.70-4.87 [...] Blood Cells % 0.1 Laboratory test 12/20/2018 [facility] Lactic Acid 1.1 mmol/L Normal 0.5-2.0 [address] [place] [address] [phone] Comp Metabolic 12/20/2018 [facility] Potassium 3.8 mmol/L Normal 3.5-5.[address] [place] [address] [phone] Co2 Carbon Dioxide 24 mmol/L Normal 22-32 [...] 10 mmol/L Normal 2-11 Laboratory test 12/20/2018 [facility] Creatine 74 U/L Normal 10-[address] [place] [address] [phone] Troponin I 0.01 ng/mL <0.04 14 Acetaminophen < 15 g/mL 15 Alcohol 340 mg/dL High <10 Salicylate < 2.50 mg/dL <30 TSH (Thyroid Stim Horm) 11.44 mcIU/mL High 0.34-5.60 Urinalysis Profile 11/28/2018 N2N/CCD Import Urine Color Yellow Urine Appearance Clear Urine Specific [place] 1.015 1 1.010-1.030 Urine pH 7.0 1 5-9 Urine Urobilinogen Negative Urine Ketones Negative Urine Protein 2+(100 mg/dL) Abnormal Urine Leukocytes Negative Urine Blood Negative * * Abnormal 16 Urine Nitrite Negative Urine Bilirubin Negative Urine Glucose Negative Urine White Blood Cell Trace(0-5/hpf) Urine Red Blood Cell 2+(6-10/hpf) Abnormal Urine Bacteria Absent Urine Squamous Epithelial Cell Present Abnormal Urine Culture And 11/28/2018 N2N/AfterShip Import Urine Culture See Result 17 Sensitivities Below Urinalysis Profile 10/25/2018 N2N/CCD Import Urine Color Yellow Urine Appearance Cloudy Urine Specific [place] 1.014 1 1.010-1.030 Urine pH 6.0 1 5-9 Urine Urobilinogen Negative Urine Ketones Negative Urine Protein 2+(100 mg/dL) Abnormal Urine Leukocytes Negative Urine Blood Negative * * Abnormal 18 Urine Nitrite Negative Urine Bilirubin Negative Urine Glucose Negative Urine White Blood Cell Absent Urine Red Blood Cell Absent Urine Bacteria Absent Urine Squamous Epithelial Cell Present Abnormal Urine Hyaline Casts Present Abnormal Lab Results 10/25/2018 N2N/AfterShip Import Erythrocyte Sed Rate 46 mm/Hr High 0-29 19 C Reactive Protein 14.82 mg/L High 20 CBC Auto Diff 10/25/2018 N2N/AfterShip Import White Blood Count 4.2 10^3/uL 3.5-10.8 [...] Cells % 0.0 1 Lab Results 10/25/2018 N2N/AfterShip Import Sodium 136 mmol/L 135-145 Chloride 104 [...] Egfr Non- 50.4 1 Egfr 61.0 1 21 Potassium 5.1 mmol/L High 3.5-5.0 Anion Gap 5 mmol/L 2-11 Anti Double Stranded Dna AB 13.7 IU/mL 22 Microalb/CR Ratio 10/24/2018 N2N/CCD Import Microalb/CR Ratio 30-300 Microalbumin, Ur 10/24/2018 N2N/CCD Import Microalbumin, Ur 150 _ Microalbumin 10/24/2018 N2N/CCD Import Microalbumin abnormal Interpretation Interpretation Bilirubin-Ua 10/24/2018 N2N/CCD Import Bilirubin-Ua Negative Negative - Negative Qual Blood-Ua 10/24/2018 N2N/CCD Import Blood-Ua Negative Negative - Negative Qual Glucose-Ua 10/24/2018 N2N/CCD Import Glucose-Ua Negative Negative - Negative Qual Ketones-Ua 10/24/2018 N2N/CCD Import Ketones-Ua Trace Negative - Negative Leuk Est-Ua 10/24/2018 N2N/CCD Import Leuk Est-Ua Negative Negative - Negative Qual Nitrite-Ua 10/24/2018 N2N/CCD Import Nitrite-Ua Negative Negative - Negative Qual PH-Ua 10/24/2018 N2N/CCD Import PH-Ua 5.5 _ 5 - 7 Protein-Ua 10/24/2018 N2N/CCD Import Protein-Ua 2+ SP Grav-Ua 10/24/2018 N2N/CCD Import SP Grav-Ua 1.030 _ 1.003 - 1.030 Urobilinogen-Ua 10/24/2018 N2N/CCD Import Urobilinogen-Ua neg Negative - Negative Creat, Ur Random 10/24/2018 N2N/CCD David Monroe Random 200 _ 1 Test Result Flag Unit RefValue Ethyl Glucuronide Scrn w/Reflex, U Ethyl Presumptive Positive A ng/mL Glucuronide Screen, U Drug confirmation to follow. Presumptive Positive means that the screening method is positive, but the test needs to be run by a confirmatory method. REFERENCE VALUE Cutoff: 500 ADDITIONAL INFORMATION This test was developed and its performance characteristics determined by [facility] in a manner consistent with CLIA requirements. This test has not been cleared or approved by the U.S. Food and Drug Administration. Test Performed by: [facility] [address] [place] [address] Motel Clerk: Ryne Matson M.D. Ph.D.; CLIA# [id number] 2 Test Result Flag Unit RefValue Ethyl Glucuronide Confirmation, U Ethyl Glucuronide 16096 ng/mL REFERENCE VALUE Cutoff: 250 Ethyl Sulfate 06891 ng/mL REFERENCE VALUE Cutoff: 100 Ethyl Gluc/Sulfate [...] developed and its performance characteristics determined by [facility] in a manner consistent with CLIA requirements. This test has not been cleared or approved by the U.S. Food and Drug Administration. Test Performed by: [facility] [place] [address] Motel Clerk: Ryne Matson M.D. Ph.D.; CLIA# [id number] 3 Please check labs 2 days before [...] before follow up 9 Test Performed by: [place] [address] Motel Clerk: Ryne Matson M.D. Ph.D.; CLIA# [id number] 10 Test Performed by: [place] [address] Motel Clerk: Ryne Matson M.D. Ph.D.; CLIA# [id number] 11 REFERENCE VALUE <30.0 (Negative) Test Performed by: [place] [address] Motel Clerk: Ryne Matson M.D. Ph.D.; CLIA# [id number] 12 [facility] Severe Sepsis and Septic Shock Management [...] immediately to secondary confirmatory testing. Using the Tractive DxI 800 Access Immunoassay systems, the 99th percentile upper reference limit was demonstrated to be < 0.03 ng/mL. 15 Therapeutic concentration: <50 ug/mL Toxic concentration: >120 ug/mL 16 *Ascorbic acid is present which may interfere with detection of blood. 17 SEE RESULT BELOW Name: BRISSA ALONSO : [address]: Nishant Sandra MD Acct: [id number] Unit: [id number] AGE: 63 Location: [facility] Re11/28/18 SEX: F Status: REG REF SPEC: [id number] LUIS: 11/28/18-[address] [facility] [address]: Nishant Sandra MD REQ: [id number] RECD: 11/28/18 STATUS: COMP _ SOURCE: URINE SPDESC: ORDERED: Urine Culture Procedure Result Reported Site Urine Culture Final 11/29/18- 1606 ML No Growth (<1,000 CFU/mL) * ML - Main Lab . END OF REPORT DEPARTMENT OF PATHOLOGY, [address] [place] [address] Amos Lozano M.D. Director [facility] # [id number] 18 *Ascorbic acid is present which may interfere with detection of blood. 19 Please check labs 2 days before follow up 20 Please check labs 2 days before follow up 21 Because ethnic data is not always [...] 15-29 5 Kidney failure <15 (or dialysis) 22 Please check labs 2 days before follow up Procedures Description No Information Available Medical Devices Description No Information Available Encounters Type Date Location Provider Dx Diagnosis Office Visit 04/19/2019 VAISHNAVI Platt MD F41.9 Anxiety disorder , 9:30a unspecified I10 Essential (primary) hypertension F10.929 Alcohol use, unspecified with intoxication, unspecified Office Visit 03/08/2019 10:15a [facility] Vern Platt MD I10 Essential ( primary) hypertension F41.9 Anxiety disorder, unspecified F10.11 Alcohol abuse, in remission Office Visit 02/06/2019 10:00a [facility] Main Lorna Stewart, [facility] I10 Essential ( primary) hypertension Office Visit 01/16/2019 11:30a [facility] Main Lorna Stewart [employer] I10 Essential ( primary) hypertension Office Visit 12/31/2018 9:45a [facility]M Vern Platt MD F41.9 Anxiety disorder, unspecified Office Visit 11/26/2018 11:45a [facility]M Vern Platt MD F41.9 Anxiety disorder, unspecified Assessments Date Code Description Provider 04/19/2019 F41.9 Anxiety disorder, unspecified Aby Platt MD 04/19/2019 I10 Essential (primary) hypertension Aby Platt MD 04/19/2019 F10.929 Alcohol use, unspecified with intoxication, Aby Platt MD unspecified 03/08/2019 I10 Essential (primary) hypertension Aby Platt MD 03/08/2019 F41.9 Anxiety disorder, unspecified Aby Platt MD 03/08/2019 F10.11 Alcohol abuse, in remission Aby Platt MD 02/06/2019 I10 Essential (primary) hypertension Lorna Stewart, [facility] 01/16/2019 I10 Essential (primary) hypertension Lorna Stewart [facility] 12/31/2018 F41.9 Anxiety disorder, unspecified Aby Platt MD 11/26/2018 F41.9 Anxiety disorder, unspecified Aby Platt MD Plan of Treatment No Information Available Functional Status Description No Information Available Mental Status Description No Information Available Referrals Refer to Dr Reason for Referral Status Appt Date Rajat Millard Type II diabetes and Graves disease- needing to Sent transfer care to a local training and development specialist as she is not able to travel to see her old training and development specialist This is a level 3 referral, which is defined by P as needing to be seen within four weeks. [address] [place] [address] [phone]
== END 2019-06-07 09:58 | disposition home or self-care (01) ==
LOC: ED 08:59
DX: R05 Cough (principal); F17.210 Nicotine dependence, cigarettes, uncomplicated; M32.9 Systemic lupus erythematosus, unspecified; E03.9 Hypothyroidism, unspecified; I11.0 Hypertensive heart disease with heart failure; I50.9 Heart failure, unspecified; F41.9 Anxiety disorder, unspecified; F43.10 Post-traumatic stress disorder, unspecified; Z79.890 Hormone replacement therapy; Z79.899 Other long term (current) drug therapy; Z88.2 Allergy status to sulfonamides; Z88.8 Allergy status to other drugs, medicaments and biological substances; G40.919 Epilepsy, unspecified, intractable, without status epilepticus; F10.20 Alcohol dependence, uncomplicated; I13.0 Hypertensive heart and chronic kidney disease with heart failure and stage 1 through stage 4 chronic kidney disease, or unspecified chronic kidney disease; N18.9 Chronic kidney disease, unspecified; R51 Headache
CPT/HCPCS: 99282

== ENCOUNTER 2019-06-07 11:53 | Emergency (ER) | payer MEDICARE, MEDICAID, OTHER ==
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
[2019-06-07 13:49] LABS: ABS Eosinophils 0.1 10^3/ul (0-0.6); ABS Lymphocytes 0.9 10^3/ul (1.0-4.8); ABS Monocytes 0.6 10^3/ul (0-0.8); ABS Neutrophils 3.3 10^3/ul (1.5-7.7); Eosinophil % 1.6 %; Hematocrit 39 % (35-47); Hemoglobin 13.5 g/dL (12.0-16.0); Lymphocyte % 17.9 %; Mean Corpuscular HGB Conc 35 g/dL (31-36); Mean Corpuscular Hemoglobin 33 pg (27-31); Mean Corpuscular Volume 96 fL (80-97); Mean Platelet Volume 8.9 fL (7.4-10.4); Platelet Count 162 10^3/uL (150-450); Red Blood Count 4.04 10^6 /uL (3.70-4.87); Red Cell Distribution Width 14 % (10-15)
[2019-06-07 14:12] LABS: Albumin 3.7 g/dL (3.2-5.2); Albumin/Globulin Ratio 1.2 (1-3); BUN/Creatinine Ratio 23.4 (8-20); Calcium 9.1 mg/dL (8.6-10.3); EGFR African American 59.7 (>60); EGFR Non-African American 49.3 (>60); Globulin 3.1 g/dL (2-4); Potassium 4.2 mmol/L (3.5-5.0); Total Bilirubin 0.4 mg/dL (0.2-1.0); Total Protein 6.8 g/dL (6.4-8.9)
[2019-06-07 15:19] VITALS: BP 182/89
== END 2019-06-07 15:19 | disposition home or self-care (01) ==
LOC: ED 11:53
DX: G40.919 Epilepsy, unspecified, intractable, without status epilepticus (principal); F10.20 Alcohol dependence, uncomplicated; M32.9 Systemic lupus erythematosus, unspecified; E03.9 Hypothyroidism, unspecified; I13.0 Hypertensive heart and chronic kidney disease with heart failure and stage 1 through stage 4 chronic kidney disease, or unspecified chronic kidney disease; I50.9 Heart failure, unspecified; N18.9 Chronic kidney disease, unspecified; R51 Headache; F17.210 Nicotine dependence, cigarettes, uncomplicated; Z79.890 Hormone replacement therapy; Z79.899 Other long term (current) drug therapy
CPT/HCPCS: 36415; 80053; 85025; 99284; J1642

== ENCOUNTER 2019-10-19 14:49 | Inpatient (IN) ==
[2019-10-19] MEDS ORDERED: Naloxone 0.4 mg VIAL 0.4 mg/ml 1 ml VIAL ONE (14:57)
[2019-10-19] MEDS ORDERED: Naloxone 0.4 mg VIAL 0.4 mg/ml 1 ml VIAL IV PUSH ONE (14:57)
[2019-10-19 15:27] LABS: ABS Eosinophils 0.1 10^3/ul (0-0.6); ABS Lymphocytes 1.5 10^3/ul (1.0-4.8); ABS Monocytes 0.4 10^3/ul (0-0.8); ABS Neutrophils 2.9 10^3/ul (1.5-7.7); Eosinophil % 2.5 %; Hematocrit 34 % (35-47); Hemoglobin 11.8 g/dL (12.0-16.0); Lymphocyte % 30.3 %; Mean Corpuscular HGB Conc 35 g/dL (31-36); Mean Corpuscular Hemoglobin 31 pg (27-31); Mean Corpuscular Volume 91 fL (80-97); Mean Platelet Volume 7.9 fL (7.4-10.4); Nucleated Red Blood Cells % 0.1; Platelet Count 195 10^3/uL (150-450); Red Blood Count 3.76 10^6 /uL (3.70-4.87); Red Cell Distribution Width 15 % (10-15); White Blood Count 4.9 10^3/uL (3.5-10.8)
[2019-10-19 15:45] LABS: ALT 35 U/L (7-52); AST 34 U/L (13-39); Albumin 3.2 g/dL (3.2-5.2); Albumin/Globulin Ratio 1.1 (1-3); Alkaline Phosphatase 63 U/L (34-104); Anion Gap 7 mmol/L (2-11); BUN/Creatinine Ratio 31.6 (8-20); Blood Urea Nitrogen 31 mg/dL (6-24); CO2 Carbon Dioxide 25 mmol/L (22-32); Calcium 8.7 mg/dL (8.6-10.3); Chloride 106 mmol/L (101-111); EGFR African American 68.7 (>60); EGFR Non-African American 56.8 (>60); Glucose 134 mg/dL (70-100); Potassium 4.7 mmol/L (3.5-5.0); Sodium 138 mmol/L (135-145); Total Protein 6.2 g/dL (6.4-8.9)
[2019-10-19] MEDS ORDERED: NS 0.9% 1000 ml BAG 1,000 ML IV ONE (15:49)
[2019-10-19 15:50] LABS: Troponin I 0.04 ng/mL (<0.03)
[2019-10-19 16:10] LABS: Acetaminophen < 15 mcg/mL; Alcohol, S 229 mg/dL (<10); Salicylate < 2.50 mg/dL (<30)
[2019-10-19 16:34] LABS: TSH Ultra Thyroid Stim Horm 0.02 mcIU/mL (0.34-5.60)
[2019-10-19 17:06] LABS: Creatine Kinase 83 U/L (10-223)
[2019-10-19 17:14] LABS: T4, Total 11.87 mcg/dL (6.09-12.23)
[2019-10-19] MEDS ORDERED: Lorazepam PYXIS KEY PRN (17:22)
[2019-10-19] MEDS ORDERED: Lactated Ringers 1000 ml BAG 1,000 ML IV SCH (18:00)
[2019-10-19] MEDS ORDERED: NS 0.9% 500 ml BAG 500 ML IV ONE (18:18)
[2019-10-19 18:37] LABS: ABS Eosinophils 0.1 10^3/ul (0-0.6); ABS Lymphocytes 1.2 10^3/ul (1.0-4.8); ABS Monocytes 0.3 10^3/ul (0-0.8); ABS Neutrophils 2.2 10^3/ul (1.5-7.7); Eosinophil % 2.5 %; Hematocrit 33 % (35-47); Hemoglobin 11.3 g/dL (12.0-16.0); Lymphocyte % 31.4 %; Mean Corpuscular HGB Conc 34 g/dL (31-36); Mean Corpuscular Hemoglobin 31 pg (27-31); Mean Corpuscular Volume 91 fL (80-97); Mean Platelet Volume 7.7 fL (7.4-10.4); Nucleated Red Blood Cells % 0.1; Platelet Count 179 10^3/uL (150-450); Red Blood Count 3.62 10^6 /uL (3.70-4.87); Red Cell Distribution Width 15 % (10-15); White Blood Count 3.8 10^3/uL (3.5-10.8)
[2019-10-19 18:55] LABS: Fibrinogen 358.8 mg/dL (110.8-404.3); INR 0.88 (0.82-1.09)
[2019-10-19 18:56] LABS: Troponin I 0.04 ng/mL (<0.03)
[2019-10-19 18:57] LABS: ALT 32 U/L (7-52); AST 32 U/L (13-39); Albumin 3.1 g/dL (3.2-5.2); Albumin/Globulin Ratio 1.1 (1-3); Alkaline Phosphatase 59 U/L (34-104); Anion Gap 9 mmol/L (2-11); BUN/Creatinine Ratio 32.3 (8-20); Blood Urea Nitrogen 30 mg/dL (6-24); CO2 Carbon Dioxide 23 mmol/L (22-32); Calcium 8.3 mg/dL (8.6-10.3); Chloride 108 mmol/L (101-111); Creatine Kinase 72 U/L (10-223); EGFR Non-African American 60.3 (>60); Globulin 2.7 g/dL (2-4); Glucose 130 mg/dL (70-100); Magnesium 1.8 mg/dL (1.9-2.7); Phosphorus 4.1 mg/dL (2.5-5.0); Potassium 4.2 mmol/L (3.5-5.0); Sodium 140 mmol/L (135-145); Total Protein 5.8 g/dL (6.4-8.9)
[2019-10-19 19:51] LABS: Urine Appearance Clear; Urine Bilirubin Negative (Negative); Urine Blood Negative (Negative); Urine Color Yellow; Urine Glucose Negative (Negative); Urine Ketones Negative (Negative); Urine Nitrite Negative (Negative); Urine Protein 3+(>=500 mg/dL) (Negative); Urine Specific Gravity 1.018 (1.010-1.030); Urine Urobilinogen Negative (Negative)
[2019-10-19 20:06] LABS: Urine Bacteria Absent (Absent); Urine Red Blood Cell Trace(0-2/hpf) (Absent); Urine White Blood Cell Trace(0-5/hpf) (Absent)
[2019-10-19 20:07] LABS: Urine Benzodiazepine Screen None Detected (None Detect); Urine Cannabinoids Screen Presumptive Positive (None Detect); Urine Opiates Screen None Detected (None Detect)
[2019-10-19] MEDS: Thiamine 100 MG/ML 2 ml VIAL 500 MG in NS 0.9% 250 ml 250 ML IV SCH (20:30)
[2019-10-19] MEDS: Pantoprazole VIAL 40 MG VIAL IV SCH (20:30)
[2019-10-19] MEDS ORDERED: Morphine 2 MG/ML SYRINGE IV ONE (23:11)
[2019-10-20] MEDS ORDERED: hydrALAZINE 20 mg/ml 1 ML Vial IV IV SLOW PU PRN (01:09)
[2019-10-20] MEDS: Thiamine 100 MG/ML 2 ml VIAL 500 MG in NS 0.9% 250 ml 250 ML IV SCH (01:34)
[2019-10-20] MEDS ORDERED: HYDROmorphone 0.5 MG/0.5 ML SYRINGE IV ONE (04:15)
[2019-10-20 06:12] LABS: ABS Eosinophils 0.1 10^3/ul (0-0.6); ABS Monocytes 0.4 10^3/ul (0-0.8); ABS Neutrophils 2.5 10^3/ul (1.5-7.7); Eosinophil % 2.4 %; Hematocrit 33 % (35-47); Hemoglobin 11.3 g/dL (12.0-16.0); Lymphocyte % 25.2 %; Mean Corpuscular HGB Conc 34 g/dL (31-36); Mean Corpuscular Hemoglobin 31 pg (27-31); Mean Corpuscular Volume 90 fL (80-97); Mean Platelet Volume 7.9 fL (7.4-10.4); Nucleated Red Blood Cells % 0.1; Platelet Count 145 10^3/uL (150-450); Red Blood Count 3.64 10^6 /uL (3.70-4.87); Red Cell Distribution Width 15 % (10-15); White Blood Count 4.1 10^3/uL (3.5-10.8)
[2019-10-20 06:21] LABS: ALT 30 U/L (7-52); AST 31 U/L (13-39); Albumin/Globulin Ratio 1.1 (1-3); Alkaline Phosphatase 66 U/L (34-104); Anion Gap 4 mmol/L (2-11); BUN/Creatinine Ratio 32.5 (8-20); Blood Urea Nitrogen 26 mg/dL (6-24); CO2 Carbon Dioxide 27 mmol/L (22-32); Calcium 8.5 mg/dL (8.6-10.3); Chloride 105 mmol/L (101-111); EGFR African American 86.8 (>60); EGFR Non-African American 71.8 (>60); Globulin 2.8 g/dL (2-4); Glucose 124 mg/dL (70-100); Magnesium 1.7 mg/dL (1.9-2.7); Phosphorus 4.4 mg/dL (2.5-5.0); Potassium 4.2 mmol/L (3.5-5.0); Sodium 136 mmol/L (135-145); Total Protein 5.8 g/dL (6.4-8.9)
[2019-10-20] MEDS: LORazepam 2 mg VIAL 1 ml IV PUSH PRN ×4 (08:18→22:13)
[2019-10-20] MEDS: Multivitamins/Minerals TAB PO SCH (08:18)
[2019-10-20] MEDS: Pantoprazole VIAL 40 MG VIAL IV SCH ×2 (08:18→22:13)
[2019-10-20] MEDS ORDERED: Magnesium Sulfate 2 gm BAG 2 GM/50 ML BAG IVPB ONE (09:55)
[2019-10-20 10:40] LABS: Creatine Kinase 66 U/L (10-223)
[2019-10-20 10:50] LABS: Troponin I 0.03 ng/mL (<0.03)
[2019-10-20] MEDS ORDERED: Butalb/Acetamin/Caff TAB 325-50-40MG PO ONE (13:10)
[2019-10-21] MEDS: LORazepam 2 mg VIAL 1 ml IV PUSH PRN ×2 (03:17→08:42)
[2019-10-21] MEDS: Pantoprazole VIAL 40 MG VIAL IV SCH (08:22)
[2019-10-21 08:23] VITALS: BP 111/81
[2019-10-21] MEDS: Multivitamins/Minerals TAB PO SCH (08:23)
== END 2019-10-21 11:20 | disposition left against medical advice (07) | DRG 917 ==
LOC: ED 14:49 → ICU 17:03 → MED 10-20 11:29
PROVIDERS: ADMIT Internal Medicine; ATTEND Student in an Organized Health Care Education/Training Program

== ENCOUNTER 2019-10-24 19:19 | Inpatient (IN) ==
[2019-10-24] MEDS ORDERED: Famotidine IV 10 MG/ML 2 ml VIAL (20 mg) IV SLOW PU ONE (19:49)
[2019-10-24] MEDS ORDERED: Lactated Ringers 1000 ml BAG 1,000 ML IV ONE (19:49)
[2019-10-24] MEDS ORDERED: Ondansetron 4 mg VIAL 2 MG/ML 2 ml VIAL IV ONE (19:49)
[2019-10-24] MEDS ORDERED: Diazepam INJ CARPUJECT 5 MG/ML IV ONE ×2 (19:59→21:08)
[2019-10-24 20:51] LABS: ABS Eosinophils 0.1 10^3/ul (0-0.6); ABS Lymphocytes 1.1 10^3/ul (1.0-4.8); ABS Monocytes 0.6 10^3/ul (0-0.8); ABS Neutrophils 4.1 10^3/ul (1.5-7.7); Eosinophil % 1.3 %; Hematocrit 37 % (35-47); Mean Corpuscular HGB Conc 35 g/dL (31-36); Mean Corpuscular Hemoglobin 31 pg (27-31); Mean Corpuscular Volume 90 fL (80-97); Mean Platelet Volume 8.2 fL (7.4-10.4); Platelet Count 197 10^3/uL (150-450); Red Blood Count 4.14 10^6 /uL (3.70-4.87); Red Cell Distribution Width 15 % (10-15)
[2019-10-24 20:58] LABS: Albumin 3.7 g/dL (3.2-5.2); Anion Gap 11 mmol/L (2-11); CO2 Carbon Dioxide 21 mmol/L (22-32); Calcium 9.6 mg/dL (8.6-10.3); Chloride 103 mmol/L (101-111); Indirect Bilirubin 0.2 mg/dL (0.3-1.0); Magnesium 1.8 mg/dL (1.9-2.7); Potassium 4.2 mmol/L (3.5-5.0); Sodium 135 mmol/L (135-145)
[2019-10-24 21:04] LABS: ALT 31 U/L (7-52); AST 35 U/L (13-39); Albumin/Globulin Ratio 0.9 (1-3); Alkaline Phosphatase 77 U/L (34-104); Blood Urea Nitrogen 32 mg/dL (6-24); Creatine Kinase 93 U/L (10-223); EGFR African American 45.9 (>60); EGFR Non-African American 37.9 (>60); Globulin 3.9 g/dL (2-4); Glucose 112 mg/dL (70-100); Lipase 17 U/L (11.0-82.0); Total Protein 7.6 g/dL (6.4-8.9)
[2019-10-24 21:31] LABS: TSH Ultra Thyroid Stim Horm 0.19 mcIU/mL (0.34-5.60)
[2019-10-24 21:35] LABS: Free T4 1.21 ng/dL (0.61-1.12)
[2019-10-24] MEDS ORDERED: Lorazepam PYXIS KEY PRN (21:41)
[2019-10-24] MEDS ORDERED: LORazepam 2 mg VIAL 1 ml IV PUSH ONE (21:41)
[2019-10-24 21:45] LABS: Alcohol, S < 10 mg/dL (<10)
[2019-10-24] MEDS ORDERED: Thiamine 100 MG/ML 2 ml VIAL 100 MG, Folic Acid 1 MG, Multiple Vitamin IV ADULT 10 ML i... IV ONE (21:46)
[2019-10-24 21:58] LABS: Urine Benzodiazepine Screen None Detected (None Detect); Urine Cannabinoids Screen None Detected (None Detect); Urine Opiates Screen None Detected (None Detect)
[2019-10-24 22:03] LABS: Troponin I 0.04 ng/mL (<0.03)
[2019-10-24] MEDS ORDERED: Magnesium Sulfate 2 gm BAG 2 GM/50 ML BAG IVPB ONE (22:30)
[2019-10-24] MEDS ORDERED: hydrALAZINE 20 mg/ml 1 ML Vial IV IV SLOW PU ONE (23:47)
[2019-10-25] LABS: Troponin I 0.05 ng/mL (<0.03)
[2019-10-25] MEDS ORDERED: Labetalol IV 5 MG/ML 20 ml VIAL IV PUSH PRN (00:45)
[2019-10-25] MEDS ORDERED: NS 0.9% 1000 ml BAG 1,000 ML IV SCH (00:45)
[2019-10-25 02:17] LABS: Total T3 96 ng/dL (87-178)
[2019-10-25] MEDS: Enoxaparin 40 MG/0.4 ML SYR SUBCUT SCH ×2 (03:12→20:06)
[2019-10-25] MEDS: Lactated Ringers 1000 ml BAG 1,000 ML IV SCH ×2 (03:23→13:26)
[2019-10-25] MEDS: LORazepam 2 mg VIAL 1 ml IV PUSH PRN ×3 (03:34→20:21)
[2019-10-25] MEDS: Labetalol IV 5 MG/ML 20 ml VIAL IV PUSH PRN ×3 (03:38→20:31)
[2019-10-25 06:48] LABS: Troponin I 0.04 ng/mL (<0.03)
[2019-10-25] MEDS: Nicotine PATCH 21 MG/24 HR PATCH TRANSDERM SCH (07:50)
[2019-10-25] MEDS: Multivitamins/Minerals TAB PO SCH (07:53)
[2019-10-26] MEDS: Lactated Ringers 1000 ml BAG 1,000 ML IV SCH (00:17)
[2019-10-26] MEDS: LORazepam 2 mg VIAL 1 ml IV PUSH PRN ×3 (03:12→17:07)
[2019-10-26] MEDS: Labetalol IV 5 MG/ML 20 ml VIAL IV PUSH PRN ×3 (03:18→17:06)
[2019-10-26] MEDS ORDERED: Benzocaine/Menthol LOZ MT PRN (03:25)
[2019-10-26 05:19] LABS: ABS Eosinophils 0.1 10^3/ul (0-0.6); ABS Monocytes 0.4 10^3/ul (0-0.8); Eosinophil % 2.8 %; Hematocrit 33 % (35-47); Hemoglobin 10.9 g/dL (12.0-16.0); Mean Corpuscular HGB Conc 33 g/dL (31-36); Mean Corpuscular Hemoglobin 31 pg (27-31); Mean Corpuscular Volume 91 fL (80-97); Mean Platelet Volume 8.3 fL (7.4-10.4); Platelet Count 134 10^3/uL (150-450); Red Blood Count 3.58 10^6 /uL (3.70-4.87); Red Cell Distribution Width 16 % (10-15); White Blood Count 2.5 10^3/uL (3.5-10.8)
[2019-10-26 05:34] LABS: Albumin 2.9 g/dL (3.2-5.2); Calcium 8.8 mg/dL (8.6-10.3); EGFR African American 79.9 (>60); Globulin 2.8 g/dL (2-4); Magnesium 1.7 mg/dL (1.9-2.7); Potassium 3.7 mmol/L (3.5-5.0); Total Bilirubin 0.3 mg/dL (0.2-1.0); Total Protein 5.7 g/dL (6.4-8.9)
[2019-10-26] MEDS ORDERED: Magnesium Sulfate 2 gm BAG 2 GM/50 ML BAG IVPB ONE (07:08)
[2019-10-26] MEDS: Nicotine PATCH 21 MG/24 HR PATCH TRANSDERM SCH (07:59)
[2019-10-26] MEDS: Multivitamins/Minerals TAB PO SCH (07:59)
[2019-10-26] MEDS: Ondansetron 4 mg VIAL 2 MG/ML 2 ml VIAL IV PRN (11:09)
[2019-10-26] MEDS ORDERED: cloNIDine 0.1 MG PATCH 0.1 MG/24 HR 7 DAY PATCH TRANSDERM SCH (13:00)
[2019-10-26] MEDS ORDERED: Lisinopril/HCTZ 10/12.5 TA(NF) PO SCH (13:00)
[2019-10-26 14:54] LABS: Urine Appearance Cloudy; Urine Bilirubin Negative (Negative); Urine Blood Negative (Negative); Urine Color Yellow; Urine Glucose Negative (Negative); Urine Ketones Negative (Negative); Urine Nitrite Negative (Negative); Urine Protein 2+(100 mg/dL) (Negative); Urine Specific Gravity 1.009 (1.010-1.030); Urine Urobilinogen Negative (Negative)
[2019-10-26 14:59] LABS: Urine Bacteria Absent (Absent); Urine Red Blood Cell Absent (Absent); Urine Squamous Epithelial Cell Present (Absent); Urine White Blood Cell Trace(0-5/hpf) (Absent)
[2019-10-26] MEDS: Enoxaparin 40 MG/0.4 ML SYR SUBCUT SCH (20:21)
[2019-10-26] MEDS ORDERED: Prochlorperazine 5 mg/ml 2 ml VIAL (10 mg) IV ONE (20:52)
[2019-10-27 06:51] LABS: ABS Eosinophils 0.1 10^3/ul (0-0.6); ABS Lymphocytes 1.1 10^3/ul (1.0-4.8); ABS Monocytes 0.3 10^3/ul (0-0.8); ABS Neutrophils 1.3 10^3/ul (1.5-7.7); Eosinophil % 3.8 %; Hematocrit 33 % (35-47); Hemoglobin 11.3 g/dL (12.0-16.0); Lymphocyte % 38.8 %; Mean Corpuscular HGB Conc 34 g/dL (31-36); Mean Corpuscular Hemoglobin 31 pg (27-31); Mean Corpuscular Volume 91 fL (80-97); Mean Platelet Volume 8.1 fL (7.4-10.4); Nucleated Red Blood Cells % 0.1; Platelet Count 139 10^3/uL (150-450); Red Blood Count 3.61 10^6 /uL (3.70-4.87); Red Cell Distribution Width 15 % (10-15); White Blood Count 2.9 10^3/uL (3.5-10.8)
[2019-10-27 07:11] LABS: BUN/Creatinine Ratio 15.5 (8-20); EGFR African American 64.9 (>60); EGFR Non-African American 53.6 (>60); Phosphorus 4.5 mg/dL (2.5-5.0); Potassium 4.3 mmol/L (3.5-5.0)
[2019-10-27] MEDS: Labetalol IV 5 MG/ML 20 ml VIAL IV PUSH PRN (08:03)
[2019-10-27] MEDS: Multivitamins/Minerals TAB PO SCH (08:06)
[2019-10-27] MEDS: Nicotine PATCH 21 MG/24 HR PATCH TRANSDERM SCH (08:15)
[2019-10-27] MEDS ORDERED: Polyethylene Glycol 3350 17 GM PACKET PO PRN (10:01)
[2019-10-27] MEDS ORDERED: Lorazepam PYXIS KEY PRN ×3 (10:39→22:27)
[2019-10-27] MEDS ORDERED: LORazepam 2 mg VIAL 1 ml IV PUSH ONE ×5 (10:39→22:27)
[2019-10-27] MEDS: Ondansetron 4 mg VIAL 2 MG/ML 2 ml VIAL IV PRN (11:26)
[2019-10-27] MEDS ORDERED: LORazepam 2 mg VIAL 1 ml ONE ×3 (13:03→22:26)
[2019-10-27] MEDS ORDERED: LORazepam 2 mg VIAL 1 ml IV PUSH PRN (14:54)
[2019-10-27 22:24] LABS: Albumin 3.3 g/dL (3.2-5.2); Albumin/Globulin Ratio 1.1 (1-3); BUN/Creatinine Ratio 16.1 (8-20); Calcium 9.2 mg/dL (8.6-10.3); EGFR African American 46.7 (>60); EGFR Non-African American 38.6 (>60); Globulin 3.1 g/dL (2-4); Potassium 5.7 mmol/L (3.5-5.0); Total Bilirubin 0.2 mg/dL (0.2-1.0); Total Protein 6.4 g/dL (6.4-8.9)
[2019-10-27] MEDS ORDERED: Lorazepam PYXIS KEY ONE (22:26)
[2019-10-27] MEDS ORDERED: Sodium Polystyrene ORAL.SUSP 15 GM/60 ML BTL PO ONE ×2 (22:28→22:41)
[2019-10-27] MEDS ORDERED: CALCIUM GLUCONATE 1GM/50ML NS 1 GM/50 ML BAG IV ONE ×2 (22:28→22:41)
[2019-10-27] MEDS ORDERED: Dextrose 50% Syringe 50 ml 25 GM/50 ML SYRINGE IV PUSH PRN (22:41)
[2019-10-27] MEDS: Enoxaparin 40 MG/0.4 ML SYR SUBCUT SCH (22:45)
[2019-10-27] MEDS ORDERED: Valproic Acid IV 100 MG/ML 5 ML VIAL (500 MG) IVPB ONE (22:55)
[2019-10-28] MEDS ORDERED: Valproic Acid IV 1,000 MG in NS 0.9% 100 ml BAG 100 ML IVPB ONE
[2019-10-28] MEDS ORDERED: Dextrose 50% Syringe 50 ml 25 GM/50 ML SYRINGE IV PUSH ONE (00:11)
[2019-10-28] MEDS ORDERED: Dextrose 50% Syringe 50 ml 25 GM/50 ML SYRINGE ONE (00:12)
[2019-10-28 00:49] LABS: Urine Appearance Clear; Urine Bilirubin Negative (Negative); Urine Blood Negative (Negative); Urine Color Yellow; Urine Glucose Negative (Negative); Urine Ketones Negative (Negative); Urine Nitrite Negative (Negative); Urine Protein 2+(100 mg/dL) (Negative); Urine Specific Gravity 1.013 (1.010-1.030); Urine Urobilinogen Negative (Negative)
[2019-10-28 00:51] LABS: Urine Bacteria Absent (Absent); Urine Red Blood Cell Trace(0-2/hpf) (Absent); Urine Squamous Epithelial Cell Present (Absent); Urine White Blood Cell Trace(0-5/hpf) (Absent)
[2019-10-28 02:46] LABS: Calcium 9.4 mg/dL (8.6-10.3); EGFR African American 53.4 (>60); EGFR Non-African American 44.1 (>60)
[2019-10-28] MEDS: Labetalol IV 5 MG/ML 20 ml VIAL IV PUSH PRN (03:35)
[2019-10-28] MEDS ORDERED: hydrALAZINE 20 mg/ml 1 ML Vial IV IV SLOW PU PRN (03:44)
[2019-10-28] MEDS ORDERED: Valproic Acid IV 250 MG in NS 0.9% 100 ml BAG 100 ML IVPB SCH (06:00)
[2019-10-28] MEDS ORDERED: Valproic Acid IV 100 MG/ML 5 ML VIAL (500 MG) IVPB SCH (06:00)
[2019-10-28 06:13] LABS: ABS Eosinophils 0.1 10^3/ul (0-0.6); ABS Lymphocytes 1.2 10^3/ul (1.0-4.8); ABS Monocytes 0.3 10^3/ul (0-0.8); ABS Neutrophils 1.4 10^3/ul (1.5-7.7); Eosinophil % 4.5 %; Hematocrit 35 % (35-47); Lymphocyte % 38.7 %; Mean Corpuscular HGB Conc 34 g/dL (31-36); Mean Corpuscular Hemoglobin 31 pg (27-31); Mean Corpuscular Volume 92 fL (80-97); Mean Platelet Volume 8.4 fL (7.4-10.4); Platelet Count 148 10^3/uL (150-450); Red Blood Count 3.83 10^6 /uL (3.70-4.87); Red Cell Distribution Width 15 % (10-15); White Blood Count 3.1 10^3/uL (3.5-10.8)
[2019-10-28 06:32] LABS: BUN/Creatinine Ratio 16.9 (8-20); Calcium 9.1 mg/dL (8.6-10.3); EGFR African American 55.5 (>60); EGFR Non-African American 45.8 (>60); Magnesium 1.9 mg/dL (1.9-2.7); Potassium 4.9 mmol/L (3.5-5.0); Total Bilirubin 0.2 mg/dL (0.2-1.0)
[2019-10-28] MEDS: Nicotine PATCH 21 MG/24 HR PATCH TRANSDERM SCH (08:31)
[2019-10-28] MEDS: Multivitamins/Minerals TAB PO SCH (08:32)
[2019-10-28] MEDS ORDERED: OLANzapine 5 mg TAB*ODT PO ONE (11:00)
[2019-10-28 12:31] VITALS: BP 126/62
== END 2019-10-28 14:00 | disposition left against medical advice (07) | DRG 305 ==
LOC: ED 19:19 → MEDTELE 10-25 01:14 → ICU 10-27 22:29
PROVIDERS: ADMIT Internal Medicine; ATTEND Surgery Surgical Critical Care